=== PATIENT | male | born 1940 | race Caucasian/White ===

== ENCOUNTER 2019-10-14 15:35 | Outpatient (CLI) | payer MEDICARE, OTHER, SELFPAY ==
--- NOTE | 2019-10-14 15:52 | USCV_ITS ---
Madi Gonzalez Age: 79 Gender: M : 1940 Exam Date: 10/14/2019 15:46 Ordering Phys: Roopa Hu DO Technologist: Yan Rivera [place] [facility] [place] BILAT SWELLING HISTORY: Lower extremity swelling. PROCEDURES: The venous duplex Doppler examination of both lower extremities was performed in the standard fashion. The following venous structures were evaluated: common femoral vein, profunda vein, proximal portion of the greater saphenous vein, superficial femoral vein, and the popliteal vein. In addition, the posterior tibial and peroneal trunk were evaluated. Bilaterally, the common femoral, superficial femoral, profunda femoral, popliteal, posterior tibial, greater saphenous veins, and the peroneal trunk were identified and interrogated in the standard fashion. These veins were found to be easily compressible with spontaneous blood flow. No evidence of insufficiency or thrombus noted. FINDINGS: Normal 2-D Doppler and augmentation and compressibility throughout the lower extremity venous structures. Additional imaging through the proximal calf veins also reveals no thrombus. Limited evaluation of the greater saphenous vein is patent with no thrombus.. CONCLUSIONS No evidence of right lower extremity DVT. No evidence of left lower extremity DVT. Jun Londono MD (Electronically Signed) Final Date: 14 October 2019 17:08 S
== END 2019-10-14 15:36 | disposition home or self-care (01) ==
LOC: RAD 15:44
PROVIDERS: Visit Provider Family Medicine
DX: M79.604 Pain in right leg (principal); M79.89 Other specified soft tissue disorders; M79.605 Pain in left leg
CPT/HCPCS: 93970

== ENCOUNTER 2020-07-30 13:09 | Day surgery (SDC) | payer MEDICARE, OTHER, SELFPAY ==
[2020-07-30] VITALS (8 sets, daily range): BP systolic 90–125; BP diastolic 47–73; PULSE 68–87; RESP 15–23; TEMP 36.2–36.9; O2SAT 95–100; BMI 18.5
--- NOTE | 2020-07-30 13:11 | ECG_ITS ---
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 Measurements Intervals [place] Rate: 80 P: 93 DE: 214 QRS: 78 QRSD: 97 T: 67 QT: 361 QTc: 417 Interpretive Statements SINUS RHYTHM WITH FIRST DEGREE AV BLOCK MODERATE ST DEPRESSION [0.05+ mV ST DEPRESSION] No previous ECG available for comparison Electronically Signed On 07-30-2020 16:45:58 CDT by Mic Mcclure M.D. [id number]
--- NOTE | 2020-07-30 13:19 | ED_ITS ---
HPI - General Adult General: Chief complaint: Epistaxis Stated complaint: NOSEBLEED Time Seen by Provider: 07/30/20 13:11 History of Present Illness: HPI narrative: This patient is a 79-year-old male who presents with the emergency department with severe Apetex is from transfer from [facility]. Patient apparently had a ENT surgery of the sinus cavity Dr. Darcy RICHARDS. His ENT doctor is out of town. Patient had significant nosebleed and unable to stop the Rhino Rocket Afrin nasal spray or TXA. Patient does take Eliquis daily. Patient bleeding was pretty significantly for the past couple hours. Discussed at length with Dr. Dawson he is on his way to see the patient. ENT cart at the bedside. Type and screen ordered. Continue to monitor and to ENT arrives. Associated symptoms: Deny chest pain, dyspnea, headache(s), nausea, rash, palpitations or vomiting Review of Systems General: Reports: 10 or more systems reviewed and unremarkable except in HPI and below Const: Denies: fever(s), chills, body aches or fatigue Eyes: Denies: change in vision or blurry vision ENMT: Reports: epistaxis; Denies: throat pain, hoarseness or mouth pain Card: Denies: chest pain, palpitations, irregular heart rhythm, edema, swelling of feet/ankles or lightheadedness Resp: Denies: dyspnea, productive cough, non-productive cough, wheezing or pain on inspiration GI: Denies: abdominal pain, nausea or vomiting : Denies: flank pain, dysuria, urinary frequency, urinary urgency or urinary hesitancy Musc: Denies: neck pain, back pain, extremity pain, extremity swelling, joint pain, joint swelling, joint redness, joint warmth or limited range of motion Skin/Breast: Denies: rash, pruritus, erythema or skin tenderness Neuro: Denies: headache(s), numbness in extremities or weakness in extremities Psych: Denies: anxiety or depression Physical Exam Const: COMMON NORMALS: no acute distress, average body habitus, patient oriented x3, no limitations, healthy appearing, alert and well nourished HENMT: COMMON NORMALS: normocephalic, atraumatic, hearing grossly normal bilaterally, external ears normal, EAC's normal, TM's normal bilaterally, moist oral mucous membranes, oropharynx normal, dentition normal and gingiva normal HEAD & SCALP: normocephalic and atraumatic NOSE: Epistaxis present (Severe episode nosebleed. Nasal clamps in place. ) bilaterally and Other nasal findings present (Patient appears to be bleeding posteriorly.) EXTERNAL EAR: Yes external ears normal EXTERNAL AUDITORY CANAL: EAC's normal TYMPANIC MEMBRANE: TM's normal bilaterally Neck/C-Spine: COMMON NORMALS: full ROM, no lymphadenopathy, supple, no meningeal signs, no JVD, Thyroid normal and No carotid bruits THYROID: Thyroid normal Chest: COMMONS NORMALS: normal inspection of the chest, normal palpation of entire chest wall, normal inspection of the breasts and normal palpation of the breasts Breast/axilla inspection: Yes normal inspection of the breasts BREAST/AXILLA PALPATION: Yes normal palpation of the breasts Resp: COMMON NORMALS: normal respiratory effort, No retractions, No use of accessory muscles, clear to auscultation bilaterally and percussion normal AUSCULTATION: clear to auscultation bilaterally PERCUSSION: percussion normal Cardio: COMMON NORMALS: no JVD, regular rate, regular rhythm, S1 normal heart sound present, S2 normal heart sound present, No gallops present (Cardio), No clicks present (Cardio), No murmurs present (Cardio), No rub (Cardio) and Peripheral pulses 2+ throughout RATE: regular rate RHYTHM: regular rhythm HEART SOUNDS: S1 normal heart sound present and S2 normal heart sound present PERIPHERAL PULSES: Peripheral pulses 2+ throughout GI: COMMON NORMALS: Normal to inspection, nondistended, normoactive bowel sounds present, Soft to palpation, non-tender, No hepatosplenomegaly present, no masses and no bruits PALPATION: Yes Soft to palpation and Yes No hepatosplenomegaly present : COMMON NORMALS: Yes no CVA tenderness BLADDER/KIDNEY EXAM: Yes no CVA tenderness Back/Pelvis: COMMON NORMALS: no CVA tenderness, thoracic and lumbar spine normal to inspection, no thoracic nor lumbar tenderness, thoraco-lumbar ROM normal and straight leg raise negative bilaterally Extremity: COMMON NORMALS: normal to inspection, full ROM, capillary refill normal, no joint enlargement, no clubbing, cyanosis or edema, no calf tenderness and no pedal edema Neuro: COMMON NORMALS: patient oriented x3 SENSORIUM/ORIENTATION: Yes alert MENINGEAL SIGNS: Yes no meningeal signs Course Consultations: Consultation #1: Dr. Dawson ENT is now at the bedside and assumes care. ENT cart at the bedside for Dr. Dawson. Time: 13:20 Consultation #2: Dr. Dawson request the patient be given Ancef. States he will admit to the OR to do procedure. For posterior nosebleed. Kcentra has been ordered to reverse Eliquis. Vital Signs: Vital signs: Vital Signs Temperature 98.4 F 07/30/20 13:11 Pulse Rate 87 07/30/20 13:11 Respiratory Rate 20 H 07/30/20 13:11 Blood Pressure 104/60 07/30/20 13:11 Pulse Oximetry 96 07/30/20 13:11 MDM - General Adult MDM Narrative: Medical decision making narrative: This patient is a 79-year-old male who presents with the emergency department with severe Apetex is from transfer from [facility]. Patient apparently had a ENT surgery of the sinus cavity Dr. Darcy RICHARDS. His ENT doctor is out of town. Patient had significant nosebleed and unable to stop the Rhino Rocket Afrin nasal spray or TXA. Patient does take Eliquis daily. Patient bleeding was pretty significantly for the past couple hours. Discussed at length with Dr. Dawson he is on his way to see the patient. ENT cart at the bedside. Type and screen ordered. Dr. Dawson request the patient be given Ancef. States he will admit to the OR to do procedure. For posterior nosebleed. Kcentra has been ordered to reverse Eliquis. Lab Data: Labs: Lab Results 07/30/20 Range/Units 13:29 WBC 6.9 (4.0-10.0) 10^3/ uL RBC 3.21 L (4.1-5.3) 10^6/u L Hgb 10.1 L (11.7-16.6) g/dL Hct 30.9 L (42.0-52.0) % MCV 96.3 H (80-94) fL MCH 31.5 (28.0-34.0) pg MCHC 32.7 (30.0-36.0) g/dL RDW 13.6 (12.1-15.1) % Plt Count 223 (130-400) 10^3/c mm MPV 9.2 (7.4-10.4) fL Neut % (Auto) 66.9 % Lymph % (Auto) 20.4 % [place] % (Auto) 9.3 % Eos % (Auto) 1.9 % Baso % (Auto) 0.6 % Neut # (Auto) 4.60 (1.8-7.7) 10^3/u L Lymph # (Auto) 1.4 (0.8-4.8) 10^3/u L [place] # (Auto) 0.6 (0.2-0.9) 10^3/u L Eos # (Auto) 0.1 (0.0-0.8) 10^3/u L Baso # (Auto) 0.0 (0.0-0.1) 10^3/u L Nucleated RBC % (a uto) 0 % Nucleated RBCs # 0.0 /100WBC EKG Data^: EKG 1: Attestation: I personally reviewed and interpreted this EKG as follows: EKG interpretation date: 07/30/20 EKG interpretation time: 13:40 Prior EKG tracings: not available for review Interpretation: Sinus rhythm with an AV block heart rate 80. Discharge Plan Discharge Patient Disposition: Placed in Observation Clinical Impression: Epistaxis Coding Level of Care Code ED [facility] Justice for [place] Fwd Exam Comprehensive
[2020-07-30 13:39] LABS: Basophils % 0.6 %; Eosinophils # 0.1 10^3/uL (0.0-0.8); Eosinophils % 1.9 %; Hematocrit 30.9 % (42.0-52.0); Hemoglobin 10.1 g/dL (11.7-16.6); Lymphocytes # 1.4 10^3/uL (0.8-4.8); Lymphocytes % 20.4 %; Mean Corpuscular HGB Conc 32.7 g/dL (30.0-36.0); Mean Corpuscular Hemoglobin 31.5 pg (28.0-34.0); Mean Corpuscular Volume 96.3 fL (80-94); Mean Platelet Volume 9.2 fL (7.4-10.4); Monocytes # 0.6 10^3/uL (0.2-0.9); Monocytes % 9.3 %; Neutrophils % 66.9 %; Nucleated Red Blood Cells % 0 %; Platelet Count 223 10^3/cmm (130-400); Red Blood Count 3.21 10^6/uL (4.1-5.3); Red Cell Distribution Width 13.6 % (12.1-15.1); White Blood Count 6.9 10^3/uL (4.0-10.0)
[2020-07-30 13:58] LABS: Partial Thromboplastin Time 39.6 SECONDS (23.9-36.7)
[2020-07-30 14:01] LABS: Alanine Aminotransferase 9 U/L (0-41); Albumin Level 3.7 g/dL (3.5-5.2); Alkaline Phosphatase 71 IU/L (40-130); Anion Gap 14.6 (5-19); Aspartate Amino Transferase 17 U/L (0-40); Blood Urea Nitrogen 32 mg/dL (8-23); Carbon Dioxide 23 mmol/L (22-29); Chloride 106 mmol/L (98-107); Globulin 1.6 g/dL (1.3-4.6); Glucose 146 mg/dL (65-115); Osmolality Calculated 298 mOsm/kg (285-295); Potassium 4.6 mmol/L (3.5-5.1); Sodium 139 mmol/L (136-145); Total Bilirubin 0.3 mg/dL (0.15-1.2); Total Protein 5.3 g/dL (6.6-8.7)
[2020-07-30] MEDS: oxymetazoline 0.05% Nasal Spray 15 mL 2 SPRAY NOSTRIL-B (14:03)
[2020-07-30] MEDS: neomycin-poly-bacitracin oint 0.9 gm Pkt 1 APPLIC TOPICAL (15:00)
[2020-07-30] MEDS: oxymetazoline 0.05% Nasal Spray 15 mL 3 SPRAY NOSTRIL-B (15:00)
--- NOTE | 2020-07-30 15:17 | PM.CONSULT ---
Providers/Reason For Consult Consulting Physician/Specialty*: Efrain Dawson MD Reason for Consult*: Persistent posterior epistaxis. Attending Physician: Efrain Dawson MD History of Present Illness History of Present Illness Madi Gonzalez is a [address] Samir Dawson who did to the emergency room referred by a physician in [place] after he failed to be able to control epistaxis which began about 930 this morning. 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 Watts. The patient could not get the bleeding to stop at home and went to the physician's office. There they were not able to control the bleeding with several types of packing and medications that were applied. Therefore the patient had a clip applied to the nose and since Dr. Watts is out of town I excepted the patient and advised him to come to the emergency room where I would take over and do what is necessary to control his bleeding. Review of Systems General: Reports: ROS unobtainable due to medical condition Meds/Allergies Home Medications and Allergies Home Medications Medication Instructions Recorded Confirmed Last Taken Type acyclovir 800 mg PO DAILY 07/30/20 07/30/20 Unknown History albuterol sulfate 2.5 mg INHALATION Q4H PRN 07/30/20 07/30/20 Unknown History alfuzosin 10 mg PO DAILY 07/30/20 07/30/20 Unknown History apixaban [Eliquis] 5 mg PO BID 07/30/20 07/30/20 Unknown History azelastine 137 mcg INTRANASAL BID 07/30/20 07/30/20 Unknown History ezetimibe 10 mg PO DAILY 07/30/20 07/30/20 Unknown History furosemide 20 mg PO DAILY 07/30/20 07/30/20 Unknown History gemfibrozil 600 mg PO BID 07/30/20 07/30/20 Unknown History levothyroxine 75 mcg PO DAILY 07/30/20 07/30/20 Unknown History pramipexole 1 mg PO DAILY 07/30/20 07/30/20 Unknown History trazodone 100 mg PO BEDTIME 07/30/20 07/30/20 Unknown History Vitals/I&O/Wt Last Vital Signs Temp 98.4 F 07/30/20 13:11 Pulse 80 07/30/20 13:50 Resp 18 07/30/20 13:50 BP 90/51 07/30/20 13:50 Pulse Ox 95 07/30/20 13:50 07/30/20 07/30/20 07/30/20 06:59 14:59 22:59 Intake Total 50 / 50 Balance 50 / 50 Weight last 48 hrs Weight 148 lb Physical Exam Narrative: EXAM NARRATIVE: 79-year-old male patient in distress but alert cooperative and oriented x3. He is bleeding from the posterior nose and oropharynx. He is sitting with his head elevated on a gurney in the emergency room. He is suctioning blood from his mouth constantly. There is a visible bucket of blood that he is spit up in addition to that which contains about 150 mL. The clip is in place on his nose. It is evident that equipment necessary to do a reasonable attempt at controlling the bleeding in the emergency room was not at hand. Therefore the patient is going to go to the operating room to have this procedure accomplished. Defer to the emergency room note for remainder of physical examination. A&P Assessment and plan (1) Posterior epistaxis: Assessment: Posterior epistaxis from both sides of the nose draining posteriorly as the anterior nose is clamped. No packing is in place. Since it is uncontrolled in spite of multiple attempts in [place] I feel its best to proceed to the operating room. This patient did have a septoplasty and turbinate reduction done about [address] Bills. Plan: The patient will be taken emergently to the operating room to undergo exploration and endoscopic control of persistent epistaxis. The procedure was explained to the patient's and to the patient himself. They understand that risk will be very similar to what they were when he had his nasal surgery done about a month ago. He will likely have his nose packed afterwards. Status: Acute Coding Level of Care Code New Pt Acute Technical Services Specialist for Chg Fwd Patient Type New History Expanded Problem Focused Exam Expanded Problem Focused Medical Decision Making High Complexity Diagnoses Posterior epistaxis R04.0
--- NOTE | 2020-07-30 15:18 | SUR.PHASEI ---
1511 PATIENT TO PACU FROM OR. NASAL PACKING IN DOUGLAS NARES. PATIENT RR EVEN AND UNLABORED.
--- NOTE | 2020-07-30 15:19 | P.PCN_ITS ---
PACU note PACU note: VSS, Good respiratory effort, report to DENTURE WAXER Post-Anesthesia Exam: awake
--- NOTE | 2020-07-30 15:19 | PM.PACU ---
PACU note PACU note: VSS, Good respiratory effort, report to VP TRAINING Post-Anesthesia Exam: awake
--- NOTE | 2020-07-30 15:20 | ANE.PACU2 ---
Inpatient post-anesthesia follow up: Airway intact: Yes Vital signs: Temperature 98.4 F Pulse Rate [Monito r] 87 Pulse Rate 80 Respiratory Rate 18 Blood Pressure [Ri ght Arm] 104/60 Blood Pressure 90/51 Pulse Oximetry 95 Oxygen Delivery Me thod Room Air Oxygen Flow Rate Fraction of Inspir ed Oxygen Hydration adequate: Yes Nausea and vomiting: No Pain level: 2 Mental status: Baseline
--- NOTE | 2020-07-30 15:27 | PM.OP ---
Operative Report Date of procedure: July 30, 2020 Pre-op Diagnosis: Persistent bilateral posterior epistaxis Post-op diagnosis: same Post-op Findings: The patient was noted to have multiple areas of bleeding after application of Afrin and injection in the left side with 3 mL of 2% Xylocaine with 1-100,000 epinephrine. This was also injected into the greater palate teen canal. After removal of all clots sites were noted bleeding in the middle meatus and in the region of the sphenopalatine artery. On the right side he was bleeding from posteriorly in the nasopharynx and on the inferior turbinate. Procedure Done: Endoscopic control of bilateral posterior epistaxis. Pathology: none sent Surgeon: Efrain Dawson Anesthesia: General and Local Estimated blood loss (mL): 25 Estimated blood loss: A large clot was removed at the beginning of the procedure that would measure approximately 200 mL of clotted blood which probably has been present in that location since this morning. That would not be included in the operative total. Complications: No complications were encountered. Findings: Findings were large clots in the posterior nasal area choana nasopharynx hanging down below the palate into the mouth. This was removed and measured approximately 200 mL of blood loss which would have occurred during the initial bleed and stayed present throughout. With this removed ball valving of this clot would end. The bleeding sites were noted bilaterally with the largest one on the sphenopalatine artery region on the left side. The procedure risks and complications were explained to the patient and his . Informed consent was granted by the as the patient was in acute distress. Condition: stable Disposition: PACU Brief History: 79-year-old male patient with persistent posterior epistaxis from both sides unable to stop with multiple conservative attempts in the emergency room at [place]. Patient therefore sent for urgent care at [facility]. Patient did have a septoplasty and turbinate reduction performed about [address] Bills's office. Dr. Watts was out of town and not able to attend this patient. Procedure: Description of procedure. The patient was placed on the operating table in supine position. Adequate general endotracheal tube anesthesia was obtained. The patient received Ancef 2 g IV for prophylaxis. Timeout was accomplished identifying the patient date of allergies and medications given. All were in agreement and the procedure continued. The patient's clip nasal clip was removed. The mouth was suctioned and the large clot was removed that was hanging down to the posterior oropharynx and encompassed the entire nasopharynx and extended into the posterior aspect of the nose. This was ball valving and therefore not giving a chance for any packing or medication to get to the bleeding sites. This was removed and measured approximately 200 mL of volume. At this point the patient's nose was packed with 6 cottonoids soaked in 12-hour Afrin nasal decongestant. Nasal hairs were trimmed with scissors. The packs removed from the left side and the superior aspect of the lateral nose in the region of the middle turbinate attachment as well as the middle meatus inferior turbinate and the sphenopalatine region. The sphenopalatine artery was also affected by the sphenopalatine canal infiltration. A total of 3 mL of 2% Xylocaine with 1-100,000 epinephrine was utilized. The Afrin packs were reapplied and the patient was prepped and draped in usual fashion. The cottonoids removed from both sides of the nose at this point. Infracturing of the middle turbinate was accomplished. This gave better access to the areas. The patient had a raw area that was bleeding in the middle meatus that probably occurred from the attempted packing in the previous ER. This was cauterized with suction Bovie under endoscopic visualization with the 0 degree and 30 degree endoscopes. The visualization was then extended more posteriorly where there was bleeding from the sphenopalatine region and this was cauterized as well. This seemed to take care of any bleeding from the left side. There was no bleeding evident from the ethmoid region. The right side was inspected and there was bleeding from inferior turbinate in the midportion which was cauterized. Further back there was a posterior raw bleeding area on the nasopharyngeal posterior wall. This was controlled with cauterization with suction cautery. There was also bleeding at the posterior aspect of the inferior turbinate and this was cauterized as well. With this accomplished the nose was irrigated with water and then with no sign of bleeding hydrogen peroxide was irrigated to remove all dried blood and cleaned the nose completely. All that was suctioned clean. An NG tube was placed through the mouth to the stomach where a minimal amount of blood was evident and suctioned. The patient then had his nose reinspected and no bleeding was evident. There was no sign of bleeding posteriorly. The patient's nose was packed with 2 long nasal tampons made a Merocel sponge that was freeze-dried. These were inserted after coating with Neosporin ointment on the leading edge to be inserted first. The entire sponge was placed until it touched the posterior nasopharyngeal wall. This was then supersaturated with 12-hour Afrin. At this point again no sign of posterior bleeding was evident. The throat was suctioned. The face was cleansed. No drip pad was applied as I did not want the Afrin to absorb into the drip pad. The drapes were removed face was cleansed and the patient was returned to the anesthesiologist for wake-up and extubation. It is noted that there was enough concern in the emergency room that after talking with Dr. Esteban he asked whether consideration for Andexxa would be appropriate to control the bleeding. This to reverse the effects of the Eliquis that he is taking. At that point it was uncertain just how bad this bleeding was going to be seeing as he had dropped his hematocrit to 30 at that point and was continuing to bleed. Not knowing exactly what type of prior nose surgery was done and with the concern about his persistent bleeding the medication was ordered thinking that it would be necessary to stop the bleeding. By the time the medication was available and mixed from pharmacy the bleeding was under enough control that the side effects and the risks were felt to outweigh the benefit to the patient at this point. Therefore it was elected by anesthesia and myself not to give this medication to the patient. The patient tolerated the procedure well and was taken to recovery in stable condition. Had no bleeding evident with talking and swallowing taking ice chips and sitting forward on the gurney.
--- NOTE | 2020-07-30 15:42 | SUR.PHASEI ---
1539 PATIENT TO OPS. NO DISTRESS. BLEEDING TO NOSE CONTROLLED WITH PACKING IN PLACE.
[2020-07-30] MEDS: TRAMadol 50 mg Tablet PO (16:28)
--- NOTE | 2020-07-30 16:33 | SUR.PHASEII ---
1620 PRESCRIPTION FOR KEFLEX CALLED TO [facility] IN [place] AND LEFT ON MACHINE DUE TO ELECTRONIC TRANSMISSION ERROR
--- NOTE | 2020-07-30 17:09 | SUR.PHASEII ---
IV TO RIGHT AND LEFT F/A D/RAMANDEEP AT 1650 AND IV SODIUM CHLORIDE 500CC INFUSED
--- NOTE | 2020-07-30 17:25 | SUR.PHASEII ---
1720 PRESCRIPTION FOR KEFLEX 750MG CHANGED DUE TO PHARMACY DOESN'T HAVE THIS RX [address] TREVINO AND CHANGED TO KEFLEX 500MG PO TID FOR 10 DAYS
== END 2020-07-30 17:00 | disposition home or self-care (01) ==
LOC: ER 13:32 → OR 13:34
PROVIDERS: Emergency Provider Emergency Medicine; Visit Provider Otolaryngology
PROC: 095K8ZZ Destruction of Nasal Mucosa and Soft Tissue, Via Natural or Artificial Opening Endoscopic (ICD-10-PCS; CPT 31238; principal; 2020-07-30 14:00)
DX: R04.0 Epistaxis (principal)
CPT/HCPCS: 31238; 80053; 85025; 85610; 85730; 86850; 86900; 93005; J0330; J0690; J2370; J2704; J3010; J3490; P9041

== ENCOUNTER → 2023-12-27 13:30 | Outpatient (BNVA) | payer MEDICARE, OTHER, SELFPAY | PROVIDERS: Visit Provider Podiatrist Foot & Ankle Surgery | DX: M79.671 Pain in right foot; M79.672 Pain in left foot; G62.9 Polyneuropathy, unspecified | CPT/HCPCS: 99203 ==

== ENCOUNTER 2024-02-16 15:14 | Inpatient (IN) | payer MEDICARE, OTHER, SELFPAY ==
[2024-02-16] VITALS (14 sets, daily range): BP systolic 104–146; BP diastolic 55–99; PULSE 60–80; RESP 14–23; TEMP 36.4–38.5; O2SAT 90–97; BMI 18.1
--- NOTE | 2024-02-16 15:18 | XRR_ITS ---
PROCEDURE INFORMATION: Exam: XR Right Hip Exam date and time: 02/16/2024 3:26 PM Age: 83 years old Clinical indication: Injury or trauma; Blunt trauma (contusions or hematomas); Hip; Injury details: PT reports fall d/t missing a step. Denies hitting head. Per EMS PT has obvious deformity in the right femur area. TECHNIQUE: Imaging protocol: Radiologic exam of the right hip. Views: 1 view hip with pelvis when performed. COMPARISON: No relevant prior studies available. FINDINGS: Bones/joints: There are degenerative changes involving the lower lumbar spine. Bones are diffusely demineralized. The pelvic ring appears to be intact. No definite fractures are noted. The femoral heads are normally located. There is joint space narrowing with osteophyte formation involving both hips greater on the right than on the left. There is cortical irregularity with subtle lucency involving the greater trochanter on the right. Findings could represent a fracture, overlying soft tissue shadows or a combination of both. Soft tissues: No acute soft tissue abnormalities are noted. XR/XR hip RT 2-3V wo/w pel* [id number] IMPRESSION: 1. Bony demineralization. 2. Findings suspicious for a fracture involving the greater trochanter on the right. Recommend further evaluation with CT. If MRI is readily available, MRI may be of benefit as if there is a greater trochanter fracture, MRI may be necessary to evaluate for intertrochanteric extent.
--- NOTE | 2024-02-16 15:18 | XRR_ITS ---
PROCEDURE INFORMATION: Exam: XR Chest Exam date and time: 02/16/2024 3:25 PM Age: 83 years old Clinical indication: Injury or trauma; Bleeding/hemorrhage; Injury details: PT reports fall d/t missing a step. Denies hitting head. Per EMS PT has obvious deformity in the right femur area. TECHNIQUE: Imaging protocol: Radiologic exam of the chest. Views: 1 view. COMPARISON: No relevant prior studies available. 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 Lungs: The lungs are hyperinflated. Pleural spaces: Unremarkable. No pleural effusion. No pneumothorax. Heart/Mediastinum: The heart is enlarged. There is calcified plaque involving the aorta. Bones/joints: Unremarkable. XR/XR chest 1V portable [id number] IMPRESSION: 1. Lung hyperinflation. 2. Cardiomegaly.
--- NOTE | 2024-02-16 15:25 | ED_ITS ---
HPI - General Adult 2 General: Chief complaint: Extremity Injury, Lower Stated complaint: right leg pain, post fall Time Seen by Provider: 02/16/24 15:15 Source: patient and EMS Mode of arrival: EMS Limitations: no limitations History of Present Illness: 83-year-old male is here after a fall he had a ground-level fall at home he had landed on his right side he does have right hip pain denies any other injuries denies hitting his head rates his pain a 2 out of 10 currently received fentanyl and route. Associated symptoms: Deny chest pain, dyspnea, headache(s), nausea, rash or vomiting Related Data Home Medications Medication Instructions Recorded Confirmed apixaban 5 mg tablet (Eliquis) 5 mg PO BID 07/30/20 02/16/24 azelastine 137 mcg (0.1 %) nasal 137 mcg intranasal BID 07/30/20 02/16/24 spray levothyroxine 75 mcg tablet 75 mcg PO DAILY 07/30/20 02/16/24 elderberry fruit 350 mg capsule 350 mg PO DAILY 02/16/24 02/16/24 furosemide 40 mg tablet 40 mg PO DAILY 02/16/24 02/16/24 hydrocodone 5 mg-acetaminophen 325 1 - 2 tab PO TID PRN Pain 02/16/24 02/16/24 mg tablet metoprolol tartrate 50 mg tablet 50 mg PO BID 02/16/24 02/16/24 omeprazole 20 mg capsule,delayed 20 mg PO QAM 02/16/24 02/16/24 release potassium chloride 20 mEq 20 meq PO DAILY 02/16/24 02/16/24 tablet,extended release(part/cryst) ropinirole 4 mg tablet 4 mg PO TID 02/16/24 02/16/24 tramadol 50 mg tablet 100 mg PO Q6H PRN Pain 02/16/24 02/16/24 Previous Rx's Medication Instructions Recorded carbamazepine 200 mg 200 mg PO BID 1 month #60 tabs 01/25/24 tablet,extended release,12 hr (Tegretol XR) Allergies Allergy/AdvReac Type Severity Reaction Status Date / Time Penicillins Allergy ALGY-Rash Verified 12/27/23 13:41 Toafoug-SPT-BhJ Reductase Allergy ADR-Muscle Verified 12/27/23 13:41 Inhibitor Pain [Apsphis-Fpm-Sbt Reductase Inhibitor] Sulfa (Sulfonamide Allergy Unknown Verified 12/27/23 13:41 Antibiotics) Review of Systems 2 Const: Denies: fever(s), chills, body aches or change in appetite ENMT: Denies: throat pain or dental pain Card: Denies: chest pain Resp: Denies: dyspnea GI: Denies: abdominal pain, nausea, vomiting or diarrhea Musc: Reports: extremity pain; Denies: neck pain or back pain Skin/Breast: Denies: rash Neuro: Denies: headache(s) All/Imm: Denies: urticaria PFSH ED 2 PFSH: Social History Smoking and tobacco/nicotine status: never used tobacco/nicotine Quit status (tobacco/nicotine): has quit using Year quit tobacco: 1999 Former quit date comment: 1 PPD X 40 YEARS Physical Exam 2 Const: COMMON NORMALS: no acute distress, patient oriented x3 and healthy appearing HENMT: COMMON NORMALS: normocephalic and atraumatic HEAD & SCALP: n ormocephalic and atraumatic Eye: COMMON NORMALS: conjunctivae normal CONJUNCTIVA: Yes conjunctivae normal Neck/C-Spine: COMMON NORMALS: full ROM and supple Chest: COMMONS NORMALS: normal inspection of the chest Resp: COMMON NORMALS: normal respiratory effort, No retractions, No use of accessory muscles and clear to auscultation bilaterally AUSCULTATION: clear to auscultation bilaterally Cardio: COMMON NORMALS: regular rate, regular rhythm and No murmurs present (Cardio) RATE: regular rate RHYTHM: regular rhythm GI: COMMON NORMALS: Normal to inspection, nondistended, normoactive bowel sounds present, Soft to palpation, non-tender and no masses PALPATION: Yes Soft to palpation Extremity: NARRATIVE EXTREMITY EXAM: Tenderness noted to right hip distal pulses intact Neuro: COMMON NORMALS: patient oriented x3, moves all extremities and no focal motor deficits Psych: COMMON NORMALS: mental status grossly normal, Normal thought process present and cooperative THOUGHT PROCESS: Normal thought process present Skin: COMMON NORMALS: no rashes or lesions noted and no wounds GENERAL SKIN EXAM: no rashes or lesions noted Course 2 Vital Signs: Vital signs: Vital Signs Temperature 97.6 F 02/16/24 15:23 Pulse Rate 65 02/16/24 17:00 Respiratory Rate 18 02/16/24 17:00 Blood Pressure 105/66 02/16/24 17:00 Pulse Oximetry 97 02/16/24 17:00 Oxygen Delivery Me thod Room Air 02/16/24 17:00 MDM - General Adult Medical Decision Making Patient presents here with a right hip fracture no other injuries noted on the fall I spoke to hospitalist along with orthopedics and will admit. Medical Records I reviewed the patient's medical records. Lab Data I reviewed the patient's lab results. 02/16/24 16:13 02/16/24 16:[address] 02/16/24 15:39 IMPRESSION: 1. Acute comminuted displaced greater trochanteric fracture on the right. 2. Nondisplaced intertrochanteric insufficiency fracture. Laboratory Results WBC 6.86 10^3/uL (3.29-11.43) 02/16/24 16:13 RBC 3.62 10^6/uL (3.85-5.65) L 02/16/24 16:13 Hgb 11.30 g/dL (11.27-16.99) 02/16/24 16:13 Hct 34.2 % (37-53) L 02/16/24 16:13 MCV 94.5 fl (82-101) 02/16/24 16:13 MCH 31.2 pg (27-33) 02/16/24 16:13 MCHC 33.0 g/dL (30-55) 02/16/24 16:13 RDW 13.7 % (12.1-15.1) 02/16/24 16:13 Plt Count 169 10^3/cmm (157-399) 02/16/24 16:13 MPV 9.2 fL (7.4-10.4) 02/16/24 16:13 Neut % (Auto) 55.2 % 02/16/24 16:13 Lymph % (Auto) 16.0 % 02/16/24 16:13 Lea % (Auto) 22.4 % 02/16/24 16:13 Eos % (Auto) 4.1 % 02/16/24 16:13 Baso % (Auto) 0.3 % 02/16/24 16:13 Neut # (Auto) 3.78 10^3/uL (1.8-7.7) 02/16/24 16:13 Lymph # (Auto) 1.1 10^3/uL (0.8-4.8) 02/16/24 16:13 Lea # (Auto) 1.5 10^3/uL (0.2-0.9) H 02/16/24 16:13 Eos # (Auto) 0.3 10^3/uL (0.0-0.8) 02/16/24 16:13 Baso # (Auto) 0.0 10^3/uL (0.0-0.1) 02/16/24 16:13 Nucleated RBC % (auto) 0 % 02/16/24 16:13 Nucleated RBCs # 0.0 /100WBC 02/16/24 16:13 PT 14.20 SECONDS (12.1-14.9) 02/16/24 16:13 INR 1.07 (0.8-1.2) 02/16/24 16:13 Sodium 135 mmol/L (136-145) L 02/16/24 16:13 Potassium 4.5 mmol/L (3.5-5.1) 02/16/24 16:13 Chloride 99 mmol/L (98-107) 02/16/24 16:13 Carbon Dioxide 28 mmol/L (22-29) 02/16/24 16:13 Anion Gap 12.5 (5-19) 02/16/24 16:13 BUN 18 mg/dL (8-23) 02/16/24 16:13 Creatinine 0.9 mg/dL (0.7-1.2) 02/16/24 16:13 GFR Calculation Not Reportable 02/16/24 16:13 Glucose 106 mg/dL (65-115) 02/16/24 16:13 Calculated Osmolality 282 mOsm/kg (285-295) L 02/16/24 16:13 Calcium 9.1 mg/dL (8.5-10.5) 02/16/24 16:13 Total Bilirubin 0.4 mg/dL (0.15-1.2) 02/16/24 16:13 AST 18 U/L (0-40) 02/16/24 16:13 ALT 11 U/L (0-41) 02/16/24 16:13 Alkaline Phosphatase 120 U/L (40-130) 02/16/24 16:13 Total Protein 6.4 g/dL (6.6-8.7) L 02/16/24 16:13 Albumin 4.0 g/dL (3.5-5.2) 02/16/24 16:13 Globulin 2.4 g/dL (1.3-4.6) 02/16/24 16:13 All radiology interpretation(s) finalized by discharge Discharge Plan Discharge Patient Disposition: Admitted As Inpatient Clinical Impression: Closed fracture of right hip Condition: Stable Prescriptions: No Action carbamazepine [Tegretol XR] 200 mg tablet extended release 12 hr 200 mg PO BID 30 Days Qty: 60 0RF levothyroxine 75 mcg tablet 75 mcg PO DAILY azelastine 137 mcg (0.1 %) aerosol,spray 137 mcg INTRANASAL BID Eliquis 5 mg tablet 5 mg PO BID Hold Instructions: Resume on 08/05/20. Eliquis will be on hold until after nasal packing is removed in the office on 08-04-20 furosemide 40 mg tablet 40 mg PO DAILY hydrocodone-acetaminophen 5-325 mg tablet 1 - 2 tab PO TID PRN (Reason: Pain) tramadol 50 mg tablet 100 mg PO Q6H PRN (Reason: Pain) potassium chloride 20 mEq tablet,ER particles/crystals 20 meq PO DAILY metoprolol tartrate 50 mg tablet 50 mg PO BID omeprazole 20 mg capsule,delayed release(DR/EC) 20 mg PO QAM ropinirole 4 mg tablet 4 mg PO TID elderberry fruit 350 mg Capsule 350 mg PO DAILY Coding Level of Care Code ED Land Management Supervisor for Luz Elena Hernandez
--- NOTE | 2024-02-16 15:39 | CTR_ITS ---
PROCEDURE INFORMATION: Exam: CT Right Lower Extremity, Hip Exam date and time: 02/16/2024 4:57 PM Age: 83 years old Clinical indication: Injury or trauma; Fall; Blunt trauma; Hip; Right TECHNIQUE: Imaging protocol: CT of the right lower extremity without contrast was performed. Exam focused on the hip. Radiation optimization: All CT scans at this facility use at least one of these dose optimization techniques: automated exposure control; mA and/or kV adjustment per patient size (includes targeted exams where dose is matched to clinical indication); or iterative reconstruction. COMPARISON: CR XR hip RT 2-3V wo/w pel* [id number] 02/16/2024 3:26 PM RADIATION DOSE METRICS: Total DLP (mGy-cm): 309.9 FINDINGS: Bones/joints: Acute comminuted mildly displaced fracture of the greater trochanter. Subtle sclerosis through the intertrochanteric region suspicious for a nondisplaced insufficiency fracture, likely better appreciable by MRI. Chronic superior and inferior pubic ramus fractures on the right. 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 Additional partially visualized chronic superior and inferior pubic ramus fractures on the left. Soft tissues: Soft tissue edema without evidence of fluid collection or hematoma. CT/CT hip RT wo con* [id number] IMPRESSION: 1. Acute comminuted displaced greater trochanteric fracture on the right. 2. Nondisplaced intertrochanteric insufficiency fracture.
--- NOTE | 2024-02-16 15:53 | CTR_ITS ---
PROCEDURE INFORMATION: Exam: CT Head Without Contrast Exam date and time: 02/16/2024 4:54 PM Age: 83 years old Clinical indication: Injury or trauma; Fall; Blunt trauma (contusions or hematomas); Without loss of consciousness TECHNIQUE: Imaging protocol: Computed tomography of the head without contrast. Radiation optimization: All CT scans at this facility use at least one of these dose optimization techniques: automated exposure control; mA and/or kV adjustment per patient size (includes targeted exams where dose is matched to clinical indication); or iterative reconstruction. COMPARISON: No relevant prior studies available. RADIATION DOSE METRICS: Total DLP (mGy-cm): 1133.18 FINDINGS: Brain: Age-related brain parenchymal atrophy. Areas of hypoattenuation in the periventricular and subcortical deep white matter likely on the basis of chronic microvascular ischemic changes. No acute intra cranial hemorrhage. No mass effect or midline shift. No definitive CT evidence of acute territorial infarction. Cerebral ventricles: No ventriculomegaly. Paranasal sinuses: Visualized sinuses are unremarkable. No fluid levels. Mastoid air cells: Visualized mastoid air cells are well aerated. Bones: Limited evaluation of the osseous structures of the maxillofacial bones including the orbital bones due to motion artifact. Limited evaluation of the soft tissues of the intraorbital contents also due to motion artifact. Otherwise no displaced calvarial fracture. Soft tissues: Unremarkable. CT/CT head wo con* [id number] IMPRESSION: No definite acute intracranial abnormality. Senescent changes. Limited evaluation of the maxillofacial osseous structures including the intraorbital contents due to motion artifact.
[2024-02-16] MEDS: morphine 4 mg/mL SDV 1 mL IVP (16:26)
[2024-02-16 16:28] LABS: Basophils % 0.3 %; Eosinophils # 0.3 10^3/uL (0.0-0.8); Eosinophils % 4.1 %; Hematocrit 34.2 % (37-53); Lymphocytes # 1.1 10^3/uL (0.8-4.8); Mean Corpuscular Hemoglobin 31.2 pg (27-33); Mean Corpuscular Volume 94.5 fl (82-101); Mean Platelet Volume 9.2 fL (7.4-10.4); Monocytes # 1.5 10^3/uL (0.2-0.9); Monocytes % 22.4 %; Neutrophils # 3.78 10^3/uL (1.8-7.7); Neutrophils % 55.2 %; Nucleated Red Blood Cells % 0 %; Platelet Count 169 10^3/cmm (157-399); Red Blood Count 3.62 10^6/uL (3.85-5.65); Red Cell Distribution Width 13.7 % (12.1-15.1); White Blood Count 6.86 10^3/uL (3.29-11.43)
[2024-02-16] MEDS: LORazepam 2 mg/mL INJ 1 mL 0.5 MG IVP (16:38)
[2024-02-16 16:45] LABS: INR 1.07 (0.8-1.2)
[2024-02-16 16:55] LABS: Alanine Aminotransferase 11 U/L (0-41); Alkaline Phosphatase 120 U/L (40-130); Anion Gap 12.5 (5-19); Aspartate Amino Transferase 18 U/L (0-40); Blood Urea Nitrogen 18 mg/dL (8-23); Calcium 9.1 mg/dL (8.5-10.5); Carbon Dioxide 28 mmol/L (22-29); Chloride 99 mmol/L (98-107); Creatinine Clr Calc Pharmacy 60.0873; Globulin 2.4 g/dL (1.3-4.6); Glucose 106 mg/dL (65-115); Osmolality Calculated 282 mOsm/kg (285-295); Potassium 4.5 mmol/L (3.5-5.1); Sodium 135 mmol/L (136-145); Total Bilirubin 0.4 mg/dL (0.15-1.2); Total Protein 6.4 g/dL (6.6-8.7)
--- NOTE | 2024-02-16 17:30 | XRR_ITS ---
PROCEDURE INFORMATION: Exam: XR Pelvis Exam date and time: 02/16/2024 6:13 PM Age: 83 years old Clinical indication: Hip pain and pelvic pain; Right hip; Patient HX: RT lower ext pain post fall TECHNIQUE: Imaging protocol: Radiologic exam of the pelvis. Views: 1 or 2 view. COMPARISON: CR XR hip RT 2-3V wo/w pel* [id number] 02/16/2024 3:26 PM FINDINGS: Bones/joints: Oeohu-rjdagvh-umzb-left osteoarthritis of the hip joints. No pubic symphyseal or sacroiliac joint widening. Degenerative changes of the lower lumbar spine. Soft tissues: Unremarkable. XR/XR pelvis 1-2V* [id number] IMPRESSION: As above.
--- NOTE | 2024-02-16 17:30 | XRR_ITS ---
PROCEDURE INFORMATION: Exam: XR Right Femur Exam date and time: 02/16/2024 6:13 PM Age: 83 years old Clinical indication: Injury or trauma; Other: Fall, RT lower ext pain; Patient HX: RT lower ext pain post fall TECHNIQUE: Imaging protocol: Radiologic exam of the right femur. Views: 2 views. COMPARISON: CT hip RT wo con* [id number] 02/16/2024 4:57 PM FINDINGS: Bones/joints: Acute comminuted mildly displaced greater trochanteric fracture of the right, better appreciable by CT. 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 Chronic pelvic fractures, also better appreciable by CT. Mid-distal femur is intact. No significant knee joint effusion. Soft tissues: Mild soft tissue edema of the right hip. XR/XR femur RT min 2V* [id number] IMPRESSION: 1. Acute comminuted mildly displaced greater trochanteric fracture of the right, better appreciable by CT.
[2024-02-16] MEDS: morphine 4 mg/mL SDV 1 mL 2 MG IVP ×2 (17:49→20:41)
--- NOTE | 2024-02-16 17:54 | P.HP_ITS ---
Providers/Chief Complaint 2 Chief Complaint: right leg pain, post fall History of Present Illness Madi Gonzalez is a 83 year old male with past medical history of A-fib on Eliquis with last dose on 02/15 morning, hypothyroidism, restless leg syndrome, peripheral neuropathy presents to the ER today after experiencing a mechanical fall while he was working at his home after which he started having pain in his right hip. In the ER he was found to have a right intertrochanteric fracture hence hospitalist service was requested. Review of Systems 2 General: Reports: 10 or more systems reviewed and unremarkable except in HPI and below Const: Denies: fever(s), chills, body aches, change in appetite, change in weight, malaise, night sweats, diaphoresis, change in sleep pattern, daytime sleepiness or snoring Eyes: Denies: change in vision, blurry vision, photophobia, eye discomfort or eye discharge ENMT: Denies: throat pain, enlarged tonsils, hoarseness, mouth pain, oral sores, dry mouth, tinnitus, nasal congestion or post nasal drip Card: Denies: chest pain, palpitations, irregular heart rhythm, edema, swelling of feet/ankles, lightheadedness, syncope, pre-syncope, dyspnea on exertion, orthopnea, leg pain with exertion or acrocyanosis Resp: Denies: dyspnea, productive cough, non-productive cough, wheezing, stridor, pain on inspiration, change in phlegm color, hemoptysis or chest congestion GI: Denies: abdominal pain, nausea, vomiting, hematemesis, coffee ground emesis, dysphagia, heartburn, diarrhea, constipation, bloating, GI cramping, change in bowel habits, pain on defecation, hematochezia or melena : Denies: flank pain, difficulty urinating, dysuria, urinary frequency, urinary urgency, urinary hesitancy, urinary dribbling, difficulty starting urination, change in urine stream, nocturia or hematuria Musc: Denies: neck pain, back pain, extremity pain, joint pain, joint swelling, joint redness, joint stiffness or limited range of motion Neuro: Denies: headache(s), numbness in extremities, weakness in extremities, sensory changes, lack of coordination, difficulty walking, frequent falls, dizziness, vertigo, confusion, Slurred speech present, difficulty communicating thoughts or seizure-like activity Psych: Denies: anxiety, depression, mood swings, panic attacks, hopelessness or irritability Endo: Denies: polyuria, polydipsia, tired all the time, cold intolerance, excessive sweating, flushing or heat intolerance Alejandro/Lymph: Denies: easy bruising or easy bleeding All/Imm: Denies: tongue swelling, facial swelling or acute wheezing Medications/Allergies Home Medications Medication Instructions Recorded Confirmed Last Taken Type apixaban 5 mg tablet (Eliquis) 5 mg PO BID 07/30/20 02/16/24 Unknown History azelastine 137 mcg (0.1 %) nasal 137 mcg intranasal BID 07/30/20 02/16/24 Unknown History spray levothyroxine 75 mcg tablet 75 mcg PO DAILY 07/30/20 02/16/24 Unknown History carbamazepine 200 mg 200 mg PO BID 1 month #60 tabs 01/25/24 02/16/24 Unknown Rx tablet,extended release,12 hr (Tegretol XR) elderberry fruit 350 mg capsule 350 mg PO DAILY 02/16/24 02/16/24 Unknown History furosemide 40 mg tablet 40 mg PO DAILY 02/16/24 02/16/24 Unknown History hydrocodone 5 mg-acetaminophen 325 1 - 2 tab PO TID PRN Pain 02/16/24 02/16/24 Unknown History mg tablet metoprolol tartrate 50 mg tablet 50 mg PO BID 02/16/24 02/16/24 Unknown History omeprazole 20 mg capsule,delayed 20 mg PO QAM 02/16/24 02/16/24 Unknown History release potassium chloride 20 mEq 20 meq PO DAILY 02/16/24 02/16/24 Unknown History tablet,extended release(part/cryst) ropinirole 4 mg tablet 4 mg PO TID 02/16/24 02/16/24 Unknown History tramadol 50 mg tablet 100 mg PO Q6H PRN Pain 02/16/24 02/16/24 Unknown History Allergies Allergy/AdvReac Type Severity Reaction Status Date / Time Penicillins Allergy ALGY-Rash Verified 12/27/23 13:41 Quyzvtp-HKT-IfQ Reductase Allergy ADR-Muscle Verified 12/27/23 13:41 Inhibitor Pain [Ftlpbzx-Ahx-Vkv Reductase Inhibitor] Sulfa (Sulfonamide Allergy Unknown Verified 12/27/23 13:41 Antibiotics) PFSH Acute 2 PFSH: Medical History (Updated 02/16/24 @ 17:59 by Wellington Martínez MD) Pituitary adenoma Peripheral neuropathy Restless leg syndrome Hypothyroidism Atrial fibrillation Surgical History (Updated 02/16/24 @ 17:59 by Wellington Martínez MD) S/P transsphenoidal hypophysectomy History of nasal surgery Social History Smoking and tobacco/nicotine status: never used tobacco/nicotine Quit status (tobacco/nicotine): has quit using Year quit tobacco: 1999 Former quit date comment: 1 PPD X 40 YEARS Vitals/I&O/Wt Last Vital Signs Temp 97.6 F 02/16/24 15:23 Pulse 64 02/16/24 17:32 Resp 18 02/16/24 17:49 BP 125/69 02/16/24 17:32 Pulse Ox 96 02/16/24 17:49 O2 Del Method Room Air 02/16/24 17:32 Weight last 48 hrs Weight 67.132 kg Physical Exam 2 Narrative: General: In distress because of hip pain, cachectic with bitemporal wasting, AO x3 HEENT: PERRLA, pupils bilaterally equal and reactive Chest: Normal vesicular breath sounds, no added sounds, equal good air entry bilaterally CVS: S1-S2 regular, no murmurs, no tachycardia, no gallops, no rubs Abdomen: Soft, nontender, no organomegaly, bowel sounds present Neuro: No focal deficits, no facial deformity, AO x3, power 5/5 in all limbs Data 02/16/24 16:13 02/16/24 16:13 A&P Assessment and plan (1) Closed trochanteric fracture of hip: Seen on CT hip. Comminuted displaced. Orthopedic consulted from the ER. Last Eliquis on 02/15 in morning. Anticoagulation, physical therapy postoperatively as per orthopedic team. For now start on heparin 5000 every 12 hourly for DVT prophylaxis [place] 5 mg 1 tablet every 6 hours as needed for pain, morphine 2 mg every 4 hours IV for pain as needed, cyclobenzaprine 5 mg 3 times daily as needed. (2) Atrial fibrillation: Telemetry. Continue metoprolol tart 50 mg twice daily. Hold off on Eliquis. Check echocardiogram. (3) Hypothyroidism: Check TSH. Continue with home dose of levothyroxine. (4) Restless leg syndrome: Continue with home dose of Requip. (5) Peripheral neuropathy: Continue with home dose of carbamazepine. Was on high doses of gabapentin which was recently discontinued. Plan CODE STATUS: Discussed today with the patient. Full code. Daughter will be the DPOA. Cardiac diet, n.p.o. after midnight Heparin 5000 every 12 for DVT prophylaxis Protonix OPD prophylaxis. Attestations 2 Medical Necessity Statement*: Admission for more than 2 midnights for management of right greater trochanteric hip fracture Diagnoses Closed trochanteric fracture of hip S72.109A Atrial fibrillation I48.91 Hypothyroidism E03.9 Restless leg syndrome G25.81 Peripheral neuropathy G62.9
[2024-02-16] MEDS: cyclobenzaprine 10 mg Tablet 5 MG PO (18:57)
[2024-02-16 20:35] LABS: Iron 61 ug/dL (59-158); Percent Saturation 21.7 % (20-50); Thyroid Stimulating Hormone 4.41 uIU/mL (0.27-4.20); Total Iron Binding Capacity 281 mcg/dl; Unsaturated Iron Binding 220 ug/dL (112-347); Vitamin B12 385 pg/mL (232-1245)
--- NOTE | 2024-02-16 20:36 | ECG_ITS ---
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 Measurements Intervals [place] Rate: 76 P: 66 IN: 262 QRS: 77 QRSD: 106 T: -77 QT: 364 QTc: 410 Interpretive Statements SUPRAVENTRICULAR RHYTHM WITH BASELINE ARTIFACT ST DEVIATION AND MODERATE T-WAVE ABNORMALITY, CONSIDER INFERIOR ISCHEMIA [-0.1+ mV T-WAVE IN II/aVF] Compared to ECG 07/30/2020 13:40:12 T-wave abnormality now present Possible ischemia now present ST (T wave) deviation no longer present Electronically Signed On 02-18-2024 20:18:37 SILK SCREEN FRAME ASSEMBLER by Mic Mcclure M.D. [email or web address]
[2024-02-16] MEDS: heparin 5,000 unit/mL INJ 1 mL 5000 UNIT SUBCUT (20:41)
[2024-02-16] MEDS: pantoprazole 40 mg SDV IVP (20:41)
[2024-02-16] MEDS: ropinirole 2 mg Tablet 4 MG PO (20:41)
[2024-02-16] MEDS: metoprolol tartrate 50 mg Tablet PO (20:41)
[2024-02-16] MEDS: carBAMazepine XR (12 HR) 200 mg Tablet PO (20:41)
[2024-02-16] MEDS: sodium chloride 0.9% 1,000 ML 50 ML IV (20:42)
[2024-02-16 21:50] LABS: Bilirubin Urine Negative (Negative); Blood Urine Negative (Negative); Glucose Urine UA Negative (Normal); Ketones Urine Negative (Negative); Leukocyte Esterase Urine Negative (Negative); Nitrate Urine Negative (Negative); Protein Urine Negative (Negative); Urine Appearance Clear (CLEAR); Urine Color Yellow (Yellow)
[2024-02-16 21:55] LABS: Add Urine Microscopic? YES; Bacteria Urine None Seen /hpf; Hyaline Casts Urine 1.65 /lpf; Squamous Epithelial Cell Urine 0-5 /hpf (0-5); WBC Urine 0-5 /hpf (0-5)
[2024-02-17] VITALS (31 sets, daily range): BP systolic 83–124; BP diastolic 46–69; PULSE 59–88; RESP 12–26; TEMP 36.4–37.8; O2SAT 94–100
[2024-02-17] MEDS: morphine 4 mg/mL SDV 1 mL 2 MG IVP (02:02)
[2024-02-17] MEDS: HYDROcodone-acetaminophen 5-325 mg Tablet 1 TAB PO (03:38)
[2024-02-17 05:08] LABS: Basophils % 0.2 %; Eosinophils # 0.2 10^3/uL (0.0-0.8); Eosinophils % 2.1 %; Hematocrit 33.6 % (37-53); Lymphocytes # 1.2 10^3/uL (0.8-4.8); Lymphocytes % 13.4 %; Mean Corpuscular Hemoglobin 31.4 pg (27-33); Mean Corpuscular Volume 94.9 fl (82-101); Mean Platelet Volume 9.7 fL (7.4-10.4); Monocytes % 23.1 %; Neutrophils # 5.17 10^3/uL (1.8-7.7); Neutrophils % 60.2 %; Nucleated Red Blood Cells % 0 %; Platelet Count 164 10^3/cmm (157-399); Red Blood Count 3.54 10^6/uL (3.85-5.65); Red Cell Distribution Width 13.8 % (12.1-15.1); White Blood Count 8.59 10^3/uL (3.29-11.43)
[2024-02-17 05:17] LABS: Estmated Average Glucose 114; Hemoglobin A1C 5.6 % (4.0-6.0)
[2024-02-17 05:19] LABS: Chol HDL Ratio 5.09 mg/dL (1.0-5.00); Cholesterol 173 mg/dL (0-200); HDL Cholesterol 34 mg/dL (60-100); LDL Cholesterol Calculated 118 mg/dL (50-129); LDL HDL Ratio 3.47 RATIO (0.00-3.22); Triglycerides 103 mg/dL (0-150)
[2024-02-17 05:20] LABS: Alanine Aminotransferase 10 U/L (0-41); Albumin Level 3.6 g/dL (3.5-5.2); Alkaline Phosphatase 111 U/L (40-130); Anion Gap 17.2 (5-19); Aspartate Amino Transferase 16 U/L (0-40); Blood Urea Nitrogen 17 mg/dL (8-23); Calcium 8.6 mg/dL (8.5-10.5); Carbon Dioxide 24 mmol/L (22-29); Chloride 98 mmol/L (98-107); Creatinine Clr Calc Pharmacy 52.7083; Globulin 2.1 g/dL (1.3-4.6); Glucose 112 mg/dL (65-115); Magnesium 1.8 mg/dL (1.7-2.3); Osmolality Calculated 282 mOsm/kg (285-295); Phosphorus 3.3 mg/dL (2.5-4.5); Potassium 4.2 mmol/L (3.5-5.1); Sodium 135 mmol/L (136-145); Total Bilirubin 0.5 mg/dL (0.15-1.2); Total Protein 5.7 g/dL (6.6-8.7)
[2024-02-17 05:25] LABS: Procalcitonin 0.16 ng/mL (0-0.5)
[2024-02-17 05:34] LABS: Folate Level 8.1 ng/mL (4.5-32.2)
--- NOTE | 2024-02-17 08:03 | PC.NURSE ---
Surgery: Surgery team took pt to OR
--- NOTE | 2024-02-17 08:26 | P.CONIM_ITS ---
Providers/Reason For Consult 2 Attending Physician: Wellington Martínez MD History of Present Illness History of Present Illness Madi Gonzalez is a 83 year old male Medications/Allergies Home Medications Medication Instructions Recorded Confirmed Last Taken Type apixaban 5 mg tablet (Eliquis) 5 mg PO BID 07/30/20 02/16/24 Unknown History azelastine 137 mcg (0.1 %) nasal 137 mcg intranasal BID 07/30/20 02/16/24 Unknown History spray levothyroxine 75 mcg tablet 75 mcg PO DAILY 07/30/20 02/16/24 Unknown History carbamazepine 200 mg 200 mg PO BID 1 month #60 tabs 01/25/24 02/16/24 Unknown Rx tablet,extended release,12 hr (Tegretol XR) elderberry fruit 350 mg capsule 350 mg PO DAILY 02/16/24 02/16/24 Unknown History furosemide 40 mg tablet 40 mg PO DAILY 02/16/24 02/16/24 Unknown History hydrocodone 5 mg-acetaminophen 325 1 - 2 tab PO TID PRN Pain 02/16/24 02/16/24 Unknown History mg tablet metoprolol tartrate 50 mg tablet 50 mg PO BID 02/16/24 02/16/24 Unknown History omeprazole 20 mg capsule,delayed 20 mg PO QAM 02/16/24 02/16/24 Unknown History release potassium chloride 20 mEq 20 meq PO DAILY 02/16/24 02/16/24 Unknown History tablet,extended release(part/cryst) ropinirole 4 mg tablet 4 mg PO TID 02/16/24 02/16/24 Unknown History tramadol 50 mg tablet 100 mg PO Q6H PRN Pain 02/16/24 02/16/24 Unknown History Allergies Allergy/AdvReac Type Severity Reaction Status Date / Time Penicillins Allergy ALGY-Rash Verified 12/27/23 13:41 Ikgmnlj-QAW-OlE Reductase Allergy ADR-Muscle Verified 12/27/23 13:41 Inhibitor Pain [Iwnvluo-Mjz-Erh Reductase Inhibitor] Sulfa (Sulfonamide Allergy Unknown Verified 12/27/23 13:41 Antibiotics) Current Medications Generic Name Dose Route Start Last Admin Trade Name Freq PRN Reason Stop Dose Admin Hydrocodone Bitart/Acetaminophen 1 tab 02/16/24 19:59 02/17/24 03:38 Hydrocodone-Acetaminophen 5-325 Mg Tablet PO 1 tab Q6H PRN Administration Pain Carbamazepine 200 mg 02/16/24 19:59 02/16/24 20:41 Carbamazepine Xr (12 Hr) 200 Mg Tablet PO 200 mg BID JOAO Administration Heparin Sodium (Porcine) 5,000 unit 02/16/24 20:30 02/16/24 20:41 Heparin 5,000 Unit/Ml Inj 1 Ml SUBCUT 5,000 unit Q12H JOAO Administration Sodium Chloride 1,000 mls @ 50 mls/hr 02/16/24 18:00 02/16/24 20:42 Sodium Chloride 0.9% IV 50 mls/hr .Q20H JOAO Administration Metoprolol Tartrate 50 mg 02/16/24 19:59 02/16/24 20:41 Metoprolol Tartrate 50 Mg Tablet PO 50 mg BID JOAO Administration Morphine Sulfate 2 mg 02/16/24 19:59 02/17/24 02:02 Morphine 4 Mg/Ml Sdv 1 Ml IVP 2 mg Q4H PRN Administration SEVERE PAIN Pantoprazole Sodium 40 mg 02/16/24 20:30 02/16/24 20:41 Pantoprazole 40 Mg Sdv IVP 40 mg Q24H JOAO Administration Ropinirole HCl 4 mg 02/16/24 21:00 02/16/24 20:41 Ropinirole 2 Mg Tablet PO 4 mg TID JOAO Administration PFSH Acute 2 PFSH: Medical History (Updated 02/16/24 @ 17:59 by Wellington Martínez MD) Pituitary adenoma Peripheral neuropathy Restless leg syndrome Hypothyroidism Atrial fibrillation Surgical History (Updated 02/16/24 @ 17:59 by Wellington Martínez MD) S/P transsphenoidal hypophysectomy History of nasal surgery Social History Smoking and tobacco/nicotine status: never used tobacco/nicotine Quit status (tobacco/nicotine): has quit using Year quit tobacco: 1999 Former quit date comment: 1 PPD X 40 YEARS Vitals/I&O/Wt Last Vital Signs Temp 100.0 F H 02/17/24 08:14 Pulse 66 02/17/24 08:14 Resp 18 02/17/24 08:14 BP 115/61 02/17/24 08:14 Pulse Ox 99 02/17/24 08:14 O2 Del Method Nasal Cannula 02/17/24 08:14 O2 Flow Rate 3 02/17/24 08:14 02/16/24 02/17/24 02/17/24 22:59 06:59 14:59 Output Total 1400 / 1400 450 / 1850 Balance -1400 / -1400 -450 / -1850 Weight last 48 hrs Weight 144 lb 4 oz Weight 144 lb 9.6 oz Weight 148 lb Physical Exam 2 Urinary Catheter Management: Hernandez: Cath Placed During This Visit: yes Reason for Continuing Indwelling Catheter: Acute Urinary Retention or Obstruction Urinary Catheter Date of Insertion: 02/16/24 Urinary Catheter Time of Insertion: 21:46 Data 02/17/24 04:16 02/17/24 04:16 Coding Level of Care Code Acute Code for Chg Fwd
--- NOTE | 2024-02-17 08:35 | PM.CONSULT ---
Documented by User: LANG Jose 02/17/24 09:58 Providers/Reason For Consult Consulting Physician/Specialty*: Dr. Rohith DO/orthopedic surgeon Reason for Consult*: Right hip fracture Requesting Physician: Dr. Dumont/Emergency Dept. Attending Physician: Wellington Martínez MD History of Present Illness History of Present Illness Madi Gonzalez is a 83 year old male that has right hip pain after a ground-level mechanical fall. Denied any head injury or loss of consciousness. He was seen in the ER and x-rays performed showing he had Right intertrochanteric hip fracture, and Orthopedics was consulted. Patient lives at home with his and says he ambulates on occasion with a cane but most of the time he ambulates with no assistive device. Patient does take Eliquis daily. Review of Systems Const: Denies: fever(s) Card: Denies: chest pain or palpitations Resp: Denies: dyspnea GI: Denies: abdominal pain, nausea or vomiting : Denies: dysuria Musc: Reports: extremity pain (Right hip) and limited range of motion (Right hip) Medications/Allergies Home Medications Medication Instructions Recorded Confirmed Last Taken Type apixaban 5 mg tablet (Eliquis) 5 mg PO BID 07/30/20 02/16/24 Unknown History azelastine 137 mcg (0.1 %) nasal 137 mcg intranasal BID 07/30/20 02/16/24 Unknown History spray levothyroxine 75 mcg tablet 75 mcg PO DAILY 07/30/20 02/16/24 Unknown History carbamazepine 200 mg 200 mg PO BID 1 month #60 tabs 01/25/24 02/16/24 Unknown Rx tablet,extended release,12 hr (Tegretol XR) elderberry fruit 350 mg capsule 350 mg PO DAILY 02/16/24 02/16/24 Unknown History furosemide 40 mg tablet 40 mg PO DAILY 02/16/24 02/16/24 Unknown History hydrocodone 5 mg-acetaminophen 325 1 - 2 tab PO TID PRN Pain 02/16/24 02/16/24 Unknown History mg tablet metoprolol tartrate 50 mg tablet 50 mg PO BID 02/16/24 02/16/24 Unknown History omeprazole 20 mg capsule,delayed 20 mg PO QAM 02/16/24 02/16/24 Unknown History release potassium chloride 20 mEq 20 meq PO DAILY 02/16/24 02/16/24 Unknown History tablet,extended release(part/cryst) ropinirole 4 mg tablet 4 mg PO TID 02/16/24 02/16/24 Unknown History tramadol 50 mg tablet 100 mg PO Q6H PRN Pain 02/16/24 02/16/24 Unknown History Allergies Allergy/AdvReac Type Severity Reaction Status Date / Time Penicillins Allergy ALGY-Rash Verified 12/27/23 13:41 Mvzpgqz-AAM-WxC Reductase Allergy ADR-Muscle Verified 12/27/23 13:41 Inhibitor Pain [Tyezoog-Omi-Fmi Reductase Inhibitor] Sulfa (Sulfonamide Allergy Unknown Verified 12/27/23 13:41 Antibiotics) Current Medications Generic Name Dose Route Start Last Admin Trade Name Freq PRN Reason Stop Dose Admin Hydrocodone Bitart/Acetaminophen 1 tab 02/16/24 19:59 02/17/24 03:38 Hydrocodone-Acetaminophen 5-325 Mg Tablet PO 1 tab Q6H PRN Administration Pain Carbamazepine 200 mg 02/16/24 19:59 02/16/24 20:41 Carbamazepine Xr (12 Hr) 200 Mg Tablet PO 200 mg BID JOAO Administration Heparin Sodium (Porcine) 5,000 unit 02/16/24 20:30 02/16/24 20:41 Heparin 5,000 Unit/Ml Inj 1 Ml SUBCUT 5,000 unit Q12H JOAO Administration Sodium Chloride 1,000 mls @ 50 mls/hr 02/16/24 18:00 02/16/24 20:42 Sodium Chloride 0.9% IV 50 mls/hr .Q20H JOAO Administration Metoprolol Tartrate 50 mg 02/16/24 19:59 02/16/24 20:41 Metoprolol Tartrate 50 Mg Tablet PO 50 mg BID JOAO Administration Morphine Sulfate 2 mg 02/16/24 19:59 02/17/24 02:02 Morphine 4 Mg/Ml Sdv 1 Ml IVP 2 mg Q4H PRN Administration SEVERE PAIN Pantoprazole Sodium 40 mg 02/16/24 20:30 02/16/24 20:41 Pantoprazole 40 Mg Sdv IVP 40 mg Q24H JOAO Administration Ropinirole HCl 4 mg 02/16/24 21:00 02/16/24 20:41 Ropinirole 2 Mg Tablet PO 4 mg TID JOAO Administration PFSH Acute PFSH: Medical History (Updated 02/16/24 @ 17:59 by Wellington Martínez MD) Pituitary adenoma Peripheral neuropathy Restless leg syndrome Hypothyroidism Atrial fibrillation Surgical History (Updated 02/16/24 @ 17:59 by Wellington Martínez MD) S/P transsphenoidal hypophysectomy History of nasal surgery Social History Smoking and tobacco/nicotine status: never used tobacco/nicotine Quit status (tobacco/nicotine): has quit using Year quit tobacco: 1999 Former quit date comment: 1 PPD X 40 YEARS Vitals/I&O/Wt Last Vital Signs Temp 100.0 F H 02/17/24 08:14 Pulse 66 02/17/24 08:14 Resp 18 02/17/24 08:14 BP 115/61 02/17/24 08:14 Pulse Ox 99 02/17/24 08:14 O2 Del Method Nasal Cannula 02/17/24 08:14 O2 Flow Rate 3 02/17/24 08:14 02/16/24 02/17/24 02/17/24 22:59 06:59 14:59 Output Total 1400 / 1400 450 / 1850 Balance -1400 / -1400 -450 / -1850 Weight last 48 hrs Weight 144 lb 4 oz Weight 144 lb 9.6 oz Weight 148 lb Physical Exam Const: COMMON NORMALS: no acute distress and alert Resp: COMMON NORMALS: normal respiratory effort and No retractions Cardio: COMMON NORMALS: Peripheral pulses 2+ throughout PERIPHERAL PULSES: Peripheral pulses 2+ throughout Extremity: NARRATIVE EXTREMITY EXAM: (Right) lower extremity-leg is shortened and slightly internally rotated. Positive logroll test. Tenderness to palpation right hip. compartments are soft and compressible. Patient can Wiggle toes. Toes are warm and well-perfused. Pedal pulse 2+. Secondary assessment of other extremities. Upper extremities-no visible injuries, abrasions. Full range of motion in shoulders, elbows and wrist. no tenderness to palpation of shoulders or wrist. (Left) lower extremity-no visible injury or trauma seen. Full range of motion in hip. Negative logroll test. Patient able to perform straight leg raise and can dorsiflex plantarflex foot. Pedal pulse 2+ and patient can wiggle toes. Neuro: SENSORIUM/ORIENTATION: Yes alert Skin: GENERAL SKIN EXAM: dry skin Urinary Catheter Management: Hernandez: Cath Placed During This Visit: yes Reason for Continuing Indwelling Catheter: Acute Urinary Retention or Obstruction Urinary Catheter Date of Insertion: 02/16/24 Urinary Catheter Time of Insertion: 21:46 Data 02/17/24 04:16 02/17/24 04:16 Xray Ortho: Radiologist's impression: XR/XR femur RT min 2V* [id number] IMPRESSION: 1. Acute comminuted mildly displaced greater trochanteric fracture of the right, better appreciable by CT. Dictated By: Terrell Irizarry MD A&P Assessment and plan (1) Closed fracture of right hip: Plan -Imaging and Labs reviewed -Hospitalist on board for medical management. -VTE prophylaxis -Nonweightbearing on right leg -Pain control -Hold daily eliquis -N.p.o. after midnight -Surgery this morning for Right hip Trochanteric femur nail Coding Level of Care Code Acute Code for Chg Fwd Diagnoses Closed fracture of right hip S72.001A Time Spent (min) 45 Documented by User: Tay Newberry DO 02/17/24 09:40 Medications/Allergies Home Medications Medication Instructions Recorded Confirmed Last Taken Type apixaban 5 mg tablet (Eliquis) 5 mg PO BID 07/30/20 02/16/24 Unknown History azelastine 137 mcg (0.1 %) nasal 137 mcg intranasal BID 07/30/20 02/16/24 Unknown History spray levothyroxine 75 mcg tablet 75 mcg PO DAILY 07/30/20 02/16/24 Unknown History carbamazepine 200 mg 200 mg PO BID 1 month #60 tabs 01/25/24 02/16/24 Unknown Rx tablet,extended release,12 hr (Tegretol XR) elderberry fruit 350 mg capsule 350 mg PO DAILY 02/16/24 02/16/24 Unknown History furosemide 40 mg tablet 40 mg PO DAILY 02/16/24 02/16/24 Unknown History hydrocodone 5 mg-acetaminophen 325 1 - 2 tab PO TID PRN Pain 02/16/24 02/16/24 Unknown History mg tablet metoprolol tartrate 50 mg tablet 50 mg PO BID 02/16/24 02/16/24 Unknown History omeprazole 20 mg capsule,delayed 20 mg PO QAM 02/16/24 02/16/24 Unknown History release potassium chloride 20 mEq 20 meq PO DAILY 02/16/24 02/16/24 Unknown History tablet,extended release(part/cryst) ropinirole 4 mg tablet 4 mg PO TID 02/16/24 02/16/24 Unknown History tramadol 50 mg tablet 100 mg PO Q6H PRN Pain 02/16/24 02/16/24 Unknown History Allergies Allergy/AdvReac Type Severity Reaction Status Date / Time Penicillins Allergy ALGY-Rash Verified 12/27/23 13:41 Lcsurrx-PQW-DmG Reductase Allergy ADR-Muscle Verified 12/27/23 13:41 Inhibitor Pain [Zesbgpa-Tin-Nsh Reductase Inhibitor] Sulfa (Sulfonamide Allergy Unknown Verified 12/27/23 13:41 Antibiotics) PFSH Acute PFSH: Medical History (Updated 02/16/24 @ 17:59 by Wellington Martínez MD) Pituitary adenoma Peripheral neuropathy Restless leg syndrome Hypothyroidism Atrial fibrillation Surgical History (Updated 02/16/24 @ 17:59 by Wellington Martínez MD) S/P transsphenoidal hypophysectomy History of nasal surgery Social History Smoking and tobacco/nicotine status: never used tobacco/nicotine Quit status (tobacco/nicotine): has quit using Year quit tobacco: 1999 Former quit date comment: 1 PPD X 40 YEARS Physical Exam Extremity: NARRATIVE EXTREMITY EXAM: (Right) lower extremity-leg is shortened and slightly internally rotated. Positive logroll test. Unable to perform Stinchfield secondary to pain and discomfort, tenderness to palpation right hip. compartments are soft and compressible. Patient can Wiggle toes. Toes are warm and well-perfused. Pedal pulse 2+. Secondary assessment of other extremities. Upper extremities-no visible injuries, abrasions. Full range of motion in shoulders, elbows and wrist. no tenderness to palpation of shoulders or wrist. (Left) lower extremity-no visible injury or trauma seen. Full range of motion in hip. Negative logroll test. Patient able to perform straight leg raise and can dorsiflex plantarflex foot. Pedal pulse 2+ and patient can wiggle toes. Urinary Catheter Management: Hernandez: Cath Placed During This Visit: yes Data 02/17/24 04:16 02/17/24 04:16 Xray Ortho: Radiologist's impression: XR/XR femur RT min 2V* [id number] IMPRESSION: 1. Acute comminuted mildly displaced greater trochanteric fracture of the right, better appreciable by CT. Dictated By: Terrell Irizarry MD Ordering Provider/Ordering MD: Miroslava Dumont MD Date of Service: 02/16/24 Procedure(s): XR pelvis 1-2V* [id number] Accession Number(s): [id number] Report Number: [id number] PROCEDURE INFORMATION: Exam: XR Pelvis Exam date and time: 02/16/2024 6:13 PM Age: 83 years old Clinical indication: Hip pain and pelvic pain; Right hip; Patient HX: RT lower ext pain post fall TECHNIQUE: Imaging protocol: Radiologic exam of the pelvis. Views: 1 or 2 view. COMPARISON: CR XR hip RT 2-3V wo/w pel* [id number] 02/16/2024 3:26 PM FINDINGS: Bones/joints: Pkawb-ebtnohd-toyq-left osteoarthritis of the hip joints. No pubic symphyseal or sacroiliac joint widening. Degenerative changes of the lower lumbar spine. Soft tissues: Unremarkable. XR/XR pelvis 1-2V* [id number] IMPRESSION: As above. Other CT: Radiologist's impression: Ordering Provider/Ordering MD: Miroslava Dumont MD Date of Service: 02/16/24 Procedure(s): CT hip RT wo con* [id number] Accession Number(s): [id number] Report Number: [id number] PROCEDURE INFORMATION: Exam: CT Right Lower Extremity, Hip Exam date and time: 02/16/2024 4:57 PM Age: 83 years old Clinical indication: Injury or trauma; Fall; Blunt trauma; Hip; Right TECHNIQUE: Imaging protocol: CT of the right lower extremity without contrast was performed. Exam focused on the hip. Radiation optimization: All CT scans at this facility use at least one of these dose optimization techniques: automated exposure control; mA and/or kV adjustment per patient size (includes targeted exams where dose is matched to clinical indication); or iterative reconstruction. COMPARISON: CR XR hip RT 2-3V wo/w pel* [id number] 02/16/2024 3:26 PM RADIATION DOSE METRICS: Total DLP (mGy-cm): 309.9 FINDINGS: Bones/joints: Acute comminuted mildly displaced fracture of the greater trochanter. Subtle sclerosis through the intertrochanteric region suspicious for a nondisplaced insufficiency fracture, likely better appreciable by MRI. Chronic superior and inferior pubic ramus fractures on the right. 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 Additional partially visualized chronic superior and inferior pubic ramus fractures on the left. Soft tissues: Soft tissue edema without evidence of fluid collection or hematoma. CT/CT hip RT wo con* [id number] IMPRESSION: 1. Acute comminuted displaced greater trochanteric fracture on the right. 2. Nondisplaced intertrochanteric insufficiency fracture. A&P Assessment and plan (1) Closed fracture of right hip: Plan -Imaging and Labs reviewed -Hospitalist on board for medical management. -VTE prophylaxis will resume postoperatively on postop day 1 -Nonweightbearing on right leg -Pain control -Hold daily eliquis?was last taken yesterday morning over 24 hours since last dosing, spoke with family and okay to proceed as well as patient -N.p.o. after midnight -Surgery this morning for Right hip Trochanteric femur nail Orthopedic attending addendum: MDM: Patient is a pleasant 83-year-old male who lives at home with his as well as daughter is engaged in her care. Patient unfortunately sustained a ground-level fall landing on his right hip. He tried to get up but had severe pain and inability to continue to weight-bear. At this point in time brought to emergency department was found to have a right hip fracture CT scan and x-rays reviewed and demonstrate a greater trochanteric femur fracture with an intertrochanteric fracture. He has positive logroll on examination and unable to perform a Stinchfield secondary to pain and discomfort. We talked in detail about his treatment options as far as nonoperative and operative intervention talked with patient as well as family at bedside. We talked about the risk benefits benefits and complications alternatives to surgical treatment option. Risk of surgery include not limited to make a better make it worse injury to nerves vessels or tendons hardware failure, further surgery, infection, acute blood loss anemia complications anesthesia. Understanding these risks with surgery in order for pain control as well as early mobilization patient family elected proceed with surgical intervention for right hip trochanteric femur nail. All questions have been answered at this time we will proceed with surgery today. Coding Level of Care Code Acute Code for [facility] Fwd Diagnoses Closed fracture of right hip S72.001A Time Spent (min) 45
[2024-02-17] MEDS: ketorolac 30 mg/mL INJ IVP (08:41)
[2024-02-17] MEDS: acetaminophen 1,000 MG/100 ML PIGGYBACK 400 MG IV (08:45)
--- NOTE | 2024-02-17 09:17 | P.ANESASSM_ITS ---
Pre-Anesthetic Assessment Height/Weight: Height 1.91 m Weight 65.431 kg Temp Pulse Resp BP Pulse Ox O2 Del Method O2 Flow Rate 100.0 F H 66 18 115/61 99 Nasal Cannula 3 02/17/24 08:14 02/17/24 08:14 02/17/24 08:14 02/17/24 08:14 02/17/24 08:14 02/17/24 08:14 02/17/24 08:14 Preop Diagnosis: Right intertrochanteric femur fracture Operation Date: 02/17/24 09:30 Proposed Procedures p Trochanteric Femoral Nail(Right) - Tay Newberry, Familial anesthetic complications: NOne Was Beta Maile taken within 24 hours: N/A Was Clonidine taken within 24 hours: N/A Last intake: Intake Last Liquid Date 02/16/24 Last Liquid Time 20:00 Last Solid Date 02/16/24 Last Solid Time 08:00 Social No alcohol and No tobacco Airway Mallampati: Class I Dentition: full and other (none) CV/HEM Atrial Fibrillation Metabolic Thyroid Disease Neuropsych RLS Anesthetic Plan ASA status: 3 Anesthesia: General Risk of > 500 ml blood loss (7ml/kg in children): No Medications/Allergies Home Medications Medication Instructions Recorded Confirmed Last Taken Type apixaban 5 mg tablet (Eliquis) 5 mg PO BID 07/30/20 02/16/24 Unknown History azelastine 137 mcg (0.1 %) nasal 137 mcg intranasal BID 07/30/20 02/16/24 Unknown History spray levothyroxine 75 mcg tablet 75 mcg PO DAILY 07/30/20 02/16/24 Unknown History carbamazepine 200 mg 200 mg PO BID 1 month #60 tabs 01/25/24 02/16/24 Unknown Rx tablet,extended release,12 hr (Tegretol XR) elderberry fruit 350 mg capsule 350 mg PO DAILY 02/16/24 02/16/24 Unknown History furosemide 40 mg tablet 40 mg PO DAILY 02/16/24 02/16/24 Unknown History hydrocodone 5 mg-acetaminophen 325 1 - 2 tab PO TID PRN Pain 02/16/24 02/16/24 Unknown History mg tablet metoprolol tartrate 50 mg tablet 50 mg PO BID 02/16/24 02/16/24 Unknown History omeprazole 20 mg capsule,delayed 20 mg PO QAM 02/16/24 02/16/24 Unknown History release potassium chloride 20 mEq 20 meq PO DAILY 02/16/24 02/16/24 Unknown History tablet,extended release(part/cryst) ropinirole 4 mg tablet 4 mg PO TID 02/16/24 02/16/24 Unknown History tramadol 50 mg tablet 100 mg PO Q6H PRN Pain 02/16/24 02/16/24 Unknown History Allergies Allergy/AdvReac Type Severity Reaction Status Date / Time Penicillins Allergy ALGY-Rash Verified 12/27/23 13:41 Cbqwith-OOL-ZlL Reductase Allergy ADR-Muscle Verified 12/27/23 13:41 Inhibitor Pain [Xjgrkzn-Snq-Cxn Reductase Inhibitor] Sulfa (Sulfonamide Allergy Unknown Verified 12/27/23 13:41 Antibiotics) Current Medications Generic Name Dose Route Start Last Admin Trade Name Freq PRN Reason Stop Dose Admin Hydrocodone Bitart/Acetaminophen 1 tab 02/16/24 19:59 02/17/24 03:38 Hydrocodone-Acetaminophen 5-325 Mg Tablet PO 1 tab Q6H PRN Administration Pain Carbamazepine 200 mg 02/16/24 19:59 02/16/24 20:41 Carbamazepine Xr (12 Hr) 200 Mg Tablet PO 200 mg BID JOAO Administration Heparin Sodium (Porcine) 5,000 unit 02/16/24 20:30 02/16/24 20:41 Heparin 5,000 Unit/Ml Inj 1 Ml SUBCUT 5,000 unit Q12H JOAO Administration Sodium Chloride 1,000 mls @ 50 mls/hr 02/16/24 18:00 02/16/24 20:42 Sodium Chloride 0.9% IV 50 mls/hr .Q20H JOAO Administration Metoprolol Tartrate 50 mg 02/16/24 19:59 02/16/24 20:41 Metoprolol Tartrate 50 Mg Tablet PO 50 mg BID JOAO Administration Morphine Sulfate 2 mg 02/16/24 19:59 02/17/24 02:02 Morphine 4 Mg/Ml Sdv 1 Ml IVP 2 mg Q4H PRN Administration SEVERE PAIN Pantoprazole Sodium 40 mg 02/16/24 20:30 02/16/24 20:41 Pantoprazole 40 Mg Sdv IVP 40 mg Q24H JOAO Administration Ropinirole HCl 4 mg 02/16/24 21:00 02/16/24 20:41 Ropinirole 2 Mg Tablet PO 4 mg TID JOAO Administration PFSH Anesthesia Medical History (Updated 02/16/24 @ 17:59 by Wellington Martínez MD) Pituitary adenoma Peripheral neuropathy Restless leg syndrome Hypothyroidism Atrial fibrillation Surgical History (Updated 02/16/24 @ 17:59 by Wellington Martínez MD) S/P transsphenoidal hypophysectomy History of nasal surgery Social History Smoking and tobacco/nicotine status: never used tobacco/nicotine Quit status (tobacco/nicotine): has quit using Year quit tobacco: 1999 Former quit date comment: 1 PPD X 40 YEARS Data Anesthesia 02/17/24 04:16 02/17/24 04:16 Short CBC 02/16/24 02/17/24 Range/Units 16:13 04:16 WBC 6.86 8.59 (3.29-11.43) 10^3/uL Hgb 11.30 11.10 L (11.27-16.99) g/dL Hct 34.2 L 33.6 L (37-53) % MCV 94.5 94.9 (82-101) fl Plt Count 169 164 (157-399) 10^3/cmm Neut % (Auto) 55.2 60.2 % Neut # (Auto) 3.78 5.17 (1.8-7.7) 10^3/uL BMP 02/16/24 02/17/24 16:13 04:16 Sodium 135 L 135 L Potassium 4.5 4.2 Chloride 99 98 Carbon Dioxide 28 24 BUN 18 17 Creatinine 0.9 1.0 Glucose 106 112 Calcium 9.1 8.6 Liver Function 02/16/24 02/17/24 Range/Units 16:13 04:16 Total Bilirubin 0.4 0.5 (0.15-1.2) mg/dL AST 18 16 (0-40) U/L ALT 11 10 (0-41) U/L Alkaline Phosphatase 120 111 (40-130) U/L Albumin 4.0 3.6 (3.5-5.2) g/dL Urine 02/16/24 Range/Units 21:45 Urine Color Yellow (Yellow) Urine Appearance Clear (CLEAR) Urine pH 7.0 (5-7) Ur Specific Moore 1.010 (1.005-1.030) Urine Protein Negative (Negative) Urine Glucose (UA) Negative (Normal) Urine Ketones Negative (Negative) Urine Nitrate Negative (Negative) Urine Bilirubin Negative (Negative) Ur Leukocyte Esterase Negative (Negative) Urine RBC 3-5 (0-2) /hpf Urine WBC 0-5 (0-5) /hpf Coags 02/16/24 16:13 PT 14.20 INR 1.07 Cardiac Studies: 2 No Data to Display
--- NOTE | 2024-02-17 09:25 | W.PM.OPSUD ---
Surgery/Procedure H&P Update DATE OF PROCEDURE: February 17, 2024 DATE H&P PERFORMED: 02/17/24 H&P UPDATE INFORMATION: I have reviewed H&P completed within last 30 days, I have examined patient prior to procedure and No changes to prior documentation PREOP DIAGNOSIS: Right intertrochanteric femur fracture PRIMARY INDICATION FOR PROCEDURE: Right hip greater trochanteric femur fracture with intertrochanteric extension, inability to weight-bear PLANNED PROCEDURE: Operation Date: 02/17/24 09:30 Proposed Procedures p Trochanteric Femoral Nail(Right) - Tay Newberry DO
--- NOTE | 2024-02-17 09:30 | XR_ITS ---
WS: [id number] C-ARM RADIOGRAPHS RIGHT HIP; 6 IMAGES HISTORY: RT TFN; OR PICS COMPARISON: None available. Intraoperative imaging during RIGHT hip ORIF. Short intramedullary willie and gamma nail have been place d and appropriate positions on this series. XR/XR hip RT 2-3V wo/w pel* [id number] IMPRESSION: Intraoperative imaging during ORIF RIGHT hip.
[2024-02-17] MEDS: fentaNYL 50 mcg/mL INJ 2mL IVP ×2 (09:35→11:42)
[2024-02-17] MEDS: clindamycin 600 MG/50 ML PREMIX 100 MG IV (09:47)
[2024-02-17] MEDS: tranexamic acid 1,000 MG/100 ML PREMIX 600 MG IV ×2 (09:47→19:31)
--- NOTE | 2024-02-17 10:58 | W.PM.BPON ---
Date of Procedure: 02/17/2024 Surgeon: Tay Newberry DO Loader Helper Sorting Yard(s): Juan José Newberry PA-C Procedure(s) performed: Right hip trochanteric femur nail Findings of the procedure(s): Patient found to have right hip intertrochanteric femur fracture underwent procedure as planned without issues or complications Estimated blood loss: 75 mL Specimen(s) removed: None Post-operative diagnosis: Right hip greater trochanteric femur fracture with intertrochanteric extension
--- NOTE | 2024-02-17 10:58 | PM.OP ---
Operative Report Date of procedure: February 17, 2024 Surgeon: Tay Newberry DO Ceramic Coater Machine: Juan José Newberry PA-C: PA was necessary for assistance in this case with leg positioning, reduction, and as well as assistance in implantation wound closure and dressing application. Procedure: Preoperative diagnosis: Right hip greater trochanteric femur fracture with intertrochanteric extension Post-op diagnosis: Same Procedure done: Right intertrochanteric femur fracture ORIF with cephalomedullary nail Implants: Ashleigh gamma nail?short?11 mm x 180 mm x 125 degree Lag screw 10.5 mm x 115?mm Distal locking screw 5 mm x 42.5 mm Surgeon: Tay Newberry DO Estimated blood loss: 75 mL IV fluids: See anesthesia record Urine output: See anesthesia record Complications: See operative report Findings: See operative report narrative Condition: stable Disposition: Floor Brief History: Patient sustained a fall and was found to have a right greater trochanteric femur fracture with intertrochanteric hip fx.?Pt has?been unable to bear weight, right hip/lower extremity?shortened and rotated.? At this point time Pt?was admitted by the hospitalist team and orthopedics was consulted.? Refer to consult note for detailed HPI.? We talked about treatment options as far as nonoperative and operative intervention. Recommend Right hip?trochanteric femur nail.? At this point time patient would like to pursue surgical intervention for benefits of pain control and earlier mobilization.?? Patient understands the ins and outs of procedure, the risk benefits complication alternatives of surgical nonsurgical treatment options.? Understanding risk of surgery pt as well as family?agrees to proceed with surgical intervention all questions answered.? Consent obtained. Procedure: Patient seen evaluated in the preoperative holding area.? Consent was obtained.? Correct extremity was then marked.? Once cleared by anesthesia and the hospitalist team patient was taken back to the operative suite.? Patient underwent anesthesia per the anesthesia department.? Once appropriately anesthetized patient was placed on a fracture [place] table.? Patient was appropriately secured to the bed.? All bony prominences were well-padded.? At this point time patient received appropriate preoperative antibiotics.? Final timeout was performed.? Prior to beginning surgery a standard closed reduction maneuver was placed on the [place] table and large C-arm was brought in.? After performing a closed reduction maneuver there was able to achieve satisfactory reduction of right greater trochanteric femur fracture with intertrochanteric femur fracture extension.? Fracture site did not extend into the subtrochanteric region as result plan was for a?short?nail.?? This point time the right lower extremity was then prepped and draped in standard orthopedic fashion. A standard longitudinal incision was made just proximal to the greater?trochanter roughly 4 cm in length sharp scalpel vision was made through skin and subcutaneous tissue.? I then utilized a blunt Anthony to split? fascia and mobilized directly down to the greater?trochanter.? I then inserted my starting guidewire which was placed appropriate starting position the tip of the greater?trochanter.? This was advanced in AP and lateral films to be in center center position and advanced to the level lesser?trochanter.? This was confirmed to be in center center position on AP and lateral imaging.? Once this was done I then introduced my opening reamer which was then subsequently guide pin removed.? I selected a 11 mm x 180 mm x 125 degree. At this point time the nail was then loaded onto the [employer] gamma?trochanteric nail guide.? This was placed within the canal and confirmed with XR and the setscrew was then gently placed not locked.? The nail was then impacted to appropriate depth .? At this point time I then inserted my lag screw guide and subsequently made a small incision through skin and subcutaneous tissue splitting the IT band longitudinally and the guide was placed directly onto bone.? Next I then subsequently placed the guidewire in center center position in the head with an appropriate tip to apex distance this was confirmed with multiple orthogonal images.? Once I was satisfied with my planned lag screw placement I then measured which was?115?mm.? I then set my cannulated drill and subsequently reamed this into the head at appropriate depth.? I then had my rep open the 10.5 mm x 115 mm lag screw which was then opened on the back table and subsequently screwed into place over my cannulated drill guide.? This was placed with excellent tip to apex distance.? Next I then utilized the compressing device and subsequently compressed my fracture after I let off traction.? This had excellent fracture compression and opposition and closing down to my fracture line.? Next I then locked the nail by locking my setscrew.? This point time the guidewire as well as the sleeve was then removed.? Next I plan for statically locking the nail distally.? This triple sleeve was then placed a small stab incision was made blunt dissection directly down to bone and the guide sleeve was placed and locked directly onto the bone.? I then inserted the drill bit and subsequently drilled bicortically measured appropriate length screw and then placed a 42.5?mm distal interlocking screw and had excellent fixation was appropriate length.? This point time is completed my construct I remove the outer jig and took final images of AP and lateral of the right intertrochanteric femur fracture which showed stable reduction and stable fixation.? Incision was then thoroughly irrigated.? Hemostasis was maintained with electrocautery.? I then once again thoroughly irrigated the incisions and then subsequently closed in layered fashion of 0 Vicryl 2-0 Vicryl and khai.? Silverlon dressings applied.? Patient was then awakened from anesthesia transported onto the hospital bed and taken to PACU in stable condition.? Patient tolerated procedure without complications. Disposition: Patient taken to PACU in stable condition.? Postoperatively,? Patient to receive appropriate discharge instructions as well as pain medication DVT prophylaxis postoperatively.? Patient?will be allowed weightbearing as tolerated right lower extremity.? Will receive appropriate postoperative antibiotics, PT/OT.? Patient to follow-up in the orthopedic office in 2 weeks.? Patients family understands and agrees with current plan.? All questions answered.
--- NOTE | 2024-02-17 11:11 | XRR_ITS ---
PROCEDURE INFORMATION: Exam: XR Right Hip Exam date and time: 02/17/2024 11:41 AM Age: 83 years old Clinical indication: Screening exam; Prior surgery; Surgery date: Post-operative (0-2 days); Surgery type: RT tfn; Additional info: Post op right tfn. TECHNIQUE: Imaging protocol: Radiologic exam of the right hip. Views: 1 view hip with pelvis when performed. COMPARISON: CR (PELVIS, ) 02/16/2024 6:13 PM FINDINGS: Bones/joints: There are moderate to severe osteoarthritic changes of the right hip. Status post ORIF of the right hip. There are moderate osteoarthritic changes of the left hip. There are old, healed bilateral pubic rami fractures. Soft tissues: Routine postsurgical changes noted in the soft tissues surrounding the right hip. Vasculature: Calcified atherosclerotic plaques projecting over the iliofemoral arteries bilaterally. XR/XR hip RT 2-3V wo/w pel* [id number] IMPRESSION: 1. Good alignment of the right hip status post ORIF. There are routine postoperative changes in the soft tissues. 2. Chronic osteoarthritic changes of both hips.
--- NOTE | 2024-02-17 11:13 | PM.PACU ---
PACU note Narrative: Patient is an 83-year-old male that just underwent a right hip ORIF. Pt transferred to PACU in stable condition. Dressing is dry. pt is awake and alert. Distal pulses are palpable toes are warm and well-perfused. Cap refill is normal and under 2 seconds. Pain is controlled. Unable to perform any further assessment on motor or sensory function on the right lower extremity due to residual anesthetic. Exam: somnolent, arousable Disposition: back to floor
--- NOTE | 2024-02-17 12:06 | PC.NURSE ---
Dr Castillo at side - aware of blood pressure - pt is able to currently follow commands
--- NOTE | 2024-02-17 12:15 | ANE.PACU2 ---
Inpatient post-anesthesia follow up: Airway intact: Yes Vital signs: Temperature 97.7 F Pulse Rate 62 Respiratory Rate 17 Blood Pressure 99/60 Pulse Oximetry 100 Oxygen Delivery Me thod Nasal Cannula Oxygen Flow Rate 4 Fraction of Inspir ed Oxygen Hydration adequate: Yes Nausea and vomiting: No Pain level: 1 Mental status: Baseline
[2024-02-17] MEDS: ketorolac 30 mg/mL INJ 15 MG IVP ×2 (13:12→19:30)
[2024-02-17] MEDS: sodium chloride 0.9% 1,000 ML 50 ML IV (13:13)
--- NOTE | 2024-02-17 13:36 | PC.OT ---
Attempted to see patient for OT evaluation; however, patient was sleeping, and nursing requested we wait.
[2024-02-17] MEDS: ropinirole 2 mg Tablet 4 MG PO ×2 (14:31→19:30)
[2024-02-17] MEDS: carBAMazepine XR (12 HR) 200 mg Tablet PO (14:31)
--- NOTE | 2024-02-17 14:41 | PM.PN ---
Subjective Subjective: Overnight had Tmax of 101.3 Fahrenheit. Underwent ORIF today. Currently on 2 L saturating more than 94% postoperatively. Otherwise has remained hemodynamically stable afebrile. Tolerated procedure well. Vitals/I&O/Wt Last Vital Signs Temp 97.5 F L 02/17/24 13:25 Pulse 60 02/17/24 13:34 Resp 16 02/17/24 13:34 BP 105/57 02/17/24 13:25 Pulse Ox 94 02/17/24 13:34 O2 Del Method Nasal Cannula 02/17/24 13:34 O2 Flow Rate 2 02/17/24 13:34 02/16/24 02/17/24 02/17/24 22:59 06:59 14:59 Intake Total 1125.833 / 1125.833 Output Total 1400 / 1400 450 / 1850 275 / 275 Balance -1400 / -1400 -450 / -1850 850.833 / 850.833 Weight last 48 hrs Weight 65.431 kg Weight 65.589 kg Weight 67.132 kg Physical Exam Narrative: General: In distress because of hip pain, cachectic with bitemporal wasting, AO x3 HEENT: PERRLA, pupils bilaterally equal and reactive Chest: Normal vesicular breath sounds, no added sounds, equal good air entry bilaterally CVS: S1-S2 regular, no murmurs, no tachycardia, no gallops, no rubs Abdomen: Soft, nontender, no organomegaly, bowel sounds present Neuro: No focal deficits, no facial deformity, AO x3, power 5/5 in all limbs Urinary Catheter Management: Hernandez: Cath Placed During This Visit: yes Reason for Continuing Indwelling Catheter: Acute Urinary Retention or Obstruction Urinary Catheter Date of Insertion: 02/16/24 Urinary Catheter Time of Insertion: 21:46 Data 02/17/24 04:16 02/17/24 04:16 A&P Assessment and plan (1) Closed trochanteric fracture of hip: Underwent ORIF today. Postop day 0. Hold off on Eliquis for now. As per surgical team can start Eliquis on 02/17. Monitor hemoglobin. Physical therapy as per orthopedic team. [place] 5 mg 1 tablet every 6 hours as needed for pain, morphine 2 mg every 4 hours IV for pain as needed, cyclobenzaprine 5 mg 3 times daily as needed. (2) Atrial fibrillation: Telemetry. Continue metoprolol tart 50 mg twice daily. Hold off on Eliquis. Follow-up echocardiogram results. (3) Hypothyroidism: TSH mildly elevated. Check free T3 and free T4. Continue with home dose of levothyroxine. (4) Restless leg syndrome: Continue with home dose of Requip. (5) Peripheral neuropathy: Continue with home dose of carbamazepine. Was on high doses of gabapentin which was recently discontinued. Plan Fever: Up to up to 101.3 fever overnight. 100 Fahrenheit today morning. No leukocytosis. UA negative for signs of infection. Chest x-ray preoperatively negative for pneumonia. Repeat chest x-ray stat. Check blood cultures. Check MRSA swab, respiratory viral panel. Empirically start on IV ceftriaxone for now. CODE STATUS: Discussed today with the patient. Full code. Daughter will be the DPOA. Cardiac diet, n.p.o. after midnight Heparin 5000 every 12 for DVT prophylaxis Protonix for PUD prophylaxis. Attestations Medical Necessity Statement*: Requires further hospitalization for management of postoperative care, post trochanteric fracture of right hip, febrile episode while safe discharge planning is sought Diagnoses Closed trochanteric fracture of hip S72.109A Atrial fibrillation I48.91 Hypothyroidism E03.9 Restless leg syndrome G25.81 Peripheral neuropathy G62.9
[2024-02-17] MEDS: cefTRIAXone 1,000 mg SDV 1000 MG IVP (17:58)
[2024-02-17] MEDS: mupirocin oint 22 gm 1 APPLIC NASAL (17:58)
[2024-02-17] MEDS: calcium carb-vit d 600mg/400unit 1 Tablet 1 EACH PO (17:59)
[2024-02-17] MEDS: docusate sodium 100 mg Capsule PO (17:59)
[2024-02-17] MEDS: chlorhexidine gluconate 0.12% Btl 473 mL 30 ML MUCOUS MEM ×2 (17:59→19:32)
[2024-02-17] MEDS: iron polysaccharide complex 150 mg Capsule PO (17:59)
[2024-02-17] MEDS: clindamycin 900 MG/50 ML PREMIX 100 MG IV (18:01)
[2024-02-17] MEDS: cyclobenzaprine 10 mg Tablet 5 MG PO (18:11)
[2024-02-17] MEDS: pantoprazole 40 mg SDV IVP (19:31)
[2024-02-17] MEDS: heparin 5,000 unit/mL INJ 1 mL 5000 UNIT SUBCUT (19:31)
[2024-02-17 19:55] LABS: Covid PCR NEGATIVE (Negative); Influenza A NEGATIVE (Negative); Influenza B NEGATIVE (Negative); Respiratory Syncytial Virus Ce NEGATIVE (Negative)
--- NOTE | 2024-02-17 19:59 | USCV_ITS ---
Madi Gonzalez Age: 83 Gender: M : 1940 Exam Date: 02/17/2024 13:56 Ordering Phys: Wellington Martínez MD Technologist: Shamir Workman Exam Location: [facility] [place] Indication: AFIB BP: 103 / 46 HR: 61 Rhythm: Sinus Technical Quality: Adequate MEASUREMENTS (Male / Female) Normal Values 2D ECHO LVOT Diameter 2.0 cm LV Ejection Fraction MOD 4C 78.2 % LV Ejection Fraction MOD 2C 59.5 % LV Ejection Fraction 2C AL 61.2 % LA Diameter 3.2 cm RA Systolic Volume 4C AL 66.7 ml RA Systolic Volume 4C MOD 68.9 ml LA Sys Volume AL 51.4 cm cubed LA Sys Volume Index AL 27.9 cm cubed/m squared Aorta at Sinotubular Diameter 2.7 cm IVC Diameter 1.4 cm M-MODE LA Ao Ratio MM 1.5 AV Cusp Separation MM 1.0 cm DOPPLER AV Peak Velocity 258.0 cm/s LVOT Peak Velocity 104.0 cm/s AV Area Cont Eq vti 0.9 cm squared AV Area Cont Eq pk 1.3 cm squared MV Peak Velocity 63.0 cm/s MV Area PHT 3.1 cm squared Mitral E to A Ratio 0.7 TR Peak Velocity 329.0 cm/s TR Peak Gradient 43.3 mmHg TR Mean Velocity 219.0 cm/s TR Mean Gradient 24.3 mmHg TR Velocity Time Integral 94.6 cm PV Peak Velocity 88.0 cm/s RV Ejection Time 0.3 s FINDINGS Left Ventricle Left ventricle is normal in size. LV systolic function is normal with EF of 55-60%. No regional wall motion abnormalities. Grade 1 diastolic dysfunction. Right Ventricle Normal in size and function Right Atrium Dilated Left Atrium Normal in size Mitral Valve Structurally normal mitral valve. Mild mitral regurgitation. Aortic Valve Aortic valve is thickened and calcified. Moderate to severe aortic stenosis with aortic valve area of 0.9cm2 and mean gradient across aortic valve of 24 mmHg Tricuspid Valve Insufficient TR jet to calculate RVSP Pulmonic Valve Not well visualized Pericardium Normal Aorta Normal in size IVC Appears to be normal CONCLUSIONS Technically limited quality echocardiogram because of poor ultrasonic windows LV systolic function is normal with EF of 55-60% Grade 1 diastolic dysfunction Mild mitral regurgitation. Right atrial dilation Moderate to severe aortic stenosis No comparison studies are available. Mic Mcclure MD (Electronically Signed) Final Date: 17 February 2024 18:40 S
[2024-02-17 20:29] LABS: MRSA PCR OZH (swab) NOT DETECTED (Negative)
[2024-02-17] MEDS: TRAMadol 50 mg Tablet 100 MG PO (21:29)
[2024-02-18] VITALS (8 sets, daily range): BP systolic 99–123; BP diastolic 49–66; PULSE 64–97; RESP 14–20; TEMP 36.6–37; O2SAT 93–99
[2024-02-18] MEDS: morphine 4 mg/mL SDV 1 mL 2 MG IVP (00:25)
[2024-02-18] MEDS: clindamycin 900 MG/50 ML PREMIX 100 MG IV ×2 (02:07→10:57)
[2024-02-18] MEDS: carBAMazepine XR (12 HR) 200 mg Tablet PO ×3 (02:07→17:28)
[2024-02-18] MEDS: HYDROcodone-acetaminophen 5-325 mg Tablet 1 TAB PO ×4 (02:10→21:20)
[2024-02-18 05:23] LABS: Basophils % 0.1 %; Eosinophils # 0.2 10^3/uL (0.0-0.8); Eosinophils % 2.8 %; Hematocrit 30.1 % (37-53); Lymphocytes # 1.1 10^3/uL (0.8-4.8); Lymphocytes % 13.5 %; Mean Corpuscular HGB Conc 32.6 g/dL (30-55); Mean Corpuscular Hemoglobin 31.5 pg (27-33); Mean Corpuscular Volume 96.8 fl (82-101); Mean Platelet Volume 9.3 fL (7.4-10.4); Monocytes # 1.3 10^3/uL (0.2-0.9); Monocytes % 16.9 %; Neutrophils # 5.22 10^3/uL (1.8-7.7); Neutrophils % 65.6 %; Nucleated Red Blood Cells % 0 %; Platelet Count 144 10^3/cmm (157-399); Red Blood Count 3.11 10^6/uL (3.85-5.65); Red Cell Distribution Width 13.9 % (12.1-15.1); White Blood Count 7.95 10^3/uL (3.29-11.43)
[2024-02-18] MEDS: ketorolac 30 mg/mL INJ 15 MG IVP ×2 (05:41→14:40)
[2024-02-18 05:59] LABS: Alanine Aminotransferase 10 U/L (0-41); Albumin Level 3.2 g/dL (3.5-5.2); Alkaline Phosphatase 99 U/L (40-130); Anion Gap 16.2 (5-19); Aspartate Amino Transferase 17 U/L (0-40); Blood Urea Nitrogen 19 mg/dL (8-23); Calcium 8.3 mg/dL (8.5-10.5); Carbon Dioxide 22 mmol/L (22-29); Chloride 101 mmol/L (98-107); Creatinine Clr Calc Pharmacy 71.3633; Glucose 89 mg/dL (65-115); Osmolality Calculated 282 mOsm/kg (285-295); Potassium 4.2 mmol/L (3.5-5.1); Sodium 135 mmol/L (136-145); Total Bilirubin 0.5 mg/dL (0.15-1.2); Total Protein 5.2 g/dL (6.6-8.7)
[2024-02-18] MEDS: iron polysaccharide complex 150 mg Capsule PO ×2 (09:13→17:28)
[2024-02-18] MEDS: calcium carb-vit d 600mg/400unit 1 Tablet 1 EACH PO ×2 (09:13→17:28)
[2024-02-18] MEDS: heparin 5,000 unit/mL INJ 1 mL 5000 UNIT SUBCUT ×2 (09:13→20:12)
[2024-02-18] MEDS: ropinirole 2 mg Tablet 4 MG PO ×3 (09:13→20:12)
[2024-02-18] MEDS: docusate sodium 100 mg Capsule PO ×2 (09:13→17:28)
[2024-02-18] MEDS: cyclobenzaprine 10 mg Tablet 5 MG PO ×2 (09:13→14:14)
[2024-02-18] MEDS: multivitamin therapeutic Tablet 1 TAB PO (09:13)
[2024-02-18] MEDS: levothyroxine 75 mcg Tablet PO (09:14)
[2024-02-18] MEDS: mupirocin oint 22 gm 1 APPLIC NASAL (09:14)
[2024-02-18] MEDS: chlorhexidine gluconate 0.12% Btl 473 mL 30 ML MUCOUS MEM ×4 (09:14→20:12)
--- NOTE | 2024-02-18 09:54 | P.PN_ITS ---
Subjective 2 Subjective: Patient seen and examined postoperative day 1 right hip trochanteric femur nail. Pain control medications Vitals/I&O/Wt Last Vital Signs Temp 98.1 F 02/18/24 07:28 Pulse 97 02/18/24 07:28 Resp 18 02/18/24 07:28 BP 123/58 02/18/24 07:28 Pulse Ox 97 02/18/24 07:28 O2 Del Method Nasal Cannula 02/18/24 07:28 O2 Flow Rate 2 02/17/24 13:34 02/17/24 02/18/24 02/18/24 22:59 06:59 14:59 Intake Total 890 / 2015.833 50 / 2065.833 480 / 480 Output Total 700 / 975 375 / 1350 Balance 190 / 1040.833 -325 / 715.833 480 / 480 Weight last 48 hrs Weight 160 lb Weight 144 lb 4 oz Weight 144 lb 9.6 oz Weight 148 lb Physical Exam 2 Narrative: Examination right lower extremity dressings on in place clean dry and intact normal postoperative swelling about the right thigh with ecchymosis. Compartments are soft compressible. Patient is able to wiggle toes plantarflex and dorsiflex ankle sensations intact light touch distally. Distal pulses are palpable. Urinary Catheter Management: Hernandez: Cath Placed During This Visit: yes Reason for Continuing Indwelling Catheter: Acute Urinary Retention or Obstruction Urinary Catheter Date of Insertion: 02/16/24 Urinary Catheter Time of Insertion: 21:46 Data 02/18/24 05:01 02/18/24 05:01 Micro: Microbiology 02/17/24 16:26 Blood Culture - Preliminary Blood SPECIMEN COLLECTED 02/17/24 16:23 Blood Culture - Preliminary Blood SPECIMEN COLLECTED Xray Ortho: Radiologist's impression: Ordering Provider/Ordering MD: Tay Newberry Date of Service: 02/17/24 Procedure(s): XR hip RT 2-3V wo/w pel* [id number] Accession Number(s): [id number] Report Number: [id number] PROCEDURE INFORMATION: Exam: XR Right Hip Exam date and time: 02/17/2024 11:41 AM Age: 83 years old Clinical indication: Screening exam; Prior surgery; Surgery date: Post-operative (0-2 days); Surgery type: RT tfn; Additional info: Post op right tfn. TECHNIQUE: Imaging protocol: Radiologic exam of the right hip. Views: 1 view hip with pelvis when performed. COMPARISON: CR (PELVIS, ) 02/16/2024 6:13 PM FINDINGS: Bones/joints: There are moderate to severe osteoarthritic changes of the right hip. Status post ORIF of the right hip. There are moderate osteoarthritic changes of the left hip. There are old, healed bilateral pubic rami fractures. Soft tissues: Routine postsurgical changes noted in the soft tissues surrounding the right hip. Vasculature: Calcified atherosclerotic plaques projecting over the iliofemoral arteries bilaterally. XR/XR hip RT 2-3V wo/w pel* [id number] IMPRESSION: 1. Good alignment of the right hip status post ORIF. There are routine postoperative changes in the soft tissues. 2. Chronic osteoarthritic changes of both hips. A&P Assessment and plan (1) Closed trochanteric fracture of hip: Plan Weight-bear as tolerated right lower extremity Dressing changes needed Resume diet Complete postoperative antibiotics Pain control DVT prophylaxis-pain resume home Eliquis when deemed necessary by internal medicine okay to resume postop day 1 from orthopedic standpoint Postoperative x-rays reviewed?stable ORIF right hip PT/OT Case management for discharge planning Internal medicine on board as primary Orthopedics will continue to follow Attestations 2 Medical Necessity Statement*: Ongoing care status post right hip trochanteric femur nail Coding Level of Care Code Acute Code for Chg Fwd Diagnoses Closed trochanteric fracture of hip S72.109A
[2024-02-18] MEDS: sodium chloride 0.9% 1,000 ML 50 ML IV (10:57)
[2024-02-18] MEDS: TRAMadol 50 mg Tablet 100 MG PO (12:48)
--- NOTE | 2024-02-18 14:45 | P.PN_ITS ---
Subjective 2 Subjective: No acute events overnight. Patient has remained hemodynamically stable and afebrile. States pain is better but still having a lot of pain specially at night. States he usually deals with restless leg syndrome for many years. Seen with family at bedside. Vitals/I&O/Wt Last Vital Signs Temp 97.8 F 02/18/24 12:27 Pulse 80 02/18/24 12:27 Resp 18 02/18/24 12:27 BP 104/63 02/18/24 12:27 Pulse Ox 96 02/18/24 12:27 O2 Del Method Nasal Cannula 02/18/24 12:27 O2 Flow Rate 2 02/18/24 08:00 02/17/24 02/18/24 02/18/24 22:59 06:59 14:59 Intake Total 890 / 2015.833 50 / 2065.833 2009 Output Total 700 / 975 375 / 1350 Balance 190 / 1040.833 -325 / 676.476 0575 / 2010 Weight last 48 hrs Weight 73.028 kg Weight 72.575 kg Weight 65.431 kg Weight 65.589 kg Weight 67.132 kg Physical Exam 2 Narrative: General: In distress because of hip pain, cachectic with bitemporal wasting, AO x3 HEENT: PERRLA, pupils bilaterally equal and reactive Chest: Normal vesicular breath sounds, no added sounds, equal good air entry bilaterally CVS: S1-S2 regular, no murmurs, no tachycardia, no gallops, no rubs Abdomen: Soft, nontender, no organomegaly, bowel sounds present Neuro: No focal deficits, no facial deformity, AO x3, power 5/5 in all limbs Urinary Catheter Management: Hernandez: Cath Placed During This Visit: yes Reason for Continuing Indwelling Catheter: Acute Urinary Retention or Obstruction Urinary Catheter Date of Insertion: 02/16/24 Urinary Catheter Time of Insertion: 21:46 Data 02/18/24 05:01 02/18/24 05:01 Micro: Microbiology 02/17/24 16:26 Blood Culture - Preliminary Blood SPECIMEN COLLECTED 02/17/24 16:23 Blood Culture - Preliminary Blood SPECIMEN COLLECTED A&P Assessment and plan (1) Closed trochanteric fracture of hip: Underwent ORIF today. Postop day 0. Hold off on Eliquis for now. As per surgical team can start Eliquis on 02/17. Monitor hemoglobin. Physical therapy as per orthopedic team. [place] 5 mg 1 tablet every 6 hours as needed for pain, morphine 2 mg every 4 hours IV for pain as needed, cyclobenzaprine 5 mg 3 times daily as needed. (2) Atrial fibrillation: Telemetry. Continue metoprolol tart 50 mg twice daily. Hold off on Eliquis. Follow-up echocardiogram results. (3) Hypothyroidism: TSH mildly elevated. Check free T3 and free T4. Continue with home dose of levothyroxine. (4) Restless leg syndrome: Continue with home dose of Requip. (5) Peripheral neuropathy: Continue with home dose of carbamazepine. Was on high doses of gabapentin which was recently discontinued. Plan Fever: Up to up to 101.3 fever overnight. 100 Fahrenheit today morning. No leukocytosis. UA negative for signs of infection. Chest x-ray preoperatively negative for pneumonia. Repeat chest x-ray stat. Check blood cultures. Check MRSA swab, respiratory viral panel. Empirically start on IV ceftriaxone for now. CODE STATUS: Discussed today with the patient. Full code. Daughter will be the DPOA. Cardiac diet, n.p.o. after midnight Heparin 5000 every 12 for DVT prophylaxis Protonix for PUD prophylaxis. Plan for the day: Hemoglobin slightly low today. Around 9.6. Continue with heparin 5000 every 12 hourly for DVT prophylaxis. Hold off on Eliquis for now. If hemoglobin stay stable tomorrow can restart. Hold off on IV fluids. Patient eating well. Start on oral iron supplementation Continue with current pain management. Has remained afebrile postoperatively. No leukocytosis. Respiratory viral panel negative. Appreciate UA for no concerns for UTI. For now we will continue with IV ceftriaxone 1 g daily. Follow-up blood cultures. If blood cultures remain negative can discontinue IV antibiotics. MRSA swab negative. Physical therapy. Check free T3, free T4. Attestations 2 Medical Necessity Statement*: Requires further hospitalization for management of postoperative care, post-ORIF while safe discharge planning is sought, febrile episode Diagnoses Closed trochanteric fracture of hip S72.109A Atrial fibrillation I48.91 Hypothyroidism E03.9 Restless leg syndrome G25.81 Peripheral neuropathy G62.9
[2024-02-18 15:56] LABS: Free T4 Free Thyroxine 1.11 ng/dL (0.82-1.77); T3 Free 1.8 PG/ML (2.0-4.4)
[2024-02-18] MEDS: metoprolol tartrate 50 mg Tablet PO (17:28)
[2024-02-18] MEDS: cefTRIAXone 1,000 mg SDV 1000 MG IVP (17:28)
[2024-02-18] MEDS: pantoprazole 40 mg SDV IVP (20:12)
[2024-02-19] VITALS (7 sets, daily range): BP systolic 93–121; BP diastolic 53–69; PULSE 68–81; RESP 16–20; TEMP 36.4–36.9; O2SAT 94–98
[2024-02-19] MEDS: ketorolac 30 mg/mL INJ 15 MG IVP ×2 (01:48→21:59)
[2024-02-19] MEDS: cyclobenzaprine 10 mg Tablet 5 MG PO ×3 (01:48→21:40)
[2024-02-19] MEDS: HYDROcodone-acetaminophen 5-325 mg Tablet 1 TAB PO ×4 (05:26→21:37)
[2024-02-19 05:53] LABS: Basophils % 0.3 %; Eosinophils # 0.3 10^3/uL (0.0-0.8); Eosinophils % 3.8 %; Hematocrit 27.4 % (37-53); Lymphocytes # 0.7 10^3/uL (0.8-4.8); Mean Corpuscular HGB Conc 33.2 g/dL (30-55); Mean Corpuscular Hemoglobin 31.5 pg (27-33); Mean Corpuscular Volume 94.8 fl (82-101); Mean Platelet Volume 9.6 fL (7.4-10.4); Monocytes # 1.5 10^3/uL (0.2-0.9); Monocytes % 20.1 %; Neutrophils # 4.96 10^3/uL (1.8-7.7); Neutrophils % 65.7 %; Nucleated Red Blood Cells % 0 %; Platelet Count 173 10^3/cmm (157-399); Red Blood Count 2.89 10^6/uL (3.85-5.65); Red Cell Distribution Width 13.8 % (12.1-15.1); White Blood Count 7.55 10^3/uL (3.29-11.43)
[2024-02-19 06:13] LABS: Alanine Aminotransferase 9 U/L (0-41); Albumin Level 3.2 g/dL (3.5-5.2); Alkaline Phosphatase 96 U/L (40-130); Aspartate Amino Transferase 17 U/L (0-40); Blood Urea Nitrogen 15 mg/dL (8-23); Calcium 8.8 mg/dL (8.5-10.5); Carbon Dioxide 24 mmol/L (22-29); Chloride 99 mmol/L (98-107); Creatinine Clr Calc Pharmacy 80.1375; Globulin 2.3 g/dL (1.3-4.6); Glucose 107 mg/dL (65-115); Osmolality Calculated 279 mOsm/kg (285-295); Sodium 134 mmol/L (136-145); Total Bilirubin 0.5 mg/dL (0.15-1.2); Total Protein 5.5 g/dL (6.6-8.7)
[2024-02-19] MEDS: calcium carb-vit d 600mg/400unit 1 Tablet 1 EACH PO ×2 (09:52→18:09)
[2024-02-19] MEDS: iron polysaccharide complex 150 mg Capsule PO ×2 (09:52→18:09)
[2024-02-19] MEDS: metoprolol tartrate 50 mg Tablet PO (09:53)
[2024-02-19] MEDS: docusate sodium 100 mg Capsule PO ×2 (09:53→18:08)
[2024-02-19] MEDS: carBAMazepine XR (12 HR) 200 mg Tablet PO ×2 (09:53→18:13)
[2024-02-19] MEDS: levothyroxine 75 mcg Tablet PO (09:53)
[2024-02-19] MEDS: multivitamin therapeutic Tablet 1 TAB PO (09:53)
[2024-02-19] MEDS: ropinirole 2 mg Tablet 4 MG PO (09:54)
[2024-02-19] MEDS: heparin 5,000 unit/mL INJ 1 mL 5000 UNIT SUBCUT ×2 (09:54→21:35)
[2024-02-19] MEDS: TRAMadol 50 mg Tablet 100 MG PO (09:55)
[2024-02-19] MEDS: ropinirole 2 mg Tablet 8 MG PO ×2 (16:25→21:36)
--- NOTE | 2024-02-19 17:08 | P.PN_ITS ---
Subjective 2 Subjective: Patient seen and examined postoperative day 2 right hip trochanteric femur nail. Pain controlled. No acute events overnight. Pt has gotten up with Physical Therapy twice today and did well. Vitals/I&O/Wt Last Vital Signs Temp 97.6 F 02/19/24 15:41 Pulse 68 02/19/24 15:41 Resp 16 02/19/24 15:41 BP 93/53 02/19/24 15:41 Pulse Ox 94 02/19/24 15:41 O2 Del Method Nasal Cannula 02/19/24 15:41 O2 Flow Rate 2 02/19/24 04:00 02/19/24 02/19/24 02/19/24 06:59 14:59 22:59 Intake Total 240 / 2586.667 1160 / 1160 Output Total 350 / 1050 Balance -110 / 1640.048 3045 / 1160 Weight last 48 hrs Weight 160 lb Weight 159 lb 3.2 oz Weight 161 lb Weight 160 lb Physical Exam 2 Narrative: Examination right lower extremity dressings on in place clean dry and intact normal postoperative swelling about the right thigh with ecchymosis. Compartments are soft compressible. Patient is able to wiggle toes plantarflex and dorsiflex ankle sensations intact light touch distally. Distal pulses are palpable. Const: COMMON NORMALS: no acute distress and alert Resp: COMMON NORMALS: normal respiratory effort and No retractions Cardio: COMMON NORMALS: Peripheral pulses 2+ throughout PERIPHERAL PULSES: Peripheral pulses 2+ throughout Neuro: SENSORIUM/ORIENTATION: Yes alert Skin: GENERAL SKIN EXAM: dry skin Urinary Catheter Management: Hernandez: Cath Placed During This Visit: yes Reason for Continuing Indwelling Catheter: Acute Urinary Retention or Obstruction Urinary Catheter Date of Insertion: 02/16/24 Urinary Catheter Time of Insertion: 21:46 Data 02/19/24 05:15 02/19/24 05:15 Micro: Microbiology 02/17/24 16:26 Blood Culture - Preliminary Blood NEGATIVE TO DATE 02/17/24 16:23 Blood Culture - Preliminary Blood NEGATIVE TO DATE A&P Assessment and plan (1) Closed trochanteric fracture of hip: Plan Plan: Weight-bear as tolerated right lower extremity Dressing changes as needed Resume diet Complete postoperative antibiotics Pain control DVT prophylaxis-resume home Eliquis when deemed necessary by internal medicine okay to resume postop day 2 from orthopedic standpoint PT/OT Case management for discharge planning Internal medicine on board as primary Patient stable from an orthopedic standpoint. No further orthopedic surgical intervention required at this time, so orthopedic surgery team will sign off patient and follow peripherally. If there is any questions pertaining to patient's care will prefer to contact orthopedics. We appreciate allowed us to partake in the care of this patient. Patient will follow-up with us in the office in 2 weeks. All questions answered. Attestations 2 Medical Necessity Statement*: Ongoing care for Right hip fracture Coding Level of Care Code Acute Code for Chg Fwd Diagnoses Closed trochanteric fracture of hip S72.109A
[2024-02-19] MEDS: mupirocin oint 22 gm 1 APPLIC NASAL (18:09)
[2024-02-19] MEDS: cefTRIAXone 1,000 mg SDV 1000 MG IVP (18:09)
[2024-02-19] MEDS: chlorhexidine gluconate 0.12% Btl 473 mL 30 ML MUCOUS MEM (18:09)
--- NOTE | 2024-02-19 21:05 | P.PN_ITS ---
Subjective 2 Subjective: He has been having significant pain in his right hip triggered by his restless leg spasms. Vitals/I&O/Wt Last Vital Signs Temp 98.0 F 02/19/24 19:36 Pulse 73 02/19/24 19:36 Resp 17 02/19/24 19:36 BP 113/66 02/19/24 19:36 Pulse Ox 97 02/19/24 19:36 O2 Del Method Nasal Cannula 02/19/24 19:36 O2 Flow Rate 2 02/19/24 19:36 02/19/24 02/19/24 02/19/24 06:59 14:59 22:59 Intake Total 240 / 2586.667 1160 / 1160 680 / 1840 Output Total 350 / 1050 500 / 500 Balance -110 / 0800.776 5915 / 1160 180 / 1340 Weight last 48 hrs Weight 72.575 kg Weight 72.212 kg Weight 73.028 kg Weight 72.575 kg Physical Exam 2 Narrative: Accompanied by his daughter. Const: COMMON NORMALS: patient oriented x3 GENERAL APPEARANCE: cooperative ORIENTATION/CONSCIOUSNESS: Yes awake OTHER: Intermittently writhing and screaming out in pain. HENMT: COMMON NORMALS: oropharynx normal Neck/C-Spine: COMMON NORMALS: no JVD Resp: COMMON NORMALS: normal respiratory effort and clear to auscultation bilaterally AUSCULTATION: clear to auscultation bilaterally Cardio: COMMON NORMALS: no JVD, regular rhythm, S1 normal heart sound present, S2 normal heart sound present and No murmurs present (Cardio) RHYTHM: regular rhythm HEART SOUNDS: S1 normal heart sound present and S2 normal heart sound present GI: COMMON NORMALS: Normal to inspection, nondistended, normoactive bowel sounds present, Soft to palpation and non-tender PALPATION: Yes Soft to palpation Extremity: COMMON NORMALS: no joint enlargement and no pedal edema OTHER: Right hip wound, bloody strikethrough. Neuro: COMMON NORMALS: patient oriented x3 and moves all extremities Skin: COMMON NORMALS: no rashes or lesions noted GENERAL SKIN EXAM: no rashes or lesions noted Urinary Catheter Management: Hernandez: Cath Placed During This Visit: yes Reason for Continuing Indwelling Catheter: Acute Urinary Retention or Obstruction Urinary Catheter Date of Insertion: 02/16/24 Urinary Catheter Time of Insertion: 21:46 Data 02/19/24 05:15 12/30/24 05:15 Micro: Microbiology 02/17/24 16:26 Blood Culture - Preliminary Blood NEGATIVE TO DATE 02/17/24 16:23 Blood Culture - Preliminary Blood NEGATIVE TO DATE A&P Assessment and plan (1) Closed trochanteric fracture of hip: Intermittent severe pain episodes in the right hip triggered by his restless leg spasms. At home he takes ropinirole 8 mg 3 times daily per history provided by his daughter. As well as had success with additional Flexeril as needed. Discussed risk of increasing the dose, including risk of encephalopathy would like to increase the dose to his Particularly with polypharmacy. Patient and family understand. Home dose given severity of his symptoms. Addition would like to continue with Flexeril as needed. Hydrocodone as needed. Agrees to discontinuation of tramadol to decrease risk of confusion with multiple oral medications, risk of encephalopathy with tramadol and additionally risk of bleeding. Increase frequency of hydrocodone to every 4 hours. Discussed risks including but not limited to encephalopathy, constipation, tolerance. Discussed with nursing, case checker. Reviewed orthopedic note. Underwent ORIF. Hold off on Eliquis for now. As per surgical team can start Eliquis on 02/17. So far with bloody strikethrough at the wound, some worsening anemia hemoglobin down to 9.1. SCDs. Anticoagulation has been on hold for now. Discontinue tramadol. Reassess any additional bleeding. Reassess blood counts. (2) Atrial fibrillation: Telemetry. Continue metoprolol tart 50 mg twice daily. Hold off on Eliquis. Reviewed echocardiogram results. (3) Hypothyroidism: TSH mildly elevated. On review free T41.11, free T3 mildly low 1.8. Continue levothyroxine. Follow-up with PCP for reassessment. Continue with home dose of levothyroxine. (4) Restless leg syndrome: Increase dose of Requip as above. (5) Peripheral neuropathy: Continue with home dose of carbamazepine. Was on high doses of gabapentin which was recently discontinued. Plan Fever: So far resolved without recurrence. Up to up to 101.3 fever overnight. 100 Fahrenheit today morning. No leukocytosis. UA negative for signs of infection. Chest x-ray preoperatively negative for pneumonia. Repeat chest x-ray stat. Reviewed blood cultures. Reviewed MRSA swab, respiratory viral panel. Empirically on IV ceftriaxone for now. Check procalcitonin. CODE STATUS:Full code. Daughter will be the DPOA. Heparin 5000 every 12 for DVT prophylaxis Attestations 2 Medical Necessity Statement*: Continue admission for optimization of pain control and treatment with episodic severe uncontrolled pain with spasms secondary to restless leg syndrome, reassessment of acute anemia. and High MDM includes amount and/or complexity of data reviewed/ordered [ previous or external records, resulted lab(s)/test(s), ordered lab(s)/test(s), independent historian and other healthcare professional discussion] and described risk of complication, morbidity or mortality of management as documented Diagnoses Closed trochanteric fracture of hip S72.109A Atrial fibrillation I48.91 Hypothyroidism E03.9 Restless leg syndrome G25.81 Peripheral neuropathy G62.9
[2024-02-19] MEDS: pantoprazole 40 mg SDV IVP (21:35)
[2024-02-20] VITALS (9 sets, daily range): BP systolic 91–121; BP diastolic 49–63; PULSE 66–95; RESP 15–22; TEMP 36.5–36.9; O2SAT 92–97
[2024-02-20] MEDS: HYDROcodone-acetaminophen 5-325 mg Tablet 1 TAB PO ×5 (01:52→21:57)
[2024-02-20] MEDS: chlorhexidine gluconate 0.12% Btl 473 mL 30 ML MUCOUS MEM ×5 (01:53→20:37)
[2024-02-20] MEDS: ketorolac 30 mg/mL INJ 15 MG IVP ×2 (04:04→20:27)
[2024-02-20 04:56] LABS: Basophils % 0.3 %; Eosinophils # 0.4 10^3/uL (0.0-0.8); Eosinophils % 5.5 %; Hematocrit 24.8 % (37-53); Lymphocytes # 0.6 10^3/uL (0.8-4.8); Lymphocytes % 9.5 %; Mean Corpuscular HGB Conc 33.5 g/dL (30-55); Mean Corpuscular Hemoglobin 31.7 pg (27-33); Mean Corpuscular Volume 94.7 fl (82-101); Mean Platelet Volume 9.2 fL (7.4-10.4); Monocytes # 1.4 10^3/uL (0.2-0.9); Monocytes % 22.5 %; Neutrophils # 3.87 10^3/uL (1.8-7.7); Neutrophils % 60.3 %; Nucleated Red Blood Cells % 0 %; Platelet Count 184 10^3/cmm (157-399); Red Blood Count 2.62 10^6/uL (3.85-5.65); Red Cell Distribution Width 13.8 % (12.1-15.1); White Blood Count 6.41 10^3/uL (3.29-11.43)
[2024-02-20 05:27] LABS: Blood Urea Nitrogen 14 mg/dL (8-23); Calcium 8.6 mg/dL (8.5-10.5); Carbon Dioxide 25 mmol/L (22-29); Chloride 100 mmol/L (98-107); Creatinine Clr Calc Pharmacy 69.8819; Glucose 104 mg/dL (65-115); Osmolality Calculated 281 mOsm/kg (285-295); Sodium 135 mmol/L (136-145)
[2024-02-20 05:28] LABS: Procalcitonin 0.19 ng/mL (0-0.5)
[2024-02-20] MEDS: docusate sodium 100 mg Capsule PO ×2 (08:09→16:51)
[2024-02-20] MEDS: levothyroxine 75 mcg Tablet PO (08:09)
[2024-02-20] MEDS: calcium carb-vit d 600mg/400unit 1 Tablet 1 EACH PO ×2 (08:09→16:50)
[2024-02-20] MEDS: iron polysaccharide complex 150 mg Capsule PO ×2 (08:09→16:51)
[2024-02-20] MEDS: multivitamin therapeutic Tablet 1 TAB PO (08:09)
[2024-02-20] MEDS: ropinirole 2 mg Tablet 8 MG PO ×3 (08:09→20:35)
[2024-02-20] MEDS: carBAMazepine XR (12 HR) 200 mg Tablet PO ×2 (08:10→16:51)
[2024-02-20] MEDS: cyclobenzaprine 10 mg Tablet 5 MG PO ×3 (08:10→20:35)
[2024-02-20] MEDS: heparin 5,000 unit/mL INJ 1 mL 5000 UNIT SUBCUT ×2 (08:10→20:37)
[2024-02-20] MEDS: mupirocin oint 22 gm 1 APPLIC NASAL ×2 (08:11→16:50)
--- NOTE | 2024-02-20 10:44 | PC.NURSE ---
This nurse provided an update to daughter, Ritu, via phone at 10:42am.
--- NOTE | 2024-02-20 14:19 | PC.NURSE ---
Pt has a red rash present on abdomen and back. Dr. Lagos notified of possible allergic reaction to rocephin. Rocephin discontinued.
--- NOTE | 2024-02-20 14:51 | PM.PN ---
Subjective Subjective: Still having pain but cramping is improved from yesterday. Having a rash on his back and abdomen today. Vitals/I&O/Wt Last Vital Signs Temp 98.5 F 02/20/24 12:00 Pulse 71 02/20/24 12:00 Resp 15 02/20/24 12:00 BP 91/60 02/20/24 12:00 Pulse Ox 95 02/20/24 12:00 O2 Del Method Nasal Cannula 02/20/24 12:00 O2 Flow Rate 2 02/20/24 08:00 02/19/24 02/20/24 02/20/24 22:59 06:59 14:59 Intake Total 800 / 1960 480 / 2440 250 / 250 Output Total 500 / 500 300 / 800 Balance 300 / 1460 180 / 1640 250 / 250 Weight last 48 hrs Weight 69.4 kg Weight 72.575 kg Weight 72.212 kg Physical Exam Const: COMMON NORMALS: patient oriented x3 GENERAL APPEARANCE: cooperative ORIENTATION/CONSCIOUSNESS: Yes awake OTHER: Sitting up in the chair HENMT: COMMON NORMALS: oropharynx normal Neck/C-Spine: COMMON NORMALS: no JVD Resp: COMMON NORMALS: normal respiratory effort and clear to auscultation bilaterally AUSCULTATION: clear to auscultation bilaterally Cardio: COMMON NORMALS: no JVD, regular rhythm, S1 normal heart sound present, S2 normal heart sound present and No murmurs present (Cardio) RHYTHM: regular rhythm HEART SOUNDS: S1 normal heart sound present and S2 normal heart sound present GI: COMMON NORMALS: Normal to inspection, nondistended, normoactive bowel sounds present, Soft to palpation and non-tender PALPATION: Yes Soft to palpation Extremity: COMMON NORMALS: no joint enlargement and no pedal edema OTHER: Right hip wound, no bloody strikethrough. Neuro: COMMON NORMALS: patient oriented x3 and moves all extremities Skin: COMMON NORMALS: no rashes or lesions noted GENERAL SKIN EXAM: no rashes or lesions noted Urinary Catheter Management: Hernandez: Cath Placed During This Visit: yes Reason for Continuing Indwelling Catheter: Acute Urinary Retention or Obstruction Urinary Catheter Date of Insertion: 02/16/24 Urinary Catheter Time of Insertion: 21:46 Data 02/20/24 04:35 02/20/24 04:35 A&P Assessment and plan (1) Closed trochanteric fracture of hip: Pain control is improving with improved restless leg syndrome control with increase in dose of ropinirole. He is still having pain. Continue hydrocodone. Further decrease in hemoglobin today. Tramadol has been discontinued. Discussed with orthopedic surgery. Discussed with bilingual case manager. As per discussion with him we will reassess blood counts again in the morning. Reviewed vitals, CBC, BMP. Reviewed orthopedic note Continue treatment of restless leg syndrome, optimization of pain control, monitor for risk of adverse medication reaction with polypharmacy with need for hydrocodone, Flexeril, increased dose ropinirole, Toradol and on chronic carbamazepine, for control of restless leg syndrome and pain in an elderly gentleman with soft blood pressure. Monitor for risk of further decrease in blood pressure, kidney injury. Underwent ORIF. Hold off on Eliquis for now. As per surgical team can start Eliquis on 02/17. So far with bloody strikethrough at the wound, some worsening anemia hemoglobin down to 9.1. SCDs. Anticoagulation has been on hold for now. Discontinue tramadol. Reassess any additional bleeding. Reassess blood counts. (2) Macular rash: Morbilliform rash with small macules on the back and abdomen. Question of possibly due to ceftriaxone. Does have listed penicillin allergy. Will stop ceftriaxone. So far remains afebrile. Reassess. (3) Atrial fibrillation: Telemetry. Continue metoprolol tart 50 mg twice daily. Hold off on Eliquis. Reviewed echocardiogram results. (4) Hypothyroidism: TSH mildly elevated. On review free T41.11, free T3 mildly low 1.8. Continue levothyroxine. Follow-up with PCP for reassessment. Continue with home dose of levothyroxine. (5) Restless leg syndrome: Increase dose of Requip as above. (6) Peripheral neuropathy: Continue with home dose of carbamazepine. Was on high doses of gabapentin which was recently discontinued. Plan Decreased blood pressure: Blood pressure down to 91/60. Decrease metoprolol dose to 25 mg. Repeat CBC, chemistry. Fever: So far resolved without recurrence. Stop ceftriaxone. Up to up to 101.3 fever initially. No leukocytosis. UA negative for signs of infection. Chest x-ray preoperatively negative for pneumonia. Repeat chest x-ray stat. Reviewed blood cultures. Reviewed MRSA swab, respiratory viral panel. Empirically on IV ceftriaxone for now. Reviewed procalcitonin. CODE STATUS:Full code. Daughter will be the DPOA. Heparin 5000 every 12 for DVT prophylaxis Attestations Medical Necessity Statement*: Continue admission for reassessment of acute anemia. New morbilliform rash, suspected medical allergy. and High MDM includes amount and/or complexity of data reviewed/ordered [ previous or external records, resulted lab(s)/test(s), ordered lab(s)/test(s) and other healthcare professional discussion] and described risk of complication, morbidity or mortality of management as documented Diagnoses Closed trochanteric fracture of hip S72.109A Macular rash R21 Atrial fibrillation I48.91 Hypothyroidism E03.9 Restless leg syndrome G25.81 Peripheral neuropathy G62.9
--- NOTE | 2024-02-20 15:34 | PC.OT ---
Patient refused for OT visit today, complained of being tired and fatigued from sitting up in the chair and Physical Therapy treatment session.
[2024-02-20] MEDS: pantoprazole 40 mg SDV IVP (20:36)
[2024-02-20] MEDS: diphenhydrAMINE 25 mg Capsule PO (21:57)
[2024-02-21] VITALS (9 sets, daily range): BP systolic 100–126; BP diastolic 55–67; PULSE 77–97; RESP 16–22; TEMP 36.2–36.9; O2SAT 92–97
[2024-02-21] MEDS: cyclobenzaprine 10 mg Tablet 5 MG PO ×3 (04:13→18:22)
[2024-02-21] MEDS: HYDROcodone-acetaminophen 5-325 mg Tablet PO ×5 (04:13→21:27)
[2024-02-21 04:46] LABS: Basophils % 0.2 %; Eosinophils # 0.4 10^3/uL (0.0-0.8); Eosinophils % 7.8 %; Hematocrit 24.8 % (37-53); Lymphocytes # 0.5 10^3/uL (0.8-4.8); Lymphocytes % 8.5 %; Mean Corpuscular HGB Conc 32.7 g/dL (30-55); Mean Corpuscular Hemoglobin 31.5 pg (27-33); Mean Corpuscular Volume 96.5 fl (82-101); Mean Platelet Volume 9.3 fL (7.4-10.4); Monocytes # 1.2 10^3/uL (0.2-0.9); Monocytes % 21.7 %; Neutrophils % 59.8 %; Nucleated Red Blood Cells % 0 %; Platelet Count 216 10^3/cmm (157-399); Red Blood Count 2.57 10^6/uL (3.85-5.65); Red Cell Distribution Width 13.6 % (12.1-15.1); White Blood Count 5.52 10^3/uL (3.29-11.43)
[2024-02-21 05:07] LABS: Blood Urea Nitrogen 15 mg/dL (8-23); Calcium 8.4 mg/dL (8.5-10.5); Carbon Dioxide 25 mmol/L (22-29); Chloride 96 mmol/L (98-107); Creatinine Clr Calc Pharmacy 79.7536; Glucose 106 mg/dL (65-115); Osmolality Calculated 275 mOsm/kg (285-295); Sodium 132 mmol/L (136-145)
[2024-02-21] MEDS: iron polysaccharide complex 150 mg Capsule PO ×2 (08:07→17:26)
[2024-02-21] MEDS: heparin 5,000 unit/mL INJ 1 mL 5000 UNIT SUBCUT ×2 (08:08→21:28)
[2024-02-21] MEDS: levothyroxine 75 mcg Tablet PO (08:08)
[2024-02-21] MEDS: carBAMazepine XR (12 HR) 200 mg Tablet PO ×2 (08:08→17:26)
[2024-02-21] MEDS: calcium carb-vit d 600mg/400unit 1 Tablet 1 EACH PO ×2 (08:08→17:26)
[2024-02-21] MEDS: multivitamin therapeutic Tablet 1 TAB PO (08:08)
[2024-02-21] MEDS: ropinirole 2 mg Tablet 8 MG PO ×3 (08:09→21:28)
[2024-02-21] MEDS: chlorhexidine gluconate 0.12% Btl 473 mL 30 ML MUCOUS MEM ×3 (08:10→22:08)
[2024-02-21] MEDS: mupirocin oint 22 gm 1 APPLIC NASAL ×2 (08:10→17:29)
--- NOTE | 2024-02-21 10:33 | PC.SOCIAL ---
IMM Update Pg. 2 of IMM updated. Initialed, dated, and timed, copy placed in chart. Copy provided at bedside.
[2024-02-21] MEDS: acetaminophen 325 mg Tablet 650 MG PO (11:04)
--- NOTE | 2024-02-21 17:19 | PC.NURSE ---
Increased swelling to the right hip observed. Not a drastic change, but noticeable compared to this morning. Nurse alerted Dr mishra. Received order to check HGB
[2024-02-21] MEDS: docusate sodium 100 mg Capsule PO (17:26)
--- NOTE | 2024-02-21 18:32 | CTR_ITS ---
PROCEDURE INFORMATION: Exam: CT Right Lower Extremity, Hip Exam date and time: 02/21/2024 7:10 PM Age: 83 years old Clinical indication: Other: Enlarged L thigh; Prior surgery; Surgery date: 3-7 days post-operative; Surgery type: RT hip surgery x 4 days ago. Hematoma around surgical site. ; Additional info: Enlarged L thigh, pain, assess for blood collection or other acute abnormality TECHNIQUE: Imaging protocol: CT of the right lower extremity with intravenous contrast was performed. Exam focused on the hip. Radiation optimization: All CT scans at this facility use at least one of these dose optimization techniques: automated exposure control; mA and/or kV adjustment per patient size (includes targeted exams where dose is matched to clinical indication); or iterative reconstruction. Contrast material: OMNI 350; Contrast volume: 100 ml; Contrast route: INTRAVENOUS (IV); COMPARISON: CT hip RT wo con* [id number] 02/16/2024 4:57 PM RADIATION DOSE METRICS: Total DLP (mGy-cm): 457.16 FINDINGS: Bones/joints: Interval ORIF of the proximal right femur with intramedullary willie in place. 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 Chronic pelvic fractures again noted. Soft tissues: Postsurgical changes of the right hip/hemipelvis with soft tissue air, edema and intramuscular hemorrhage within the gluteus minimus/medius. There may be a small 2 cm hematoma in the region of the gluteus medius muscle (image 56 of series 4). No discrete large hematoma. 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 Focal soft tissue thickening and calcifications of the inferior right gluteal cleft. CT/CT hip RT w con [id number] IMPRESSION: 1. Postsurgical changes status post ORIF of the proximal right femur with soft tissue edema, intramuscular hemorrhage and small 2 cm hematoma. No discrete large hematoma.
--- NOTE | 2024-02-21 18:34 | PC.NURSE ---
Patient is reporting severe pain to the right leg. Hydrocodone nurse gave was ineffective at relieving pain. Patient describes pain as having a restless/tingling quality to it. Dr mishra allowed early administration of flexeril.
--- NOTE | 2024-02-21 18:36 | PC.NURSE ---
NUrse reassessed right leg. upper thigh is more swollen than before (see previous notes). Increased swelling combined with increaed pain prompted nurse to again contact Dr mishra. Flexeril was just given minutes ago. Dr mishra advised continue to monitor. Reassess in 20 minutes, if no pain relief from flexeril or if swelling increases, obtain CT.
[2024-02-21] MEDS: iohexol 350 mg/mL 500 mL Btl (per mL) IV (19:21)
--- NOTE | 2024-02-21 21:12 | P.PN_ITS ---
Subjective 2 Subjective: Today he is feeling slightly better, although in the afternoon still having an episode of severe pain. Additionally has had difficulty urinating after removing Hernandez catheter, has not urinated since the morning. Bladder scan has been repeated several x 200-300 cc, although he has not felt like urinating so far. Later in the evening reported worsened swelling of the right hip by his nurse. Vitals/I&O/Wt Last Vital Signs Temp 98.4 F 02/21/24 20:00 Pulse 87 02/21/24 20:00 Resp 22 H 02/21/24 20:00 BP 126/65 02/21/24 20:00 Pulse Ox 96 02/21/24 20:00 O2 Del Method Room Air 02/21/24 20:00 O2 Flow Rate 2 02/20/24 20:00 02/21/24 02/21/24 02/21/24 06:59 14:59 22:59 Intake Total 440 / 440 400 / 840 Output Total 550 / 550 Balance -550 / 60 440 / 440 400 / 840 Weight last 48 hrs Weight 71.94 kg Weight 71.259 kg Weight 69.853 kg Weight 69.4 kg Physical Exam 2 Narrative: Accompanied by his son. Const: COMMON NORMALS: patient oriented x3 GENERAL APPEARANCE: cooperative ORIENTATION/CONSCIOUSNESS: Yes awake OTHER: Sitting up in the chair HENMT: COMMON NORMALS: oropharynx normal Neck/C-Spine: COMMON NORMALS: no JVD Resp: COMMON NORMALS: normal respiratory effort and clear to auscultation bilaterally AUSCULTATION: clear to auscultation bilaterally Cardio: COMMON NORMALS: no JVD, regular rhythm, S1 normal heart sound present, S2 normal heart sound present and No murmurs present (Cardio) RHYTHM: regular rhythm HEART SOUNDS: S1 normal heart sound present and S2 normal heart sound present GI: COMMON NORMALS: Normal to inspection, nondistended, normoactive bowel sounds present, Soft to palpation and non-tender PALPATION: Yes Soft to palpation Extremity: COMMON NORMALS: no joint enlargement and no pedal edema OTHER: Right hip wound, no bloody strikethrough. Neuro: COMMON NORMALS: patient oriented x3 and moves all extremities Skin: COMMON NORMALS: no rashes or lesions noted GENERAL SKIN EXAM: no rashes or lesions noted Urinary Catheter Management: Hernandez: Cath Placed During This Visit: yes, but has since been removed by the nurse Reason for Continuing Indwelling Catheter: Decision to DC Catheter Urinary Catheter Date of Insertion: 02/16/24 Urinary Catheter Time of Insertion: 21:46 Date Urinary Catheter Removed: 02/21/24 Time Urinary Catheter Discontinued: 04:25 Data 02/21/24 16:49 02/21/24 03:57 A&P Assessment and plan (1) Closed trochanteric fracture of hip: Reviewed hemoglobin this morning, down slightly to 8.1. In evening some report of worsening swelling of the right hip, hemoglobin repeated, 8.5, with further worsening swelling reported, obtain CT right hip/thigh, reviewed, noted postsurgical changes, proximal right femur with soft tissue edema, intramuscular hemorrhage with small 2 cm hematoma. No discrete large hematoma. Reassess blood counts. Additionally with urine retention, has not voided so far after removal of Hernandez around lunchtime. So far bladder scan 200-300 cc on repeat, however, has not felt the urge to void so far. Will reassess again, if does not void Hernandez catheter to be replaced. Follow-up with urology for reattempted voiding trial, hopefully she would do better with decreasing requirement for pain control, muscle relaxers. Reviewed vitals, CBC, BMP. Continue treatment of restless leg syndrome, optimization of pain control, monitor for risk of adverse medication reaction with polypharmacy with need for hydrocodone, Flexeril, increased dose ropinirole, Toradol and on chronic carbamazepine, for control of restless leg syndrome and pain in an elderly gentleman with soft blood pressure. Monitor for risk of further decrease in blood pressure, kidney injury. Underwent ORIF. Hold off on Eliquis for now. As per surgical team can start Eliquis on 02/17. So far with bloody strikethrough at the wound, some worsening anemia hemoglobin down to 9.1. SCDs. Anticoagulation has been on hold for now. Discontinue tramadol. Reassess any additional bleeding. Reassess blood counts. (2) Macular rash: Improving. Reassess. Morbilliform rash with small macules on the back and abdomen. Question of possibly due to ceftriaxone. Does have listed penicillin allergy. off ceftriaxone. So far remains afebrile. Reassess. (3) Atrial fibrillation: Telemetry. Continue metoprolol tart 50 mg twice daily. Hold off on Eliquis. Reviewed echocardiogram results. (4) Hypothyroidism: TSH mildly elevated. On review free T41.11, free T3 mildly low 1.8. Continue levothyroxine. Follow-up with PCP for reassessment. Continue with home dose of levothyroxine. (5) Restless leg syndrome: Increased dose of Requip as above. (6) Peripheral neuropathy: Continue with home dose of carbamazepine. Was on high doses of gabapentin which was recently discontinued. Plan Decreased blood pressure: Blood pressure down to 91/60. Decrease metoprolol dose to 25 mg. Repeat CBC, chemistry. Fever: So far resolved without recurrence. Stop ceftriaxone. Up to up to 101.3 fever initially. No leukocytosis. UA negative for signs of infection. Chest x-ray preoperatively negative for pneumonia. Repeat chest x-ray stat. Reviewed blood cultures. Reviewed MRSA swab, respiratory viral panel. Empirically on IV ceftriaxone for now. Reviewed procalcitonin. CODE STATUS:Full code. Daughter will be the DPOA. Heparin 5000 every 12 for DVT prophylaxis Attestations 2 Medical Necessity Statement*: Continue admission for reassessment of acute anemia. Worsened hip swelling. Morbilliform rash, suspected medical allergy. Coding Level of Care Code Acute Code for Chg Fwd Diagnoses Closed trochanteric fracture of hip S72.109A Macular rash R21 Atrial fibrillation I48.91 Hypothyroidism E03.9 Restless leg syndrome G25.81 Peripheral neuropathy G62.9
[2024-02-21] MEDS: pantoprazole 40 mg SDV IVP (21:28)
[2024-02-21] MEDS: BuSPIRONE 10 mg Tablet 5 MG PO (22:08)
[2024-02-21] MEDS: diphenhydrAMINE 50 mg/mL SDV 1mL 25 MG IVP (22:09)
[2024-02-22] VITALS (9 sets, daily range): BP systolic 97–124; BP diastolic 44–65; PULSE 67–90; RESP 14–22; TEMP 36.4–37.3; O2SAT 91–95
[2024-02-22] MEDS: HYDROcodone-acetaminophen 5-325 mg Tablet PO ×4 (01:27→17:10)
[2024-02-22 04:45] LABS: Basophils % 0.5 %; Eosinophils # 0.4 10^3/uL (0.0-0.8); Eosinophils % 6.8 %; Hematocrit 24.5 % (37-53); Lymphocytes # 0.7 10^3/uL (0.8-4.8); Lymphocytes % 10.2 %; Mean Corpuscular HGB Conc 32.7 g/dL (30-55); Mean Corpuscular Hemoglobin 30.9 pg (27-33); Mean Corpuscular Volume 94.6 fl (82-101); Mean Platelet Volume 9.2 fL (7.4-10.4); Monocytes # 1.4 10^3/uL (0.2-0.9); Monocytes % 21.9 %; Neutrophils # 3.66 10^3/uL (1.8-7.7); Neutrophils % 57.6 %; Nucleated Red Blood Cells % 0 %; Platelet Count 240 10^3/cmm (157-399); Red Blood Count 2.59 10^6/uL (3.85-5.65); Red Cell Distribution Width 13.8 % (12.1-15.1); White Blood Count 6.35 10^3/uL (3.29-11.43)
[2024-02-22 05:11] LABS: Anion Gap 11.2 (5-19); Blood Urea Nitrogen 13 mg/dL (8-23); Calcium 9.2 mg/dL (8.5-10.5); Carbon Dioxide 26 mmol/L (22-29); Chloride 99 mmol/L (98-107); Creatinine Clr Calc Pharmacy 80.0279; Glucose 98 mg/dL (65-115); Osmolality Calculated 274 mOsm/kg (285-295); Potassium 4.2 mmol/L (3.5-5.1); Sodium 132 mmol/L (136-145)
--- NOTE | 2024-02-22 06:23 | PC.NURSE ---
RETENTION patient had nichols removed at 0425 yesterday. patient did not feel the urge to void but was scanned periodically. last scan on day shift was 251mL at 1600. patient asked to attempt to void before bed with no success. patient was assisted to the bathroom at 2330, measurement of void was not obtained as patient voided in the toilet. patient was scanned at 2340 with post void residual showing 548mL in bladder. secure message sent to the doctor regarding this information, with no reply initially. during the interim the patient voided 150ml into a urinal and had a post void residual of 638ml at 0030. doctor was called directly and order received for scan and straight cath with monitoring. this writer editor performed straight cath with return of 625ml. patient did not void for the remainder of the night. patient was scanned this morning at 0545 with 465ml being seen in bladder, patient attempted to void with only 50ml out. doctor called and telephone order received for placement of nichols catheter given at 0615
[2024-02-22] MEDS: cyclobenzaprine 10 mg Tablet 5 MG PO (07:18)
[2024-02-22] MEDS: calcium carb-vit d 600mg/400unit 1 Tablet 1 EACH PO ×2 (08:19→17:11)
[2024-02-22] MEDS: iron polysaccharide complex 150 mg Capsule PO (08:19)
[2024-02-22] MEDS: metoprolol tartrate 50 mg Tablet 25 MG PO ×2 (08:19→17:10)
[2024-02-22] MEDS: levothyroxine 75 mcg Tablet PO (08:19)
[2024-02-22] MEDS: ropinirole 2 mg Tablet 8 MG PO ×3 (08:19→21:24)
[2024-02-22] MEDS: BuSPIRONE 10 mg Tablet 5 MG PO ×2 (08:19→17:11)
[2024-02-22] MEDS: docusate sodium 100 mg Capsule PO ×2 (08:20→17:10)
[2024-02-22] MEDS: multivitamin therapeutic Tablet 1 TAB PO (08:20)
[2024-02-22] MEDS: heparin 5,000 unit/mL INJ 1 mL 5000 UNIT SUBCUT (08:20)
[2024-02-22] MEDS: carBAMazepine XR (12 HR) 200 mg Tablet PO ×2 (08:20→17:10)
[2024-02-22] MEDS: mupirocin oint 22 gm 1 APPLIC NASAL (08:24)
[2024-02-22] MEDS: chlorhexidine gluconate 0.12% Btl 473 mL 30 ML MUCOUS MEM ×3 (08:24→21:24)
[2024-02-22] MEDS: pantoprazole 40 mg SDV IVP (09:15)
--- NOTE | 2024-02-22 13:09 | P.PN_ITS ---
Subjective 2 Subjective: Bothered by pruritic morbilliform rash on his back, lower abdomen. Vitals/I&O/Wt Last Vital Signs Temp 97.7 F 02/22/24 12:00 Pulse 78 02/22/24 12:00 Resp 14 02/22/24 12:00 BP 97/56 02/22/24 12:00 Pulse Ox 95 02/22/24 12:00 O2 Del Method Room Air 02/22/24 12:00 O2 Flow Rate 2 02/20/24 20:00 02/21/24 02/22/24 02/22/24 22:59 06:59 14:59 Intake Total 400 / 840 360 / 360 Output Total 825 / 825 Balance 400 / 840 -825 / 15 360 / 360 Weight last 48 hrs Weight 72.178 kg Weight 71.94 kg Weight 71.259 kg Physical Exam 2 Narrative: Accompanied by his daughter on second visit. Const: COMMON NORMALS: patient oriented x3 GENERAL APPEARANCE: cooperative ORIENTATION/CONSCIOUSNESS: Yes awake OTHER: Sitting up in the chair HENMT: COMMON NORMALS: oropharynx normal Neck/C-Spine: COMMON NORMALS: no JVD Resp: COMMON NORMALS: normal respiratory effort and clear to auscultation bilaterally AUSCULTATION: clear to auscultation bilaterally Cardio: COMMON NORMALS: no JVD, regular rhythm, S1 normal heart sound present, S2 normal heart sound present and No murmurs present (Cardio) RHYTHM: regular rhythm HEART SOUNDS: S1 normal heart sound present and S2 normal heart sound present GI: COMMON NORMALS: Normal to inspection, nondistended, normoactive bowel sounds present, Soft to palpation and non-tender PALPATION: Yes Soft to palpation Extremity: COMMON NORMALS: no joint enlargement and no pedal edema OTHER: Right hip wound, no bloody strikethrough. Neuro: COMMON NORMALS: patient oriented x3 and moves all extremities Skin: COMMON NORMALS: no rashes or lesions noted GENERAL SKIN EXAM: no rashes or lesions noted Urinary Catheter Management: Hernandez: Cath Placed During This Visit: yes, but has since been removed by the nurse Reason for Continuing Indwelling Catheter: Decision to DC Catheter Urinary Catheter Date of Insertion: 02/22/24 Urinary Catheter Time of Insertion: 07:50 Date Urinary Catheter Removed: 02/21/24 Time Urinary Catheter Discontinued: 04:25 Data 02/22/24 04:11 02/22/24 04:11 A&P Assessment and plan (1) Closed trochanteric fracture of hip: Reviewed vitals, CBC. Hemoglobin was further decreased down to 8. Reviewed CT scan results with him and his daughter. Homely small hematoma noted, some soft tissue edema is noted. Requested Hemoccult, discussed with nursing staff. Last night Hernandez catheter also had to be replaced. Will need to follow-up for voiding trial once he is coming down on the needed pain medication and muscle relaxers. Discussed with nursing, casework specialist. Reviewed vitals, CBC, BMP. Continue treatment of restless leg syndrome, optimization of pain control, monitor for risk of adverse medication reaction with polypharmacy with need for hydrocodone, Flexeril, increased dose ropinirole, Toradol and on chronic carbamazepine, for control of restless leg syndrome and pain in an elderly gentleman with soft blood pressure. Monitor for risk of further decrease in blood pressure, kidney injury. Underwent ORIF. Hold off on Eliquis for now. As per surgical team can start Eliquis on 02/17. So far with bloody strikethrough at the wound, some worsening anemia hemoglobin down to 9.1. SCDs. Anticoagulation has been on hold for now. Discontinue tramadol. Reassess any additional bleeding. Reassess blood counts. (2) Macular rash: Again worsened macular rash which is pruritic, bothersome to him. As per discussion with him and his daughter additionally stop Protonix, we will switch him from heparin to low-dose Lovenox. As per discussion we will also stop hydrocodone switch to oral Dilaudid for pain control. Discussed risk of rash with carbamazepine, although given his difficulties with pain control, and him having had it for the last 2 weeks they for now would like to continue, but with low threshold for discontinuation in case of not improving or worsening rash. Discussed risk of Eng-Salvatore syndrome. He does not appear to have any oral lesions at this time. (3) Atrial fibrillation: Reviewed vitals. Reviewed chemistry. Telemetry. Continue metoprolol tart 50 mg twice daily. Hold off on Eliquis. Reviewed echocardiogram results. (4) Hypothyroidism: TSH mildly elevated. On review free T41.11, free T3 mildly low 1.8. Continue levothyroxine. Follow-up with PCP for reassessment. Continue with home dose of levothyroxine. (5) Restless leg syndrome: Increased dose of Requip as above. (6) Peripheral neuropathy: Continue with home dose of carbamazepine. Was on high doses of gabapentin which was recently discontinued. Plan Decreased blood pressure: Soft blood pressure. Decrease metoprolol dose to 25 mg. Repeat CBC, chemistry. Fever: So far resolved without recurrence. Stop ceftriaxone. Up to up to 101.3 fever initially. No leukocytosis. UA negative for signs of infection. Chest x-ray preoperatively negative for pneumonia. Repeat chest x-ray stat. Reviewed blood cultures. Reviewed MRSA swab, respiratory viral panel. Empirically on IV ceftriaxone for now. Unremarkable procalcitonin. CODE STATUS:Full code. Daughter will be the DPOA. Heparin 5000 every 12 for DVT prophylaxis Attestations 2 Medical Necessity Statement*: Continue admission for assessment of management of acute on chronic anemia, morbilliform rash. and High MDM includes amount and/or complexity of data reviewed/ordered [ resulted lab(s)/test(s), ordered lab(s)/test(s), independent historian and other healthcare professional discussion] and described risk of complication, morbidity or mortality of management as documented Diagnoses Closed trochanteric fracture of hip S72.109A Macular rash R21 Atrial fibrillation I48.91 Hypothyroidism E03.9 Restless leg syndrome G25.81 Peripheral neuropathy G62.9
[2024-02-22] MEDS: lactulose oral liq 20 gm/30 mL UDC 10 GM PO (17:11)
--- NOTE | 2024-02-22 18:19 | PC.NURSE ---
SHIFT SUMMARY Patient has done well today with ambulating. He has been up to the chair multiple times. Good PO intake. Good output. Patient has had some confusion this afternoon. Dr. Lagos notified. Encouraging nursing to administer 1 hydro at a time instead of 2. Patient still has a rash on anterior and posterior trunk. Currently up to the chair, daughter at bedside.
[2024-02-22] MEDS: enoxaparin 30 mg/0.3 mL Syringe SUBCUT (21:23)
[2024-02-23] VITALS (8 sets, daily range): BP systolic 107–118; BP diastolic 60–76; PULSE 66–80; RESP 14–20; TEMP 36.5–36.8; O2SAT 93–99
[2024-02-23] MEDS: cyclobenzaprine 10 mg Tablet 5 MG PO (04:25)
[2024-02-23 06:13] LABS: Basophils % 0.4 %; Eosinophils # 0.7 10^3/uL (0.0-0.8); Eosinophils % 8.2 %; Hematocrit 25.5 % (37-53); Lymphocytes # 0.9 10^3/uL (0.8-4.8); Lymphocytes % 10.9 %; Mean Corpuscular HGB Conc 32.5 g/dL (30-55); Mean Corpuscular Hemoglobin 30.6 pg (27-33); Mean Corpuscular Volume 94.1 fl (82-101); Mean Platelet Volume 9.1 fL (7.4-10.4); Monocytes # 1.7 10^3/uL (0.2-0.9); Monocytes % 20.1 %; Neutrophils # 4.76 10^3/uL (1.8-7.7); Neutrophils % 57.8 %; Nucleated Red Blood Cells % 0 %; Platelet Count 268 10^3/cmm (157-399); Red Blood Count 2.71 10^6/uL (3.85-5.65); Red Cell Distribution Width 13.8 % (12.1-15.1); White Blood Count 8.22 10^3/uL (3.29-11.43)
[2024-02-23 06:34] LABS: Anion Gap 17.4 (5-19); Blood Urea Nitrogen 13 mg/dL (8-23); Calcium 8.8 mg/dL (8.5-10.5); Carbon Dioxide 23 mmol/L (22-29); Chloride 97 mmol/L (98-107); Creatinine Clr Calc Pharmacy 68.6938; Glucose 106 mg/dL (65-115); Osmolality Calculated 277 mOsm/kg (285-295); Potassium 4.4 mmol/L (3.5-5.1); Sodium 133 mmol/L (136-145)
[2024-02-23] MEDS: ropinirole 2 mg Tablet 8 MG PO (09:20)
[2024-02-23] MEDS: multivitamin therapeutic Tablet 1 TAB PO (09:20)
[2024-02-23] MEDS: levothyroxine 75 mcg Tablet PO (09:21)
[2024-02-23] MEDS: carBAMazepine XR (12 HR) 200 mg Tablet PO ×2 (09:21→17:58)
[2024-02-23] MEDS: metoprolol tartrate 50 mg Tablet 25 MG PO ×2 (09:21→17:58)
[2024-02-23] MEDS: docusate sodium 100 mg Capsule PO ×2 (09:21→17:58)
[2024-02-23] MEDS: BuSPIRONE 10 mg Tablet 5 MG PO ×2 (09:21→17:59)
[2024-02-23] MEDS: calcium carb-vit d 600mg/400unit 1 Tablet 1 EACH PO ×2 (09:21→17:58)
[2024-02-23] MEDS: chlorhexidine gluconate 0.12% Btl 473 mL 30 ML MUCOUS MEM ×3 (09:25→20:53)
--- NOTE | 2024-02-23 12:35 | PC.SOCIAL ---
IMM Update Pg. 2 of IMM updated and reviewed. Copy provided at bedside.
[2024-02-23] MEDS: acetaminophen 325 mg Tablet 650 MG PO (13:44)
[2024-02-23] MEDS: ropinirole 2 mg Tablet 4 MG PO ×2 (14:35→20:43)
[2024-02-23 16:01] LABS: SARS Covid-2 Antigen negative (Negative)
[2024-02-23] MEDS: enoxaparin 30 mg/0.3 mL Syringe SUBCUT (20:44)
[2024-02-23] MEDS: lactulose oral liq 20 gm/30 mL UDC 10 GM PO (20:44)
--- NOTE | 2024-02-23 21:32 | P.PN_ITS ---
Subjective 2 Subjective: Confused this morning with hallucination, asking for help for man trapped in an elevator while pointing at building cabinets in his room. Rash with some improvement today. Not as bothersome to him. Vitals/I&O/Wt Last Vital Signs Temp 97.7 F 02/23/24 20:00 Pulse 71 02/23/24 20:00 Resp 16 02/23/24 20:00 BP 107/60 02/23/24 20:00 Pulse Ox 98 02/23/24 20:00 O2 Del Method Nasal Cannula 02/23/24 20:00 O2 Flow Rate 2 02/23/24 04:00 02/23/24 02/23/24 02/23/24 06:59 14:59 22:59 Intake Total 360 / 960 720 / 720 440 / 1160 Output Total 600 / 1350 Balance -240 / -390 720 / 720 440 / 1160 Weight last 48 hrs Weight 68.22 kg Weight 72.178 kg Physical Exam 2 Const: COMMON NORMALS: patient oriented x3 GENERAL APPEARANCE: cooperative ORIENTATION/CONSCIOUSNESS: Yes awake HENMT: COMMON NORMALS: oropharynx normal Neck/C-Spine: COMMON NORMALS: no JVD Resp: COMMON NORMALS: normal respiratory effort and clear to auscultation bilaterally AUSCULTATION: clear to auscultation bilaterally Cardio: COMMON NORMALS: no JVD, regular rhythm, S1 normal heart sound present, S2 normal heart sound present and No murmurs present (Cardio) RHYTHM: regular rhythm HEART SOUNDS: S1 normal heart sound present and S2 normal heart sound present GI: COMMON NORMALS: Normal to inspection, nondistended, normoactive bowel sounds present, Soft to palpation and non-tender PALPATION: Yes Soft to palpation Extremity: COMMON NORMALS: no joint enlargement and no pedal edema OTHER: Right hip wound, no bloody strikethrough. Neuro: COMMON NORMALS: patient oriented x3 and moves all extremities Skin: COMMON NORMALS: no rashes or lesions noted GENERAL SKIN EXAM: no rashes or lesions noted Urinary Catheter Management: Hernandez: Cath Placed During This Visit: yes, but has since been removed by the nurse Reason for Continuing Indwelling Catheter: Not indwelling catheter Urinary Catheter Date of Insertion: 02/22/24 Urinary Catheter Time of Insertion: 07:50 Date Urinary Catheter Removed: 02/21/24 Time Urinary Catheter Discontinued: 04:25 Data 02/23/24 05:36 02/23/24 05:36 Micro: Microbiology 02/17/24 16:26 Blood Culture - Final Blood NO GROWTH AFTER 5 DAYS 02/17/24 16:23 Blood Culture - Final Blood NO GROWTH AFTER 5 DAYS A&P Assessment and plan (1) Acute encephalopathy: Acute encephalopathy with delirium and hallucinations, likely toxic with suspected toxic effect of medication. Reviewed vitals, CBC, BMP, COVID rapid antigen. Blood culture. Discussed with his daughter. Per history obtained from his daughter he had a very difficult night. He is having hallucinations, which can be caused by ropinirole which she has been receiving at increased dose of 8 mg 3 times daily. Discussed scaling back now that his pain is becoming better controlled. Daughter is agreeable to decrease dose down to two 4 mg 3 times daily. Could not decrease Flexeril dose, held for now. Discussed with nurse case management. Discharge deferred for now. (2) Closed trochanteric fracture of hip: Reviewed CBC, hemoglobin so far stable is, today 8.3. Continues Lovenox for prophylaxis. Recheck blood counts. Additionally with acute encephalopathy with delirium and hallucinations as above. Fall precautions, his son is staying with him today, his daughter will be staying with him over the weekend. With urine retention Hernandez catheter also had to be replaced. Will need to follow-up for voiding trial once he is coming down on the needed pain medication and muscle relaxers. Reviewed vitals, CBC, BMP. Continue treatment of restless leg syndrome, optimization of pain control, monitor for risk of adverse medication reaction with polypharmacy with need for hydrocodone, Flexeril, increased dose ropinirole, Toradol and on chronic carbamazepine, for control of restless leg syndrome and pain in an elderly gentleman with soft blood pressure. Monitor for risk of further decrease in blood pressure, kidney injury. Underwent ORIF. Hold off on Eliquis for now. As per surgical team can start Eliquis on 02/17. So far with bloody strikethrough at the wound, some worsening anemia hemoglobin down to 9.1. SCDs. Anticoagulation has been on hold for now. Discontinue tramadol. Reassess any additional bleeding. Reassess blood counts. (3) Macular rash: Today with improving rash appears fainter and is not pruritic to him today, less bothersome overall. Continue with medication changes with discontinued PPI, with Lovenox instead of heparin, Dilaudid instead of hydrocodone. Patient and family would like to continue carbamazepine for now. As per discussion in case of any further worsening of the rash we will need to discontinue carbamazepine. (4) Atrial fibrillation: Reviewed vitals. Reviewed chemistry. Telemetry. Continue metoprolol tart 50 mg twice daily. Hold off on Eliquis. Reviewed echocardiogram results. (5) Hypothyroidism: TSH mildly elevated. On review free T41.11, free T3 mildly low 1.8. Continue levothyroxine. Follow-up with PCP for reassessment. Continue with home dose of levothyroxine. (6) Restless leg syndrome: Increased dose of Requip as above. (7) Peripheral neuropathy: Continue with home dose of carbamazepine. Was on high doses of gabapentin which was recently discontinued. Plan Decreased blood pressure: Soft blood pressure. Decrease metoprolol dose to 25 mg. Repeat CBC, chemistry. Fever: So far resolved without recurrence. Stop ceftriaxone. Up to up to 101.3 fever initially. No leukocytosis. UA negative for signs of infection. Chest x-ray preoperatively negative for pneumonia. Repeat chest x-ray stat. Reviewed blood cultures. Reviewed MRSA swab, respiratory viral panel. Empirically on IV ceftriaxone for now. Unremarkable procalcitonin. CODE STATUS:Full code. Daughter will be the DPOA. Attestations 2 Medical Necessity Statement*: Continue admission for assessment of management of acute encephalopathy in general with polypharmacy with restless leg syndrome, difficult to control pain, additional comorbidities as above. Diagnoses Acute encephalopathy G93.40 Closed trochanteric fracture of hip S72.109A Macular rash R21 Atrial fibrillation I48.91 Hypothyroidism E03.9 Restless leg syndrome G25.81 Peripheral neuropathy G62.9
[2024-02-24] VITALS (7 sets, daily range): BP systolic 105–123; BP diastolic 64–66; PULSE 58–100; RESP 16–19; TEMP 36.6–36.7; O2SAT 94–96
[2024-02-24] MEDS: acetaminophen 325 mg Tablet 650 MG PO ×2 (03:00→09:46)
[2024-02-24 03:57] LABS: Basophils % 0.4 %; Eosinophils # 0.9 10^3/uL (0.0-0.8); Eosinophils % 10.1 %; Hematocrit 26.4 % (37-53); Lymphocytes % 11.9 %; Mean Corpuscular HGB Conc 33.3 g/dL (30-55); Mean Corpuscular Hemoglobin 31.5 pg (27-33); Mean Corpuscular Volume 94.6 fl (82-101); Mean Platelet Volume 9.6 fL (7.4-10.4); Monocytes # 1.7 10^3/uL (0.2-0.9); Monocytes % 19.3 %; Neutrophils # 4.65 10^3/uL (1.8-7.7); Neutrophils % 54.3 %; Nucleated Red Blood Cells % 0 %; Platelet Count 294 10^3/cmm (157-399); Red Blood Count 2.79 10^6/uL (3.85-5.65); Red Cell Distribution Width 13.9 % (12.1-15.1); White Blood Count 8.55 10^3/uL (3.29-11.43)
[2024-02-24 04:06] LABS: Anion Gap 16.3 (5-19); Blood Urea Nitrogen 14 mg/dL (8-23); Carbon Dioxide 24 mmol/L (22-29); Chloride 95 mmol/L (98-107); Creatinine Clr Calc Pharmacy 68.6938; Glucose 104 mg/dL (65-115); Osmolality Calculated 273 mOsm/kg (285-295); Potassium 4.3 mmol/L (3.5-5.1); Sodium 131 mmol/L (136-145)
[2024-02-24] MEDS: carBAMazepine XR (12 HR) 200 mg Tablet PO (09:46)
[2024-02-24] MEDS: BuSPIRONE 10 mg Tablet 5 MG PO (09:46)
[2024-02-24] MEDS: calcium carb-vit d 600mg/400unit 1 Tablet 1 EACH PO (09:46)
[2024-02-24] MEDS: docusate sodium 100 mg Capsule PO (09:46)
[2024-02-24] MEDS: levothyroxine 75 mcg Tablet PO (09:46)
[2024-02-24] MEDS: ropinirole 2 mg Tablet 4 MG PO (09:47)
[2024-02-24] MEDS: metoprolol tartrate 50 mg Tablet 25 MG PO (09:48)
[2024-02-24] MEDS: multivitamin therapeutic Tablet 1 TAB PO (09:48)
[2024-02-24] MEDS: chlorhexidine gluconate 0.12% Btl 473 mL 30 ML MUCOUS MEM (09:49)
--- NOTE | 2024-02-24 10:53 | P.DS_ITS ---
Discharge Providers Date of Admission: 02/16/24 18:06 Date of Discharge: February 24, 2024 Attending Provider at Admission: Wellington Martínez MD Attending Provider at Discharge: Edward Lagos Diagnoses at Discharge Discharge Diagnosis (1) Acute encephalopathy: Status: Acute (2) Closed trochanteric fracture of hip: Status: Acute (3) Macular rash: Status: Acute (4) Atrial fibrillation: Status: Acute (5) Hypothyroidism: Status: Acute (6) Restless leg syndrome: Status: Acute (7) Peripheral neuropathy: Status: Acute Reason for Visit Reason for Visit: right leg pain, post fall Hospital Course Hospital Course 83-year-old gentleman with history of restless leg syndrome, chronic peripheral neuropathic pain, hypothyroidism, atrial fibrillation previously on anticoagulation with Eliquis, was treated in the hospital after mechanical fall with right hip fracture, underwent ORIF on 02/16. On presentation also with fever up to one 1.3 Fahrenheit without obvious source, without pneumonia on chest x-ray, with unremarkable COVID, influenza, RSV PCR, with UA not suggestive of UTI, without integumentary, GI or other complaints. Was initially started on Rocephin empirically. Blood cultures were collected and have remained negative. Postoperatively with severe pain, difficult to manage, worsened significantly by his restless leg syndrome. Pain medications had to be escalated with hydrocodone, initially tramadol, IV morphine. Ropinirole was increased to 8 mg 3 times daily. He also received Flexeril as needed. Pain gradually coming under control. However, with gradually worsening anemia. Small amount of bleeding at the wound, with concern for possible slow GI blood loss continued on PPI. Eliquis was held while in hospital, he was trialed on subcutaneous heparin VTE prophylaxis. Subsequently also developed pruritic morbilliform rash of his back and lower abdomen, quite bothersome to him. No blisters. No open sores or mucosal lesions. A number of medications were adjusted with suspicion of allergic reaction. Ceftriaxone was discontinued as he remained afebrile, without leukocytosis with negative cultures. Febrile illness possibly transient viral illness with one of the nontested viruses. Protonix were held, hydrocodone discontinued, heparin switched to Lovenox. Iron infusions discontinued. Still without improvement in rash. He has been recently started on carbamazepine about 2 weeks ago and recently the dose was increased from 100 mg to 200 mg. Discussed tapering off and discontinue carbamazepine with concern for persistent rash, possibly caused by carbamazepine and with risk of Eng-Salvatore syndrome, toxic epidermal necrolysis and other complications. Due to this this medication will be tapered off and he is asked to discontinue. Please consider other alternatives for his chronic neuropathic pain. In the last couple days additionally developed altered mental status with hallucinations. As his pain has been coming under better control ropinirole was de-escalated due to adverse effect of hallucinations, Flexeril was discontinued. He has continued with oral Dilaudid for pain with good response. Tramadol has not been continued or resumed due to anemia and risk of bleeding raised by this medication. With de-escalation of ropinirole and discontinuation of Flexeril his hallucinations resolved. Mental status is doing much better. Please reassess for continued resolution. With polypharmacy, exercise caution with any escalation of additional medications due to risk of delirium. His hospital stay was additionally complicated by urine retention, after Hernandez removal 2 days ago was unable to void, and Hernandez had to be replaced. He is discharged with temporary urinary catheter. Now that he is de-escalating on pain regimen, pain has been under better control, please repeat voiding trial in 4-5 days. For VTE prophylaxis was on Lovenox while in the hospital, his hemoglobin is stabilized around 8.5. At discharge can switch to Eliquis 2.5 mg twice daily for DVT prophylaxis after orthopedic procedure. Or could continue with Lovenox 40 mg to complete additional 28 days. As per discussion with him and family due to anemia for now is not resumed on Eliquis 5 mg twice daily as he was for stroke risk prevention for atrial fibrillation. Consider resuming at this dosing when safe. Continue weightbearing as tolerated, physical therapy, crutches, walker, as tolerated, encourage knee range of motion, follow-up with orthopedics. Physical Exam Const: COMMON NORMALS: patient oriented x3 GENERAL APPEARANCE: cooperative ORIENTATION/CONSCIOUSNESS: Yes awake OTHER: Sitting up in the chair HENMT: COMMON NORMALS: oropharynx normal Neck/C-Spine: COMMON NORMALS: no JVD Resp: COMMON NORMALS: normal respiratory effort and clear to auscultation bilaterally AUSCULTATION: clear to auscultation bilaterally Cardio: COMMON NORMALS: no JVD, regular rhythm, S1 normal heart sound present, S2 normal heart sound present and No murmurs present (Cardio) RHYTHM: regular rhythm HEART SOUNDS: S1 normal heart sound present and S2 normal heart sound present GI: COMMON NORMALS: Normal to inspection, nondistended, normoactive bowel sounds present, Soft to palpation and non-tender PALPATION: Yes Soft to palpation Extremity: COMMON NORMALS: no joint enlargement and no pedal edema OTHER: Right hip wound, no bloody strikethrough. Neuro: COMMON NORMALS: patient oriented x3 and moves all extremities Skin: COMMON NORMALS: no rashes or lesions noted GENERAL SKIN EXAM: no rashes or lesions noted Urinary Catheter Management: Hernandez: Cath Placed During This Visit: yes, but has since been removed by the nurse Reason for Continuing Indwelling Catheter: Acute Urinary Retention or Obstruction Urinary Catheter Date of Insertion: 02/22/24 Urinary Catheter Time of Insertion: 07:50 Date Urinary Catheter Removed: 02/21/24 Time Urinary Catheter Discontinued: 04:25 Discharge Data Studies Completed and Pending Completed Studies During Hospitalization Category Date Time Status CT head wo con* [id number] Stat Cat Scan 02/16/24 15:[address] hip RT w con [id number] Routine Cat Scan 02/21/24 18:[address] hip RT wo con* [id number] Stat Cat Scan 02/16/24 15:39 Completed CXRP [XR chest 1V portable [id number]] Stat Exams 02/16/24 15:18 Completed XR femur RT min 2V* [id number] Stat Exams 02/16/24 17:30 Completed XR hip RT 2-3V wo/w pel* [id number] Routine Exams 02/17/24 09:30 Completed XR hip RT 2-3V wo/w pel* [id number] Routine Exams 02/17/24 11:11 Completed XR hip RT 2-3V wo/w pel* [id number] Stat Exams 02/16/24 15:18 Completed XR pelvis 1-2V* [id number] Stat Exams 02/16/24 17:30 Completed CV. echo complete* [id number] Routine Ultrasound 02/17/24 19:59 Completed Pending at discharge Category Date Time Status Basic Metabolic Panel AM LABS Lab 02/25/24 04:00 Ordered Basic Metabolic Panel AM LABS Lab 02/26/24 04:00 Ordered Complete Blood Count w/Auto AM LABS Lab 02/25/24 04:00 Ordered Complete Blood Count w/Auto AM LABS Lab 02/26/24 04:00 Ordered Occult Blood Stool [Immunochemical Fecal OCB] Routine Lab 02/22/24 09:05 Uncollected Radiology Impressions Chest X-Ray 02/16/24 15:18 IMPRESSION: 1. Lung hyperinflation. 2. Cardiomegaly. Head CT 02/16/24 15:53 IMPRESSION: No definite acute intracranial abnormality. Senescent changes. Limited evaluation of the maxillofacial osseous structures including the intraorbital contents due to motion artifact. Femur X-Ray 02/16/24 17:30 IMPRESSION: 1. Acute comminuted mildly displaced greater trochanteric fracture of the right, better appreciable by CT. Pelvis X-Ray 02/16/24 17:30 IMPRESSION: As above. Hip/Pelvis X-Ray 02/17/24 11:11 IMPRESSION: 1. Good alignment of the right hip status post ORIF. There are routine postoperative changes in the soft tissues. 2. Chronic osteoarthritic changes of both hips. Hip CT 02/21/24 18:32 IMPRESSION: 1. Postsurgical changes status post ORIF of the proximal right femur with soft tissue edema, intramuscular hemorrhage and small 2 cm hematoma. No discrete large hematoma. Laboratory Results WBC 8.55 10^3/uL (3.29-11.43) 02/24/24 03:12 RBC 2.79 10^6/uL (3.85-5.65) L 02/24/24 03:12 Hgb 8.80 g/dL (11.27-16.99) L 02/24/24 03:12 Hct 26.4 % (37-53) L 02/24/24 03:12 MCV 94.6 fl (82-101) 02/24/24 03:12 MCH 31.5 pg (27-33) 02/24/24 03:12 MCHC 33.3 g/dL (30-55) 02/24/24 03:12 RDW 13.9 % (12.1-15.1) 02/24/24 03:12 Plt Count 294 10^3/cmm (157-399) 02/24/24 03:12 MPV 9.6 fL (7.4-10.4) 02/24/24 03:12 Neut % (Auto) 54.3 % 02/24/24 03:12 Lymph % (Auto) 11.9 % 02/24/24 03:12 [place] % (Auto) 19.3 % 02/24/24 03:12 Eos % (Auto) 10.1 % 02/24/24 03:12 Baso % (Auto) 0.4 % 02/24/24 03:12 Neut # (Auto) 4.65 10^3/uL (1.8-7.7) 02/24/24 03:12 Lymph # (Auto) 1.0 10^3/uL (0.8-4.8) 02/24/24 03:12 Archer # (Auto) 1.7 10^3/uL (0.2-0.9) H 02/24/24 03:12 Eos # (Auto) 0.9 10^3/uL (0.0-0.8) H 02/24/24 03:12 Baso # (Auto) 0.0 10^3/uL (0.0-0.1) 02/24/24 03:12 Nucleated RBC % (auto) 0 % 02/24/24 03:12 Nucleated RBCs # 0.0 /100WBC 02/24/24 03:12 PT 14.20 SECONDS (12.1-14.9) 02/16/24 16:13 INR 1.07 (0.8-1.2) 02/16/24 16:13 Sodium 131 mmol/L (136-145) L 02/24/24 03:12 Potassium 4.3 mmol/L (3.5-5.1) 02/24/24 03:12 Chloride 95 mmol/L (98-107) L 02/24/24 03:12 Carbon Dioxide 24 mmol/L (22-29) 02/24/24 03:12 Anion Gap 16.3 (5-19) 02/24/24 03:12 BUN 14 mg/dL (8-23) 02/24/24 03:12 Creatinine 0.7 mg/dL (0.7-1.2) 02/24/24 03:12 GFR Calculation Not Reportable 02/24/24 03:12 Glucose 104 mg/dL (65-115) 02/24/24 03:12 Estimat Average Glucose 114 02/17/24 04:16 Hemoglobin A1c 5.6 % (4.0-6.0) 02/17/24 04:16 Calculated Osmolality 273 mOsm/kg (285-295) L 02/24/24 03:12 Calcium 9.0 mg/dL (8.5-10.5) 02/24/24 03:12 Phosphorus 3.3 mg/dL (2.5-4.5) 02/17/24 04:16 Magnesium 1.8 mg/dL (1.7-2.3) 02/17/24 04:16 Iron 61 ug/dL (59-158) 02/16/24 16:13 TIBC 281 mcg/dl 02/16/24 16:13 % Saturation 21.7 % (20-50) 02/16/24 16:13 Unsat Iron Binding 220 ug/dL (112-347) 02/16/24 16:13 Total Bilirubin 0.5 mg/dL (0.15-1.2) 02/19/24 05:15 AST 17 U/L (0-40) 02/19/24 05:15 ALT 9 U/L (0-41) 02/19/24 05:15 Alkaline Phosphatase 96 U/L (40-130) 02/19/24 05:15 Total Protein 5.5 g/dL (6.6-8.7) L 02/19/24 05:15 Albumin 3.2 g/dL (3.5-5.2) L 02/19/24 05:15 Globulin 2.3 g/dL (1.3-4.6) 02/19/24 05:15 Triglycerides 103 mg/dL (0-150) 02/17/24 04:16 Cholesterol 173 mg/dL (0-200) 02/17/24 04:16 LDL Cholesterol, Calc 118 mg/dL (50-129) 02/17/24 04:16 HDL Cholesterol 34 mg/dL (60-100) L 02/17/24 04:16 LDL/HDL Ratio 3.47 RATIO (0.00-3.22) H 02/17/24 04:16 Cholesterol/HDL Ratio 5.09 mg/dL (1.0-5.00) H 02/17/24 04:16 Vitamin B12 385 pg/mL (232-1245) 02/16/24 16:13 Folate 8.1 ng/mL (4.5-32.2) 02/17/24 04:16 Procalcitonin 0.19 ng/mL (0-0.5) 02/20/24 04:35 TSH 4.41 uIU/mL (0.27-4.20) H 02/16/24 16:13 Free T4 1.11 ng/dL (0.82-1.77) 02/18/24 05:01 Free T3 1.8 PG/ML (2.0-4.4) L 02/18/24 05:01 Urine Color Yellow (Yellow) 02/16/24 21:45 Urine Appearance Clear (CLEAR) 02/16/24 21:45 Urine pH 7.0 (5-7) 02/16/24 21:45 Ur Specific [place] 1.010 (1.005-1.030) 02/16/24 21:45 Urine Protein Negative (Negative) 02/16/24 21:45 Urine Glucose (UA) Negative (Normal) 02/16/24 21:45 Urine Ketones Negative (Negative) 02/16/24 21:45 Urine Blood Negative (Negative) 02/16/24 21:45 Urine Nitrate Negative (Negative) 02/16/24 21:45 Urine Bilirubin Negative (Negative) 02/16/24 21:45 Urine Urobilinogen 1.0 mg/dL (Negative) 02/16/24 21:45 Ur Leukocyte Esterase Negative (Negative) 02/16/24 21:45 Urine RBC 3-5 /hpf (0-2) 02/16/24 21:45 Urine WBC 0-5 /hpf (0-5) 02/16/24 21:45 Ur Squamous Epith Cells 0-5 /hpf (0-5) 02/16/24 21:45 Amorphous Sediment Not Reportable 02/16/24 21:45 Urine Bacteria None seen /hpf (NONE) 02/16/24 21:45 Hyaline Casts 1.65 /lpf 02/16/24 21:45 Nasal MRSA (PCR) Not detected (Negative) 02/17/24 19:10 Coronavirus (PCR) Negative (Negative) 02/17/24 19:10 Influenza A (PCR) Negative (Negative) 02/17/24 19:10 Influenza Type B (PCR) Negative (Negative) 02/17/24 19:10 RSV (PCR) Negative (Negative) 02/17/24 19:10 SARS-CoV-2 Ag (Rapid) negative (Negative) 02/23/24 14:33 Blood Type O Positive 02/17/24 08:46 Rho(D) Type Rh positive 02/17/24 08:46 Antibody Screen Negative 02/17/24 08:46 Vitals Last Vital Signs Temp 98.0 F 02/24/24 07:37 Pulse 75 02/24/24 07:37 Resp 16 02/24/24 07:37 BP 105/64 02/24/24 07:37 Pulse Ox 96 02/24/24 07:37 O2 Del Method Room Air 02/24/24 07:37 O2 Flow Rate 2 02/23/24 04:00 Discharge Plan Discharge Patient Disposition: Xfer [facility] Condition: Stable Prescriptions: New ondansetron 4 mg tablet,disintegrating 4 mg PO Q8H PRN (Reason: nausea and vomiting) 3 Days Qty: 9 0RF hydromorphone 4 mg Tablet 2 mg PO Q6H PRN (Reason: Moderate To Severe Pain) Qty: 10 0RF ferrous sulfate 325 mg (65 mg iron) tablet 325 mg PO EVERY OTHER DAY Qty: 90 0RF Eliquis 2.5 mg tablet 2.5 mg PO BID Qty: 30 0RF Continued levothyroxine 75 mcg tablet 75 mcg PO DAILY azelastine 137 mcg (0.1 %) aerosol,spray 137 mcg INTRANASAL BID omeprazole 20 mg capsule,delayed release(DR/EC) 20 mg PO QAM ropinirole 4 mg tablet 4 mg PO TID elderberry fruit 350 mg Capsule 350 mg PO DAILY buspirone 5 mg Tablet 5 mg PO BID Changed furosemide 40 mg tablet 40 mg PO DAILY PRN (Reason: Edema) Qty: 1 0RF potassium chloride 20 mEq tablet,ER particles/crystals 20 meq PO DAILY PRN (Reason: Edema) Qty: 1 0RF Rx Instructions: With lasix metoprolol tartrate 50 mg tablet 25 mg PO BID Qty: 1 0RF carbamazepine [Tegretol XR] 200 mg tablet extended release 12 hr 100 mg PO BID 30 Days Qty: 1 0RF Rx Instructions: Taper off Discontinued Eliquis 5 mg tablet 5 mg PO BID Hold Instructions: Resume on 08/05/20. Eliquis will be on hold until after nasal packing is removed in the office on 08-04-20 hydrocodone-acetaminophen 5-325 mg tablet 1 - 2 tab PO TID PRN (Reason: Pain) tramadol 100 mg Tablet 100 mg PO Q6H PRN (Reason: Pain) Discharge Orders: Discharge Order (Routine); Ordered 02/24/24 Ordered By: Edward Lagos Referrals: [facility] [Outside] Juan José Newberry PA [Physician Inbound Call Center Representative] - (We have notified your physician's clinic of the need for a follow-up appointment to be scheduled. If you have not heard from them within the next 2 business days, please call them directly. ) Roopa Hu DO [Referring] - 02/27/24 10:00 am (seeing May) Discharge Diet: Regular Discharge Activity: Limit activity as instructed Patient Instructions: Iron Supplements (By mouth), Hydromorphone (By mouth), Ondansetron (By mouth), Apixaban (By mouth) (Eliquis), Acute Wound Care (DC), Total Hip Replacement (DC), Opioid Safety, Post Anesthesia Care Activity Restrictions/Additional Instructions: Orthopedic discharge instructions: Keep dressing clean dry and intact weightbearing as tolerated to operative extremity Utilize crutches/walker/as tolerated to continue with ambulation while maintaining restrictions Encourage knee range of motion as tolerated Ice and elevate as needed for pain and swelling Pain control continue taking previously prescribed eliquis. Supplement with Citracal/vitamin D for bone health and healing Follow-up with Dr. Newberry in the office in 2 weeks Contact the office for any questions or concerns(i.e. fevers, increased drainage or redness around the incision site etc.) Please follow-up with your primary doctor for reassessment. Please have your primary provider draw blood counts to reassess anemia. Continue iron supplementation. Please both correct your primary provider for further assessment of iron deficiency anemia including consideration of endoscopic evaluation. Additionally please taper off carbamazepine due to concern of it causing your rash. Come down to 100 mg for the next 3 days and then discontinue the medication. Speak with your primary provider with regards to the next alternative option for neuropathic pain. Continue Hernandez catheter for now. Perform voiding trial in 4-5 days. Due to anemia for now continue Eliquis 2.5 mg twice daily for DVT prophylaxis. Discussed with her primary provider when it may be safe to resume 5 mg twice daily for stroke prophylaxis from atrial fibrillation. Please have your primary doctor follow-up your thyroid function after noted mildly low free T3. Discharge Attestations Time Spent in Discharge Care*: greater than 30 min Quality Metrics Clinical Quality Measures [ No reported AMI, CVA or VTE this stay] Coding Level of Care Code 44304 Total time (in minutes) for Discharge: 50 Diagnoses Acute encephalopathy G93.40 Closed trochanteric fracture of hip S72.109A Macular rash R21 Atrial fibrillation I48.91 Hypothyroidism E03.9 Restless leg syndrome G25.81 Peripheral neuropathy G62.9
--- NOTE | 2024-02-24 17:00 | PC.NURSE ---
called report to Doreen Galvan RN at [facility].
== END 2024-02-24 16:00 | disposition skilled nursing facility (03) | DRG 481 ==
LOC: ER 17:41 → MEDSURG 18:07
PROVIDERS: Student in an Organized Health Care Education/Training Program; Admitting Provider Student in an Organized Health Care Education/Training Program; Emergency Provider Emergency Medicine; Visit Provider Internal Medicine
PROC: 0QS606Z Reposition Right Upper Femur with Intramedullary Internal Fixation Device, Open Approach (ICD-10-PCS; CPT 27245; principal; 2024-02-17 09:00)
DX: S72.141A Displaced intertrochanteric fracture of right femur, initial encounter for closed fracture (principal); G93.40 Encephalopathy, unspecified; L27.1 Localized skin eruption due to drugs and medicaments taken internally; I48.91 Unspecified atrial fibrillation; E03.9 Hypothyroidism, unspecified; G25.81 Restless legs syndrome; G62.9 Polyneuropathy, unspecified; G89.18 Other acute postprocedural pain; D64.9 Anemia, unspecified; R33.9 Retention of urine, unspecified; W18.30XA Fall on same level, unspecified, initial encounter; Y92.009 Unspecified place in unspecified non-institutional (private) residence as the place of occurrence of the external cause; Z79.01 Long term (current) use of anticoagulants; Z87.891 Personal history of nicotine dependence
CPT/HCPCS: 36415; 51702; 51798; 70450; 71045; 72170; 73502; 73552; 73700; 73701; 76000; 80048; 80053; 80061; 81001; 82607; 82746; 83036; 83540; 83550; 83735; 84100; 84145; 84439; 84443; 84481; 85018; 85025; 85610; 86850; 86900; 87040; 87426; 87637; 93005; 93306; 94664; 96372; 96374; 96375; 96376; 97110; 97116; 97161; 97166; 97530; 97535; 99233; 99285; C1713; J0131; J0696; J1200; J1644; J1650; J1885; J2060; J2270; J2470; J2704; J3010; J3490; J7030

== ENCOUNTER 2024-02-26 16:06 | Emergency (ER) | payer MEDICARE, OTHER, SELFPAY ==
--- NOTE | 2024-02-26 16:10 | ECG_ITS ---
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 Measurements Intervals [place] Rate: 76 P: 79 NM: 270 QRS: 65 QRSD: 108 T: 73 QT: 402 QTc: 452 Interpretive Statements SINUS RHYTHM WITH FIRST DEGREE AV BLOCK POSSIBLE INFERIOR MYOCARDIAL INFARCTION , PROBABLY OLD [30 ms Q WAVE IN II/aVF] Compared to ECG 02/16/2024 20:36:19 First degree AV block now present Myocardial infarct finding now present Supraventricular rhythm no longer present T-wave abnormality no longer present Possible ischemia no longer present Electronically Signed On 02-26-2024 17:21:53 MAIL PROCESSOR by Shamir Collins M.D. [email or web address]
[2024-02-26 16:14] VITALS: BP 107/59; PULSE 76; RESP 18; TEMP 36.7; O2SAT 97
--- NOTE | 2024-02-26 16:24 | PC.PHAR ---
patient was just seen 2 days ago, med list accurate at this time. including newest dose changes
--- NOTE | 2024-02-26 16:27 | W.ED.SOB ---
Documented by User: Louie Mendoza DO 02/28/24 09:21 HPI - SOB/Dyspnea General: Chief Complaint: Shortness of Breath/Dyspnea Stated Complaint: ams Time Seen by Provider: 02/26/24 16:09 History of Present Illness: HPI Narrative: 83-year-old male from presents from the assisted with complaint of shortness of breath. EMS was told the patient was unresponsive and family was 86% on room air at the assisted. When they arrived he was placed on 2 L the diabetes here is awake and alert and his oxygen saturation 96 to 97% on room air. He states he feels fine he has not been sick he denies any abdominal or chest pain denies any cough. He did recently have a right hip arthroplasty after a traumatic hip fracture. 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 Associated symptoms: Deny abdominal pain, chest pain or fever(s) Related Data Home Medications Medication Instructions Recorded Confirmed azelastine 137 mcg (0.1 %) nasal 137 mcg intranasal BID 07/30/20 02/26/24 spray levothyroxine 75 mcg tablet 75 mcg PO DAILY 07/30/20 02/26/24 elderberry fruit 350 mg capsule 350 mg PO DAILY 02/16/24 02/26/24 omeprazole 20 mg capsule,delayed 20 mg PO QAM 02/16/24 02/26/24 release ropinirole 4 mg tablet 4 mg PO TID 02/16/24 02/26/24 buspirone 5 mg tablet 5 mg PO BID 02/21/24 02/26/24 metoprolol tartrate 25 mg tablet 25 mg PO BID 02/26/24 02/26/24 ondansetron 4 mg disintegrating 4 mg PO Q8H PRN Nausea And Vomiting 02/26/24 02/26/24 tablet Previous Rx's Medication Instructions Recorded furosemide 40 mg tablet 40 mg PO DAILY PRN Edema #1 tab 02/23/24 hydromorphone 4 mg tablet 2 mg (1/2 x 4 mg) PO Q6H PRN 02/23/24 Moderate To Severe Pain #10 tabs potassium chloride 20 mEq 20 meq PO DAILY PRN Edema #1 tab 02/23/24 tablet,extended release(part/cryst) apixaban 2.5 mg tablet (Eliquis) 2.5 mg PO BID #30 tabs 02/24/24 carbamazepine 200 mg 100 mg (1/2 x 200 mg) PO BID 1 02/24/24 tablet,extended release,12 hr month #1 tab (Tegretol XR) ferrous sulfate 325 mg (65 mg 325 mg PO EVERY OTHER DAY #90 tabs 02/24/24 iron) tablet Allergies Allergy/AdvReac Type Severity Reaction Status Date / Time Penicillins Allergy ALGY-Rash Verified 12/27/23 13:41 Srauoqj-GHN-AyZ Reductase Allergy ADR-Muscle Verified 12/27/23 13:41 Inhibitor Pain [Guwnfir-Ytc-Uin Reductase Inhibitor] Sulfa (Sulfonamide Allergy Unknown Verified 12/27/23 13:41 Antibiotics) Review of Systems Const: Denies: fever(s) or chills Card: Denies: chest pain Resp: Denies: dyspnea GI: Denies: abdominal pain : Denies: dysuria, urinary frequency or urinary urgency Musc: Denies: neck pain or back pain Skin/Breast: Denies: rash PFSH ED PFSH: Medical History (Updated 02/26/24 @ 19:22 by Mitra Chakraborty MD) Pituitary adenoma Peripheral neuropathy Restless leg syndrome Hypothyroidism Atrial fibrillation Surgical History (Updated 02/16/24 @ 17:59 by Wellington Martínez MD) S/P transsphenoidal hypophysectomy History of nasal surgery Social History Smoking and tobacco/nicotine status: never used tobacco/nicotine Quit status (tobacco/nicotine): has quit using Year quit tobacco: 1999 Former quit date comment: 1 PPD X 40 YEARS Physical Exam Const: COMMON NORMALS: no acute distress GENERAL APPEARANCE: cooperative and comfortable ORIENTATION/CONSCIOUSNESS: Yes awake HENMT: COMMON NORMALS: normocephalic, atraumatic and hearing grossly normal bilaterally HEAD & SCALP: normocephalic and atraumatic Resp: COMMON NORMALS: normal respiratory effort, No retractions, No use of accessory muscles and clear to auscultation bilaterally AUSCULTATION: clear to auscultation bilaterally Cardio: COMMON NORMALS: regular rate, regular rhythm and No murmurs present (Cardio) RATE: regular rate RHYTHM: regular rhythm GI: COMMON NORMALS: Soft to palpation and No hepatosplenomegaly present AUSCULTATION: Yes normoactive bowel sounds PALPATION: Yes Soft to palpation, No Tenderness to palpation present (GI), No Guarding due to palpation present (GI) and Yes No hepatosplenomegaly present Extremity: COMMON NORMALS: normal to inspection, capillary refill normal, no clubbing, cyanosis or edema, no calf tenderness and no pedal edema Skin: COMMON NORMALS: no rashes or lesions noted GENERAL SKIN EXAM: no rashes or lesions noted Course Vital Signs: Vital signs: Vital Signs Temperature 98.1 F 02/26/24 16:14 Pulse Rate 82 02/26/24 20:30 Respiratory Rate 22 H 02/26/24 20:30 Blood Pressure 129/70 02/26/24 20:30 Pulse Oximetry 96 02/26/24 20:30 Oxygen Delivery Me thod Room Air 02/26/24 17:29 MDM - SOB/Dyspnea Medical Decision Making Signout Gratis Chest x-ray: No acute process. No infiltrate. No pneumothorax. This was reviewed and interpreted by myself the emergency room physician. I also reviewed the radiology report. Lab review: Mild leukocytosis. No anemia. No renal failure. Troponin is 55 and unchanged on second troponin. This is his baseline. Respiratory panel is negative Assessment and plan: Dyspnea - Discharged home - Discussed plan with patient. Answered any questions. - Evaluation and treatment of this problem were appropriate in the emergency setting. Lab Data 02/26/24 17:17 02/26/24 17:17 Labs/Radiology: Radiology Impressions Chest X-Ray 02/26/24 17:54 IMPRESSION: No acute cardiopulmonary abnormality. Head CT 02/26/24 19:43 IMPRESSION: No acute intracranial abnormality. Laboratory Results WBC 11.64 10^3/uL (3.29-11.43) H 02/26/24 17:17 RBC 3.19 10^6/uL (3.85-5.65) L 02/26/24 17:17 Hgb 10.00 g/dL (11.27-16.99) L 02/26/24 17:17 Hct 30.3 % (37-53) L 02/26/24 17:17 MCV 95.0 fl (82-101) 02/26/24 17:17 MCH 31.3 pg (27-33) 02/26/24 17:17 MCHC 33.0 g/dL (30-55) 02/26/24 17:17 RDW 14.8 % (12.1-15.1) 02/26/24 17:17 Plt Count 333 10^3/cmm (157-399) 02/26/24 17:17 MPV 8.7 fL (7.4-10.4) 02/26/24 17:17 Neut % (Auto) 55.4 % 02/26/24 17:17 Lymph % (Auto) 8.7 % 02/26/24 17:17 [place] % (Auto) 16.9 % 02/26/24 17:17 Eos % (Auto) 14.6 % 02/26/24 17:17 Baso % (Auto) 0.4 % 02/26/24 17:17 Neut # (Auto) 6.44 10^3/uL (1.8-7.7) 02/26/24 17:17 Lymph # (Auto) 1.0 10^3/uL (0.8-4.8) 02/26/24 17:17 [place] # (Auto) 2.0 10^3/uL (0.2-0.9) H 02/26/24 17:17 Eos # (Auto) 1.7 10^3/uL (0.0-0.8) H 02/26/24 17:17 Baso # (Auto) 0.1 10^3/uL (0.0-0.1) 02/26/24 17:17 Nucleated RBC % (auto) 0 % 02/26/24 17:17 Nucleated RBCs # 0.0 /100WBC 02/26/24 17:17 Sodium 134 mmol/L (136-145) L 02/26/24 17:17 Potassium 4.5 mmol/L (3.5-5.1) 02/26/24 17:17 Chloride 98 mmol/L (98-107) 02/26/24 17:17 Carbon Dioxide 25 mmol/L (22-29) 02/26/24 17:17 Anion Gap 15.5 (5-19) 02/26/24 17:17 BUN 22 mg/dL (8-23) 02/26/24 17:17 Creatinine 1.0 mg/dL (0.7-1.2) 02/26/24 17:17 GFR Calculation Not Reportable 02/26/24 17:17 Glucose 107 mg/dL (65-115) 02/26/24 17:17 Calculated Osmolality 282 mOsm/kg (285-295) L 02/26/24 17:17 Lactic Acid 1.4 mmol/L (0.5-2.2) 02/26/24 17:17 Calcium 9.3 mg/dL (8.5-10.5) 02/26/24 17:17 Magnesium 2.3 mg/dL (1.7-2.3) 02/26/24 17:17 Total Bilirubin 0.6 mg/dL (0.15-1.2) 02/26/24 17:17 AST 25 U/L (0-40) 02/26/24 17:17 ALT 17 U/L (0-41) 02/26/24 17:17 Alkaline Phosphatase 125 U/L (40-130) 02/26/24 17:17 Troponin T Baseline 53 ng/L (0-15) H 02/26/24 16:35 Troponin T 120 Minute 55.54 ng/L (0-15) H 02/26/24 18:29 Delta Troponin T 2.54 ABS# (0-10) 02/26/24 18:29 Total Protein 6.4 g/dL (6.6-8.7) L 02/26/24 17:17 Albumin 3.9 g/dL (3.5-5.2) 02/26/24 17:17 Globulin 2.5 g/dL (1.3-4.6) 02/26/24 17:17 Lipase 44 U/L (13-60) 02/26/24 17:17 Urine Color Yellow (Yellow) 02/26/24 17:36 Urine Appearance Clear (CLEAR) 02/26/24 17:36 Urine pH 7.5 (5-7) 02/26/24 17:36 Ur Specific [place] 1.013 (1.005-1.030) 02/26/24 17:36 Urine Protein Negative (Negative) 02/26/24 17:36 Urine Glucose (UA) Negative (Normal) 02/26/24 17:36 Urine Ketones Negative (Negative) 02/26/24 17:36 Urine Blood Negative (Negative) 02/26/24 17:36 Urine Nitrate Negative (Negative) 02/26/24 17:36 Urine Bilirubin Negative (Negative) 02/26/24 17:36 Urine Urobilinogen 1.0 mg/dL (Negative) 02/26/24 17:36 Ur Leukocyte Esterase Negative (Negative) 02/26/24 17:36 Urine RBC 3-5 /hpf (0-2) 02/26/24 17:36 Urine WBC 0-5 /hpf (0-5) 02/26/24 17:36 Ur Squamous Epith Cells 0-5 /hpf (0-5) 02/26/24 17:36 Amorphous Sediment Not Reportable 02/26/24 17:36 Urine Bacteria None seen /hpf (NONE) 02/26/24 17:36 Hyaline Casts 3.30 /lpf 02/26/24 17:36 Adenovirus (PCR) Not detected (NOT DETECT) 02/26/24 16:48 C. pneumoniae DNA (PCR) Not detected (NOT DETECT) 02/26/24 16:48 Coronavirus 229E (PCR) Not detected (NOT DETECT) 02/26/24 16:48 Human Metapneumovir PCR Not detected (NOT DETECT) 02/26/24 16:48 Influenza A (H1) PCR Not detected (NOT DETECT) 02/26/24 16:48 Influ A (H1/09) PCR Not detected (NOT DETECT) 02/26/24 16:48 Influenza A (H3) PCR Not detected (NOT DETECT) 02/26/24 16:48 Influenza Type A (PCR) Not detected (NOT DETECT) 02/26/24 16:48 Influenza Type B (PCR) Not detected (NOT DETECT) 02/26/24 16:48 M. pneumoniae (PCR) Not detected (NOT DETECT) 02/26/24 16:48 Parainfluenza 1 (PCR) Not detected (NOT DETECT) 02/26/24 16:48 Parainfluenza 2 (PCR) Not detected (NOT DETECT) 02/26/24 16:48 Parainfluenza 3 (PCR) Not detected (NOT DETECT) 02/26/24 16:48 Parainfluenza 4 (PCR) Not detected (NOT DETECT) 02/26/24 16:48 RSV Type A (PCR) Not detected (NOT DETECT) 02/26/24 16:48 RSV Type B (PCR) Not detected (NOT DETECT) 02/26/24 16:48 Entero/Rhino (PCR) Not detected (NOT DETECT) 02/26/24 16:48 SARS-CoV-2 (PCR) Not detected (NOT DETECT) 02/26/24 16:48 Discharge Plan Discharge Patient Disposition: Home Clinical Impression: Shortness of breath Condition: Stable Prescriptions: No Action levothyroxine 75 mcg tablet 75 mcg PO DAILY azelastine 137 mcg (0.1 %) aerosol,spray 137 mcg INTRANASAL BID omeprazole 20 mg capsule,delayed release(DR/EC) 20 mg PO QAM ropinirole 4 mg tablet 4 mg PO TID elderberry fruit 350 mg Capsule 350 mg PO DAILY buspirone 5 mg Tablet 5 mg PO BID hydromorphone 4 mg Tablet 2 mg PO Q6H PRN (Reason: Moderate To Severe Pain) Qty: 10 0RF furosemide 40 mg tablet 40 mg PO DAILY PRN (Reason: Edema) Qty: 1 0RF potassium chloride 20 mEq tablet,ER particles/crystals 20 meq PO DAILY PRN (Reason: Edema) Qty: 1 0RF Rx Instructions: With lasix ferrous sulfate 325 mg (65 mg iron) tablet 325 mg PO EVERY OTHER DAY Qty: 90 0RF carbamazepine [Tegretol XR] 200 mg tablet extended release 12 hr 100 mg PO BID 30 Days Qty: 1 0RF Rx Instructions: Taper off Eliquis 2.5 mg tablet 2.5 mg PO BID Qty: 30 0RF ondansetron 4 mg Tablet,Disintegrating 4 mg PO Q8H PRN (Reason: Nausea And Vomiting) metoprolol tartrate 25 mg tablet 25 mg PO BID Discharge Orders: Discharge ED (Routine); Ordered 02/26/24 Ordered By: Mitra Chakraborty Patient Instructions: Opioid Safety, Pain Management Activity Restrictions/Additional Instructions: Thank you for choosing [facility] for your healthcare needs today. Please realize this is an emergency room and that we are providing you with a medical screening exam and this may not be complete and all inclusive of all the testing and or work up that you may need to determine your ailment or severity of your illness. You have been screened and evaluated and felt safe for discharge. Health conditions do change or evolve sometimes and as such it is important that you follow up with your Primary Doctor to be re checked, 3-5 days is a general good time frame for follow up. You are always welcome to return to the ED for re assessment if your symptoms are worsening or you have new concerns Coding Level of Care Code ED Water Commissioner for Chg Fwd Documented by User: Mitra Chakraborty MD 02/26/24 19:23 HPI - SOB/Dyspnea General: Chief Complaint: Shortness of Breath/Dyspnea Stated Complaint: ams Time Seen by Provider: 02/26/24 16:09 Related Data Home Medications Medication Instructions Recorded Confirmed azelastine 137 mcg (0.1 %) nasal 137 mcg intranasal BID 07/30/20 02/26/24 spray levothyroxine 75 mcg tablet 75 mcg PO DAILY 07/30/20 02/26/24 elderberry fruit 350 mg capsule 350 mg PO DAILY 02/16/24 02/26/24 omeprazole 20 mg capsule,delayed 20 mg PO QAM 02/16/24 02/26/24 release ropinirole 4 mg tablet 4 mg PO TID 02/16/24 02/26/24 buspirone 5 mg tablet 5 mg PO BID 02/21/24 02/26/24 metoprolol tartrate 25 mg tablet 25 mg PO BID 02/26/24 02/26/24 ondansetron 4 mg disintegrating 4 mg PO Q8H PRN Nausea And Vomiting 02/26/24 02/26/24 tablet Previous Rx's Medication Instructions Recorded furosemide 40 mg tablet 40 mg PO DAILY PRN Edema #1 tab 02/23/24 hydromorphone 4 mg tablet 2 mg (1/2 x 4 mg) PO Q6H PRN 02/23/24 Moderate To Severe Pain #10 tabs potassium chloride 20 mEq 20 meq PO DAILY PRN Edema #1 tab 02/23/24 tablet,extended release(part/cryst) apixaban 2.5 mg tablet (Eliquis) 2.5 mg PO BID #30 tabs 02/24/24 carbamazepine 200 mg 100 mg (1/2 x 200 mg) PO BID 1 02/24/24 tablet,extended release,12 hr month #1 tab (Tegretol XR) ferrous sulfate 325 mg (65 mg 325 mg PO EVERY OTHER DAY #90 tabs 02/24/24 iron) tablet Allergies Allergy/AdvReac Type Severity Reaction Status Date / Time Penicillins Allergy ALGY-Rash Verified 12/27/23 13:41 Entrymq-NIU-JuM Reductase Allergy ADR-Muscle Verified 12/27/23 13:41 Inhibitor Pain [Tnknihq-Ril-Aim Reductase Inhibitor] Sulfa (Sulfonamide Allergy Unknown Verified 12/27/23 13:41 Antibiotics) [facility] ED PFSH: Medical History (Updated 02/26/24 @ 19:22 by Mitra Chakraborty MD) Pituitary adenoma Peripheral neuropathy Restless leg syndrome Hypothyroidism Atrial fibrillation Surgical History (Updated 02/16/24 @ 17:59 by Wellington Martínez MD) S/P transsphenoidal hypophysectomy History of nasal surgery Social History Smoking and tobacco/nicotine status: never used tobacco/nicotine Quit status (tobacco/nicotine): has quit using Year quit tobacco: 1999 Former quit date comment: 1 PPD X 40 YEARS Course Vital Signs: Vital signs: Vital Signs Temperature 98.1 F 02/26/24 16:14 Pulse Rate 82 02/26/24 20:30 Respiratory Rate 22 H 02/26/24 20:30 Blood Pressure 129/70 02/26/24 20:30 Pulse Oximetry 96 02/26/24 20:30 Oxygen Delivery Me thod Room Air 02/26/24 17:29 MDM - SOB/Dyspnea Medical Decision Making Chest x-ray: No acute process. No infiltrate. No pneumothorax. This was reviewed and interpreted by myself the emergency room physician. I also reviewed the radiology report. Lab review: Mild leukocytosis. No anemia. No renal failure. Troponin is 55 and unchanged on second troponin. This is his baseline. Respiratory panel is negative Assessment and plan: Dyspnea - Discharged home - Discussed plan with patient. Answered any questions. - Evaluation and treatment of this problem were appropriate in the emergency setting. Lab Data 02/26/24 17:17 02/26/24 17:17 Labs/Radiology: Radiology Impressions Chest X-Ray 02/26/24 17:54 IMPRESSION: No acute cardiopulmonary abnormality. Head CT 02/26/24 19:43 IMPRESSION: No acute intracranial abnormality. Laboratory Results WBC 11.64 10^3/uL (3.29-11.43) H 02/26/24 17:17 RBC 3.19 10^6/uL (3.85-5.65) L 02/26/24 17:17 Hgb 10.00 g/dL (11.27-16.99) L 02/26/24 17:17 Hct 30.3 % (37-53) L 02/26/24 17:17 MCV 95.0 fl (82-101) 02/26/24 17:17 MCH 31.3 pg (27-33) 02/26/24 17:17 MCHC 33.0 g/dL (30-55) 02/26/24 17:17 RDW 14.8 % (12.1-15.1) 02/26/24 17:17 Plt Count 333 10^3/cmm (157-399) 02/26/24 17:17 MPV 8.7 fL (7.4-10.4) 02/26/24 17:17 Neut % (Auto) 55.4 % 02/26/24 17:17 Lymph % (Auto) 8.7 % 02/26/24 17:17 [place] % (Auto) 16.9 % 02/26/24 17:17 Eos % (Auto) 14.6 % 02/26/24 17:17 Baso % (Auto) 0.4 % 02/26/24 17:17 Neut # (Auto) 6.44 10^3/uL (1.8-7.7) 02/26/24 17:17 Lymph # (Auto) 1.0 10^3/uL (0.8-4.8) 02/26/24 17:17 [place] # (Auto) 2.0 10^3/uL (0.2-0.9) H 02/26/24 17:17 Eos # (Auto) 1.7 10^3/uL (0.0-0.8) H 02/26/24 17:17 Baso # (Auto) 0.1 10^3/uL (0.0-0.1) 02/26/24 17:17 Nucleated RBC % (auto) 0 % 02/26/24 17:17 Nucleated RBCs # 0.0 /100WBC 02/26/24 17:17 Sodium 134 mmol/L (136-145) L 02/26/24 17:17 Potassium 4.5 mmol/L (3.5-5.1) 02/26/24 17:17 Chloride 98 mmol/L (98-107) 02/26/24 17:17 Carbon Dioxide 25 mmol/L (22-29) 02/26/24 17:17 Anion Gap 15.5 (5-19) 02/26/24 17:17 BUN 22 mg/dL (8-23) 02/26/24 17:17 Creatinine 1.0 mg/dL (0.7-1.2) 02/26/24 17:17 GFR Calculation Not Reportable 02/26/24 17:17 Glucose 107 mg/dL (65-115) 02/26/24 17:17 Calculated Osmolality 282 mOsm/kg (285-295) L 02/26/24 17:17 Lactic Acid 1.4 mmol/L (0.5-2.2) 02/26/24 17:17 Calcium 9.3 mg/dL (8.5-10.5) 02/26/24 17:17 Magnesium 2.3 mg/dL (1.7-2.3) 02/26/24 17:17 Total Bilirubin 0.6 mg/dL (0.15-1.2) 02/26/24 17:17 AST 25 U/L (0-40) 02/26/24 17:17 ALT 17 U/L (0-41) 02/26/24 17:17 Alkaline Phosphatase 125 U/L (40-130) 02/26/24 17:17 Troponin T Baseline 53 ng/L (0-15) H 02/26/24 16:35 Troponin T 120 Minute 55.54 ng/L (0-15) H 02/26/24 18:29 Delta Troponin T 2.54 ABS# (0-10) 02/26/24 18:29 Total Protein 6.4 g/dL (6.6-8.7) L 02/26/24 17:17 Albumin 3.9 g/dL (3.5-5.2) 02/26/24 17:17 Globulin 2.5 g/dL (1.3-4.6) 02/26/24 17:17 Lipase 44 U/L (13-60) 02/26/24 17:17 Urine Color Yellow (Yellow) 02/26/24 17:36 Urine Appearance Clear (CLEAR) 02/26/24 17:36 Urine pH 7.5 (5-7) 02/26/24 17:36 Ur Specific [place] 1.013 (1.005-1.030) 02/26/24 17:36 Urine Protein Negative (Negative) 02/26/24 17:36 Urine Glucose (UA) Negative (Normal) 02/26/24 17:36 Urine Ketones Negative (Negative) 02/26/24 17:36 Urine Blood Negative (Negative) 02/26/24 17:36 Urine Nitrate Negative (Negative) 02/26/24 17:36 Urine Bilirubin Negative (Negative) 02/26/24 17:36 Urine Urobilinogen 1.0 mg/dL (Negative) 02/26/24 17:36 Ur Leukocyte Esterase Negative (Negative) 02/26/24 17:36 Urine RBC 3-5 /hpf (0-2) 02/26/24 17:36 Urine WBC 0-5 /hpf (0-5) 02/26/24 17:36 Ur Squamous Epith Cells 0-5 /hpf (0-5) 02/26/24 17:36 Amorphous Sediment Not Reportable 02/26/24 17:36 Urine Bacteria None seen /hpf (NONE) 02/26/24 17:36 Hyaline Casts 3.30 /lpf 02/26/24 17:36 Adenovirus (PCR) Not detected (NOT DETECT) 02/26/24 16:48 C. pneumoniae DNA (PCR) Not detected (NOT DETECT) 02/26/24 16:48 Coronavirus 229E (PCR) Not detected (NOT DETECT) 02/26/24 16:48 Human Metapneumovir PCR Not detected (NOT DETECT) 02/26/24 16:48 Influenza A (H1) PCR Not detected (NOT DETECT) 02/26/24 16:48 Influ A (H1/09) PCR Not detected (NOT DETECT) 02/26/24 16:48 Influenza A (H3) PCR Not detected (NOT DETECT) 02/26/24 16:48 Influenza Type A (PCR) Not detected (NOT DETECT) 02/26/24 16:48 Influenza Type B (PCR) Not detected (NOT DETECT) 02/26/24 16:48 M. pneumoniae (PCR) Not detected (NOT DETECT) 02/26/24 16:48 Parainfluenza 1 (PCR) Not detected (NOT DETECT) 02/26/24 16:48 Parainfluenza 2 (PCR) Not detected (NOT DETECT) 02/26/24 16:48 Parainfluenza 3 (PCR) Not detected (NOT DETECT) 02/26/24 16:48 Parainfluenza 4 (PCR) Not detected (NOT DETECT) 02/26/24 16:48 RSV Type A (PCR) Not detected (NOT DETECT) 02/26/24 16:48 RSV Type B (PCR) Not detected (NOT DETECT) 02/26/24 16:48 Entero/Rhino (PCR) Not detected (NOT DETECT) 02/26/24 16:48 SARS-CoV-2 (PCR) Not detected (NOT DETECT) 02/26/24 16:48 All radiology interpretation(s) finalized by discharge Discharge Plan Discharge Patient Disposition: Home Clinical Impression: Shortness of breath Condition: Stable Prescriptions: No Action levothyroxine 75 mcg tablet 75 mcg PO DAILY azelastine 137 mcg (0.1 %) aerosol,spray 137 mcg INTRANASAL BID omeprazole 20 mg capsule,delayed release(DR/EC) 20 mg PO QAM ropinirole 4 mg tablet 4 mg PO TID elderberry fruit 350 mg Capsule 350 mg PO DAILY buspirone 5 mg Tablet 5 mg PO BID hydromorphone 4 mg Tablet 2 mg PO Q6H PRN (Reason: Moderate To Severe Pain) Qty: 10 0RF furosemide 40 mg tablet 40 mg PO DAILY PRN (Reason: Edema) Qty: 1 0RF potassium chloride 20 mEq tablet,ER particles/crystals 20 meq PO DAILY PRN (Reason: Edema) Qty: 1 0RF Rx Instructions: With lasix ferrous sulfate 325 mg (65 mg iron) tablet 325 mg PO EVERY OTHER DAY Qty: 90 0RF carbamazepine [Tegretol XR] 200 mg tablet extended release 12 hr 100 mg PO BID 30 Days Qty: 1 0RF Rx Instructions: Taper off Eliquis 2.5 mg tablet 2.5 mg PO BID Qty: 30 0RF ondansetron 4 mg Tablet,Disintegrating 4 mg PO Q8H PRN (Reason: Nausea And Vomiting) metoprolol tartrate 25 mg tablet 25 mg PO BID Discharge Orders: Discharge ED (Routine); Ordered 02/26/24 Ordered By: Mitra Chakraborty Patient Instructions: Opioid Safety, Pain Management Activity Restrictions/Additional Instructions: Thank you for choosing [facility] for your healthcare needs today. Please realize this is an emergency room and that we are providing you with a medical screening exam and this may not be complete and all inclusive of all the testing and or work up that you may need to determine your ailment or severity of your illness. You have been screened and evaluated and felt safe for discharge. Health conditions do change or evolve sometimes and as such it is important that you follow up with your Primary Doctor to be re checked, 3-5 days is a general good time frame for follow up. You are always welcome to return to the ED for re assessment if your symptoms are worsening or you have new concerns Coding Level of Care Code ED Water Commissioner for Luz Elena Hernandez
[2024-02-26 17:29] VITALS: BP 120/67; PULSE 78; RESP 15; O2SAT 94
[2024-02-26 17:31] LABS: Basophils # 0.1 10^3/uL (0.0-0.1); Basophils % 0.4 %; Eosinophils # 1.7 10^3/uL (0.0-0.8); Eosinophils % 14.6 %; Hematocrit 30.3 % (37-53); Lymphocytes % 8.7 %; Mean Corpuscular Hemoglobin 31.3 pg (27-33); Mean Platelet Volume 8.7 fL (7.4-10.4); Monocytes % 16.9 %; Neutrophils # 6.44 10^3/uL (1.8-7.7); Neutrophils % 55.4 %; Nucleated Red Blood Cells % 0 %; Platelet Count 333 10^3/cmm (157-399); Red Blood Count 3.19 10^6/uL (3.85-5.65); Red Cell Distribution Width 14.8 % (12.1-15.1); White Blood Count 11.64 10^3/uL (3.29-11.43)
[2024-02-26 17:46] LABS: Bilirubin Urine Negative (Negative); Blood Urine Negative (Negative); Glucose Urine UA Negative (Normal); Ketones Urine Negative (Negative); Leukocyte Esterase Urine Negative (Negative); Nitrate Urine Negative (Negative); Protein Urine Negative (Negative); Specific Gravity, Urine 1.013 (1.005-1.030); Urine Appearance Clear (CLEAR); Urine Color Yellow (Yellow); pH Urine 7.5 (5-7)
[2024-02-26 17:49] LABS: Add Urine Microscopic? YES; Bacteria Urine None Seen /hpf; Squamous Epithelial Cell Urine 0-5 /hpf (0-5); WBC Urine 0-5 /hpf (0-5)
[2024-02-26 17:50] LABS: Alanine Aminotransferase 17 U/L (0-41); Albumin Level 3.9 g/dL (3.5-5.2); Alkaline Phosphatase 125 U/L (40-130); Anion Gap 15.5 (5-19); Aspartate Amino Transferase 25 U/L (0-40); Blood Urea Nitrogen 22 mg/dL (8-23); Calcium 9.3 mg/dL (8.5-10.5); Carbon Dioxide 25 mmol/L (22-29); Chloride 98 mmol/L (98-107); Globulin 2.5 g/dL (1.3-4.6); Glucose 107 mg/dL (65-115); Lipase 44 U/L (13-60); Magnesium 2.3 mg/dL (1.7-2.3); Osmolality Calculated 282 mOsm/kg (285-295); Potassium 4.5 mmol/L (3.5-5.1); Sodium 134 mmol/L (136-145); Total Bilirubin 0.6 mg/dL (0.15-1.2); Total Protein 6.4 g/dL (6.6-8.7)
[2024-02-26 17:52] LABS: Lactic Sepsis W/Reflex 1.4 mmol/L (0.5-2.2)
--- NOTE | 2024-02-26 17:54 | XRR_ITS ---
PROCEDURE INFORMATION: Exam: XR Chest Exam date and time: 02/26/2024 6:00 PM Age: 83 years old Clinical indication: Dyspnea; Prior surgery; Surgery date: 6+ months; Surgery type: Pacer; Additional info: Dyspnea/cough TECHNIQUE: Imaging protocol: Radiologic exam of the chest. Views: 1 view. COMPARISON: CR XR chest 1V portable [id number] 02/16/2024 3:25 PM FINDINGS: Tubes, catheters and devices: Left chest wall pacing device with intact leads. Lungs: Hyperinflation with hyperlucency. No focal consolidation Pleural spaces: Unremarkable. No pleural effusion. No pneumothorax. Heart/Mediastinum: Unremarkable. No cardiomegaly. Vasculature: Tortuous calcified aorta. Bones/joints: Degenerative change of the spine. XR/XR chest 1V portable [id number] IMPRESSION: No acute cardiopulmonary abnormality.
[2024-02-26 18:00] LABS: Troponin(5th) Baseline 53 ng/L (0-15)
--- NOTE | 2024-02-26 18:08 | ECG_ITS ---
[employer] 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 Measurements Intervals [place] Rate: 85 P: 8 DC: 218 QRS: 66 QRSD: 105 T: 68 QT: 371 QTc: 443 Interpretive Statements SINUS RHYTHM WITH FIRST DEGREE AV BLOCK NONSPECIFIC ST & T-WAVE ABNORMALITY Compared to ECG 02/26/2024 16:11:04 T-wave abnormality now present Myocardial infarct finding no longer present Electronically Signed On 02-26-2024 19:26:23 BOOKING MANAGER by Shamir Collins M.D. [id number]
[2024-02-26 18:54] LABS: Troponin 5 2HR 55.54 ng/L (0-15); Troponin 5 2HR Delta 2.54 ABS# (0-10)
[2024-02-26 19:16] LABS: Adenovirus Not Detected (NOT DETECT); Chlamydia Pneumoniae Not Detected (NOT DETECT); Coronavirus 229E,HKU1,NL63,OC4 Not Detected (NOT DETECT); Human Metapneumovirus Not Detected (NOT DETECT); Human Rhinovirus/Enterovirus Not Detected (NOT DETECT); Influenza A Not Detected (NOT DETECT); Influenza A H1 Not Detected (NOT DETECT); Influenza A H1-2009 Not Detected (NOT DETECT); Influenza A H3 Not Detected (NOT DETECT); Influenza B Not Detected (NOT DETECT); Mycoplasma Pneumoniae Not Detected (NOT DETECT); Parainfluenza Virus Type 1 Not Detected (NOT DETECT); Parainfluenza Virus Type 2 Not Detected (NOT DETECT); Parainfluenza Virus Type 3 Not Detected (NOT DETECT); Parainfluenza Virus Type 4 Not Detected (NOT DETECT); Respiratory Syncytial Virus A Not Detected (NOT DETECT); Respiratory Syncytial Virus B Not Detected (NOT DETECT); SARS-COV-2 Not Detected (NOT DETECT)
--- NOTE | 2024-02-26 19:43 | CTR_ITS ---
PROCEDURE INFORMATION: Exam: CT Head Without Contrast Exam date and time: 02/26/2024 7:53 PM Age: 83 years old Clinical indication: Altered mental status/memory loss; Additional info: Unusual happiness TECHNIQUE: Imaging protocol: Computed tomography of the head without contrast. Radiation optimization: All CT scans at this facility use at least one of these dose optimization techniques: automated exposure control; mA and/or kV adjustment per patient size (includes targeted exams where dose is matched to clinical indication); or iterative reconstruction. COMPARISON: CT head wo con* [id number] 02/16/2024 4:54 PM RADIATION DOSE METRICS: Total DLP (mGy-cm): 1323.05 FINDINGS: Brain: Diffuse atherosclerotic calcification of the intracranial arteries most significant at the basilar artery. Moderate parenchymal volume loss. Periventricular and subcortical hypodensity, nonspecific, but likely to be chronic small vessel ischemic change in a patient of this age group. Cerebral ventricles: No ventriculomegaly. Paranasal sinuses: Visualized sinuses are unremarkable. No fluid levels. Mastoid air cells: Visualized mastoid air cells are well aerated. Orbital cavities: Bilateral lens replacement. Bones: Unremarkable. No acute fracture. Soft tissues: Unremarkable. CT/CT head wo con* [id number] IMPRESSION: No acute intracranial abnormality.
--- NOTE | 2024-02-26 19:45 | PC.NURSE ---
Per family's request pt is to be CT due to increased confusion and happiness. Pt was due to be discharged prior to pt family's request.
[2024-02-26 20:30] VITALS: BP 129/70; PULSE 82; RESP 22; O2SAT 96
== END 2024-02-26 20:30 | disposition home or self-care (01) ==
PROVIDERS: Family Medicine; Emergency Provider Emergency Medicine
DX: R06.02 Shortness of breath (principal); Z11.52 Encounter for screening for COVID-19; Z79.01 Long term (current) use of anticoagulants; Z87.891 Personal history of nicotine dependence
CPT/HCPCS: 36415; 70450; 71045; 80053; 81001; 83605; 83690; 83735; 84484; 85025; 87486; 87581; 87633; 93005; 99285

== ENCOUNTER → 2024-03-07 10:06 | Outpatient (BNVA) | payer MEDICARE, OTHER, SELFPAY | PROVIDERS: Visit Provider Physician Assistant | DX: Z98.890 Other specified postprocedural states; S72.001D Fracture of unspecified part of neck of right femur, subsequent encounter for closed fracture with routine healing; X58.XXXD Exposure to other specified factors, subsequent encounter | CPT/HCPCS: 73502; 99024 ==

== ENCOUNTER 2024-03-11 23:37 | Inpatient (IN) | payer MEDICARE, OTHER, SELFPAY ==
[2024-03-11 23:37] VITALS: BP 111/54; PULSE 72; RESP 20; TEMP 37.1; O2SAT 100
[2024-03-11 23:43] VITALS: O2SAT 100
[2024-03-11 23:45] VITALS: BP 111/54; PULSE 72; RESP 24; O2SAT 100
[2024-03-11 23:54] VITALS: BMI 17.7
[2024-03-12] VITALS (50 sets, daily range): BP systolic 82–139; BP diastolic 44–74; PULSE 66–103; RESP 15–27; TEMP 36.7–36.9; O2SAT 96–100
[2024-03-12] MEDS: sodium chloride 0.9% 500 ML 999 ML IV (00:41)
--- NOTE | 2024-03-12 01:12 | PM.HP ---
Providers/Chief Complaint Admitting Physician: Camila Almanzar MD Chief Complaint: Septic Shock History of Present Illness Patient is a poor historian Madi Gonzalez is a 83 year old male w/ Paroxymsal Afib, Moderate to severe Aortic stenosis w/ low normal EF, Permanent Pacemaker, COPD?, nocturnal hypoxemia on 3L NC, FARHAT on intolerant to CPAP, Seizure d/o, Anxiety, RLS, & Neuropathy, who was transferred from [facility] to [facility] on 03/12/2024 for cellulitis of the b/l UE and concern for hypotension as low as SBP of 75mmHg. The patient was admitted to the ICU given concern for hypotension possibly requiring vasopressors. The patient complains of b/l swelling, feet swelling, diffuse pruritus all over his chest, back and legs. He states that he has had intermittent swelling of his legs for the last 4 years. He states that he has been on Gabapentin for years for his seizure d/o and after his pituitary tumor surgery. He states that he was switched to Carbamazepine, but it was not working as well, so he was to be switched back to Gabapentin, but he declined getting back on Gabapentin. When he was taken off the Gabapentin, he had episodes of profuse n/v. His PCP thought that he reacted to the Carbamazepine, so he was placed on Keflex, which he took, but he states that it did not help. He endorses f/c for the last 2 weeks. He endorses dizziness w/ sitting up and standing, dyspnea with exertion, dry cough and dysuria. He endorses seeing things that are not there moving. He denies wheezing, CP, palpitations, melena, hematochezia. Per chart review, he was just d/c'ed on 02/24/2024 from [facility] for a R. hip fracture s/p ORIF due to a mechanical all. During the hospitalization, he was noted to develop a morbiliform rash during the hospitalization. Tapering of his Carbamazepine that was increased was recommended due to concern that it was causing the rash. Also his Ropinirole was tapered and his Flexeril was discontinued w/ resolution of his dyspnea. Please Dr. Bull's discharge summary on 02/24/2024 At the OSH, per chart review, the patient was seen 3 weeks earlier in at the outside hospital's ED, for fever, rigors, weakness, w/ dyspnea on exertion. He was started on Keflex for > 7 days, which he took, but continued to have increasing pain, erythema or redness His labs were significinat for a wbc of 28.5 w/ eosinophilia, BUN/Cr of 49/2.35, lacitic acid of 4.1, His CXR was negative for consolidation, pleural effusions, PTX, but it showed eventration of the L. hemidiaphragm. His CT head was negative for any acute intracranial processes. He was given 1.25g of Vanc, 2g of Ceftriaxone x 1, Zofran, 50mcg of fentanyl, 1L LR, and started on an NS infusion. Review of Systems Const: Reports: fever(s) and chills Eyes: Reports: other (visual hallucinations) ENMT: Reports: nasal discharge (chronic - due to broken nose) and nasal congestion (chronic - due to broken nose); Denies: odynophagia or ear or mastoid pain Card: Denies: chest pain or palpitations Resp: Reports: dyspnea and non-productive cough; Denies: wheezing GI: Reports: nausea, vomiting, dysphagia (sometimes solids) and constipation; Denies: hematochezia : Reports: dysuria; Denies: urinary frequency, urinary urgency or hematuria Musc: Reports: joint pain (b/l knees and R. hip) Skin/Breast: Reports: rash Neuro: Reports: headache(s), dizziness and other (no syncope) Psych: Reports: anxiety; Denies: suicidal ideation or homicidal ideation Endo: Reports: cold intolerance; Denies: heat intolerance Alejandro/Lymph: Reports: easy bruising and easy bleeding All/Imm: Denies: food intolerance Medications/Allergies Home Medications Medication Instructions Recorded Confirmed Last Taken Type azelastine 137 mcg (0.1 %) nasal 137 mcg intranasal BID 07/30/20 03/07/24 Unknown History spray levothyroxine 75 mcg tablet 75 mcg PO DAILY 07/30/20 03/07/24 Unknown History elderberry fruit 350 mg capsule 350 mg PO DAILY 02/16/24 03/07/24 Unknown History omeprazole 20 mg capsule,delayed 20 mg PO QAM 02/16/24 03/07/24 Unknown History release ropinirole 4 mg tablet 4 mg PO TID 02/16/24 03/07/24 Unknown History buspirone 5 mg tablet 5 mg PO BID 02/21/24 03/07/24 Unknown History furosemide 40 mg tablet 40 mg PO DAILY PRN Edema #1 tab 02/23/24 03/07/24 Unknown Rx hydromorphone 4 mg tablet 2 mg (1/2 x 4 mg) PO Q6H PRN 02/23/24 03/07/24 Unknown Rx Moderate To Severe Pain #10 tabs potassium chloride 20 mEq 20 meq PO DAILY PRN Edema #1 tab 02/23/24 03/07/24 Unknown Rx tablet,extended release(part/cryst) apixaban 2.5 mg tablet (Eliquis) 2.5 mg PO BID #30 tabs 02/24/24 03/07/24 Unknown Rx ferrous sulfate 325 mg (65 mg 325 mg PO EVERY OTHER DAY #90 tabs 02/24/24 03/07/24 Unknown Rx iron) tablet metoprolol tartrate 25 mg tablet 25 mg PO BID 02/26/24 03/07/24 Unknown History ondansetron 4 mg disintegrating 4 mg PO Q8H PRN Nausea And Vomiting 02/26/24 03/07/24 Unknown History tablet carbamazepine 200 mg See Rx Instructions .Route 02/29/24 03/07/24 Unknown Rx tablet,extended release,12 hr .COMPLEX #60 tabs hydrocodone 5 mg-acetaminophen 325 2 tab PO Q6H PRN pain 5 days #40 03/07/24 03/07/24 Unknown Rx mg tablet tabs Allergies Allergy/AdvReac Type Severity Reaction Status Date / Time morphine Allergy ALGY-Rash Verified 03/12/24 00:55 Penicillins Allergy ALGY-Rash Verified 03/07/24 10:30 Yupkxrp-MMS-EdU Reductase Allergy ADR-Muscle Verified 03/07/24 10:30 Inhibitor Pain [Hrsxyup-Iot-Mzc Reductase Inhibitor] Sulfa (Sulfonamide Allergy Unknown Verified 03/07/24 10:30 Antibiotics) PFSH Acute PFSH: Medical History Pituitary adenoma Peripheral neuropathy Restless leg syndrome Hypothyroidism Atrial fibrillation Surgical History S/P transsphenoidal hypophysectomy History of nasal surgery Social History Smoking and tobacco/nicotine status: never used tobacco/nicotine Quit status (tobacco/nicotine): has quit using Year quit tobacco: 1999 Former quit date comment: 1 PPD X 40 YEARS Vitals/I&O/Wt Last Vital Signs Temp 98.7 F 03/11/24 23:37 Pulse 66 03/12/24 00:15 Resp 22 H 03/12/24 00:15 BP 100/64 03/12/24 00:15 Pulse Ox 97 03/12/24 00:15 O2 Del Method Room Air 03/11/24 23:54 Weight last 48 hrs Weight 64.5 kg Physical Exam Const: GENERAL APPEARANCE: cooperative, anxious and ill appearing; not comfortable NUTRITIONAL APPEARANCE: underweight ORIENTATION/CONSCIOUSNESS: Yes awake, Yes oriented to person, Yes oriented to place and Yes oriented to time HENMT: HEAD & SCALP: normocephalic and atraumatic NOSE: Normal external nose present EXTERNAL EAR: Yes external ears normal MOUTH: Normal oral and palatal mucosa present THROAT: posterior oropharynx normal Eye: OTHER: PERRL, EOMI, pale conjunctiva bilaterally Neck/C-Spine: GENERAL: Yes normal visual inspection and Yes trachea midline THYROID: Thyroid normal CAROTIDS: No bruit CERVICAL SPINE: Yes cervical ROM normal Lymph: LYMPHATIC: no lymphadenopathy noted Resp: OTHER: diminished breath sounds throughout all lung richards bilaterally w/ occasional expiratory wheeze. Cardio: OTHER: Difficult to appreciate heart sounds, but RRR noted on the cardiac monitors. R>L carotid bruits appreciated. 2+ radial & DP pulses appreciated GI: OTHER: BS+, NT, ND, no guarding, no rebound tenderness, no hepatosplenomegaly. Extremity: NARRATIVE EXTREMITY EXAM: LUE swelling and erythema. Neuro: CRANIAL NERVES: Yes CN normal except as noted SPEECH: speech normal SENSORY EXAM: No sensory level loss detected MOTOR EXAM: 5/5 motor strength present throughout and Normal motor muscle tone present throughout Psych: APPEARANCE: Yes grossly normal ATTITUDE: Yes agitated ACTIVITY/MOTOR BEHAVIOR: Yes appropriate eye contact SPEECH: Yes incoherent and Yes rapid MOOD & AFFECT: Yes anxious THOUGHT PROCESS: Tangential thought process present THOUGHT CONTENT: Yes Normal thought content present ATTENTION/CONCENTRATION: Yes attention grossly intact Skin: NARRATIVE SKIN EXAM: confluent rash on the back and chest; morbiliform rash on the b/l knees, L > R upper extremity swelling and erythema Data 03/12/24 01:59 03/12/24 01:59 A&P Assessment and plan (1) Eosinophilia: (2) DRESS syndrome: (3) Hypotension: (4) LASHAWN (acute kidney injury): Plan Madi Gonzalez is a 83 year old male w/ Paroxymsal Afib, Moderate to severe Aortic stenosis w/ low normal EF, Permanent Pacemaker, GERD, COPD, nocturnal hypoxemia on 3L NC, FARHAT on intolerant to CPAP, BPH, Seizure d/o, chronic pain, Anxiety, RLS, & Neuropathy, who was transferred from [facility] for b/l swelling, feet swelling, diffuse pruritus all over his chest, back and legs. #Eosinophilia: - Unclear cause. Likely DRESS, due to a drug reaction, but will r/o other etiologies including infection, lymphoma, collagen vascular disease. F/u RPR, histoplasma, fungal cx, BCx, ANCA studies, HIV, UA/UCx, Ova &Parasite, peripheral smear, CT chest/abd/pelvis w/o contrast. - F/u outside hospital (OSH) BCx - Continued Vanc. Started Meropenem. #likely Moderate DRESS: - Ordered Solumedrol 80mg IVP, Loratadine daily. He will also need a topical corticosteroid. #Hypotension: SBP of 80s on admission. Responded to initial 500cc bolus with a total of 1L given. Continue to monitor BP. #LASHAWN: Likely pre-renal. Hernandez catheter placed. F/u CT CAP. s/p 1L given over 2 hrs. Will start slow IVF at 65cc/hr and monitor vol status given hx of mod to severe . - Strict Is & Os. #LUE swelling: Ordered LUE venous duplex US. #Moderate to severe malnutrition: Consulted [employer] to assist in determination of degree of malnutrition and make recs for supplements. #COPD w/ possible mild exacerbation: duonebs, Solumedrol, PPI, abx. #nocturnal hypoxemia on 3L NC #FARHAT in tolerant to CPAP #Paroxysmal Afib #Permanent PPM - Telemonitoring. Hold Metoprolol tartrate & Apixaban. Full dose lovenox. #Moderate to severe Aortic stenosis w/ low normal EF: - Outpatient evaluation. Monitor IVF administration judiciously. #Possible carotid bruit: carotid us ordered #GERD: PPI ordered #Seizure d/o: He says it is not a seizure, but his symptoms behave like seizures? #Neuropathy - Not on any medications at this time. #Hypothyroidism: Resume Levothyroxine. TSH & Free T4 checked in his 02/16/2024 to 02/24/2024 hospitalization #Anxiety d/o: Buspirone 5mg BID. Consider increase to 10mg BID or starting Escitalopram #BPH: Hernandez in place #RLS: R/o JOE. #Chronic pain: Pain meds ordered. DVT ppx: full dose lovenox GI ppx: PPI Code Status. I did not discuss this with the patient. Attestations Medical Necessity Statement*: Patient needs to be hospitalized for >2 midnights for EOsinophilia likely causing Moderate DRESS, LASHAWN etc. He is at high risk of decompensation given his hx of moderate to severe aortic stenosis w/ a low normal EF. Time Spent in Patient Care: >75mins was spent on extensive chart review including of outside hospital documents, patient interview/exam, lab/image orders, plan formulation and coordination of care. Other Coding Information No focused coding review requested Diagnoses Eosinophilia D72.10 DRESS syndrome D72.12; T50.905A Hypotension I95.9 LASHAWN (acute kidney injury) N17.9
[2024-03-12] MEDS: MEROPENEM 2,000 MG in sodium chloride 0.9% (plus) 50 ML 100 MG IV ×2 (01:16→08:31)
[2024-03-12 02:04] LABS: Glucose Point of Care 353 mg/dL (70-110)
--- NOTE | 2024-03-12 02:08 | ECG_ITS ---
[facility] Test Date: 2024-03-12 Pat Name: Madi Gonzalez Department: Room: 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 Measurements Intervals [place] Rate: 78 P: 89 WA: 274 QRS: 86 QRSD: 99 T: 42 QT: 394 QTc: 449 Interpretive Statements SINUS RHYTHM WITH FIRST DEGREE AV BLOCK NONSPECIFIC ST & T-WAVE ABNORMALITY Compared to ECG 02/26/2024 18:08:12 No significant changes Electronically Signed On 03-16-2024 23:19:58 [employer] PLANNING MANAGER by Mic Mcclure M.D. [id number]
[2024-03-12 02:09] LABS: Bilirubin Urine Negative (Negative); Blood Urine 2+ (Negative); Glucose Urine UA Negative (Normal); Ketones Urine Negative (Negative); Leukocyte Esterase Urine Negative (Negative); Nitrate Urine Negative (Negative); Protein Urine Negative (Negative); Specific Gravity, Urine 1.018 (1.005-1.030); Urine Appearance Cloudy (CLEAR); Urine Color Yellow (Yellow); Urobilinogen Urine 0.2 mg/dL (Negative)
[2024-03-12 02:14] LABS: Add Urine Microscopic? YES; Bacteria Urine None Seen /hpf; Hyaline Casts Urine 13.63 /lpf; RBC Urine 51-100 /hpf (0-2); Squamous Epithelial Cell Urine 0-5 /hpf (0-5); WBC Urine 0-5 /hpf (0-5)
[2024-03-12] MEDS: sodium chloride 0.9% 500 ML IV (02:24)
--- NOTE | 2024-03-12 02:26 | CTR_ITS ---
PROCEDURE INFORMATION: Exam: CT Chest Without Contrast; Diagnostic Exam date and time: 03/12/2024 3:01 AM Age: 83 years old Clinical indication: Pain; Other: Lymphoma; Chest pressure; Additional info: Eosinophilia, evaluate for lymphoma TECHNIQUE: Imaging protocol: Diagnostic computed tomography of the chest without contrast. Radiation optimization: All CT scans at this facility use at least one of these dose optimization techniques: automated exposure control; mA and/or kV adjustment per patient size (includes targeted exams where dose is matched to clinical indication); or iterative reconstruction. COMPARISON: CR (CHEST, ) 02/26/2024 6:00 PM RADIATION DOSE METRICS: Total DLP (mGy-cm): 01 FINDINGS: Lungs: Advanced centrilobular emphysema Pleural spaces: Unremarkable. No pneumothorax. No pleural effusion. Heart: Unremarkable. No cardiomegaly. No pericardial effusion. Lymph nodes: Unremarkable. No enlarged lymph nodes. Vasculature: Unremarkable. No aortic aneurysm. Bones/joints: Unremarkable. No acute fracture. Soft tissues: Unremarkable. PROCEDURE INFORMATION: Exam: CT Abdomen And Pelvis Without Contrast Exam date and time: 03/12/2024 3:01 AM Age: 83 years old Clinical indication: Pain; Other: Lymphoma; Chest pressure; Additional info: Eosinophilia, evaluate for lymphoma TECHNIQUE: Imaging protocol: Computed tomography of the abdomen and pelvis without contrast. Radiation optimization: All CT scans at this facility use at least one of these dose optimization techniques: automated exposure control; mA and/or kV adjustment per patient size (includes targeted exams where dose is matched to clinical indication); or iterative reconstruction. COMPARISON: CR XR hip RT 2-3V wo/w pel* [id number] 03/07/2024 10:07 AM RADIATION DOSE METRICS: Total DLP (mGy-cm): 862.3 FINDINGS: Liver: Normal. No mass. Gallbladder and biliary ducts: Normal. No calcified stones. No ductal dilation. Pancreas: Normal. No ductal dilation. Spleen: Normal. No splenomegaly. Adrenal glands: Normal. No mass. Kidneys and ureters: 6 mm left caliceal stone. No ureteral or bladder stone. No hydronephrosis. Stomach and bowel: Unremarkable. No obstruction. No mucosal thickening. Appendix: No evidence of appendicitis. Intraperitoneal space: Unremarkable. No free air. No significant fluid collection. Vasculature: 3.6 cm infrarenal abdominal aortic aneurysm. Diffuse atherosclerosis. Hernandez catheter. Lymph nodes: Unremarkable. No enlarged lymph nodes. Urinary bladder: Unremarkable as visualized. Reproductive: Unremarkable as visualized. Bones/joints: Scoliosis and degenerative change lumbar spine. Degenerative change hips. No acute fracture. Soft tissues: Umbilical hernia containing fat. CT/[place] [id number] IMPRESSION: Emphysema. No adenopathy seen. IMPRESSION: Chronic findings as described. No definite adenopathy appreciated.
[2024-03-12 02:38] LABS: Basophils # 0.1 10^3/uL (0.0-0.1); Basophils % 0.3 %; Eosinophils # 10.9 10^3/uL (0.0-0.8); Eosinophils % 45.6 %; Hematocrit 31.9 % (37-53); Lymphocytes # 2.5 10^3/uL (0.8-4.8); Lymphocytes % 10.3 %; Mean Corpuscular HGB Conc 31.7 g/dL (30-55); Mean Corpuscular Hemoglobin 32.1 pg (27-33); Mean Corpuscular Volume 101.3 fl (82-101); Mean Platelet Volume 9.2 fL (7.4-10.4); Monocytes # 2.8 10^3/uL (0.2-0.9); Monocytes % 11.8 %; Neutrophils # 7.52 10^3/uL (1.8-7.7); Neutrophils % 31.3 %; Nucleated Red Blood Cells % 0 %; Platelet Count 236 10^3/cmm (157-399); Red Blood Count 3.15 10^6/uL (3.85-5.65); Red Cell Distribution Width 16.7 % (12.1-15.1); White Blood Count 23.99 10^3/uL (3.29-11.43)
[2024-03-12 02:47] LABS: Add Urine Culture? Yes; UA Slide Review UA Slide Review Perf
[2024-03-12 02:51] LABS: INR 1.28 (0.8-1.2)
[2024-03-12 02:52] LABS: Partial Thromboplastin Time 38.7 SECONDS (23.9-36.7)
[2024-03-12 02:53] LABS: LAB Peripheral Smear Sent for Review
[2024-03-12 02:54] LABS: Alanine Aminotransferase 12 U/L (0-41); Albumin Level 3.4 g/dL (3.5-5.2); Alkaline Phosphatase 124 U/L (40-130); Anion Gap 21.8 (5-19); Aspartate Amino Transferase 21 U/L (0-40); Blood Urea Nitrogen 47 mg/dL (8-23); Calcium 8.7 mg/dL (8.5-10.5); Carbon Dioxide 17 mmol/L (22-29); Chloride 110 mmol/L (98-107); Creatinine Clr Calc Pharmacy 24.7421; Globulin 1.6 g/dL (1.3-4.6); Glucose 93 mg/dL (65-115); Magnesium 2.4 mg/dL (1.7-2.3); Osmolality Calculated 310 mOsm/kg (285-295); Phosphorus 4.8 mg/dL (2.5-4.5); Potassium 4.8 mmol/L (3.5-5.1); Sodium 144 mmol/L (136-145); Total Bilirubin 0.3 mg/dL (0.15-1.2)
[2024-03-12 02:56] LABS: Lactate (Lactic Acid level) 1.8 mmol/L (0.5-2.2)
--- NOTE | 2024-03-12 03:16 | USCV_ITS ---
Carlos Madi Age: 83 Gender: M : 1940 Exam Date: 03/12/2024 03:28 Ordering Phys: Camila Almanzar MD Technologist: HILARIA Exam Location: [facility] [place] Indication: LEFT upper extremity 3+ pitting edema with erythema s/p LEFT hip surgery February 09, 2024. Has cellulitis on antibiotics. HISTORY: LEFT upper extremity 3+ pitting edema with erythema s/p LEFT hip surgery February 09, 2024. Has cellulitis on antibiotics. PROCEDURES: Venous duplex imaging was performed in only the left upper extremity. The following venous structures were evaluated: internal jugular vein, subclavian vein, axillary vein, and brachial veins. In addition, the basilic vein, cephalic vein, radial vein, and ulnar vein. FINDINGS: The veins of the left upper extremity are readily compressible with normal venous flow dynamics including spontaneous flow, respiratory phasic variation and augmentation. CONCLUSIONS No left upper extremity DVT. Dr. Francy Villatoro DO (Electronically Signed) Final Date: 12 March 2024 09:58 S
[2024-03-12] MEDS: methylPREDNISolone sod succ 125 mg/2 mL INJ 80 MG IVP (03:45)
[2024-03-12] MEDS: loratadine 10 mg Tablet PO ×2 (03:45→08:31)
[2024-03-12] MEDS: HYDROcodone-acetaminophen 5-325 mg Tablet 1 TAB PO ×2 (03:49→08:31)
--- NOTE | 2024-03-12 04:10 | FL_ITS ---
WS: [id number] MODIFIED BARIUM SWALLOW TECHNIQUE: Modified barium swallow with speech therapy using multiple consistencies. FLUOROSCOPY TIME: 3min [id number] CLINICAL INFORMATION: Oropharyngeal dysphagia COMPARISON: None. FINDINGS: Early spillage. Pooling in the vallecula with residue. Deep penetration with thin liquids a nd nectar consistency. No hakan aspiration. Briefly delayed transit of the barium tablet in the distal esophagus which cleared with additional li quids. Moderate esophageal dysmotility with incomplete emptying and reflux partially visualized. FL/FL barium swallow modifd [id number] IMPRESSION: Deep penetration with thin liquids and nectar consistency. No hakan aspiration . See speech therapy consultation for recommendations
[2024-03-12 04:13] LABS: Glucose Point of Care 83 mg/dL (70-110)
--- NOTE | 2024-03-12 04:24 | USCV_ITS ---
Madi Gonzalez Age: 83 Gender: M : 1940 Exam Date: 03/12/2024 04:35 Ordering Phys: Camila Almanzar MD Technologist: HILARIA Exam Location: [facility] [place] Indication: bruit. Patient is poor historian, confused in ICU- 3. Risk Factors: bruit. Patient is poor historian, confused in ICU-3. Previous Vascular Surgery: unknown Right Brachial BP: 103 / 62 Left Brachial BP: / Right Left Velocity (cm/s) Spectral Plaque Velocity (cm/s) Spectral Plaque Syst/Diast Broadening Syst/Diast Broadening 169.70/21.60 Mod None Prox CCA 141.40/ 28.10 Min None 134.50/19.30 Mod Homo Mid CCA 130.50/ 25.90 Min None 99.50/ 12.80 Min Homo Distal CCA 108.40/ 23.70 Mod Homo 125.80/24.90 Mod Claudio Prox ICA 103.80/ 19.30 Mod Claudio 119.50/24.90 Min Homo Mid ICA 84.30 / 14.90 Min Homo 84.40/ 17.00 Min Homo Distal ICA 144.30/ 27.80 Min Homo 244.40 Mod Claudio ECA 183.90 Min Claudio 1.30 ICA/CCA 1.30 Antegrade Vertebral Antegrade 84.70/ 21.70 cm/s 55.30/ 19.20 cm/s Tri Subclavian Tri 53.20 82.20 FINDINGS Comparison: none available. Moderate calcified plaque at the bifurcations. Mild elevation of velocities in the proximal ICA's. Antegrade vertebral arteries. CONCLUSIONS Bilateral ICA stenosis less than 50%. Atherosclerotic plaque in the bifurcations. Dr. Francy Villatoro DO (Electronically Signed) Final Date: 12 March 2024 12:25 S
[2024-03-12] MEDS: polyethylene glycol 3350 Pkt 17 gm PO (04:57)
[2024-03-12] MEDS: sennosides 8.6 mg Tablet 17.2 MG PO (04:57)
[2024-03-12] MEDS: sodium chloride 0.9% 1,000 ML 65 ML IV (04:59)
[2024-03-12] MEDS: pantoprazole 40 mg SDV IVP (06:35)
[2024-03-12] MEDS: enoxaparin 100 mg/mL Syringe 60 MG SUBCUT (08:32)
[2024-03-12 08:57] LABS: Glucose Point of Care 119 mg/dL (70-110)
[2024-03-12] MEDS: insulin glargine 100 units/1 mL 10 UNIT SUBCUT (09:36)
--- NOTE | 2024-03-12 12:14 | PC.OT ---
Attempted to see patient for an OT eval. Nursing requests therapist check back later as patient is tired.
[2024-03-12 12:31] LABS: Glucose Point of Care 193 mg/dL (70-110)
[2024-03-12] MEDS: insulin lispro 100 unit/1 mL SUBCUT ×2 (12:44→18:14)
--- NOTE | 2024-03-12 14:14 | PHA.VACGOAL ---
Vancomycin Goal - Therapy Day of therpy:: Day []of [] . Actual body weight (kg): 142 lb 3.17 oz - Data Labs: WBC 23.99 10^3/uL (3.29-11.43) H 03/12/24 01:59 RBC 3.15 10^6/uL (3.85-5.65) L 03/12/24 01:59 Hgb 10.10 g/dL (11.27-16.99) L 03/12/24 01:59 Hct 31.9 % (37-53) L 03/12/24 01:59 MCV 101.3 fl (82-101) H 03/12/24 01:59 MCH 32.1 pg (27-33) 03/12/24 01:59 MCHC 31.7 g/dL (30-55) 03/12/24 01:59 RDW 16.7 % (12.1-15.1) H 03/12/24 01:59 Sodium 144 mmol/L (136-145) 03/12/24 01:59 Potassium 4.8 mmol/L (3.5-5.1) 03/12/24 01:59 Chloride 110 mmol/L (98-107) H 03/12/24 01:59 Carbon Dioxide 17 mmol/L (22-29) L 03/12/24 01:59 Anion Gap 21.8 (5-19) H 03/12/24 01:59 BUN 47 mg/dL (8-23) H 03/12/24 01:59 Creatinine 2.1 mg/dL (0.7-1.2) H 03/12/24 01:59 GFR Calculation Not Reportable 03/12/24 01:59 Treatment plan:: new consult Regimen:: 1000 MG Q24H PER TELEPHARMACY
--- NOTE | 2024-03-12 15:17 | P.PN_ITS ---
Subjective 2 Subjective: Overnight labs and H&P reviewed. Patient denies any current chest pain. He is most bothered by pruritus over his rash. He is afebrile. Medications: Reviewed: Yes Vitals/I&O/Wt Last Vital Signs Temp 98.2 F 03/12/24 08:00 Pulse 82 03/12/24 13:00 Resp 18 03/12/24 09:57 BP 117/63 03/12/24 13:00 Pulse Ox 99 03/12/24 13:00 O2 Del Method Room Air 03/12/24 09:57 03/12/24 03/12/24 03/12/24 06:59 14:59 22:59 Intake Total 1250 / 1250 650 / 650 Output Total 100 / 100 Balance 1150 / 1150 650 / 650 Weight last 48 hrs Weight 64.5 kg Weight 64.5 kg Physical Exam 2 Narrative: General: No acute distress, AO x3 HEENT: PERRLA, pupils bilaterally equal and reactive, pallors not present Chest: Normal vesicular breath sounds, no added sounds, equal good air entry bilaterally CVS: S1-S2 regular, no murmurs, no tachycardia, no gallops, no rubs Abdomen: Soft, nontender, no organomegaly, bowel sounds present Neuro: No focal deficits, no facial deformity, AO x3, power 5/5 in all limbs Extremities: Diffuse rash -please see scanned pictures. Urinary Catheter Management: Latex Free: Cath Placed During This Visit: yes Reason for Continuing Indwelling Catheter: Accurate Measurement of Urinary Output in Critically Ill Patients Urinary Catheter Date of Insertion: 03/12/24 Urinary Catheter Time of Insertion: 01:30 Data 03/12/24 01:59 03/12/24 01:59 Micro: Microbiology 03/12/24 02:20 Blood Culture - Preliminary Blood SPECIMEN COLLECTED 03/12/24 01:59 Blood Culture - Preliminary Blood SPECIMEN COLLECTED A&P Assessment and plan (1) Eosinophilia: (2) DRESS syndrome: (3) Hypotension: (4) LASHAWN (acute kidney injury): Plan Madi Gonzalez is a 83 year old male w/ Paroxymsal Afib, Moderate to severe Aortic stenosis w/ low normal EF, Permanent Pacemaker, GERD, COPD, nocturnal hypoxemia on 3L NC, FARHAT on intolerant to CPAP, BPH, Seizure d/o, chronic pain, Anxiety, RLS, & Neuropathy, who was transferred from [facility] access [facility] for b/l swelling, feet swelling, diffuse pruritus all over his chest, back and legs. #Eosinophilia: - Unclear cause. Likely DRESS, due to a drug reaction, but will r/o other etiologies including infection, lymphoma, collagen vascular disease. F/u RPR, histoplasma, fungal cx, BCx, ANCA studies, HIV, UA/UCx, Ova &Parasite, peripheral smear, CT chest/abd/pelvis w/o contrast. - F/u outside hospital ([facility]) BCx - Continued Vanc. Started Meropenem. #likely Moderate DRESS: - Ordered Solumedrol 80mg IVP, Loratadine daily. He will also need a topical corticosteroid. #Hypotension: SBP of 80s on admission. Responded to initial 500cc bolus with a total of 1L given. Continue to monitor BP. #LASHAWN: Likely pre-renal. Hernandez catheter placed. F/u CT CAP. s/p 1L given over 2 hrs. Will start slow IVF at 65cc/hr and monitor vol status given hx of mod to severe . - Strict Is & Os. #LUE swelling: Ordered LUE venous duplex US. #Moderate to severe malnutrition: Consulted Therapeutic Assistant to assist in determination of degree of malnutrition and make recs for supplements. #COPD w/ possible mild exacerbation: duonebs, Solumedrol, PPI, abx. #nocturnal hypoxemia on 3L NC #FARHAT in tolerant to CPAP #Paroxysmal Afib #Permanent PPM - Telemonitoring. Hold Metoprolol tartrate & Apixaban. Full dose lovenox. #Moderate to severe Aortic stenosis w/ low normal EF: - Outpatient evaluation. Monitor IVF administration judiciously. #Possible carotid bruit: carotid us ordered #GERD: PPI ordered #Seizure d/o: He says it is not a seizure, but his symptoms behave like seizures? #Neuropathy - Not on any medications at this time. #Hypothyroidism: Resume Levothyroxine. TSH & Free T4 checked in his 02/16/2024 to 02/24/2024 hospitalization #Anxiety d/o: Buspirone 5mg BID. Consider increase to 10mg BID or starting Escitalopram #BPH: Hernandez in place #RLS: R/o JOE. #Chronic pain: Pain meds ordered. DVT ppx: full dose lovenox GI ppx: PPI Code Status. I did not discuss this with the patient. March 12, 2024 83-year-old male with history of esophageal stricture needing multiple dilatations in the past, history of GI bleed related to ulceration, history of peripheral neuropathy for which patient was changed from gabapentin to carbamazepine on January 25, 2024, history of diastolic CHF, history of CAD, pacemaker in place. Patient was recently admitted here with hip fracture at which time he was noted to have a diffuse morbilliform rash. At that time it was thought to be related to ceftriaxone. Carbamazepine was another possibility, dose was reduced to 100 mg p.o. twice daily and [facility]. However patient did not stay there very long as he was not satisfied with the level of care. It appears he may have checked out AMA from the facility and returned home approximately 1 week ago. He is unsure if he was getting carbamazepine while at the SNF. He feels pretty certain that he has not taken the medication since returning home however his daughter has a list of his current medications which is not available to us at this present time. Approximately 1 week ago patient developed swelling over his left elbow with redness which was diagnosed as cellulitis and patient was given a prescription for cephalexin. Swelling and rash continued to progress. There was apparently some desquamation also noted at that time however today he does not have any ulcerative lesions. Rather he has generalized dry skin and dry scaly scabs affecting bilateral upper extremities. There continues to be a maculopapular rash affecting bilateral upper extremities, upper chest wall, entire back, around the ankles and around the right knee. Patient has severe osteoarthritis, he is tender to palpation around the left elbow. I can feel bony crackles upon examination today. Patient states he had sustained a fall at the SNF however he does not think he hit his left arm. Patient is currently transferred to us from [facility] after being brought there yesterday with altered mental status. At the time of my assessment patient is awake alert oriented x 4 and able to relay events from recent hospital admission here and also relays his past history of GI bleed and esophageal dilatation. He has a history of recurrent pneumonias, presumably aspiration pneumonias in the past for which she is required antibiotics from time to time, however does not know if he has done well with amoxicillin or other beta-lactam's in the past. His chart does note a history to penicillins however patient is unsure about the nature of reaction. At [place], he was found to have an elevated lactate of 4.1, elevated white blood cell count which was also redemonstrated upon checking here. WBC count is elevated, eosinophil fraction at 10.9. Patient also has new LASHAWN, previously having a normal creatinine at the time of discharge. He had elevated troponins at the outside hospital, baseline troponin of out of 100, trending down to 84. Compared to 1 month ago his LE troponins were in the 50s range. He does not have any active chest pain. His EKG is showing mild ST depression from overnight EKG in lead II, however does not appear to be a new change. recent echo 02/16 EF of 55-60% Grade 1 diastolic dysfunction Moderate to severe aortic stenosis. CT of his chest abdomen and pelvis performed last night without any obvious source of infection. There is no evidence of a pneumonia. She was advanced emphysematous changes. No abdominal source of infection identified. Blood cultures taken, currently pending. Site of recent right hip surgery appears to be healing well. Urine analysis showing hematuria with RBCs 51-100. Negative nitrite. Negative leukocyte esterase. No significant WBCs. Unlikely UTI. Left arm with swelling around the joint, suspect related to degenerative arthritis, however given elevated white blood cell count will obtain CT imaging to assess for any underlying joint infection. Would have preferred to perform an MRI, however patient has a pacemaker and we do not have pacemaker compatible MRI facilities at our hospital. Unable to use CT with IV contrast given that patient has an LASHAWN. The patient's white blood cell count is elevated, though no obvious source of infection is readily apparent. He is fairly dehydrated. He has dry mucous membranes, dry skin. His BNP was elevated at 2500, however clinically patient is hypoeuvolemic. His lactate has normalized at 1.8. Will continue IV fluids normal saline at 100 cc an hour Suspect patient has dress syndrome related to recent carbamazepine use. Alternately he has been on multiple antibiotics recently and beta-lactam use may be associated with the same. He has additionally received vancomycin in the last 6 to 12 weeks which could all be culprits for dress syndrome. He was started on methylprednisolone 80 mg IV every 24 hours which we will continue Continue IV Protonix alongside as he has a history of GI bleeding. Ordered for skin biopsy, likely to be performed tomorrow. Monitor CBC and other parameters. Discontinue all antibiotics right now including meropenem and vancomycin as no clinically apparent infection and closely monitor. Check GASTON panel, negative HIV screen. pending RPR, histo and coccidiodiodes. Attestations 2 Medical Necessity Statement*: continued admission as detailed above Coding Level of Care Code Acute Code for Chg Fwd Diagnoses Eosinophilia D72.10 DRESS syndrome D72.12; T50.905A Hypotension I95.9 LASHAWN (acute kidney injury) N17.9
[2024-03-12] MEDS: sodium chloride 0.9% 1,000 ML 100 ML IV ×2 (16:58→22:14)
[2024-03-12] MEDS: metoprolol tartrate 25 mg Tablet PO (18:14)
[2024-03-12 18:15] LABS: Glucose Point of Care 156 mg/dL (70-110)
--- NOTE | 2024-03-12 20:05 | PC.NURSE ---
Addendum entered by Doreen Shannon RN 03/12/24 20:07: Patient report done at 1710 transported at 1745 Original Note: Report given to Satish, patient transported to room 257 via bed- unable to complete ct of left arm at this time as ct busy with ER patients. Satish aware patient needs ct done.
[2024-03-12 20:30] LABS: Glucose Point of Care 140 mg/dL (70-110)
[2024-03-12] MEDS: ALPRAZolam 0.5 mg Tablet 0.25 MG PO (20:55)
[2024-03-12] MEDS: ropinirole 1 mg Tablet 4 MG PO (20:55)
[2024-03-13] VITALS (13 sets, daily range): BP systolic 101–127; BP diastolic 49–70; PULSE 70–88; RESP 15–22; TEMP 36.4–36.7; O2SAT 94–100
[2024-03-13] MEDS: HYDROcodone-acetaminophen 5-325 mg Tablet 1 TAB PO ×2 (02:01→08:27)
[2024-03-13 06:02] LABS: Glucose Point of Care 88 mg/dL (70-110)
[2024-03-13] MEDS: pantoprazole 40 mg SDV IVP (06:12)
[2024-03-13] MEDS: ALPRAZolam 0.5 mg Tablet 0.25 MG PO ×2 (08:26→21:40)
[2024-03-13] MEDS: sennosides 8.6 mg Tablet 17.2 MG PO (08:26)
[2024-03-13] MEDS: methylPREDNISolone sod succ 125 mg/2 mL INJ 80 MG IVP (08:26)
[2024-03-13] MEDS: polyethylene glycol 3350 Pkt 17 gm PO (08:26)
[2024-03-13] MEDS: levothyroxine 75 mcg Tablet PO (08:26)
[2024-03-13] MEDS: enoxaparin 100 mg/mL Syringe 60 MG SUBCUT (08:27)
[2024-03-13] MEDS: metoprolol tartrate 25 mg Tablet PO ×2 (08:27→17:09)
[2024-03-13] MEDS: loratadine 10 mg Tablet PO (08:27)
[2024-03-13 08:32] LABS: Basophils # 0.1 10^3/uL (0.0-0.1); Basophils % 0.3 %; Eosinophils # 4.3 10^3/uL (0.0-0.8); Hematocrit 31.8 % (37-53); Lymphocytes # 3.1 10^3/uL (0.8-4.8); Lymphocytes % 16.4 %; Mean Corpuscular HGB Conc 31.1 g/dL (30-55); Mean Platelet Volume 10.3 fL (7.4-10.4); Monocytes % 16.1 %; Neutrophils # 8.19 10^3/uL (1.8-7.7); Neutrophils % 43.2 %; Nucleated Red Blood Cells % 0.1 %; Platelet Count 223 10^3/cmm (157-399); Red Cell Distribution Width 17.2 % (12.1-15.1); White Blood Count 18.94 10^3/uL (3.29-11.43)
[2024-03-13 08:33] LABS: Troponin T (5th) Once 71 ng/L (0-15)
[2024-03-13 08:36] LABS: Alanine Aminotransferase 16 U/L (0-41); Albumin Level 3.6 g/dL (3.5-5.2); Alkaline Phosphatase 120 U/L (40-130); Anion Gap 16.9 (5-19); Aspartate Amino Transferase 33 U/L (0-40); Blood Urea Nitrogen 42 mg/dL (8-23); Calcium 9.1 mg/dL (8.5-10.5); Carbon Dioxide 18 mmol/L (22-29); Chloride 112 mmol/L (98-107); Creatinine Clr Calc Pharmacy 37.1919; Globulin 1.7 g/dL (1.3-4.6); Glucose 156 mg/dL (65-115); Magnesium 2.2 mg/dL (1.7-2.3); Osmolality Calculated 308 mOsm/kg (285-295); Potassium 4.9 mmol/L (3.5-5.1); Sodium 142 mmol/L (136-145); Total Bilirubin 0.3 mg/dL (0.15-1.2); Total Protein 5.3 g/dL (6.6-8.7)
[2024-03-13] MEDS: insulin glargine 100 units/1 mL 10 UNIT SUBCUT (08:46)
[2024-03-13 08:47] LABS: NT Pro B Type Natriuretic Pept 3252 pg/mL (0-450)
[2024-03-13 09:28] LABS: Slide Review Slide Review Perform
[2024-03-13 09:29] LABS: Eosinophils % 22.6 %
[2024-03-13 11:05] LABS: Glucose Point of Care 111 mg/dL (70-110)
--- NOTE | 2024-03-13 12:59 | PC.SOCIAL ---
IMM Updated Updated pt on IMM. No questions voiced. Provided pt a copy. Initialed, dated, & timed a copy & placed in chart.
--- NOTE | 2024-03-13 13:53 | P.CONIM_ITS ---
Providers/Reason For Consult 2 Consulting Physician/Specialty*: Hospitalist Reason for Consult*: Left elbow fracture Attending Physician: Violette Lo MD History of Present Illness History of Present Illness Madi Gonzalez is a 83 year old male with history of a fall 2 weeks ago possibly had erythema over [address] scan noted today that he had a capitellum and a radial head fracture. He is nondisplaced. Review of Systems 2 Const: Reports: fever(s) and chills Eyes: Reports: other (visual hallucinations) ENMT: Reports: nasal discharge (chronic - due to broken nose) and nasal congestion (chronic - due to broken nose); Denies: odynophagia or ear or mastoid pain Card: Denies: chest pain or palpitations Resp: Reports: dyspnea and non-productive cough; Denies: wheezing GI: Reports: nausea, vomiting, dysphagia (sometimes solids) and constipation; Denies: hematochezia : Reports: dysuria; Denies: urinary frequency, urinary urgency or hematuria Musc: Reports: joint pain (b/l knees and R. hip) Skin/Breast: Reports: rash Neuro: Reports: headache(s), dizziness and other (no syncope) Psych: Reports: anxiety; Denies: suicidal ideation or homicidal ideation Endo: Reports: cold intolerance; Denies: heat intolerance Alejandro/Lymph: Reports: easy bruising and easy bleeding All/Imm: Denies: food intolerance Medications/Allergies Home Medications Medication Instructions Recorded Confirmed Last Taken Type levothyroxine 75 mcg tablet 75 mcg PO DAILY 07/30/20 03/12/24 Unknown History elderberry fruit 350 mg capsule 350 mg PO DAILY 02/16/24 03/12/24 Unknown History omeprazole 20 mg capsule,delayed 20 mg PO QAM 02/16/24 03/12/24 Unknown History release furosemide 40 mg tablet 40 mg PO DAILY PRN Edema #1 tab 02/23/24 03/12/24 Unknown Rx hydromorphone 4 mg tablet 2 mg (1/2 x 4 mg) PO Q6H PRN 02/23/24 03/12/24 Unknown Rx Moderate To Severe Pain #10 tabs potassium chloride 20 mEq 20 meq PO DAILY PRN Edema #1 tab 02/23/24 03/12/24 Unknown Rx tablet,extended release(part/cryst) apixaban 2.5 mg tablet (Eliquis) 2.5 mg PO BID #30 tabs 02/24/24 03/12/24 Unknown Rx ferrous sulfate 325 mg (65 mg 325 mg PO EVERY OTHER DAY #90 tabs 02/24/24 03/12/24 Unknown Rx iron) tablet metoprolol tartrate 25 mg tablet 25 mg PO BID 02/26/24 03/12/24 Unknown History ondansetron 4 mg disintegrating 4 mg PO Q8H PRN Nausea And Vomiting 02/26/24 03/12/24 Unknown History tablet acyclovir 800 mg tablet 800 mg PO DAILY 03/12/24 03/12/24 Unknown History alprazolam 0.25 mg tablet 0.25 mg PO BID PRN Anxiety 03/12/24 03/12/24 Unknown History carbamazepine 200 mg 100 mg PO BID 03/12/24 03/12/24 Unknown History tablet,extended release,12 hr cephalexin 500 mg capsule 500 mg PO BID 03/12/24 03/12/24 Unknown History lactulose 10 gram/15 mL oral 30 ml PO DAILY 03/12/24 03/12/24 Unknown History solution (Constulose) ropinirole 2 mg tablet 4 mg PO BEDTIME 03/12/24 03/12/24 Unknown History Allergies Allergy/AdvReac Type Severity Reaction Status Date / Time carbamazepine [From Tegretol] Allergy ALGY-Rash Verified 03/12/24 19:16 morphine Allergy ALGY-Rash Verified 03/12/24 00:55 Penicillins Allergy ALGY-Rash Verified 03/07/24 10:30 [id number] Reductase Allergy ADR-Muscle Verified 03/07/24 10:30 Inhibitor Pain [Ahizofk-Lsz-Ofr Reductase Inhibitor] Sulfa (Sulfonamide Allergy Unknown Verified 03/07/24 10:30 Antibiotics) Current Medications Generic Name Dose Route Start Last Admin Trade Name Freq PRN Reason Stop Dose Admin Hydrocodone Bitart/Acetaminophen 1 tab 03/12/24 01:05 03/13/24 08:27 Hydrocodone-Acetaminophen 5-325 Mg Tablet PO 1 tab Q4H PRN Administration MODERATE PAIN Alprazolam 0.25 mg 03/12/24 15:17 03/13/24 08:26 Alprazolam 0.5 Mg Tablet PO 0.25 mg BID PRN Administration Anxiety Calamine 1 applic 03/12/24 16:00 03/13/24 03:07 Calamine Lotion 177 Ml Btl TOPICAL 1 applic Q12H JOAO Administration Enoxaparin Sodium 60 mg 03/12/24 09:00 03/13/24 08:27 Enoxaparin 100 Mg/Ml Syringe 1 mg/kg (60 mg) 60 mg SUBCUT Administration Q24H [facility] Sodium Chloride 1,000 mls @ 100 mls/hr 03/12/24 15:15 03/13/24 08:19 Sodium Chloride 0.9% IV Infused .Q10H JOAO Infusion Insulin Glargine 10 unit 03/12/24 09:00 03/13/24 08:46 Insulin Glargine 100 Units/1 Ml SUBCUT 10 unit DAILY JOAO Administration Insulin Human Lispro 0 unit 03/12/24 08:00 03/13/24 11:10 Insulin Lispro 100 Unit/1 Ml SUBCUT Not Given TIDWM [facility] Protocol Insulin Human Lispro 0 unit 03/12/24 21:00 03/12/24 20:51 Insulin Lispro 100 Unit/1 Ml SUBCUT Not Given BEDTIME [facility] Protocol Levothyroxine Sodium 75 mcg 03/13/24 09:00 03/13/24 08:26 Levothyroxine 75 Mcg Tablet PO 75 mcg DAILY JOAO Administration Loratadine 10 mg 03/12/24 02:55 03/13/24 08:27 Loratadine 10 Mg Tablet PO 10 mg DAILY JOAO Administration Methylprednisolone Sodium Succinate 80 mg 03/12/24 02:55 03/13/24 08:26 Methylprednisolone Sod Succ 125 Mg/2 Ml Inj IVP 80 mg DAILY JOAO Administration Metoprolol Tartrate 25 mg 03/12/24 18:00 03/13/24 08:27 Metoprolol Tartrate 25 Mg Tablet PO 25 mg BID JOAO Administration Pantoprazole Sodium 40 mg 03/12/24 02:26 03/13/24 06:12 Pantoprazole 40 Mg Sdv IVP 40 mg ACBREAKFAST JOAO Administration Polyethylene Glycol 17 gm 03/12/24 03:40 03/13/24 08:26 Polyethylene Glycol 3350 Pkt 17 Gm PO 17 gm DAILY JOAO Administration Ropinirole HCl 4 mg 03/12/24 21:00 03/12/24 20:55 Ropinirole 1 Mg Tablet PO 4 mg BEDTIME JOAO Administration Senna 17.2 mg 03/12/24 03:45 03/13/24 08:26 Sennosides 8.6 Mg Tablet PO 17.2 mg DAILY JOAO Administration PFSH Acute 2 PFSH: Medical History Pituitary adenoma Peripheral neuropathy Restless leg syndrome Hypothyroidism Atrial fibrillation Surgical History S/P transsphenoidal hypophysectomy History of nasal surgery Social History Smoking and tobacco/nicotine status: never used tobacco/nicotine Quit status (tobacco/nicotine): has quit using Year quit tobacco: 1999 Former quit date comment: 1 PPD X 40 YEARS Vitals/I&O/Wt Last Vital Signs Temp 97.5 F L 03/13/24 12:00 Pulse 70 03/13/24 12:00 Resp 20 H 03/13/24 12:00 BP 113/67 03/13/24 12:00 Pulse Ox 96 03/13/24 12:00 O2 Del Method Room Air 03/13/24 12:00 O2 Flow Rate 3 03/13/24 08:00 03/12/24 03/13/24 03/13/24 22:59 06:59 14:59 Intake Total 1886.667 / 2536.667 240 / 2776.667 1480 / 1480 Output Total 1000 / 1000 600 / 1600 900 / 900 Balance 886.667 / 1536.667 -360 / 1176.667 580 / 580 Weight last 48 hrs Weight 142 lb 8 oz Weight 142 lb 3.17 oz Weight 142 lb 3.17 oz Physical Exam 2 Narrative: Alert and oriented x 3 Head is normocephalic atraumatic Respirations are intact No evidence of any rashes or infection 5/5 strength in bilateral upper and lowe r extremities Sensation intact in all extremities Deep tendon reflexes 2 out of 4 bilateral upper and lower extremities Patient has some sort of a rash over his arms. Patient is complaining more of pain in his mid humerus at this point we will just get him a sling for comfort. Urinary Catheter Management: Latex Free: Cath Placed During This Visit: yes Reason for Continuing Indwelling Catheter: Other Urinary Catheter Date of Insertion: 03/12/24 Urinary Catheter Time of Insertion: 01:30 Data 03/13/24 07:53 03/13/24 07:53 Micro: Microbiology 03/12/24 01:30 Urine Culture - Preliminary Urine,Clean Catch 03/12/24 02:20 Blood Culture - Preliminary Blood NEGATIVE TO DATE 03/12/24 01:59 Blood Culture - Preliminary Blood NEGATIVE TO DATE A&P Assessment and plan (1) Elbow fracture, left: Patient has nondisplaced capitellum and radial head fracture. Recommend sling for comfort follow-up in clinic in 2 weeks. Qualifiers: Encounter type: initial encounter Fracture type: closed Qualified Code(s): S42.402A - Unspecified fracture of lower end of left humerus, initial encounter for closed fracture Coding Level of Care Code Acute Code for Chg Fwd Diagnoses Closed fracture of left elbow, initial encounter S42.402A Encounter type: initial encounter Fracture type: closed
--- NOTE | 2024-03-13 14:38 | PM.PN ---
Subjective Subjective: CR improving today at 1.4, unable to assess rash well as he has calamine lotion applied all over, dry flaky skin. Overnight his fluids were stopped as he developed expiratory wheezing. 02 sat dropping in the 80s with exertion leukocytosis trending down at 18,000 today. Patient remains afebrile. CT of his elbow has revealed radial fracture. Medications: Reviewed: Yes Vitals/I&O/Wt Last Vital Signs Temp 97.5 F L 03/13/24 12:00 Pulse 70 03/13/24 12:00 Resp 20 H 03/13/24 12:00 BP 113/67 03/13/24 12:00 Pulse Ox 96 03/13/24 12:00 O2 Del Method Room Air 03/13/24 12:00 O2 Flow Rate 3 03/13/24 08:00 03/12/24 03/13/24 03/13/24 22:59 06:59 14:59 Intake Total 1886.667 / 2536.667 240 / 2776.667 1480 / 1480 Output Total 1000 / 1000 600 / 1600 900 / 900 Balance 886.667 / 1536.667 -360 / 1176.667 580 / 580 Weight last 48 hrs Weight 64.637 kg Weight 64.5 kg Weight 64.5 kg Physical Exam Narrative: General: No acute distress, AO x3 HEENT: PERRLA, pupils bilaterally equal and reactive, pallors not present Chest: Normal vesicular breath sounds, no added sounds, equal good air entry bilaterally CVS: S1-S2 regular, no murmurs, no tachycardia, no gallops, no rubs Abdomen: Soft, nontender, no organomegaly, bowel sounds present Neuro: No focal deficits, no facial deformity, AO x3, power 5/5 in all limbs Extremities: Diffuse rash as noted on previous encounter. Aortic stenosis call the fluid resected is obtained with the patient elevated blood Urinary Catheter Management: Latex Free: Cath Placed During This Visit: yes Reason for Continuing Indwelling Catheter: Other Urinary Catheter Date of Insertion: 03/12/24 Urinary Catheter Time of Insertion: 01:30 Data 03/13/24 07:53 03/13/24 07:53 Micro: Microbiology 03/12/24 01:30 Urine Culture - Preliminary Urine,Clean Catch 03/12/24 02:20 Blood Culture - Preliminary Blood NEGATIVE TO DATE 03/12/24 01:59 Blood Culture - Preliminary Blood NEGATIVE TO DATE A&P Assessment and plan (1) Eosinophilia: (2) DRESS syndrome: (3) Hypotension: (4) LASHAWN (acute kidney injury): (5) Atrial fibrillation: (6) Elbow fracture, left: Qualifiers: Encounter type: initial encounter Fracture type: closed Qualified Code(s): S42.402A - Unspecified fracture of lower end of left humerus, initial encounter for closed fracture (7) Restless leg syndrome: (8) COPD exacerbation: (9) Elevated troponin: Plan Madi Gonzalez is a 83 year old male w/ Paroxymsal Afib, Moderate to severe Aortic stenosis w/ low normal EF, Permanent Pacemaker, GERD, COPD, nocturnal hypoxemia on 3L NC, FARHAT on intolerant to CPAP, BPH, Seizure d/o, chronic pain, Anxiety, RLS, & Neuropathy, who was transferred from [facility] for b/l swelling, feet swelling, diffuse pruritus all over his chest, back and legs. #Eosinophilia: - Unclear cause. Likely DRESS, due to a drug reaction, but will r/o other etiologies including infection, lymphoma, collagen vascular disease. F/u RPR, histoplasma, fungal cx, BCx, ANCA studies, HIV, UA/UCx, Ova &Parasite, peripheral smear, CT chest/abd/pelvis w/o contrast. - F/u outside hospital (OSH) BCx - Continued Vanc. Started Meropenem. #likely Moderate DRESS: - Ordered Solumedrol 80mg IVP, Loratadine daily. He will also need a topical corticosteroid. #Hypotension: SBP of 80s on admission. Responded to initial 500cc bolus with a total of 1L given. Continue to monitor BP. #LASHAWN: Likely pre-renal. Hernandez catheter placed. F/u CT CAP. s/p 1L given over 2 hrs. Will start slow IVF at 65cc/hr and monitor vol status given hx of mod to severe . - Strict Is & Os. #LUE swelling: Ordered LUE venous duplex US. #Moderate to severe malnutrition: Consulted Aviation Safety Equipment Technician to assist in determination of degree of malnutrition and make recs for supplements. #COPD w/ possible mild exacerbation: duonebs, Solumedrol, PPI, abx. #nocturnal hypoxemia on 3L NC #FARHAT in tolerant to CPAP #Paroxysmal Afib #Permanent PPM - Telemonitoring. Hold Metoprolol tartrate & Apixaban. Full dose lovenox. #Moderate to severe Aortic stenosis w/ low normal EF: - Outpatient evaluation. Monitor IVF administration judiciously. #Possible carotid bruit: carotid us ordered #GERD: PPI ordered #Seizure d/o: He says it is not a seizure, but his symptoms behave like seizures? #Neuropathy - Not on any medications at this time. #Hypothyroidism: Resume Levothyroxine. TSH & Free T4 checked in his 02/16/2024 to 02/24/2024 hospitalization #Anxiety d/o: Buspirone 5mg BID. Consider increase to 10mg BID or starting Escitalopram #BPH: Hernandez in place #RLS: R/o JOE. #Chronic pain: Pain meds ordered. DVT ppx: full dose lovenox GI ppx: PPI Code Status. I did not discuss this with the patient. March 12, 2024 83-year-old male with history of esophageal stricture needing multiple dilatations in the past, history of GI bleed related to ulceration, history of peripheral neuropathy for which patient was changed from gabapentin to carbamazepine on January 25, 2024, history of diastolic CHF, history of CAD, pacemaker in place. Patient was recently admitted here with hip fracture at which time he was noted to have a diffuse morbilliform rash. At that time it was thought to be related to ceftriaxone. Carbamazepine was another possibility, dose was reduced to 100 mg p.o. twice daily and patient was discharged to residential facility. However patient did not stay there very long as he was not satisfied with the level of care. It appears he may have checked out AMA from the facility and returned home approximately 1 week ago. He is unsure if he was getting carbamazepine while at the SNF. He feels pretty certain that he has not taken the medication since returning home however his daughter has a list of his current medications which is not available to us at this present time. Approximately 1 week ago patient developed swelling over his left elbow with redness which was diagnosed as cellulitis and patient was given a prescription for cephalexin. Swelling and rash continued to progress. There was apparently some desquamation also noted at that time however today he does not have any ulcerative lesions. Rather he has generalized dry skin and dry scaly scabs affecting bilateral upper extremities. There continues to be a maculopapular rash affecting bilateral upper extremities, upper chest wall, entire back, around the ankles and around the right knee. Patient has severe osteoarthritis, he is tender to palpation around the left elbow. I can feel bony crackles upon examination today. Patient states he had sustained a fall at the SNF however he does not think he hit his left arm. Patient is currently transferred to us from [facility] after being brought there yesterday with altered mental status. At the time of my assessment patient is awake alert oriented x 4 and able to relay events from recent hospital admission here and also relays his past history of GI bleed and esophageal dilatation. He has a history of recurrent pneumonias, presumably aspiration pneumonias in the past for which she is required antibiotics from time to time, however does not know if he has done well with amoxicillin or other beta-lactam's in the past. His chart does note a history to penicillins however patient is unsure about the nature of reaction. At [place], he was found to have an elevated lactate of 4.1, elevated white blood cell count which was also redemonstrated upon checking here. WBC count is elevated, eosinophil fraction at 10.9. Patient also has new LASHAWN, previously having a normal creatinine at the time of discharge. He had elevated troponins at the outside hospital, baseline troponin of out of 100, trending down to 84. Compared to 1 month ago his LE troponins were in the 50s range. He does not have any active chest pain. His EKG is showing mild ST depression from overnight EKG in lead II, however does not appear to be a new change. recent echo 02/16 EF of 55-60% Grade 1 diastolic dysfunction Moderate to severe aortic stenosis. CT of his chest abdomen and pelvis performed last night without any obvious source of infection. There is no evidence of a pneumonia. She was advanced emphysematous changes. No abdominal source of infection identified. Blood cultures taken, currently pending. Site of recent right hip surgery appears to be healing well. Urine analysis showing hematuria with RBCs 51-100. Negative nitrite. Negative leukocyte esterase. No significant WBCs. Unlikely UTI. Left arm with swelling around the joint, suspect related to degenerative arthritis, however given elevated white blood cell count will obtain CT imaging to assess for any underlying joint infection. Would have preferred to perform an MRI, however patient has a pacemaker and we do not have pacemaker compatible MRI facilities at our hospital. Unable to use CT with IV contrast given that patient has an LASHAWN. The patient's white blood cell count is elevated, though no obvious source of infection is readily apparent. He is fairly dehydrated. He has dry mucous membranes, dry skin. His BNP was elevated at 2500, however clinically patient is hypoeuvolemic. His lactate has normalized at 1.8. Will continue IV fluids normal saline at 100 cc an hour Suspect patient has dress syndrome related to recent carbamazepine use. Alternately he has been on multiple antibiotics recently and beta-lactam use may be associated with the same. He has additionally received vancomycin in the last 6 to 12 weeks which could all be culprits for dress syndrome. He was started on methylprednisolone 80 mg IV every 24 hours which we will continue Continue IV Protonix alongside as he has a history of GI bleeding. Ordered for skin biopsy, likely to be performed tomorrow. Monitor CBC and other parameters. Discontinue all antibiotics right now including meropenem and vancomycin as no clinically apparent infection and closely monitor. Check GASTON panel, negative HIV screen. pending RPR, histo and coccidiodiodes serologies. March 13, 2024 This morning patient was noted to have expiratory wheezing. On exam today he has right-sided expiratory wheezing more prominent compared to the left side. CT notes history of severe emphysema. Daughter reports that patient has previously been on Advair, however has been unable to afford medication recently. Start scheduled nebulization with DuoNeb and budesonide, increase steroids to methylprednisolone 40 mg IV every 8 hours. Will add a dose of steroids will continue to be a treatment dose for dress syndrome and also provide treatment for COPD exacerbation. Leukocytosis is trending down to 18,000 today. Patient remains afebrile. He is hemodynamically stable. No obvious source of infection currently evident. Continue to monitor off of antibiotics. Low threshold to initiate antibiotics if develops a fever or has any clinical deterioration. Creatinine improved to 1.4 today. Continue IV fluids reduce rate to 60 cc an hour. Clinically patient does not appear to be hypervolemic. He continues to have dry parched skin and mucous membranes. There is no edema. Cautious IV hydration as patient has a history of aortic stenosis. Additionally patient was noted to have aspiration on his modified barium swallow. For now a dysphagia 4 diet is recommended. He reports history of multiple esophageal dilatations in the past and wonders if he may be able to have this procedure. I have discussed with him extensively that we would first wait for him to recover from his acute illness and once clinically better can decide with regards to esophageal dilatation. Calamine lotion appears to be making patient's skin more dry and scaly. Instead we will add a thick emollient such as Eucerin to be applied all over the body after bath with baby soap. Will add topical steroid if continues to have significant itching. Hemoglobin at 9.9 , chronic anemia at this point. Check fecal occult blood, iron B12 folate levels. CT of the left arm was completed yesterday which shows acute fractures of the capitellum and anterior radial head which explains the swelling around his left elbow. Overlying skin changes are those related to dress syndrome. He does not have any current signs to suggest a septic joint or cellulitis. Orthopedic service consulted. Recommended to place arm in a sling. No surgical intervention for now. Currently on ropinirole 4mg po daily Intermittent hallucinations during the day. Patient's daughter reports that patient has had intermittent episodes of confusions and hallucinations since undergoing surgery last month. He does not have a formal diagnosis of dementia previously. Check carbamazepine levels. 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 Trop downtrending this morning, no active chest pain. Likely elevated trop related to dehydration, demand ischemia, , unlikely ACS Attestations Medical Necessity Statement*: continued iv fluids, iv steroids for management of DRESS syndrome, COPD exacerbation. Coding Level of Care Code Acute Code for Chg Fwd High MDM includes number and complexity of problems actively addressed during encounter, amount and/or complexity of data reviewed/ordered and described risk of complication, morbidity or mortality of management as documented Diagnoses Eosinophilia D72.10 DRESS syndrome D72.12; T50.905A Hypotension I95.9 LASHAWN (acute kidney injury) N17.9 Atrial fibrillation I48.91 Closed fracture of left elbow, initial encounter S42.402A Encounter type: initial encounter Fracture type: closed Restless leg syndrome G25.81 COPD exacerbation J44.1 Elevated troponin R79.89
[2024-03-13] MEDS: artificial tears Op Soln 15 mL Btl 1 DROP EYE-BOTH ×2 (15:14→17:10)
[2024-03-13] MEDS: methylPREDNISolone sod succ 40 mg/mL INJ IVP ×2 (15:15→22:53)
[2024-03-13] MEDS: sodium chloride 0.9% 1,000 ML 75 ML IV (15:15)
[2024-03-13 16:02] LABS: Glucose Point of Care 130 mg/dL (70-110)
[2024-03-13] MEDS: ipratropium-albuterol 3 mL Neb INHALATION (16:18)
[2024-03-13 16:29] LABS: Adenovirus Not Detected (NOT DETECT); Chlamydia Pneumoniae Not Detected (NOT DETECT); Coronavirus 229E,HKU1,NL63,OC4 Not Detected (NOT DETECT); Human Metapneumovirus Not Detected (NOT DETECT); Human Rhinovirus/Enterovirus Not Detected (NOT DETECT); Influenza A Not Detected (NOT DETECT); Influenza A H1 Not Detected (NOT DETECT); Influenza A H1-2009 Not Detected (NOT DETECT); Influenza A H3 Not Detected (NOT DETECT); Influenza B Not Detected (NOT DETECT); Mycoplasma Pneumoniae Not Detected (NOT DETECT); Parainfluenza Virus Type 1 Not Detected (NOT DETECT); Parainfluenza Virus Type 2 Not Detected (NOT DETECT); Parainfluenza Virus Type 3 Not Detected (NOT DETECT); Parainfluenza Virus Type 4 Not Detected (NOT DETECT); Respiratory Syncytial Virus A Not Detected (NOT DETECT); Respiratory Syncytial Virus B Not Detected (NOT DETECT); SARS-COV-2 Not Detected (NOT DETECT)
[2024-03-13] MEDS: lanolin oint 7 gm 1 APPLIC TOPICAL (17:09)
[2024-03-13] MEDS: saliva stimulant spray 30 mL Btl 1 SPRAY MUCOUS MEM ×2 (17:10→21:41)
--- NOTE | 2024-03-13 17:49 | PM.ACPR ---
Procedure/Consent Consent: Additional Consent Information: Written consent obtained. The risks and benefits of a skin punch biopsy, including but not limited to, bleed, infection, scar, numbness, pain, need for further procedures, were explained to the patient. He was understanding of the risks and wished to proceed Procedure Narrative: 4 mm skin punch biopsy left leg Minimal blood loss His left anterior leg was inspected and prepped with chlorhexidine. Timeout performed while nurse in the room. 2% lidocaine with epinephrine. A 4 mm punch biopsy was taken of this area and put in formalin to be sent to pathology. Sterile bandage was applied. Patient tolerated procedure well.
--- NOTE | 2024-03-13 19:08 | CTR_ITS ---
PROCEDURE INFORMATION: Exam: CT Left Upper Extremity Without Contrast, Elbow Exam date and time: 03/13/2024 3:28 AM Age: 83 years old Clinical indication: Pain; Elbow; Left; Additional info: Left elbow swelling, left elbow swelling, assess for underlying fracture, TECHNIQUE: Imaging protocol: Computed tomography of the left upper extremity without contrast. Exam focused on the elbow. Radiation optimization: All CT scans at this facility use at least one of these dose optimization techniques: automated exposure control; mA and/or kV adjustment per patient size (includes targeted exams where dose is matched to clinical indication); or iterative reconstruction. COMPARISON: No relevant prior studies available. RADIATION DOSE METRICS: Total DLP (mGy-cm): 561.84 FINDINGS: Bones/joints: There is minimal cortical irregularity along the anterior aspect of the radial head and lateral aspect of the capitellum (series 21 images 41-43; series 20 images 19-24) with tiny intra-articular osseous fragments likely representing a transient posterior dislocation. Soft tissues: Diffuse edema throughout the left upper extremity. CT/CT elbow LT wo con* [id number] IMPRESSION: Acute fractures of the capitellum and anterior radial head which may be secondary to a transient posterior dislocation.
[2024-03-13 20:48] LABS: Glucose Point of Care 215 mg/dL (70-110)
--- NOTE | 2024-03-13 21:08 | P.CONIM_ITS ---
Providers/Reason For Consult 2 Consulting Physician/Specialty*: Dr. Ramon Marc, DO/ General Surgery Reason for Consult*: diffuse skin rash Attending Physician: Violette Lo MD History of Present Illness History of Present Illness Madi Gonzalez is a 83 year old male w/ Paroxymsal Afib, Moderate to severe Aortic stenosis w/ low normal EF, Permanent Pacemaker, COPD?, nocturnal hypoxemia on 3L NC, FARHAT on intolerant to CPAP, Seizure d/o, Anxiety, RLS, & Neuropathy, who was transferred from [facility] to [facility] on 03/12/2024 for cellulitis of the b/l UE and concern for hypotension as low as SBP of 75mmHg. He has a diffuse pruritic macular rash across to his chest and all 4 extremities. This rash has been present for about 4 years. It itches but does not cause him any pain. He denies any bleeding. General surgery was consulted for skin biopsy Review of Systems 2 General: Reports: 10 or more systems reviewed and unremarkable except in HPI and below Medications/Allergies Home Medications Medication Instructions Recorded Confirmed Last Taken Type levothyroxine 75 mcg tablet 75 mcg PO DAILY 07/30/20 03/12/24 Unknown History elderberry fruit 350 mg capsule 350 mg PO DAILY 02/16/24 03/12/24 Unknown History omeprazole 20 mg capsule,delayed 20 mg PO QAM 02/16/24 03/12/24 Unknown History release furosemide 40 mg tablet 40 mg PO DAILY PRN Edema #1 tab 02/23/24 03/12/24 Unknown Rx hydromorphone 4 mg tablet 2 mg (1/2 x 4 mg) PO Q6H PRN 02/23/24 03/12/24 Unknown Rx Moderate To Severe Pain #10 tabs potassium chloride 20 mEq 20 meq PO DAILY PRN Edema #1 tab 02/23/24 03/12/24 Unknown Rx tablet,extended release(part/cryst) apixaban 2.5 mg tablet (Eliquis) 2.5 mg PO BID #30 tabs 02/24/24 03/12/24 Unknown Rx ferrous sulfate 325 mg (65 mg 325 mg PO EVERY OTHER DAY #90 tabs 02/24/24 03/12/24 Unknown Rx iron) tablet metoprolol tartrate 25 mg tablet 25 mg PO BID 02/26/24 03/12/24 Unknown History ondansetron 4 mg disintegrating 4 mg PO Q8H PRN Nausea And Vomiting 02/26/24 03/12/24 Unknown History tablet acyclovir 800 mg tablet 800 mg PO DAILY 03/12/24 03/12/24 Unknown History alprazolam 0.25 mg tablet 0.25 mg PO BID PRN Anxiety 03/12/24 03/12/24 Unknown History carbamazepine 200 mg 100 mg PO BID 03/12/24 03/12/24 Unknown History tablet,extended release,12 hr cephalexin 500 mg capsule 500 mg PO BID 03/12/24 03/12/24 Unknown History lactulose 10 gram/15 mL oral 30 ml PO DAILY 03/12/24 03/12/24 Unknown History solution (Constulose) ropinirole 2 mg tablet 4 mg PO BEDTIME 03/12/24 03/12/24 Unknown History Allergies Allergy/AdvReac Type Severity Reaction Status Date / Time carbamazepine [From Tegretol] Allergy Severe DRESS Verified 03/14/24 12:01 syndrome morphine Allergy ALGY-Rash Verified 03/12/24 00:55 Penicillins Allergy ALGY-Rash Unverified 03/14/24 12:02 Rqqanyz-SDQ-EoI Reductase Allergy ADR-Muscle Verified 03/07/24 10:30 Inhibitor Pain [Xdzhjul-Tou-Soy Reductase Inhibitor] Sulfa (Sulfonamide Allergy Unknown Verified 03/07/24 10:30 Antibiotics) Current Medications Generic Name Dose Route Start Last Admin Trade Name Freq PRN Reason Stop Dose Admin Hydrocodone Bitart/Acetaminophen 1 tab 03/12/24 01:05 03/13/24 08:27 Hydrocodone-Acetaminophen 5-325 Mg Tablet PO 1 tab Q4H PRN Administration MODERATE PAIN Albuterol/Ipratropium 3 ml 03/13/24 14:02 03/13/24 20:19 Ipratropium-Albuterol 3 Ml Neb INHALATION Not Given Q6H JOAO Alprazolam 0.25 mg 03/12/24 15:17 03/13/24 08:26 Alprazolam 0.5 Mg Tablet PO 0.25 mg BID PRN Administration Anxiety Artificial Tears 1 drop 03/13/24 14:45 03/13/24 17:10 Artificial Tears Op Soln 15 Ml Btl EYE-BOTH 1 drop BID JOAO Administration Budesonide 0.5 mg 03/13/24 20:00 03/13/24 20:19 Budesonide 0.5 Mg/2 Ml Neb INHALATION Not Given BID.RESPIRATORY JOAO Sodium Chloride 1,000 mls @ 60 mls/hr 03/12/24 15:15 03/13/24 16:21 Sodium Chloride 0.9% IV 60 mls/hr .[id number] JOAO Infusion Insulin Human Lispro 0 unit 03/12/24 08:00 03/13/24 16:08 Insulin Lispro 100 Unit/1 Ml SUBCUT Not Given TIDWM [facility] Protocol Lanolin 1 applic 03/13/24 18:00 03/13/24 17:09 Lanolin Oint 7 Gm TOPICAL 1 applic BID JOAO Administration Levothyroxine Sodium 75 mcg 03/13/24 09:00 03/13/24 08:26 Levothyroxine 75 Mcg Tablet PO 75 mcg DAILY JOAO Administration Methylprednisolone Sodium Succinate 40 mg 03/13/24 15:00 03/13/24 15:15 Methylprednisolone Sod Succ 40 Mg/Ml Inj IVP 40 mg Q8H JOAO Administration Metoprolol Tartrate 25 mg 03/12/24 18:00 03/13/24 17:09 Metoprolol Tartrate 25 Mg Tablet PO 25 mg BID JOAO Administration Polyethylene Glycol 17 gm 03/12/24 03:40 03/13/24 08:26 Polyethylene Glycol 3350 Pkt 17 Gm PO 17 gm DAILY JOAO Administration Ropinirole HCl 4 mg 03/12/24 21:00 03/12/24 20:55 Ropinirole 1 Mg Tablet PO 4 mg BEDTIME JOAO Administration Saliva Substitute 1 spray 03/13/24 17:00 03/13/24 17:10 Saliva Stimulant Vail 30 Ml Btl MUCOUS MEM 1 spray QID JOAO Administration Senna 17.2 mg 03/12/24 03:45 03/13/24 08:26 Sennosides 8.6 Mg Tablet PO 17.2 mg DAILY JOAO Administration PFSH Acute 2 PFSH: Medical History Pituitary adenoma Peripheral neuropathy Restless leg syndrome Hypothyroidism Atrial fibrillation Surgical History S/P transsphenoidal hypophysectomy History of nasal surgery Social History Smoking and tobacco/nicotine status: never used tobacco/nicotine Quit status (tobacco/nicotine): has quit using Year quit tobacco: 1999 Former quit date comment: 1 PPD X 40 YEARS Vitals/I&O/Wt Last Vital Signs Temp 97.9 F 03/13/24 19:54 Pulse 71 03/13/24 19:54 Resp 18 03/13/24 19:54 BP 101/50 03/13/24 19:54 Pulse Ox 98 03/13/24 19:54 O2 Del Method Room Air 03/13/24 19:54 O2 Flow Rate 3 03/13/24 08:00 03/13/24 03/13/24 03/13/24 06:59 14:59 22:59 Intake Total 240 / 2776.667 1480 / 1480 322.5 / 1802.5 Output Total 600 / 1600 900 / 900 600 / 1500 Balance -360 / 1176.667 580 / 580 -277.5 / 302.5 Weight last 48 hrs Weight 142 lb 8 oz Weight 142 lb 3.17 oz Weight 142 lb 3.17 oz Physical Exam 2 Narrative: General : Patient is well developed , no acute distress, oriented x3 Head : Normal cephalic, a-traumatic. Ears : Pinnae and external canal are normal. Hearing is normal. Eyes : PERRLA, Sclera and injection are normal. No conjunctival discharge. Nose : Mucous membranes are without erythema. Throat : buccal mucosa is normal, gums are without significant recession or hypertrophy. Lungs : Equal chest rise bilaterally, no use of accessory muscles, trachea is midline. Cor : Rate and rhythm are normal. Abdomen : Soft, ND, NT, no g/r/m Extremities : No edema, no cyanosis or clubbing, dorsalis pedis pulses are present bilaterally, non-tender to palpation of calves. There is a macular rash on both of his legs and a thick scaly rash on his arms and chest Back : non-tender to palpation, no CVA tenderness. Neuro : CN II - XII intact, Upper and lower extremities have equal and full strength Urinary Catheter Management: Latex Free: Cath Placed During This Visit: yes Reason for Continuing Indwelling Catheter: Other Urinary Catheter Date of Insertion: 03/12/24 Urinary Catheter Time of Insertion: 01:30 Data 03/15/24 02:53 03/15/24 02:53 Micro: Microbiology 03/12/24 01:30 Urine Culture - Preliminary Urine,Clean Catch 03/12/24 02:20 Blood Culture - Preliminary Blood NEGATIVE TO DATE 03/12/24 01:59 Blood Culture - Preliminary Blood NEGATIVE TO DATE A&P Assessment and plan (1) Macular rash: Plan Skin punch biopsy performed on the presence of his nurse Jamar Specimen sent to pathology Await pathology results Keep covered with a fresh daily bandage for 2 days Medical management per hospitalist Coding Level of Care Code 40158 Diagnoses Macular rash R21
[2024-03-13] MEDS: ropinirole 1 mg Tablet 4 MG PO (21:40)
[2024-03-13] MEDS: apixaban 5 mg Tablet 2.5 MG PO (21:40)
[2024-03-14] VITALS (10 sets, daily range): BP systolic 91–118; BP diastolic 49–69; PULSE 71–90; RESP 17–21; TEMP 36.4–36.7; O2SAT 95–99
[2024-03-14] MEDS: HYDROcodone-acetaminophen 5-325 mg Tablet 1 TAB PO ×2 (02:05→05:52)
[2024-03-14] MEDS: diphenhydrAMINE 50 mg Capsule PO (03:15)
[2024-03-14 05:41] LABS: Basophils % 0.1 %; Eosinophils % 0.4 %; Hematocrit 28.9 % (37-53); Lymphocytes # 1.9 10^3/uL (0.8-4.8); Lymphocytes % 24.1 %; Mean Corpuscular HGB Conc 30.8 g/dL (30-55); Mean Corpuscular Hemoglobin 31.9 pg (27-33); Mean Corpuscular Volume 103.6 fl (82-101); Mean Platelet Volume 9.3 fL (7.4-10.4); Monocytes # 1.1 10^3/uL (0.2-0.9); Monocytes % 14.1 %; Neutrophils # 4.65 10^3/uL (1.8-7.7); Neutrophils % 59.1 %; Nucleated Red Blood Cells % 0 %; Platelet Count 206 10^3/cmm (157-399); Red Blood Count 2.79 10^6/uL (3.85-5.65); Red Cell Distribution Width 17.4 % (12.1-15.1); White Blood Count 7.87 10^3/uL (3.29-11.43)
[2024-03-14] MEDS: ALPRAZolam 0.5 mg Tablet 0.25 MG PO (05:52)
[2024-03-14 06:06] LABS: Glucose Point of Care 127 mg/dL (70-110)
[2024-03-14 06:13] LABS: Alanine Aminotransferase 18 U/L (0-41); Albumin Level 3.6 g/dL (3.5-5.2); Alkaline Phosphatase 108 U/L (40-130); Anion Gap 15.6 (5-19); Aspartate Amino Transferase 38 U/L (0-40); Blood Urea Nitrogen 40 mg/dL (8-23); Calcium 9.2 mg/dL (8.5-10.5); Carbon Dioxide 19 mmol/L (22-29); Chloride 116 mmol/L (98-107); Creatinine Clr Calc Pharmacy 52.2145; Ferritin 294 ng/mL (30-400); Globulin 1.9 g/dL (1.3-4.6); Glucose 126 mg/dL (65-115); Iron 55 ug/dL (59-158); Magnesium 2.3 mg/dL (1.7-2.3); Osmolality Calculated 313 mOsm/kg (285-295); Potassium 4.6 mmol/L (3.5-5.1); Sodium 146 mmol/L (136-145); Total Bilirubin 0.4 mg/dL (0.15-1.2); Total Protein 5.5 g/dL (6.6-8.7)
[2024-03-14 06:27] LABS: Vitamin B12 574 pg/mL (232-1245)
[2024-03-14] MEDS: sodium chloride 0.9% 1,000 ML 60 ML IV (06:27)
[2024-03-14] MEDS: methylPREDNISolone sod succ 40 mg/mL INJ IVP ×2 (06:27→12:38)
[2024-03-14 06:28] LABS: Folate Level 10.5 ng/mL (4.5-32.2)
--- NOTE | 2024-03-14 06:39 | PC.NURSE ---
pt had been confused all shift, becomes angry easily, hallucination present, climbing out of bed. daughter had came in in the middle of the night due to pt calling her and when her call to hospital would not go through she came to pt room. daughter attempted to reason with pt and explained needed hospital stay but pt became more angry with daughter than with staff. pt demanding to go home and soak in tub and scrub skin with real hot water. nurse able to convince pt to a sponge bath and cream applied after. daughter had mention pt taking benadryl at home. daughter also stated that at this point she is agreeable to Haldol. Madeleine Jefferson notified and benadryl along with new skin ointment ordered. @0600 pt ambulated out of room carrying his cath, cell phone, denture cup, and O2 flow meter with cannula in hand. sling was applied last night to left arm but pt non-compliant with wearing sling appropriately, pt removes arm from sling. redirection when effective last only a few minutes.
[2024-03-14] MEDS: budesonide 0.5 mg/2 mL Neb INHALATION ×2 (07:39→20:29)
[2024-03-14] MEDS: ipratropium-albuterol 3 mL Neb INHALATION ×3 (07:40→20:29)
[2024-03-14] MEDS: artificial tears Op Soln 15 mL Btl 1 DROP EYE-BOTH ×2 (08:06→17:04)
[2024-03-14] MEDS: fexofenadine 60 mg Tablet 180 MG PO (08:06)
[2024-03-14] MEDS: sennosides 8.6 mg Tablet 17.2 MG PO (08:06)
[2024-03-14] MEDS: polyethylene glycol 3350 Pkt 17 gm PO (08:06)
[2024-03-14] MEDS: levothyroxine 75 mcg Tablet PO (08:06)
[2024-03-14] MEDS: saliva stimulant spray 30 mL Btl 1 SPRAY MUCOUS MEM ×3 (08:07→22:03)
[2024-03-14] MEDS: eucerin cream 113 gm Jar 1 APPLIC TOPICAL (08:07)
[2024-03-14] MEDS: lanolin oint 7 gm 1 APPLIC TOPICAL ×2 (08:08→17:05)
[2024-03-14] MEDS: apixaban 5 mg Tablet 2.5 MG PO (08:14)
[2024-03-14 10:47] LABS: Glucose Point of Care 158 mg/dL (70-110)
[2024-03-14] MEDS: insulin lispro 100 unit/1 mL SUBCUT ×2 (11:44→17:04)
[2024-03-14] MEDS: pregabalin 25 mg Capsule PO (12:38)
--- NOTE | 2024-03-14 15:15 | P.PN_ITS ---
Subjective 2 Subjective: Patient is much better hydrated today. Sodium however is climbing up to 146 today. Will stop normal saline supplementation. Encouraged oral intake. Medications: Reviewed: Yes Vitals/I&O/Wt Last Vital Signs Temp 97.7 F 03/14/24 07:24 Pulse 76 03/14/24 13:17 Resp 18 03/14/24 13:13 BP 118/61 03/14/24 11:40 Pulse Ox 96 03/14/24 13:13 O2 Del Method Room Air 03/14/24 13:13 O2 Flow Rate 1 03/14/24 04:00 FiO2 21 03/14/24 13:13 03/14/24 03/14/24 03/14/24 06:59 14:59 22:59 Intake Total 1087 / 3009.5 240 / 240 Output Total 600 / 3000 Balance 487 / 9.5 240 / 240 Weight last 48 hrs Weight 64.818 kg Weight 64.637 kg Physical Exam 2 Narrative: General: No acute distress, AO x3 HEENT: PERRLA, pupils bilaterally equal and reactive, pallors not present Chest: Normal vesicular breath sounds, no added sounds, equal good air entry bilaterally CVS: S1-S2 regular, no murmurs, no tachycardia, no gallops, no rubs Abdomen: Soft, nontender, no organomegaly, bowel sounds present Neuro: No focal deficits, no facial deformity, AO x3, power 5/5 in all limbs Extremities: Diffuse rash currently improving. Urinary Catheter Management: Latex Free: Cath Placed During This Visit: yes Reason for Continuing Indwelling Catheter: Acute Urinary Retention or Obstruction Urinary Catheter Date of Insertion: 03/12/24 Urinary Catheter Time of Insertion: 01:30 Data 03/14/24 05:17 03/14/24 05:17 Micro: Microbiology 03/12/24 01:30 Urine Culture - Final Urine,Clean Catch A&P Assessment and plan (1) Eosinophilia: (2) DRESS syndrome: (3) Hypotension: (4) LASHAWN (acute kidney injury): (5) Atrial fibrillation: (6) Elbow fracture, left: Qualifiers: Encounter type: initial encounter Fracture type: closed Qualified Code(s): S42.402A - Unspecified fracture of lower end of left humerus, initial encounter for closed fracture (7) Restless leg syndrome: (8) COPD exacerbation: (9) Elevated troponin: Plan Madi Gonzalez is a 83 year old male w/ Paroxymsal Afib, Moderate to severe Aortic stenosis w/ low normal EF, Permanent Pacemaker, GERD, COPD, nocturnal hypoxemia on 3L NC, FARHAT on intolerant to CPAP, BPH, Seizure d/o, chronic pain, Anxiety, RLS, & Neuropathy, who was transferred from [facility] for b/l swelling, feet swelling, diffuse pruritus all over his chest, back and legs. #Eosinophilia: - Unclear cause. Likely DRESS, due to a drug reaction, but will r/o other etiologies including infection, lymphoma, collagen vascular disease. F/u RPR, histoplasma, fungal cx, BCx, ANCA studies, HIV, UA/UCx, Ova &Parasite, peripheral smear, CT chest/abd/pelvis w/o contrast. - F/u outside hospital (OSH) BCx - Continued Vanc. Started Meropenem. #likely Moderate DRESS: - Ordered Solumedrol 80mg IVP, Loratadine daily. He will also need a topical corticosteroid. #Hypotension: SBP of 80s on admission. Responded to initial 500cc bolus with a total of 1L given. Continue to monitor BP. #LASHAWN: Likely pre-renal. Hernandez catheter placed. F/u CT CAP. s/p 1L given over 2 hrs. Will start slow IVF at 65cc/hr and monitor vol status given hx of mod to severe . - Strict Is & Os. #LUE swelling: Ordered LUE venous duplex US. #Moderate to severe malnutrition: Consulted [facility] to assist in determination of degree of malnutrition and make recs for supplements. #COPD w/ possible mild exacerbation: duonebs, Solumedrol, PPI, abx. #nocturnal hypoxemia on 3L NC #FARHAT in tolerant to CPAP #Paroxysmal Afib #Permanent PPM - Telemonitoring. Hold Metoprolol tartrate & Apixaban. Full dose lovenox. #Moderate to severe Aortic stenosis w/ low normal EF: - Outpatient evaluation. Monitor IVF administration judiciously. #Possible carotid bruit: carotid us ordered #GERD: PPI ordered #Seizure d/o: He says it is not a seizure, but his symptoms behave like seizures? #Neuropathy - Not on any medications at this time. #Hypothyroidism: Resume Levothyroxine. TSH & Free T4 checked in his 02/16/2024 to 02/24/2024 hospitalization #Anxiety d/o: Buspirone 5mg BID. Consider increase to 10mg BID or starting Escitalopram #BPH: Hernandez in place #RLS: R/o JOE. #Chronic pain: Pain meds ordered. DVT ppx: full dose lovenox GI ppx: PPI Code Status. I did not discuss this with the patient. March 12, 2024 83-year-old male with history of esophageal stricture needing multiple dilatations in the past, history of GI bleed related to ulceration, history of peripheral neuropathy for which patient was changed from gabapentin to carbamazepine on January 25, 2024, history of diastolic CHF, history of CAD, pacemaker in place. Patient was recently admitted here with hip fracture at which time he was noted to have a diffuse morbilliform rash. At that time it was thought to be related to ceftriaxone. Carbamazepine was another possibility, dose was reduced to 100 mg p.o. twice daily and patient was discharged to [facility]. However patient did not stay there very long as he was not satisfied with the level of care. It appears he may have checked out AMA from the facility and returned home approximately 1 week ago. He is unsure if he was getting carbamazepine while at the SNF. He feels pretty certain that he has not taken the medication since returning home however his daughter has a list of his current medications which is not available to us at this present time. Approximately 1 week ago patient developed swelling over his left elbow with redness which was diagnosed as cellulitis and patient was given a prescription for cephalexin. Swelling and rash continued to progress. There was apparently some desquamation also noted at that time however today he does not have any ulcerative lesions. Rather he has generalized dry skin and dry scaly scabs affecting bilateral upper extremities. There continues to be a maculopapular rash affecting bilateral upper extremities, upper chest wall, entire back, around the ankles and around the right knee. Patient has severe osteoarthritis, he is tender to palpation around the left elbow. I can feel bony crackles upon examination today. Patient states he had sustained a fall at the SNF however he does not think he hit his left arm. Patient is currently transferred to us from [facility] after being brought there yesterday with altered mental status. At the time of my assessment patient is awake alert oriented x 4 and able to relay events from recent hospital admission here and also relays his past history of GI bleed and esophageal dilatation. He has a history of recurrent pneumonias, presumably aspiration pneumonias in the past for which she is required antibiotics from time to time, however does not know if he has done well with amoxicillin or other beta-lactam's in the past. His chart does note a history to penicillins however patient is unsure about the nature of reaction. At [place], he was found to have an elevated lactate of 4.1, elevated white blood cell count which was also redemonstrated upon checking here. WBC count is elevated, eosinophil fraction at 10.9. Patient also has new LASHAWN, previously having a normal creatinine at the time of discharge. He had elevated troponins at the outside hospital, baseline troponin of out of 100, trending down to 84. Compared to 1 month ago his LE troponins were in the 50s range. He does not have any active chest pain. His EKG is showing mild ST depression from overnight EKG in lead II, however does not appear to be a new change. recent echo 02/16 EF of 55-60% Grade 1 diastolic dysfunction Moderate to severe aortic stenosis. CT of his chest abdomen and pelvis performed last night without any obvious source of infection. There is no evidence of a pneumonia. She was advanced emphysematous changes. No abdominal source of infection identified. Blood cultures taken, currently pending. Site of recent right hip surgery appears to be healing well. Urine analysis showing hematuria with RBCs 51-100. Negative nitrite. Negative leukocyte esterase. No significant WBCs. Unlikely UTI. Left arm with swelling around the joint, suspect related to degenerative arthritis, however given elevated white blood cell count will obtain CT imaging to assess for any underlying joint infection. Would have preferred to perform an MRI, however patient has a pacemaker and we do not have pacemaker compatible MRI facilities at our hospital. Unable to use CT with IV contrast given that patient has an LASHAWN. The patient's white blood cell count is elevated, though no obvious source of infection is readily apparent. He is fairly dehydrated. He has dry mucous membranes, dry skin. His BNP was elevated at 2500, however clinically patient is hypoeuvolemic. His lactate has normalized at 1.8. Will continue IV fluids normal saline at 100 cc an hour Suspect patient has dress syndrome related to recent carbamazepine use. Alternately he has been on multiple antibiotics recently and beta-lactam use may be associated with the same. He has additionally received vancomycin in the last 6 to 12 weeks which could all be culprits for dress syndrome. He was started on methylprednisolone 80 mg IV every 24 hours which we will continue Continue IV Protonix alongside as he has a history of GI bleeding. Ordered for skin biopsy, likely to be performed tomorrow. Monitor CBC and other parameters. Discontinue all antibiotics right now including meropenem and vancomycin as no clinically apparent infection and closely monitor. Check GASTON panel, negative HIV screen. pending RPR, histo and coccidiodiodes serologies. March 13, 2024 This morning patient was noted to have expiratory wheezing. On exam today he has right-sided expiratory wheezing more prominent compared to the left side. CT notes history of severe emphysema. Daughter reports that patient has previously been on Advair, however has been unable to afford medication recently. Start scheduled nebulization with DuoNeb and budesonide, increase steroids to methylprednisolone 40 mg IV every 8 hours. Will add a dose of steroids will continue to be a treatment dose for dress syndrome and also provide treatment for COPD exacerbation. Leukocytosis is trending down to 18,000 today. Patient remains afebrile. He is hemodynamically stable. No obvious source of infection currently evident. Continue to monitor off of antibiotics. Low threshold to initiate antibiotics if develops a fever or has any clinical deterioration. Creatinine improved to 1.4 today. Continue IV fluids reduce rate to 60 cc an hour. Clinically patient does not appear to be hypervolemic. He continues to have dry parched skin and mucous membranes. There is no edema. Cautious IV hydration as patient has a history of aortic stenosis. Additionally patient was noted to have aspiration on his modified barium swallow. For now a dysphagia 4 diet is recommended. He reports history of multiple esophageal dilatations in the past and wonders if he may be able to have this procedure. I have discussed with him extensively that we would first wait for him to recover from his acute illness and once clinically better can decide with regards to esophageal dilatation. Calamine lotion appears to be making patient's skin more dry and scaly. Instead we will add a thick emollient such as Eucerin to be applied all over the body after bath with baby soap. Will add topical steroid if continues to have significant itching. Hemoglobin at 9.9 , chronic anemia at this point. Check fecal occult blood, iron B12 folate levels. CT of the left arm was completed yesterday which shows acute fractures of the capitellum and anterior radial head which explains the swelling around his left elbow. Overlying skin changes are those related to dress syndrome. He does not have any current signs to suggest a septic joint or cellulitis. Orthopedic service consulted. Recommended to place arm in a sling. No surgical intervention for now. Currently on ropinirole 4mg po daily Intermittent hallucinations during the day. Patient's daughter reports that patient has had intermittent episodes of confusions and hallucinations since undergoing surgery last month. He does not have a formal diagnosis of dementia previously. Check carbamazepine levels. 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 Trop downtrending this morning, no active chest pain. Likely elevated trop related to dehydration, demand ischemia, , unlikely ACS March 14, 2024 Patient's rash is overall improving. Skin is looking less dry. Leukocytosis has normalized today down to 7.87. Eosinophils at 0. His breathing is much improved today. No wheezing on exam. Patient is exhibiting intermittent delirium, particularly at nighttime. He received 50 mg of p.o. Benadryl overnight for itching. This morning he was quite agitated and confused as to his whereabouts. At the time of this assessment he is alert awake oriented x 4, however does make confused statements. When asked where is his left arm sling, he replies it is in the long vehicle . He keeps asking when he can have surgery for his shoulder arthritis.. Given chronicity of the problem, suspect that patient may have underlying dementia and current delirium triggered by recurrent hospital admissions, high- dose steroids, antihistamines and his overall frail state. Will discontinue all antihistamines. Add Zyprexa 2.5 mg p.o. at nighttime. Additionally for patient's neuropathic pain since we will not be resuming carbamazepine as it is likely culprit for dress syndrome currently, we will switch him to Lyrica. Start with low-dose Lyrica 25 mg p.o. daily. Creatinine is improving, down to 1.0 today. Will remove Hernandez catheter. All cultures thus far remain negative. Will continue to monitor off antibiotics. No fever. Continue iv steroids, if continues to have persistent im[provement, will plan to discharge over the next 24-48 hrs Attestations 2 Medical Necessity Statement*: continue iv steroids, taper to q12h Coding Level of Care Code Acute Code for Chg Fwd Diagnoses Eosinophilia D72.10 DRESS syndrome D72.12; T50.905A Hypotension I95.9 LASHAWN (acute kidney injury) N17.9 Atrial fibrillation I48.91 Closed fracture of left elbow, initial encounter S42.402A Encounter type: initial encounter Fracture type: closed Restless leg syndrome G25.81 COPD exacerbation J44.1 Elevated troponin R79.89
--- NOTE | 2024-03-14 15:36 | XR_ITS ---
WS: [id number] Right shoulder, AP view, 03/14/2024 Clinical Data: assess for fracture Comparison: None. Findings: No fractures or dislocations are seen. The AC joint is normal. The adjacent right clavicle, right sca pula and ribs are normal. The soft tissues are unremarkable. There is faint calcification over the greater tuberosity which could represent calcific bursitis and/ or tendinitis. XR/XR shoulder RT 1V [id number] Impression: 1. Negative for fracture. 2. Faint calcification over right greater tuberosity, possible calcific bursiti s and/or tendinitis.
[2024-03-14 16:16] LABS: Glucose Point of Care 168 mg/dL (70-110)
[2024-03-14] MEDS: metoprolol tartrate 25 mg Tablet PO (17:05)
[2024-03-14] MEDS: haloperidol inj 5 mg/mL INJ 1 mL IM (18:27)
[2024-03-14 18:32] LABS: COMPLEMENT COMPONENT C3C 95 mg/dL; COMPLEMENT COMPONENT C4C 22 mg/dL
[2024-03-14] MEDS: LORazepam 2 mg/mL INJ 1 mL 1 MG IVP (19:09)
[2024-03-14] MEDS: OLANZapine 5 mg ODT 2.5 MG PO (19:09)
--- NOTE | 2024-03-14 19:55 | PC.NURSE ---
Pt in and out of confusion all day today. Dr. Lo made aware of patients agitation at 1000 staff rounding. Increased staff observation throughout the day. Pt was given xanax prior to shift change this morning. Dr. Lo notified again of pt increasingly upset just after rounds at which time she was in ICU and then came up to bedside to speak with pt and his family about 10 minutes later. This nurse and Dr. Lo had a verbal conversation a few hours later as pt was still needing redirected. Xyprexa order was placed. Just before shift change around 1800, Dr. Lo was notified that pt was visually hallucinating, had ripped his nichols tubing in half and was trying to elope. He said there was a man in his room that pointed towards a gun and wanted him to shoot someone. Verbal order given for 5mg Haldol IM. This was administered and pt was still agitated and hallucinating thinking he was at home outside. He began crying stating I need to check the horses Dr. lo was contacted and verbal order for ativan and 2100 po xyprexa to be given early. 1:1 order was placed as well. Report handed off to OLIVIA Sen.
--- NOTE | 2024-03-14 20:24 | XRR_ITS ---
PROCEDURE INFORMATION: Exam: XR Chest Exam date and time: 03/14/2024 9:33 PM Age: 83 years old Clinical indication: Other: AMS; Additional info: Agitation TECHNIQUE: Imaging protocol: Radiologic exam of the chest. Views: 1 view. COM[place]ISON[place] [id number] 03/12/2024 3:01 AM FINDINGS: Tubes, catheters and devices: A left-sided dual lead pacemaker present. Lungs: Pulmonary emphysematous changes present. No acute lung opacities. Pleural spaces: Unremarkable. No pleural effusion. No pneumothorax. Heart/Mediastinum: Unremarkable. No cardiomegaly. Vasculature: Calcific plaque involves the thoracic aorta. Bones/joints: Old left-sided rib fractures. XR/XR chest 1V portable [id number] IMPRESSION: 1. No acute abnormality. 2. Pulmonary emphysematous changes.
[2024-03-14 20:51] LABS: Glucose Point of Care 93 mg/dL (70-110)
--- NOTE | 2024-03-14 21:06 | CTR_ITS ---
PROCEDURE INFORMATION: Exam: CT Head Without Contrast Exam date and time: 03/14/2024 9:28 PM Age: 83 years old Clinical indication: Altered mental status/memory loss; Additional info: Changes in mental status TECHNIQUE: Imaging protocol: Computed tomography of the head without contrast. Radiation optimization: All CT scans at this facility use at least one of these dose optimization techniques: automated exposure control; mA and/or kV adjustment per patient size (includes targeted exams where dose is matched to clinical indication); or iterative reconstruction. COMPARISON: CT head wo con* [id number] 02/26/2024 7:53 PM RADIATION DOSE METRICS: Total DLP (mGy-cm): 1299.02 FINDINGS: Limitations: Suboptimal evaluation secondary to patient motion. Brain: Mild nonspecific white matter low attenuation which may be related to microvascular ischemic changes. No acute confluent lobar ischemic infarct. No acute intracranial hemorrhage. Cerebral ventricles: The ventricles and sulci are prominent in size compatible with mild atrophy. Paranasal sinuses: No fluid levels. Mastoid air cells: Visualized mastoid air cells are well aerated. Bones: No acute calvarial fracture. Soft tissues: Visualized soft tissues are unremarkable. CT/CT head wo con* [id number] IMPRESSION: Motion limited study. No acute intracranial abnormality. If symptoms persist, consider further evaluation with MRI, if there are no contraindications to obtaining a MRI scan.
[2024-03-14] MEDS: enoxaparin 60 mg/0.6 mL Syringe SUBCUT (21:59)
[2024-03-14 22:04] LABS: ABG PCO2 34.8 mmHg (35-45); ABG PH Result 7.43 (7.35-7.45); Alveolar-Arterial Oxygen Gradi 5.4 mmHg (5-10); Arterial Blood Gas Hematocrit 27.7 % (42-52); Base Excess ABG -1.2 mmol/L (-2.0-2.0); Blood Gas Allen Test Pos; Blood Gas Operator Identificat SAM; Blood Gas Sample Site Radial, right; Blood Gas Sample Type Arterial; Carboxyhemoglobin 1.2 %THgb (0.4-20.1); HCO3 ABG 22.8 mmol/L (22-26); HGB O2 Sat 91.8 % (95-100); Ionized Calcium Level - ABG 1.3 mmol/L (1.1-1.4); Methemoglobin 1.3 % (0.4-1.5); Oxygen Device NC; Oxygen Saturation ABG 94.1; PO2 ABG 66.2 mmHg (80.0-100.0); Potassium Level - ABG 4.3 mmol/L (3.5-5.0)
[2024-03-15] VITALS (28 sets, daily range): BP systolic 86–146; BP diastolic 50–82; PULSE 67–120; RESP 8–29; TEMP 36.3–38.1; O2SAT 80–98
[2024-03-15] MEDS: methylPREDNISolone sod succ 40 mg/mL INJ IVP (00:27)
[2024-03-15] MEDS: ipratropium-albuterol 3 mL Neb INHALATION ×4 (02:44→20:10)
[2024-03-15 03:01] LABS: Basophils % 0.2 %; Eosinophils # 0.1 10^3/uL (0.0-0.8); Eosinophils % 0.7 %; Hematocrit 29.9 % (37-53); Lymphocytes # 2.2 10^3/uL (0.8-4.8); Lymphocytes % 13.4 %; Mean Corpuscular HGB Conc 31.4 g/dL (30-55); Mean Corpuscular Hemoglobin 32.8 pg (27-33); Mean Corpuscular Volume 104.2 fl (82-101); Mean Platelet Volume 9.2 fL (7.4-10.4); Monocytes # 2.1 10^3/uL (0.2-0.9); Neutrophils # 11.53 10^3/uL (1.8-7.7); Neutrophils % 71.3 %; Nucleated Red Blood Cells % 0 %; Platelet Count 218 10^3/cmm (157-399); Red Blood Count 2.87 10^6/uL (3.85-5.65); Red Cell Distribution Width 17.7 % (12.1-15.1); White Blood Count 16.17 10^3/uL (3.29-11.43)
[2024-03-15 03:26] LABS: Alanine Aminotransferase 23 U/L (0-41); Albumin Level 3.8 g/dL (3.5-5.2); Alkaline Phosphatase 107 U/L (40-130); Aspartate Amino Transferase 55 U/L (0-40); Blood Urea Nitrogen 32 mg/dL (8-23); Calcium 9.1 mg/dL (8.5-10.5); Carbon Dioxide 19 mmol/L (22-29); Chloride 113 mmol/L (98-107); Creatinine Clr Calc Pharmacy 58.0161; Globulin 1.4 g/dL (1.3-4.6); Glucose 81 mg/dL (65-115); Magnesium 2.4 mg/dL (1.7-2.3); Osmolality Calculated 308 mOsm/kg (285-295); Sodium 146 mmol/L (136-145); Total Bilirubin 0.6 mg/dL (0.15-1.2); Total Protein 5.2 g/dL (6.6-8.7)
[2024-03-15 03:27] LABS: Anion Gap 18.3 (5-19); Potassium 4.3 mmol/L (3.5-5.1)
[2024-03-15 03:28] LABS: Lactate (Lactic Acid level) 1.3 mmol/L (0.5-2.2)
[2024-03-15 06:50] LABS: Glucose Point of Care 113 mg/dL (70-110)
[2024-03-15] MEDS: budesonide 0.5 mg/2 mL Neb INHALATION ×2 (08:07→20:10)
[2024-03-15] MEDS: enoxaparin 60 mg/0.6 mL Syringe SUBCUT ×2 (09:49→20:51)
[2024-03-15] MEDS: levothyroxine 75 mcg Tablet PO (09:50)
[2024-03-15] MEDS: artificial tears Op Soln 15 mL Btl 1 DROP EYE-BOTH ×2 (09:50→18:07)
[2024-03-15] MEDS: pregabalin 25 mg Capsule PO (09:50)
[2024-03-15] MEDS: metoprolol tartrate 25 mg Tablet PO (09:50)
[2024-03-15] MEDS: sennosides 8.6 mg Tablet 17.2 MG PO (09:50)
[2024-03-15] MEDS: lanolin oint 7 gm 1 APPLIC TOPICAL ×2 (09:50→18:08)
[2024-03-15] MEDS: polyethylene glycol 3350 Pkt 17 gm PO (09:51)
[2024-03-15] MEDS: saliva stimulant spray 30 mL Btl 1 SPRAY MUCOUS MEM ×2 (09:51→21:45)
[2024-03-15] MEDS: eucerin cream 113 gm Jar 1 APPLIC TOPICAL (09:54)
[2024-03-15 09:56] LABS: HIV AG/AB 4th Generation NON-REACTIVE (NON-REACTIVE); RPR w(Moniotor) w/REFL Titer NON-REACTIVE (NON-REACTIVE)
[2024-03-15 11:21] LABS: Glucose Point of Care 158 mg/dL (70-110)
--- NOTE | 2024-03-15 11:47 | P.PN_ITS ---
Subjective 2 Subjective: Patient seen and examined. He is confused and not oriented today. Denies any pain Vitals/I&O/Wt Last Vital Signs Temp 98.6 F 03/15/24 08:00 Pulse 85 03/15/24 08:00 Resp 18 03/15/24 08:00 BP 91/60 03/15/24 08:00 Pulse Ox 98 03/15/24 08:00 O2 Del Method Nasal Cannula 03/15/24 08:00 O2 Flow Rate 2 03/15/24 08:00 FiO2 21 03/14/24 13:13 03/14/24 03/15/24 03/15/24 22:59 06:59 14:59 Intake Total 260 / 500 Output Total 800 / 800 1550 / 2350 Balance -540 / -300 -1550 / -1850 Weight last 48 hrs Weight 168 lb 4 oz Weight 168 lb 14.4 oz Weight 142 lb 14.4 oz Physical Exam 2 Narrative: General: No acute distress, oriented x 0 Extremities: Macular rash appears to be improving, skin punch biopsy site without erythema or exudate Urinary Catheter Management: Latex Free: Cath Placed During This Visit: yes, but has since been removed by the nurse Reason for Continuing Indwelling Catheter: Acute Urinary Retention or Obstruction Urinary Catheter Date of Insertion: 03/15/24 Urinary Catheter Time of Insertion: 06:15 Date Urinary Catheter Removed: 03/14/24 Time Urinary Catheter Discontinued: 18:00 Data 03/15/24 02:53 03/15/24 02:53 Micro: Microbiology 03/12/24 01:30 Urine Culture - Final Urine,Clean Catch A&P Assessment and plan (1) Macular rash: Plan Skin punch biopsy performed on the presence of his nurse Jamar Specimen sent to pathology Await pathology results Bandages no longer needed Medical management per hospitalist Attestations 2 Medical Necessity Statement*: Per primary Coding Level of Care Code 76012 Diagnoses Macular rash R21
[2024-03-15] MEDS: insulin lispro 100 unit/1 mL SUBCUT (12:15)
--- NOTE | 2024-03-15 12:27 | PC.SOCIAL ---
IMM Updated Updated pt on IMM.. No questions voiced. Provided pt a copy. Initialed, dated, & timed copy in chart.
[2024-03-15 13:05] LABS: COMPLEMENT, TOTAL (CH50) >60 U/mL (31-60)
[2024-03-15 13:38] LABS: ABG PCO2 30.1 mmHg (35-45); ABG PH Result 7.42 (7.35-7.45); Arterial Blood Gas Hematocrit 23.9 % (42-52); Base Excess ABG -4.5 mmol/L (-2.0-2.0); Blood Gas Allen Test Pos; Blood Gas Operator Identificat BROMA; Blood Gas Sample Site Radial, left; Blood Gas Sample Type Arterial; HCO3 ABG 19.4 mmol/L (22-26); Oxygen Device OXY MASK
--- NOTE | 2024-03-15 13:38 | CT_ITS ---
WS: [id number] CT HEAD NONCONTRAST HISTORY: new seizure TECHNIQUE: Contiguous axial imaging performed through the brain. Bone and soft tissue windows. Sagitt al and coronal reformats reviewed. All CT scans at [facility] use at least one of these dose optimization techniques: automated exposure control; mA and/or kV adjustment per patient size (includ es targeted exams where dose is matched to clinical indication); or iterative reconstruction. DLP: 1158.69 mGy.cm COMPARISON: Prior CT head 03/14/2024. No acute intracranial hemorrhage, midline shift or mass effect. Moderate symmetric cerebral and cerebellar atrophy. Mild small vessel changes in the deep white matte r. No large territory infarct. Ventricles: Ventricles and extra-axial spaces are dilated on the basis of atrophy. Dense heavy calcification in the distal LEFT vertebral artery and in the carotid cavernous sinuses. Paranasal sinuses: As visualized are clear. Mastoid air cells: Well pneumatized. Calvarium and scalp: Skull is intact with no soft tissue edema or swelling. CT/CT head wo con* [id number] IMPRESSION: 1. No acute intracranial hemorrhage or edema. 2. Moderate cerebral and cerebellar atrophy with mild small vessel ischemic di sease. 3. Stable noncontrast CT since 03/14/2024.
[2024-03-15 13:45] LABS: Glucose Point of Care 110 mg/dL (70-110)
--- NOTE | 2024-03-15 14:12 | ECG_ITS ---
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 Measurements Intervals [place] Rate: 101 P: 0 TX: 0 QRS: 41 QRSD: 95 T: -20 QT: 351 QTc: 455 Interpretive Statements ATRIAL FIBRILLATION WITH RAPID VENTRICULAR RESPONSE WITH ABERRANT CONDUCTION OR VENTRICULAR PREMATURE COMPLEXES NONSPECIFIC ST & T-WAVE ABNORMALITY Compared to ECG 03/12/2024 02:08:13 Ventricular premature complex(es) now present Aberrant conduction of supraventricular beat(s) now present Sinus rhythm no longer present First degree AV block no longer present T-wave abnormality still present Electronically Signed On 03-16-2024 23:08:01 WIRE DROPPER by Mic Mcclure M.D. [email or web address]
[2024-03-15 14:24] LABS: Basophils % 0.1 %; Eosinophils # 0.2 10^3/uL (0.0-0.8); Hematocrit 24.9 % (37-53); Lymphocytes # 4.2 10^3/uL (0.8-4.8); Lymphocytes % 24.9 %; Mean Corpuscular HGB Conc 30.1 g/dL (30-55); Mean Corpuscular Hemoglobin 32.1 pg (27-33); Mean Corpuscular Volume 106.4 fl (82-101); Monocytes # 2.2 10^3/uL (0.2-0.9); Monocytes % 12.9 %; Neutrophils # 9.93 10^3/uL (1.8-7.7); Neutrophils % 59.4 %; Nucleated Red Blood Cells % 0.2 %; Platelet Count 217 10^3/cmm (157-399); Red Blood Count 2.34 10^6/uL (3.85-5.65); White Blood Count 16.71 10^3/uL (3.29-11.43)
--- NOTE | 2024-03-15 14:24 | PC.NURSE ---
This nurse responded to Rapid response, patient unresponsive PT stated patient became unresponsive when getting out of bed. Dr. Lo at bedside fluids started, Stat ct of head performed and arrived in icu approximately 1420
--- NOTE | 2024-03-15 14:29 | PC.NURSE ---
patient AO to name and location and follows commands at this time
[2024-03-15 14:42] LABS: Troponin(5th) Baseline 68 ng/L (0-15)
[2024-03-15 14:43] LABS: Lactate (Lactic Acid level) 3.9 mmol/L (0.5-2.2)
[2024-03-15 14:50] LABS: Alanine Aminotransferase 24 U/L (0-41); Albumin Level 3.4 g/dL (3.5-5.2); Alkaline Phosphatase 101 U/L (40-130); Anion Gap 18.3 (5-19); Aspartate Amino Transferase 51 U/L (0-40); Blood Urea Nitrogen 36 mg/dL (8-23); Calcium 8.8 mg/dL (8.5-10.5); Carbon Dioxide 20 mmol/L (22-29); Chloride 112 mmol/L (98-107); Creatinine Clr Calc Pharmacy 59.4843; Globulin 1.3 g/dL (1.3-4.6); Glucose 65 mg/dL (65-115); Osmolality Calculated 308 mOsm/kg (285-295); Potassium 4.3 mmol/L (3.5-5.1); Sodium 146 mmol/L (136-145); Total Bilirubin 0.6 mg/dL (0.15-1.2); Total Protein 4.7 g/dL (6.6-8.7)
--- NOTE | 2024-03-15 14:58 | PC.OT ---
OT DORIE evaluation on hold due to patient having a rapid response; will attempt again at a later time.
[2024-03-15 15:36] LABS: ANA SCREEN, IFA NEGATIVE (NEGATIVE)
[2024-03-15 16:10] LABS: CENTROMERE B ANTIBODY <1.0 NEG AI (<1.0 NEG); JO-1 ANTIBODY <1.0 NEG AI (<1.0 NEG); RNP ANTIBODY <1.0 NEG AI (<1.0 NEG); SCL-70 ANTIBODY <1.0 NEG AI (<1.0 NEG); SJOGREN'S ANTIBODY (SS-A) <1.0 NEG AI (<1.0 NEG); SM ANTIBODY <1.0 NEG AI (<1.0 NEG); SS-B <1.0 NEG AI (<1.0 NEG)
[2024-03-15 17:22] LABS: Troponin 5 2HR 67.88 ng/L (0-15); Troponin 5 2HR Delta -0.12 ABS# (0-10)
[2024-03-15 18:05] LABS: Glucose Point of Care 86 mg/dL (70-110)
[2024-03-15 20:34] LABS: Troponin 5 6HR 63.46 ng/L (0-15)
[2024-03-15 20:35] LABS: Troponin 5 6HR Delta -4.54 ng/L (0-12)
--- NOTE | 2024-03-15 20:42 | ECG_ITS ---
[facility] Date: 2024-03-15 Pat Name: Madi Gonazlez Department: Room: ICU12 Gender: Male Proof Operator: : 1940 Requested By: Violette Lo Order Number: [id number] Dimas MD: Mic Mcclure M.D. Measurements Intervals [place] Rate: 98 P: 33 KS: 164 QRS: 57 QRSD: 96 T: -79 QT: 329 QTc: 422 Interpretive Statements SINUS RHYTHM NONSPECIFIC ST & T-WAVE ABNORMALITY Compared to ECG 03/15/2024 14:20:40 Atrial fibrillation no longer present Ventricular premature complex(es) no longer present Aberrant conduction of supraventricular beat(s) no longer present T-wave abnormality still present Electronically Signed On 03-16-2024 23:26:31 [employer]TER GRADER by Mic Mcclure M.D. [email or web address]
[2024-03-15] MEDS: ropinirole 1 mg Tablet 4 MG PO (20:51)
[2024-03-15] MEDS: OLANZapine 5 mg ODT 2.5 MG PO (20:51)
[2024-03-15] MEDS: guaiFENesin 600 mg Tablet PO (20:51)
--- NOTE | 2024-03-15 22:42 | P.PN_ITS ---
Subjective 2 Subjective: Patient seen multiple times during course of the day Patient started lYrica 25mg po daily and zyprexa 2/5 po at bedtime as new medications Additionally he had received haldol 5mg last night along with Ativan 1 mg IV last evening due to agitation. He was unable to be verabally redirected. HE had wanted to leave, and pulled out his Nichols catheter. His nichols needed to be replaced overnight as he was retaining 850 cc of urine. During his admission course here patient has been more confused and agitated during the evening hours, during the day time he is more alert , awake and oriented, though has intermittent episodes of confusion and hallucinations. Last night he hallucinated that there was someone standing at his bedside asking him to garbage pick up worker bullets , that he was in a bus filled with dynamite . One day prior he had hallucinated that the roof was falling, he would think furniture shadows in his room is spilled food and garbage. He had reported he had a skin biopsy several hours before he actually did. This morning he is much more confused and lethargic. This is different from his previous pattern. He had a rapid resposne called this afternoon when he had an episode of being unresponsive while being transferred from bed to chair by PT. His nurse noted jerking/shaking movement of his upper extremities during the event. BP dropped 70-80 systolic, On telemetry, he was in sinus rhythm, however during this event had a paced rhythm. There is concern for likely vasovagal event given sudden drop in BP and religious of paced rhythm. Alternate possibility that of seizure episode though patient has no h/o of the same. D/c lyrica as newly introduced, can potentially lower seizure threshold. Patient had discontinued carbamazepine few days prior to being admitted, indication was peripheral neuropathy, doubt tegretol withdrawal contributing at this time. CT of the head was taken which was negative for any acute intracranial events. Hb at 7.5 this morning, repeated at 1400 stable. No overt signs of bleeding. FOBT has not yet been tested - no BM? WBC up to 16K from being normal yesterday no fever, may be steroid related vs developing infection. Patient developed fever by evening hours, Checking Blood cx, CXRP , UA and urine cx. Start meropenem 1g iv q8h and watch closely for development of any rashes. Suspect aspiration contributing as patient known to have dysphagia, currently on modified dysphagia 4 diet. Currently rash seen upon admission is much improved overall. Nearly resolved over chest, improving over back and arms. Eosinophilia resolved.Reduce steroids to prednisone 40mg po daily. NA increasing at 146 When reassessed at 5pm, patient was awake, alert and oriented. Son reports he was able to have a conversation with him. Patient reported feeling light headed prior to events from this afternoon. CT head returned without acute intracranial events . DORIE assessment ordered today. Given his presentation and waxing and waning confusion with noted sundowning, suspect that patient has underlying dementia with delirium triggered by acute illness, multiple recent hospital stays, recurrent infections and most recently DRESS syndrome. Medications: Reviewed: Yes Vitals/I&O/Wt Last Vital Signs Temp 100.5 F H 03/15/24 20:00 Pulse 107 H 03/15/24 22:00 Resp 19 H 03/15/24 20:10 BP 97/53 03/15/24 20:00 Pulse Ox 91 03/15/24 20:10 O2 Del Method Nasal Cannula 03/15/24 20:10 O2 Flow Rate 2 03/15/24 20:10 FiO2 21 03/14/24 13:13 03/15/24 03/15/24 03/15/24 06:59 14:59 22:59 Intake Total 100 / 100 Output Total 1550 / 2350 Balance -1550 / -1850 100 / 100 Weight last 48 hrs Weight 76.317 kg Weight 76.612 kg Weight 64.818 kg Physical Exam 2 Narrative: General: No acute distress, AO x1-3, reassess multipel times during the day HEENT: PERRLA, pupils bilaterally equal and reactive, pallors not present Chest: Normal vesicular breath sounds, no added sounds, equal good air entry bilaterally CVS: S1-S2 regular, no murmurs, no tachycardia, no gallops, no rubs Abdomen: Soft, nontender, no organomegaly, bowel sounds present Neuro: No focal deficits, no facial deformity, AO x3, on most recent exam Urinary Catheter Management: Latex Free: Cath Placed During This Visit: yes, but has since been removed by the nurse Reason for Continuing Indwelling Catheter: Accurate Measurement of Urinary Output in Critically Ill Patients Urinary Catheter Date of Insertion: 03/15/24 Urinary Catheter Time of Insertion: 06:15 Date Urinary Catheter Removed: 03/14/24 Time Urinary Catheter Discontinued: 18:00 Data 03/15/24 14:16 03/15/24 14:16 A&P Assessment and plan (1) Eosinophilia: (2) DRESS syndrome: (3) Hypotension: (4) LASHAWN (acute kidney injury): (5) Atrial fibrillation: (6) Elbow fracture, left: Qualifiers: Encounter type: initial encounter Fracture type: closed Qualified Code(s): S42.402A - Unspecified fracture of lower end of left humerus, initial encounter for closed fracture (7) Restless leg syndrome: (8) COPD exacerbation: (9) Elevated troponin: Plan Madi Gonzalez is a 83 year old male w/ Paroxymsal Afib, Moderate to severe Aortic stenosis w/ low normal EF, Permanent Pacemaker, GERD, COPD, nocturnal hypoxemia on 3L NC, FARHAT on intolerant to CPAP, BPH, Seizure d/o, chronic pain, Anxiety, RLS, & Neuropathy, who was transferred from [facility] for b/l swelling, feet swelling, diffuse pruritus all over his chest, back and legs. #Eosinophilia: - Unclear cause. Likely DRESS, due to a drug reaction, but will r/o other etiologies including infection, lymphoma, collagen vascular disease. F/u RPR, histoplasma, fungal cx, BCx, ANCA studies, HIV, UA/UCx, Ova &Parasite, peripheral smear, CT chest/abd/pelvis w/o contrast. - F/u outside hospital ([facility]) BCx - Continued Vanc. Started Meropenem. #likely Moderate DRESS: - Ordered Solumedrol 80mg IVP, Loratadine daily. He will also need a topical corticosteroid. #Hypotension: SBP of 80s on admission. Responded to initial 500cc bolus with a total of 1L given. Continue to monitor BP. #LASHAWN: Likely pre-renal. Nichols catheter placed. F/u CT CAP. s/p 1L given over 2 hrs. Will start slow IVF at 65cc/hr and monitor vol status given hx of mod to severe . - Strict Is & Os. #LUE swelling: Ordered LUE venous duplex US. #Moderate to severe malnutrition: Consulted Construction Framer to assist in determination of degree of malnutrition and make recs for supplements. #COPD w/ possible mild exacerbation: duonebs, Solumedrol, PPI, abx. #nocturnal hypoxemia on 3L NC #FARHAT in tolerant to CPAP #Paroxysmal Afib #Permanent PPM - Telemonitoring. Hold Metoprolol tartrate & Apixaban. Full dose lovenox. #Moderate to severe Aortic stenosis w/ low normal EF: - Outpatient evaluation. Monitor IVF administration judiciously. #Possible carotid bruit: carotid us ordered #GERD: PPI ordered #Seizure d/o: He says it is not a seizure, but his symptoms behave like seizures? #Neuropathy - Not on any medications at this time. #Hypothyroidism: Resume Levothyroxine. TSH & Free T4 checked in his 02/16/2024 to 02/24/2024 hospitalization #Anxiety d/o: Buspirone 5mg BID. Consider increase to 10mg BID or starting Escitalopram #BPH: Nichols in place #RLS: R/o JOE. #Chronic pain: Pain meds ordered. DVT ppx: full dose lovenox GI ppx: PPI Code Status. I did not discuss this with the patient. March 12, 2024 83-year-old male with history of esophageal stricture needing multiple dilatations in the past, history of GI bleed related to ulceration, history of peripheral neuropathy for which patient was changed from gabapentin to carbamazepine on January 25, 2024, history of diastolic CHF, history of CAD, pacemaker in place. Patient was recently admitted here with hip fracture at which time he was noted to have a diffuse morbilliform rash. At that time it was thought to be related to ceftriaxone. Carbamazepine was another possibility, dose was reduced to 100 mg p.o. twice daily and patient was discharged to [facility] facility. However patient did not stay there very long as he was not satisfied with the level of care. It appears he may have checked out AMA from the facility and returned home approximately 1 week ago. He is unsure if he was getting carbamazepine while at the SNF. He feels pretty certain that he has not taken the medication since returning home however his daughter has a list of his current medications which is not available to us at this present time. Approximately 1 week ago patient developed swelling over his left elbow with redness which was diagnosed as cellulitis and patient was given a prescription for cephalexin. Swelling and rash continued to progress. There was apparently some desquamation also noted at that time however today he does not have any ulcerative lesions. Rather he has generalized dry skin and dry scaly scabs affecting bilateral upper extremities. There continues to be a maculopapular rash affecting bilateral upper extremities, upper chest wall, entire back, around the ankles and around the right knee. Patient has severe osteoarthritis, he is tender to palpation around the left elbow. I can feel bony crackles upon examination today. Patient states he had sustained a fall at the SNF however he does not think he hit his left arm. Patient is currently transferred to us from [facility] after being brought there yesterday with altered mental status. At the time of my assessment patient is awake alert oriented x 4 and able to relay events from recent hospital admission here and also relays his past history of GI bleed and esophageal dilatation. He has a history of recurrent pneumonias, presumably aspiration pneumonias in the past for which she is required antibiotics from time to time, however does not know if he has done well with amoxicillin or other beta-lactam's in the past. His chart does note a history to penicillins however patient is unsure about the nature of reaction. At [place], he was found to have an elevated lactate of 4.1, elevated white blood cell count which was also redemonstrated upon checking here. WBC count is elevated, eosinophil fraction at 10.9. Patient also has new LASHAWN, previously having a normal creatinine at the time of discharge. He had elevated troponins at the outside hospital, baseline troponin of out of 100, trending down to 84. Compared to 1 month ago his LE troponins were in the 50s range. He does not have any active chest pain. His EKG is showing mild ST depression from overnight EKG in lead II, however does not appear to be a new change. recent echo 02/16 EF of 55-60% Grade 1 diastolic dysfunction Moderate to severe aortic stenosis. CT of his chest abdomen and pelvis performed last night without any obvious source of infection. There is no evidence of a pneumonia. She was advanced emphysematous changes. No abdominal source of infection identified. Blood cultures taken, currently pending. Site of recent right hip surgery appears to be healing well. Urine analysis showing hematuria with RBCs 51-100. Negative nitrite. Negative leukocyte esterase. No significant WBCs. Unlikely UTI. Left arm with swelling around the joint, suspect related to degenerative arthritis, however given elevated white blood cell count will obtain CT imaging to assess for any underlying joint infection. Would have preferred to perform an MRI, however patient has a pacemaker and we do not have pacemaker compatible MRI facilities at our hospital. Unable to use CT with IV contrast given that patient has an LASHAWN. The patient's white blood cell count is elevated, though no obvious source of infection is readily apparent. He is fairly dehydrated. He has dry mucous membranes, dry skin. His BNP was elevated at 2500, however clinically patient is hypoeuvolemic. His lactate has normalized at 1.8. Will continue IV fluids normal saline at 100 cc an hour Suspect patient has dress syndrome related to recent carbamazepine use. Alternately he has been on multiple antibiotics recently and beta-lactam use may be associated with the same. He has additionally received vancomycin in the last 6 to 12 weeks which could all be culprits for dress syndrome. He was started on methylprednisolone 80 mg IV every 24 hours which we will continue Continue IV Protonix alongside as he has a history of GI bleeding. Ordered for skin biopsy, likely to be performed tomorrow. Monitor CBC and other parameters. Discontinue all antibiotics right now including meropenem and vancomycin as no clinically apparent infection and closely monitor. Check GASTON panel, negative HIV screen. pending RPR, histo and coccidiodiodes serologies. March 13, 2024 This morning patient was noted to have expiratory wheezing. On exam today he has right-sided expiratory wheezing more prominent compared to the left side. CT notes history of severe emphysema. Daughter reports that patient has previously been on Advair, however has been unable to afford medication recently. Start scheduled nebulization with DuoNeb and budesonide, increase steroids to methylprednisolone 40 mg IV every 8 hours. Will add a dose of steroids will continue to be a treatment dose for dress syndrome and also provide treatment for COPD exacerbation. Leukocytosis is trending down to 18,000 today. Patient remains afebrile. He is hemodynamically stable. No obvious source of infection currently evident. Continue to monitor off of antibiotics. Low threshold to initiate antibiotics if develops a fever or has any clinical deterioration. Creatinine improved to 1.4 today. Continue IV fluids reduce rate to 60 cc an hour. Clinically patient does not appear to be hypervolemic. He continues to have dry parched skin and mucous membranes. There is no edema. Cautious IV hydration as patient has a history of aortic stenosis. Additionally patient was noted to have aspiration on his modified barium swallow. For now a dysphagia 4 diet is recommended. He reports history of multiple esophageal dilatations in the past and wonders if he may be able to have this procedure. I have discussed with him extensively that we would first wait for him to recover from his acute illness and once clinically better can decide with regards to esophageal dilatation. Calamine lotion appears to be making patient's skin more dry and scaly. Instead we will add a thick emollient such as Eucerin to be applied all over the body after bath with baby soap. Will add topical steroid if continues to have significant itching. Hemoglobin at 9.9 , chronic anemia at this point. Check fecal occult blood, iron B12 folate levels. CT of the left arm was completed yesterday which shows acute fractures of the capitellum and anterior radial head which explains the swelling around his left elbow. Overlying skin changes are those related to dress syndrome. He does not have any current signs to suggest a septic joint or cellulitis. Orthopedic service consulted. Recommended to place arm in a sling. No surgical intervention for now. Currently on ropinirole 4mg po daily Intermittent hallucinations during the day. Patient's daughter reports that patient has had intermittent episodes of confusions and hallucinations since undergoing surgery last month. He does not have a formal diagnosis of dementia previously. Check carbamazepine levels. 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 Trop downtrending this morning, no active chest pain. Likely elevated trop related to dehydration, demand ischemia, , unlikely ACS March 14, 2024 Patient's rash is overall improving. Skin is looking less dry. Leukocytosis has normalized today down to 7.87. Eosinophils at 0. His breathing is much improved today. No wheezing on exam. Patient is exhibiting intermittent delirium, particularly at nighttime. He received 50 mg of p.o. Benadryl overnight for itching. This morning he was quite agitated and confused as to his whereabouts. At the time of this assessment he is alert awake oriented x 4, however does make confused statements. When asked where is his left arm sling, he replies it is in the long vehicle . He keeps asking when he can have surgery for his shoulder arthritis.. Given chronicity of the problem, suspect that patient may have underlying dementia and current delirium triggered by recurrent hospital admissions, high- dose steroids, antihistamines and his overall frail state. Will discontinue all antihistamines. Add Zyprexa 2.5 mg p.o. at nighttime. Additionally for patient's neuropathic pain since we will not be resuming carbamazepine as it is likely culprit for dress syndrome currently, we will switch him to Lyrica. Start with low-dose Lyrica 25 mg p.o. daily. Creatinine is improving, down to 1.0 today. Will remove Nichols catheter. All cultures thus far remain negative. Will continue to monitor off antibiotics. No fever. Continue iv steroids, if continues to have persistent im[provement, will plan to discharge over the next 24-48 hrs Mar 15, 2024 Patient seen multiple times during course of the day Patient started lYrica 25mg po daily and zyprexa 2/5 po at bedtime as new medications Additionally he had received haldol 5mg last night along with Ativan 1 mg IV last evening due to agitation. He was unable to be verabally redirected. HE had wanted to leave, and pulled out his Nichols catheter. His nichols needed to be replaced overnight as he was retaining 850 cc of urine. During his admission course here patient has been more confused and agitated during the evening hours, during the day time he is more alert , awake and oriented, though has intermittent episodes of confusion and hallucinations. Last night he hallucinated that there was someone standing at his bedside asking him to garbage pick up worker bullets , that he was in a bus filled with dynamite . One day prior he had hallucinated that the roof was falling, he would think furniture shadows in his room is spilled food and garbage. He had reported he had a skin biopsy several hours before he actually did. This morning he is much more confused and lethargic. This is different from his previous pattern. He had a rapid resposne called this afternoon when he had an episode of being unresponsive while being transferred from bed to chair by PT. His nurse noted jerking/shaking movement of his upper extremities during the event. BP dropped 70-80 systolic, On telemetry, he was in sinus rhythm, however during this event had a paced rhythm. There is concern for likely vasovagal event given sudden drop in BP and religious of paced rhythm. Alternate possibility that of seizure episode though patient has no h/o of the same. D/c lyrica as newly introduced, can potentially lower seizure threshold. Patient had discontinued carbamazepine few days prior to being admitted, indication was peripheral neuropathy, doubt tegretol withdrawal contributing at this time. CT of the head was taken which was negative for any acute intracranial events. Na 146, unlikely to be the caus eof acute events, likely related to poor po intake, patient not happy with getting thickened liquids. start d5 @ 50 cc/ hr Hb at 7.5 this morning, repeated at 1400 stable. No overt signs of bleeding. FOBT has not yet been tested - no BM? WBC up to 16K from being normal yesterday no fever, may be steroid related vs developing infection. Patient developed fever by evening hours, Checking Blood cx, CXRP , UA and urine cx. Start meropenem 1g iv q8h and watch closely for development of any rashes. Suspect aspiration contributing as patient known to have dysphagia, currently on modified dysphagia 4 diet. Currently rash seen upon admission is much improved overall. Nearly resolved over chest, improving over back and arms. Eosinophilia resolved.Reduce steroids to prednisone 40mg po daily. NA increasing at 146 When reassessed at 5pm, patient was awake, alert and oriented. Son reports he was able to have a conversation with him. Patient reported feeling light headed prior to events from this afternoon. CT head returned without acute intracranial events . DORIE assessment ordered today. Given his presentation and waxing and waning confusion with noted sundowning, suspect that patient has underlying dementia with delirium triggered by acute illness, multiple recent hospital stays, recurrent infections and most recently DRESS syndrome. Attestations 2 Medical Necessity Statement*: continued admission due to multiple events as above Critical Care Time: The high probability of a clinically significant, sudden or life threatening deterioration of the patient's [neuro, resp, renal,cardivascular,ID] system(s) required my full and direct attention, intervention and personal management. The critical care time is as shown. This time is in addition to time spent performing any reported procedures but includes the following: [x] Data and vital sign review and interpretation [x] Patient assessment, examination and intervention [x] Documentation [x] Medication orders and management Critical Care Time (min): 90 Coding Level of Care Code Acute Code for [facility] Fwd Diagnoses Eosinophilia D72.10 DRESS syndrome D72.12; T50.905A Hypotension I95.9 LASHAWN (acute kidney injury) N17.9 Atrial fibrillation I48.91 Closed fracture of left elbow, initial encounter S42.402A Encounter type: initial encounter Fracture type: closed Restless leg syndrome G25.81 COPD exacerbation J44.1 Elevated troponin R79.89
[2024-03-15 23:22] LABS: Hematocrit 23.1 % (37-53)
[2024-03-15] MEDS: pantoprazole 40 mg SDV IVP (23:22)
[2024-03-15] MEDS: dextrose 5% 1,000 ML 50 ML IV (23:22)
[2024-03-15 23:40] LABS: Glucose Point of Care 113 mg/dL (70-110)
[2024-03-15 23:44] LABS: Bilirubin Urine Negative (Negative); Blood Urine 1+ (Negative); Glucose Urine UA Negative (Normal); Ketones Urine Negative (Negative); Leukocyte Esterase Urine Trace (Negative); Nitrate Urine Negative (Negative); Protein Urine Negative (Negative); Urine Appearance Clear (CLEAR); Urine Color Yellow (Yellow)
[2024-03-15 23:49] LABS: Add Urine Microscopic? YES; Bacteria Urine None Seen /hpf; Hyaline Casts Urine 3.71 /lpf; Squamous Epithelial Cell Urine 0-5 /hpf (0-5); WBC Urine 0-5 /hpf (0-5)
[2024-03-15] MEDS: meropenem 1,000 MG in sodium chloride 0.9% (plus) 50 ML 100 MG IV (23:52)
[2024-03-16] VITALS (74 sets, daily range): BP systolic 70–147; BP diastolic 32–113; PULSE 75–133; RESP 17–34; TEMP 36.8–37.3; O2SAT 79–100
[2024-03-16 00:26] LABS: Histoplasma Galactomannan Ag <0.2 ng/mL
[2024-03-16] MEDS: ipratropium-albuterol 3 mL Neb INHALATION ×4 (02:53→21:15)
--- NOTE | 2024-03-16 04:00 | XRR_ITS ---
PROCEDURE INFORMATION: Exam: XR Chest Exam date and time: 03/16/2024 4:13 AM Age: 83 years old Clinical indication: Other: F/u aspiration; Prior surgery; Surgery date: 6+ months; Surgery type: Pacer; Patient HX: F/u for aspiration TECHNIQUE: Imaging protocol: Radiologic exam of the chest. Views: 1 view. COMPARISON: CR (CHEST, ) 03/14/2024 9:33 PM FINDINGS: Tubes, catheters and devices: Stable appearing left pacer device. Lungs: Right lower lung field infiltrate. Stable left lower lobe nodule. Pleural spaces: Unremarkable. No pleural effusion. No pneumothorax. Heart/Mediastinum: Unremarkable. No cardiomegaly. Vasculature: Atherosclerotic disease of the aortic arch. Bones/joints: Old left rib fractures. XR/XR chest 1V portable [id number] IMPRESSION: Right lower lobe infiltrate which can be seen in aspiration, infection. Correlate clinically.
[2024-03-16 04:55] LABS: Basophils % 0.1 %; Eosinophils # 0.6 10^3/uL (0.0-0.8); Eosinophils % 3.7 %; Hematocrit 23.3 % (37-53); Lymphocytes # 3.1 10^3/uL (0.8-4.8); Mean Corpuscular HGB Conc 30.9 g/dL (30-55); Mean Corpuscular Hemoglobin 32.9 pg (27-33); Mean Corpuscular Volume 106.4 fl (82-101); Mean Platelet Volume 9.2 fL (7.4-10.4); Monocytes # 1.8 10^3/uL (0.2-0.9); Monocytes % 11.5 %; Neutrophils # 9.85 10^3/uL (1.8-7.7); Neutrophils % 63.3 %; Nucleated Red Blood Cells % 0 %; Platelet Count 202 10^3/cmm (157-399); Red Blood Count 2.19 10^6/uL (3.85-5.65); Red Cell Distribution Width 17.9 % (12.1-15.1); White Blood Count 15.54 10^3/uL (3.29-11.43)
[2024-03-16 05:19] LABS: Procalcitonin 0.16 ng/mL (0-0.5)
[2024-03-16 05:20] LABS: Alanine Aminotransferase 30 U/L (0-41); Albumin Level 3.6 g/dL (3.5-5.2); Alkaline Phosphatase 106 U/L (40-130); Blood Urea Nitrogen 35 mg/dL (8-23); Calcium 8.7 mg/dL (8.5-10.5); Carbon Dioxide 21 mmol/L (22-29); Chloride 111 mmol/L (98-107); Creatinine Clr Calc Pharmacy 59.4843; Globulin 1.7 g/dL (1.3-4.6); Glucose 112 mg/dL (65-115); NT Pro B Type Natriuretic Pept 7264 pg/mL (0-450); Osmolality Calculated 311 mOsm/kg (285-295); Sodium 146 mmol/L (136-145); Total Bilirubin 0.8 mg/dL (0.15-1.2); Total Protein 5.3 g/dL (6.6-8.7)
[2024-03-16 05:24] LABS: Anion Gap 18.2 (5-19); Aspartate Amino Transferase 75 U/L (0-40); Potassium 4.2 mmol/L (3.5-5.1)
[2024-03-16 05:30] LABS: Magnesium 2.2 mg/dL (1.7-2.3)
--- NOTE | 2024-03-16 05:32 | ECG_ITS ---
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 Measurements Intervals Wells Rate: 114 P: 0 IN: 0 QRS: 70 QRSD: 98 T: -61 QT: 297 QTc: 409 Interpretive Statements ATRIAL FIBRILLATION WITH RAPID VENTRICULAR RESPONSE ST DEVIATION AND MODERATE T-WAVE ABNORMALITY, CONSIDER ANTEROLATERAL ISCHEMIA [-0.1+ mV T-WAVE IN V3-V6] ST DEVIATION AND MODERATE T-WAVE ABNORMALITY, CONSIDER INFERIOR ISCHEMIA [-0.1+ mV T-WAVE IN II/aVF] Compared to ECG 03/15/2024 20:42:06 Possible ischemia now present Sinus rhythm no longer present T-wave abnormality still present Electronically Signed On 03-16-2024 23:04:38 EQUIPMENT ASSOCIATE by Mic Mcclure M.D. [email or web address]
[2024-03-16] MEDS: sodium chloride 0.9% 500 ML 999 ML IV (05:57)
--- NOTE | 2024-03-16 06:01 | PC.NURSE ---
Patient presented with new rhythm via bedside monitor. EKG performed and physician notified. Physician gave this nurse orders to give 500cc NS bolus. Blood pressure 96/54, heartrate 120.
[2024-03-16] MEDS: norepinephrine 4 MG/250 ML BAG 7.5 MG IV (06:22)
[2024-03-16] MEDS: midodrine 5 mg TABLET 10 MG PO ×4 (06:55→20:33)
[2024-03-16] MEDS: amiodarone 150 MG/100 ML PREMIX 400 MG IV (07:05)
[2024-03-16 07:37] LABS: Glucose Point of Care 132 mg/dL (70-110)
[2024-03-16] MEDS: predniSONE 20 mg Tablet 40 MG PO (08:26)
[2024-03-16] MEDS: guaiFENesin 600 mg Tablet PO ×2 (08:26→18:23)
[2024-03-16] MEDS: sennosides 8.6 mg Tablet 17.2 MG PO (08:26)
[2024-03-16] MEDS: linezolid 600 mg Tablet PO ×2 (08:27→20:34)
[2024-03-16] MEDS: meropenem 1,000 MG in sodium chloride 0.9% (plus) 50 ML 100 MG IV ×3 (08:27→23:00)
[2024-03-16] MEDS: levothyroxine 75 mcg Tablet PO (08:28)
[2024-03-16] MEDS: artificial tears Op Soln 15 mL Btl 1 DROP EYE-BOTH ×2 (08:28→18:27)
[2024-03-16] MEDS: polyethylene glycol 3350 Pkt 17 gm PO (08:28)
[2024-03-16] MEDS: saliva stimulant spray 30 mL Btl 1 SPRAY MUCOUS MEM ×4 (08:29→21:19)
[2024-03-16] MEDS: budesonide 0.5 mg/2 mL Neb INHALATION ×2 (08:34→21:15)
[2024-03-16] MEDS: ondansetron 2 mg/ML SDV 2 mL 4 MG IVP ×2 (08:43→20:40)
--- NOTE | 2024-03-16 09:14 | XRR_ITS ---
PROCEDURE INFORMATION: Exam: XR Chest Exam date and time: 03/16/2024 9:49 AM Age: 83 years old Clinical indication: Device placement; Picc; Additional info: Picc insertion, shelly placing in icu 12 should be ready at 0950 TECHNIQUE: Imaging protocol: Radiologic exam of the chest. Views: 1 view. 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 New right-sided peripherally inserted central venous catheter with its distal tip noted in the mid SVC. Lungs: Stable patchy right lower lung opacity. Stable left lower lobe pulmonary nodule. Pleural spaces: No significant pleural effusion. No definitive pneumothorax. Heart/Mediastinum: The cardiomediastinal silhouette is stable. Vasculature: Calcifications of the aortic arch. Bones/joints: Old left-sided rib fractures. XR/XR chest 1V portable [id number] IMPRESSION: 1. Stable right lower lobe opacity. 2. New interval placement of right-sided PICC line with its distal tip in the mid SVC.
--- NOTE | 2024-03-16 10:35 | PICC.NOTE ---
Triple lumen PICC placed to right basilic vein. Referred to vascular access nurse for PICC placement due to poor access and use of vasopressors. Risks and benefits discussed and informed consent obtained via phone from patient daughter, Ritu. Right arm assessed with right basilic vein measuring 5.1 mm, straight, and apparent best choice for placement. Using sterile technique and MST, right basilic vein accessed x 1 stick. Mid-arm circumference measured 10 cm from right AC 23 cm. Trimmed cath 40 cm with 0 cm external length noted. CXR shows tip in SVC per radiologist. Line secured with stat-lock. Insertion site covered with Secureport IV and TSM. Report given to bedside nurse, KATIANA Asif.
[2024-03-16 11:00] LABS: ANCA Screen NEGATIVE (NEGATIVE)
[2024-03-16] MEDS: pantoprazole 40 mg SDV IVP ×2 (11:01→21:31)
[2024-03-16] MEDS: lanolin oint 7 gm 1 APPLIC TOPICAL ×2 (11:10→18:26)
[2024-03-16] MEDS: eucerin cream 113 gm Jar 1 APPLIC TOPICAL (11:12)
[2024-03-16 11:35] LABS: Glucose Point of Care 211 mg/dL (70-110)
--- NOTE | 2024-03-16 12:54 | P.PN_ITS ---
Subjective 2 Subjective: Patient is more alert and awake today. Able to have a full conversation. Overnight events included development of A-fib with RVR and hypotension therefore patient is currently on Levophed at 4 mics and also received amiodarone bolus. Subsequently PICC line was obtained due to poor peripheral IV access and patient has now been placed on amiodarone gtt. Metoprolol has been discontinued due to hypotension and use of vasopressors. Hemoglobin is at 7.2 today.He had several bowel movements last night, however FOBT has not been tested. Chest x-ray shows interval development of right lower lobe pneumonia. Medications: Reviewed: Yes Vitals/I&O/Wt Last Vital Signs Temp 98.8 F 03/16/24 04:00 Pulse 102 H 03/16/24 12:30 Resp 23 H 03/16/24 12:30 BP 110/66 03/16/24 12:30 Pulse Ox 96 03/16/24 12:30 O2 Del Method Nasal Cannula 03/16/24 08:28 O2 Flow Rate 2 03/16/24 08:28 FiO2 21 03/14/24 13:13 03/15/24 03/16/24 03/16/24 22:59 06:59 14:59 Intake Total 750 / 850 50 / 50 Balance 750 / 850 50 / 50 Weight last 48 hrs Weight 74.979 kg Weight 74.979 kg Weight 76.317 kg Weight 76.612 kg Physical Exam 2 Narrative: General: No acute distress, AO x 3 HEENT: PERRLA, pupils bilaterally equal and reactive, pallors not present Chest: Normal vesicular breath sounds, no added sounds, equal good air entry bilaterally CVS: S1-S2 regular, no murmurs, no tachycardia, no gallops, no rubs Abdomen: Soft, nontender, no organomegaly, bowel sounds present Neuro: No focal deficits, no facial deformity, AO x3 Urinary Catheter Management: Latex Free: Cath Placed During This Visit: yes, but has since been removed by the nurse Reason for Continuing Indwelling Catheter: Acute Urinary Retention or Obstruction Urinary Catheter Date of Insertion: 03/15/24 Urinary Catheter Time of Insertion: 06:15 Date Urinary Catheter Removed: 03/14/24 Time Urinary Catheter Discontinued: 18:00 Data 03/16/24 04:42 03/16/24 04:42 Micro: Microbiology 03/16/24 06:28 Blood Culture - Preliminary Blood SPECIMEN COLLECTED 03/16/24 04:42 Blood Culture - Preliminary Blood SPECIMEN COLLECTED A&P Assessment and plan (1) Eosinophilia: (2) DRESS syndrome: (3) Hypotension: (4) LASHAWN (acute kidney injury): (5) Atrial fibrillation: (6) Elbow fracture, left: Qualifiers: Encounter type: initial encounter Fracture type: closed Qualified Code(s): S42.402A - Unspecified fracture of lower end of left humerus, initial encounter for closed fracture (7) Restless leg syndrome: (8) COPD exacerbation: (9) Elevated troponin: Plan Madi Gonzalez is a 83 year old male w/ Paroxymsal Afib, Moderate to severe Aortic stenosis w/ low normal EF, Permanent Pacemaker, GERD, COPD, nocturnal hypoxemia on 3L NC, FARHAT on intolerant to CPAP, BPH, Seizure d/o, chronic pain, Anxiety, RLS, & Neuropathy, who was transferred from [facility] for b/l swelling, feet swelling, diffuse pruritus all over his chest, back and legs. #Eosinophilia: - Unclear cause. Likely DRESS, due to a drug reaction, but will r/o other etiologies including infection, lymphoma, collagen vascular disease. F/u RPR, histoplasma, fungal cx, BCx, ANCA studies, HIV, UA/UCx, Ova &Parasite, peripheral smear, CT chest/abd/pelvis w/o contrast. - F/u outside hospital (OSH) BCx - Continued Vanc. Started Meropenem. #likely Moderate DRESS: - Ordered Solumedrol 80mg IVP, Loratadine daily. He will also need a topical corticosteroid. #Hypotension: SBP of 80s on admission. Responded to initial 500cc bolus with a total of 1L given. Continue to monitor BP. #LASHAWN: Likely pre-renal. Nichols catheter placed. F/u CT CAP. s/p 1L given over 2 hrs. Will start slow IVF at 65cc/hr and monitor vol status given hx of mod to severe . - Strict Is & Os. #LUE swelling: Ordered LUE venous duplex US. #Moderate to severe malnutrition: Consulted Operations Officer Trust Department to assist in determination of degree of malnutrition and make recs for supplements. #COPD w/ possible mild exacerbation: duonebs, Solumedrol, PPI, abx. #nocturnal hypoxemia on 3L NC #FARHAT in tolerant to CPAP #Paroxysmal Afib #Permanent PPM - Telemonitoring. Hold Metoprolol tartrate & Apixaban. Full dose lovenox. #Moderate to severe Aortic stenosis w/ low normal EF: - Outpatient evaluation. Monitor IVF administration judiciously. #Possible carotid bruit: carotid us ordered #GERD: PPI ordered #Seizure d/o: He says it is not a seizure, but his symptoms behave like seizures? #Neuropathy - Not on any medications at this time. #Hypothyroidism: Resume Levothyroxine. TSH & Free T4 checked in his 02/16/2024 to 02/24/2024 hospitalization #Anxiety d/o: Buspirone 5mg BID. Consider increase to 10mg BID or starting Escitalopram #BPH: Nichols in place #RLS: R/o JOE. #Chronic pain: Pain meds ordered. DVT ppx: full dose lovenox GI ppx: PPI Code Status. I did not discuss this with the patient. March 12, 2024 83-year-old male with history of esophageal stricture needing multiple dilatations in the past, history of GI bleed related to ulceration, history of peripheral neuropathy for which patient was changed from gabapentin to carbamazepine on January 25, 2024, history of diastolic CHF, history of CAD, pacemaker in place. Patient was recently admitted here with hip fracture at which time he was noted to have a diffuse morbilliform rash. At that time it was thought to be related to ceftriaxone. Carbamazepine was another possibility, dose was reduced to 100 mg p.o. twice daily and [facility]. However patient did not stay there very long as he was not satisfied with the level of care. It appears he may have checked out AMA from the facility and returned home approximately 1 week ago. He is unsure if he was getting carbamazepine while at the SNF. He feels pretty certain that he has not taken the medication since returning home however his daughter has a list of his current medications which is not available to us at this present time. Approximately 1 week ago patient developed swelling over his left elbow with redness which was diagnosed as cellulitis and patient was given a prescription for cephalexin. Swelling and rash continued to progress. There was apparently some desquamation also noted at that time however today he does not have any ulcerative lesions. Rather he has generalized dry skin and dry scaly scabs affecting bilateral upper extremities. There continues to be a maculopapular rash affecting bilateral upper extremities, upper chest wall, entire back, around the ankles and around the right knee. Patient has severe osteoarthritis, he is tender to palpation around the left elbow. I can feel bony crackles upon examination today. Patient states he had sustained a fall at the SNF however he does not think he hit his left arm. Patient is currently transferred to us from [facility] after being brought there yesterday with altered mental status. At the time of my assessment patient is awake alert oriented x 4 and able to relay events from recent hospital admission here and also relays his past history of GI bleed and esophageal dilatation. He has a history of recurrent pneumonias, presumably aspiration pneumonias in the past for which she is required antibiotics from time to time, however does not know if he has done well with amoxicillin or other beta-lactam's in the past. His chart does note a history to penicillins however patient is unsure about the nature of reaction. At [facility], he was found to have an elevated lactate of 4.1, elevated white blood cell count which was also redemonstrated upon checking here. WBC count is elevated, eosinophil fraction at 10.9. Patient also has new LASHAWN, previously having a normal creatinine at the time of discharge. He had elevated troponins at the outside hospital, baseline troponin of out of 100, trending down to 84. Compared to 1 month ago his LE troponins were in the 50s range. He does not have any active chest pain. His EKG is showing mild ST depression from overnight EKG in lead II, however does not appear to be a new change. recent echo 02/16 EF of 55-60% Grade 1 diastolic dysfunction Moderate to severe aortic stenosis. CT of his chest abdomen and pelvis performed last night without any obvious source of infection. There is no evidence of a pneumonia. She was advanced emphysematous changes. No abdominal source of infection identified. Blood cultures taken, currently pending. Site of recent right hip surgery appears to be healing well. Urine analysis showing hematuria with RBCs 51-100. Negative nitrite. Negative leukocyte esterase. No significant WBCs. Unlikely UTI. Left arm with swelling around the joint, suspect related to degenerative arthritis, however given elevated white blood cell count will obtain CT imaging to assess for any underlying joint infection. Would have preferred to perform an MRI, however patient has a pacemaker and we do not have pacemaker compatible MRI facilities at our hospital. Unable to use CT with IV contrast given that patient has an LASHAWN. The patient's white blood cell count is elevated, though no obvious source of infection is readily apparent. He is fairly dehydrated. He has dry mucous membranes, dry skin. His BNP was elevated at 2500, however clinically patient is hypoeuvolemic. His lactate has normalized at 1.8. Will continue IV fluids normal saline at 100 cc an hour Suspect patient has dress syndrome related to recent carbamazepine use. Alternately he has been on multiple antibiotics recently and beta-lactam use may be associated with the same. He has additionally received vancomycin in the last 6 to 12 weeks which could all be culprits for dress syndrome. He was started on methylprednisolone 80 mg IV every 24 hours which we will continue Continue IV Protonix alongside as he has a history of GI bleeding. Ordered for skin biopsy, likely to be performed tomorrow. Monitor CBC and other parameters. Discontinue all antibiotics right now including meropenem and vancomycin as no clinically apparent infection and closely monitor. Check GASTON panel, negative HIV screen. pending RPR, histo and coccidiodiodes serologies. March 13, 2024 This morning patient was noted to have expiratory wheezing. On exam today he has right-sided expiratory wheezing more prominent compared to the left side. CT notes history of severe emphysema. Daughter reports that patient has previously been on Advair, however has been unable to afford medication recently. Start scheduled nebulization with DuoNeb and budesonide, increase steroids to methylprednisolone 40 mg IV every 8 hours. Will add a dose of steroids will continue to be a treatment dose for dress syndrome and also provide treatment for COPD exacerbation. Leukocytosis is trending down to 18,000 today. Patient remains afebrile. He is hemodynamically stable. No obvious source of infection currently evident. Continue to monitor off of antibiotics. Low threshold to initiate antibiotics if develops a fever or has any clinical deterioration. Creatinine improved to 1.4 today. Continue IV fluids reduce rate to 60 cc an hour. Clinically patient does not appear to be hypervolemic. He continues to have dry parched skin and mucous membranes. There is no edema. Cautious IV hydration as patient has a history of aortic stenosis. Additionally patient was noted to have aspiration on his modified barium swallow. For now a dysphagia 4 diet is recommended. He reports history of multiple esophageal dilatations in the past and wonders if he may be able to have this procedure. I have discussed with him extensively that we would first wait for him to recover from his acute illness and once clinically better can decide with regards to esophageal dilatation. Calamine lotion appears to be making patient's skin more dry and scaly. Instead we will add a thick emollient such as Eucerin to be applied all over the body after bath with baby soap. Will add topical steroid if continues to have significant itching. Hemoglobin at 9.9 , chronic anemia at this point. Check fecal occult blood, iron B12 folate levels. CT of the left arm was completed yesterday which shows acute fractures of the capitellum and anterior radial head which explains the swelling around his left elbow. Overlying skin changes are those related to dress syndrome. He does not have any current signs to suggest a septic joint or cellulitis. Orthopedic service consulted. Recommended to place arm in a sling. No surgical intervention for now. Currently on ropinirole 4mg po daily Intermittent hallucinations during the day. Patient's daughter reports that patient has had intermittent episodes of confusions and hallucinations since undergoing surgery last month. He does not have a formal diagnosis of dementia previously. Check carbamazepine levels. 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 Trop downtrending this morning, no active chest pain. Likely elevated trop related to dehydration, demand ischemia, , unlikely ACS March 14, 2024 Patient's rash is overall improving. Skin is looking less dry. Leukocytosis has normalized today down to 7.87. Eosinophils at 0. His breathing is much improved today. No wheezing on exam. Patient is exhibiting intermittent delirium, particularly at nighttime. He received 50 mg of p.o. Benadryl overnight for itching. This morning he was quite agitated and confused as to his whereabouts. At the time of this assessment he is alert awake oriented x 4, however does make confused statements. When asked where is his left arm sling, he replies it is in the long vehicle . He keeps asking when he can have surgery for his shoulder arthritis.. Given chronicity of the problem, suspect that patient may have underlying dementia and current delirium triggered by recurrent hospital admissions, high- dose steroids, antihistamines and his overall frail state. Will discontinue all antihistamines. Add Zyprexa 2.5 mg p.o. at nighttime. Additionally for patient's neuropathic pain since we will not be resuming carbamazepine as it is likely culprit for dress syndrome currently, we will switch him to Lyrica. Start with low-dose Lyrica 25 mg p.o. daily. Creatinine is improving, down to 1.0 today. Will remove Nichols catheter. All cultures thus far remain negative. Will continue to monitor off antibiotics. No fever. Continue iv steroids, if continues to have persistent im[provement, will plan to discharge over the next 24-48 hrs Mar 15, 2024 Patient seen multiple times during course of the day Patient started lYrica 25mg po daily and zyprexa 2/5 po at bedtime as new medications Additionally he had received haldol 5mg last night along with Ativan 1 mg IV last evening due to agitation. He was unable to be verabally redirected. HE had wanted to leave, and pulled out his Nichols catheter. His nichols needed to be replaced overnight as he was retaining 850 cc of urine. During his admission course here patient has been more confused and agitated during the evening hours, during the day time he is more alert , awake and oriented, though has intermittent episodes of confusion and hallucinations. Last night he hallucinated that there was someone standing at his bedside asking him to pepper picker bullets , that he was in a bus filled with dynamite . One day prior he had hallucinated that the roof was falling, he would think furniture shadows in his room is spilled food and garbage. He had reported he had a skin biopsy several hours before he actually did. This morning he is much more confused and lethargic. This is different from his previous pattern. He had a rapid resposne called this afternoon when he had an episode of being unresponsive while being transferred from bed to chair by PT. His nurse noted jerking/shaking movement of his upper extremities during the event. BP dropped 70-80 systolic, On telemetry, he was in sinus rhythm, however during this event had a paced rhythm. There is concern for likely vasovagal event given sudden drop in BP and caodaism of paced rhythm. Alternate possibility that of seizure episode though patient has no h/o of the same. D/c lyrica as newly introduced, can potentially lower seizure threshold. Patient had discontinued carbamazepine few days prior to being admitted, indication was peripheral neuropathy, doubt tegretol withdrawal contributing at this time. CT of the head was taken which was negative for any acute intracranial events. Na 146, unlikely to be the caus eof acute events, likely related to poor po intake, patient not happy with getting thickened liquids. start d5 @ 50 cc/ hr Hb at 7.5 this morning, repeated at 1400 stable. No overt signs of bleeding. FOBT has not yet been tested - no BM? WBC up to 16K from being normal yesterday no fever, may be steroid related vs developing infection. Patient developed fever by evening hours, Checking Blood cx, CXRP , UA and urine cx. Start meropenem 1g iv q8h and watch closely for development of any rashes. Suspect aspiration contributing as patient known to have dysphagia, currently on modified dysphagia 4 diet. Currently rash seen upon admission is much improved overall. Nearly resolved over chest, improving over back and arms. Eosinophilia resolved.Reduce steroids to prednisone 40mg po daily. NA increasing at 146 When reassessed at 5pm, patient was awake, alert and oriented. Son reports he was able to have a conversation with him. Patient reported feeling light headed prior to events from this afternoon. CT head returned without acute intracranial events . DORIE assessment ordered today. Given his presentation and waxing and waning confusion with noted sundowning, suspect that patient has underlying dementia with delirium triggered by acute illness, multiple recent hospital stays, recurrent infections and most recently DRESS syndrome. March 16, 2024 Patient is alert awake and oriented x 3 today. He is not agitated, calm cooperative and able to have a full conversation. Developed A-fib with RVR this morning therefore he is currently on an amiodarone gtt. Blood pressure dropped to 80 systolic, he received 1 L IV fluid bolus and also was started on Levophed infusion. Add midodrine 10 mg 3 times daily and attempt to titrate off of Levophed. There has been interim development of a right lower lobe pneumonia. This is most likely related to an aspiration episode. Patient has continued to be on dysphagia level 4 diet with extremely thick and pur?ed liquids and foods, however still noted to be intermittently aspirating. He has needed several esophageal dilatations in the past, however at this present time given his overall frail clinical status he is not in a position to withstand any procedures. He is currently on antibiotic treatment with meropenem. Daughter reports past colonization with ? Pseudomonas. Additionally added linezolid 600 mg twice daily. Eliquis has been discontinued due to following hemoglobin now down to 7.2. FOBT remains pending. Additionally checking C. difficile PCR. Patient expresses frustration at not being able to eat regular meals. He is quite frustrated with being in chronic pain related to neuropathy, extensive arthritis, recent recurrent hospital admissions, constant itching related to his dress syndrome. His other comorbidities include history of diastolic CHF, history of CAD, pacemaker in place, history of pituitary macroadenoma for acromegaly, status post surgical intervention several years ago, atrial fibrillation, recurrent aspiration pneumonias. He is worried about his quality of life ever returning to his previous level of functioning. He is tired of being in persistent pain. He states that today his pain level is way beyond 10. I discussed with him the limitations and being able to use opiates given that his mental status changes frequently during course of the day. Higher dose of opiates may make him increasingly somnolent which could depress his respiratory status. We attempted to start Lyrica, however this was discontinued after events from yesterday. He does not wish to try any other new medications such as Cymbalta and instead wants to be placed back on gabapentin which she has tolerated for several years in the past. Will add gabapentin 100 mg 3 times daily today with plan to titrate up in the upcoming days. Up until December patient was on gabapentin 600 mg morning, 600 mg afternoon and 1200 mg in the evening hours and had slowly tapered off over 5 weeks. He wishes to have an extensive goals of care discussion with his family members today including his 3 children and about whether he would like to transition to hospice care. Previously family had considered palliative care but no decisions have been made regarding the same. Attestations 2 Medical Necessity Statement*: IV antibiotics for interim development of pneumonia, A-fib with RVR admitting amiodarone infusion, hypotension requiring pressors, extensive goals of care discussion. Critical Care Time: The high probability of a clinically significant, sudden or life threatening deterioration of the patient's [cardiac,respiratory,nuero,heme] system(s) required my full and direct attention, intervention and personal management. The critical care time is as shown. This time is in addition to time spent performing any reported procedures but includes the following: [x] Data and vital sign review and interpretation [x] Patient assessment, examination and intervention [x] Documentation [x] Medication orders and management Critical Care Time (min): 60 Coding Level of Care Code Critical Care >/= 30 minutes Diagnoses Eosinophilia D72.10 DRESS syndrome D72.12; T50.905A Hypotension I95.9 LASHAWN (acute kidney injury) N17.9 Atrial fibrillation I48.91 Closed fracture of left elbow, initial encounter S42.402A Encounter type: initial encounter Fracture type: closed Restless leg syndrome G25.81 COPD exacerbation J44.1 Elevated troponin R79.89
[2024-03-16] MEDS: gabapentin 100 mg Capsule PO ×2 (14:27→20:33)
[2024-03-16 14:34] LABS: Hematocrit 18.9 % (37-53)
--- NOTE | 2024-03-16 16:00 | CTR_ITS ---
PROCEDURE INFORMATION: Exam: CT Abdomen And Pelvis Without Contrast Exam date and time: 03/16/2024 5:01 PM Age: 83 years old Clinical indication: Other: Assess for intraabdominal bleeding, hb drop 9--> 7--> 5.8. Occult blood negative, assess for TECHNIQUE: Imaging protocol: Computed tomography of the abdomen and pelvis without contrast. Radiation optimization: All CT scans at this facility use at least one of these dose optimization techniques: automated exposure control; mA and/or kV adjustment per patient size (includes targeted exams where dose is matched to clinical indication); or iterative reconstruction. COMPARISON: [place] [id number] 03/12/2024 3:01 AM RADIATION DOSE METRICS: Total DLP (mGy-cm): 792.37 FINDINGS: Tubes, catheters and devices: Partially visualized pacemaker leads as well as severe coronary artery calcification. Pleural spaces: Small left pleural effusion with overlying compressive atelectasis. Right lower lobe consolidation. Liver: Normal. No mass. Gallbladder and biliary ducts: Normal. No calcified stones. No ductal dilation. Pancreas: Normal. No ductal dilation. Spleen: Normal. No splenomegaly. Adrenal glands: Normal. No mass. Kidneys and ureters: Punctate left renal nephrolithiasis. No definitive bilateral hydronephrosis. Stomach and bowel: Moderately increased high density colonic stool burden. Appendix: No evidence of appendicitis. Intraperitoneal space: No intraperitoneal free air. Retroperitoneal space: Large left ileo psoas/retroperitoneal hematoma measuring up to 8.1 x 9.5 x 13.2 cm. Hematoma extends along the left iliopsoas musculature into the proximal left thigh. There is a moderate amount hemoperitoneum collecting in the left pararenal space as well as the left paracolic gutter. Interspersed high density seen throughout this collection suggesting acute and subacute blood products. Vasculature: Stable 3.6 cm infrarenal abdominal aortic aneurysm. Moderate to severe aortoiliac atherosclerosis. Lymph nodes: Unremarkable. No enlarged lymph nodes. Urinary bladder: Unremarkable as visualized. Reproductive: Unremarkable as visualized. 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 Postsurgical changes from right hip screw and willie fixation. Severe degenerative changes of the bilateral hips. Stable dextroscoliosis of the lumbosacral spine. Soft tissues: See Retroperitoneal space finding. CT/CT abdomen pelvis wo con [id number] IMPRESSION: 1. Findings compatible with large acute left retroperitoneal hematoma involving the iliopsoas musculature with extensive amount hemoperitoneum extending throughout the left pararenal and left paracolic gutter spaces. Interspersed high density suggests acute blood products however evaluation for active extravasation of contrast is limited without IV contrast. 2. Left pleural effusion with overlying compressive atelectasis. Right lower lobe consolidation suggesting some combination of atelectasis and/or pneumonia. Aspiration pneumonia/pneumonitis is a consideration. 3. Other chronic findings appear stable from prior exam.
[2024-03-16 18:23] LABS: Glucose Point of Care 347 mg/dL (70-110)
[2024-03-16] MEDS: insulin lispro 100 unit/1 mL SUBCUT (18:41)
[2024-03-16] MEDS: sodium chloride 0.9% 100 mL Bag 50 ML IV ×2 (19:00→23:03)
--- NOTE | 2024-03-16 19:44 | PC.NURSE ---
documentation by RN student was reviewed by this nurse.
[2024-03-16] MEDS: ropinirole 1 mg Tablet 4 MG PO (20:32)
[2024-03-16] MEDS: OLANZapine 5 mg ODT 2.5 MG PO (20:34)
[2024-03-16 21:22] LABS: Glucose Point of Care 196 mg/dL (70-110)
[2024-03-17] VITALS (61 sets, daily range): BP systolic 87–134; BP diastolic 36–72; PULSE 63–98; RESP 13–35; TEMP 36.4–38.4; O2SAT 76–100
[2024-03-17] MEDS: ipratropium-albuterol 3 mL Neb INHALATION ×4 (02:34→22:18)
--- NOTE | 2024-03-17 02:34 | PC.NURSE ---
Refusing Thickened Liquids: Pt is refusing thickened liquids and is admit to take pills with water. Daughter at bedside spoke w/ pt, currently pt is agreeable to take pills with small amounts of pudding/applesauce.
[2024-03-17 02:48] LABS: Hematocrit 25.3 % (37-53)
[2024-03-17 05:47] LABS: Basophils % 0.1 %; Eosinophils % 0.2 %; Hematocrit 24.2 % (37-53); Lymphocytes # 1.9 10^3/uL (0.8-4.8); Lymphocytes % 10.6 %; Mean Corpuscular HGB Conc 32.2 g/dL (30-55); Mean Corpuscular Volume 99.2 fl (82-101); Mean Platelet Volume 9.9 fL (7.4-10.4); Monocytes # 2.2 10^3/uL (0.2-0.9); Monocytes % 12.7 %; Neutrophils # 13.13 10^3/uL (1.8-7.7); Neutrophils % 75.2 %; Nucleated Red Blood Cells # 0.1 /100WBC; Nucleated Red Blood Cells % 0.3 %; Platelet Count 165 10^3/cmm (157-399); Red Blood Count 2.44 10^6/uL (3.85-5.65); Red Cell Distribution Width 18.7 % (12.1-15.1); White Blood Count 17.46 10^3/uL (3.29-11.43)
[2024-03-17 06:24] LABS: Alanine Aminotransferase 30 U/L (0-41); Albumin Level 2.8 g/dL (3.5-5.2); Alkaline Phosphatase 82 U/L (40-130); Aspartate Amino Transferase 68 U/L (0-40); Blood Urea Nitrogen 33 mg/dL (8-23); Carbon Dioxide 22 mmol/L (22-29); Chloride 111 mmol/L (98-107); Creatinine Clr Calc Pharmacy 37.1238; Globulin 1.8 g/dL (1.3-4.6); Glucose 124 mg/dL (65-115); Osmolality Calculated 307 mOsm/kg (285-295); Sodium 144 mmol/L (136-145); Total Bilirubin 1.1 mg/dL (0.15-1.2); Total Protein 4.6 g/dL (6.6-8.7)
[2024-03-17 06:26] LABS: Anion Gap 15.4 (5-19); Potassium 4.4 mmol/L (3.5-5.1)
[2024-03-17 08:27] LABS: Glucose Point of Care 118 mg/dL (70-110)
[2024-03-17] MEDS: budesonide 0.5 mg/2 mL Neb INHALATION ×2 (08:28→22:18)
[2024-03-17] MEDS: meropenem 1,000 MG in sodium chloride 0.9% (plus) 50 ML 100 MG IV ×3 (08:43→22:56)
[2024-03-17] MEDS: polyethylene glycol 3350 Pkt 17 gm PO (08:47)
[2024-03-17] MEDS: midodrine 5 mg TABLET 10 MG PO ×3 (08:48→20:13)
[2024-03-17] MEDS: artificial tears Op Soln 15 mL Btl 1 DROP EYE-BOTH ×2 (08:48→17:32)
[2024-03-17] MEDS: sennosides 8.6 mg Tablet 17.2 MG PO (08:48)
[2024-03-17] MEDS: linezolid 600 mg Tablet PO ×2 (08:48→20:12)
[2024-03-17] MEDS: predniSONE 20 mg Tablet 40 MG PO (08:48)
[2024-03-17] MEDS: lanolin oint 7 gm 1 APPLIC TOPICAL ×2 (08:48→17:32)
[2024-03-17] MEDS: levothyroxine 75 mcg Tablet PO (08:48)
[2024-03-17] MEDS: gabapentin 100 mg Capsule PO ×3 (08:48→20:12)
[2024-03-17] MEDS: guaiFENesin 600 mg Tablet PO ×2 (08:48→17:32)
[2024-03-17] MEDS: eucerin cream 113 gm Jar 1 APPLIC TOPICAL (08:49)
[2024-03-17] MEDS: saliva stimulant spray 30 mL Btl 1 SPRAY MUCOUS MEM ×4 (09:15→20:14)
[2024-03-17] MEDS: pantoprazole 40 mg SDV IVP ×2 (10:14→21:57)
[2024-03-17] MEDS: efferdent effervescent 1 EACH DENTAL (10:36)
--- NOTE | 2024-03-17 11:37 | P.PN_ITS ---
Subjective 2 Subjective: Hb at 7.8 --> 7.6 today. Patient states he was able to sleep well overnight. his pain is better controlled today. Medications: Reviewed: Yes Vitals/I&O/Wt Last Vital Signs Temp 97.9 F 03/17/24 20:00 Pulse 66 03/17/24 22:19 Resp 18 03/17/24 22:19 BP 134/60 03/17/24 20:00 Pulse Ox 95 03/17/24 22:19 O2 Del Method Nasal Cannula 03/17/24 22:19 O2 Flow Rate 2 03/17/24 22:19 FiO2 21 03/14/24 13:13 03/17/24 03/17/24 03/18/24 14:59 22:59 06:59 Intake Total 820 / 820 530 / 1350 Output Total 450 / 450 Balance 820 / 820 80 / 900 Weight last 48 hrs Weight 69.127 kg Weight 74.979 kg Weight 74.979 kg Physical Exam 2 Narrative: General: No acute distress, AO x 3 , chronically ill appearing HEENT: PERRLA, pupils bilaterally equal and reactive, pallors not present Chest: Normal vesicular breath sounds, no added sounds, equal good air entry bilaterally CVS: S1-S2 regular, no murmurs, no tachycardia, no gallops, no rubs Abdomen: Soft, nontender, no organomegaly, bowel sounds present Neuro: No focal deficits, no facial deformity, AO x3 Urinary Catheter Management: Latex Free: Cath Placed During This Visit: yes, but has since been removed by the nurse Reason for Continuing Indwelling Catheter: Accurate Measurement of Urinary Output in Critically Ill Patients Urinary Catheter Date of Insertion: 03/15/24 Urinary Catheter Time of Insertion: 06:15 Date Urinary Catheter Removed: 03/14/24 Time Urinary Catheter Discontinued: 18:00 Data 03/17/24 10:20 03/17/24 05:22 Micro: Microbiology 03/16/24 06:28 Blood Culture - Preliminary Blood NEGATIVE TO DATE 03/16/24 04:42 Blood Culture - Preliminary Blood NEGATIVE TO DATE 03/12/24 02:20 Blood Culture - Final Blood NO GROWTH AFTER 5 DAYS 03/12/24 01:59 Blood Culture - Final Blood NO GROWTH AFTER 5 DAYS A&P Assessment and plan (1) Eosinophilia: (2) DRESS syndrome: (3) Hypotension: (4) LASHAWN (acute kidney injury): (5) Atrial fibrillation: (6) Elbow fracture, left: Qualifiers: Encounter type: initial encounter Fracture type: closed Qualified Code(s): S42.402A - Unspecified fracture of lower end of left humerus, initial encounter for closed fracture (7) Restless leg syndrome: (8) COPD exacerbation: (9) Elevated troponin: Plan Madi Gonzalez is a 83 year old male w/ Paroxymsal Afib, Moderate to severe Aortic stenosis w/ low normal EF, Permanent Pacemaker, GERD, COPD, nocturnal hypoxemia on 3L NC, FARHAT on intolerant to CPAP, BPH, Seizure d/o, chronic pain, Anxiety, RLS, & Neuropathy, who was transferred from [facility] for b/l swelling, feet swelling, diffuse pruritus all over his chest, back and legs. #Eosinophilia: - Unclear cause. Likely DRESS, due to a drug reaction, but will r/o other etiologies including infection, lymphoma, collagen vascular disease. F/u RPR, histoplasma, fungal cx, BCx, ANCA studies, HIV, UA/UCx, Ova &Parasite, peripheral smear, CT chest/abd/pelvis w/o contrast. - F/u outside hospital (OSH) BCx - Continued Vanc. Started Meropenem. #likely Moderate DRESS: - Ordered Solumedrol 80mg IVP, Loratadine daily. He will also need a topical corticosteroid. #Hypotension: SBP of 80s on admission. Responded to initial 500cc bolus with a total of 1L given. Continue to monitor BP. #LASHAWN: Likely pre-renal. Nichols catheter placed. F/u CT CAP. s/p 1L given over 2 hrs. Will start slow IVF at 65cc/hr and monitor vol status given hx of mod to severe . - Strict Is & Os. #LUE swelling: Ordered LUE venous duplex US. #Moderate to severe malnutrition: Consulted Associate Director Qa to assist in determination of degree of malnutrition and make recs for supplements. #COPD w/ possible mild exacerbation: duonebs, Solumedrol, PPI, abx. #nocturnal hypoxemia on 3L NC #FARHAT in tolerant to CPAP #Paroxysmal Afib #Permanent PPM - Telemonitoring. Hold Metoprolol tartrate & Apixaban. Full dose lovenox. #Moderate to severe Aortic stenosis w/ low normal EF: - Outpatient evaluation. Monitor IVF administration judiciously. #Possible carotid bruit: carotid us ordered #GERD: PPI ordered #Seizure d/o: He says it is not a seizure, but his symptoms behave like seizures? #Neuropathy - Not on any medications at this time. #Hypothyroidism: Resume Levothyroxine. TSH & Free T4 checked in his 02/16/2024 to 02/24/2024 hospitalization #Anxiety d/o: Buspirone 5mg BID. Consider increase to 10mg BID or starting Escitalopram #BPH: Nichols in place #RLS: R/o JOE. #Chronic pain: Pain meds ordered. DVT ppx: full dose lovenox GI ppx: PPI Code Status. I did not discuss this with the patient. March 12, 2024 83-year-old male with history of esophageal stricture needing multiple dilatations in the past, history of GI bleed related to ulceration, history of peripheral neuropathy for which patient was changed from gabapentin to carbamazepine on January 25, 2024, history of diastolic CHF, history of CAD, pacemaker in place. Patient was recently admitted here with hip fracture at which time he was noted to have a diffuse morbilliform rash. At that time it was thought to be related to ceftriaxone. Carbamazepine was another possibility, dose was reduced to 100 mg p.o. twice daily and patient was discharged to group home facility. However patient did not stay there very long as he was not satisfied with the level of care. It appears he may have checked out AMA from the facility and returned home approximately 1 week ago. He is unsure if he was getting carbamazepine while at the SNF. He feels pretty certain that he has not taken the medication since returning home however his daughter has a list of his current medications which is not available to us at this present time. Approximately 1 week ago patient developed swelling over his left elbow with redness which was diagnosed as cellulitis and patient was given a prescription for cephalexin. Swelling and rash continued to progress. There was apparently some desquamation also noted at that time however today he does not have any ulcerative lesions. Rather he has generalized dry skin and dry scaly scabs affecting bilateral upper extremities. There continues to be a maculopapular rash affecting bilateral upper extremities, upper chest wall, entire back, around the ankles and around the right knee. Patient has severe osteoarthritis, he is tender to palpation around the left elbow. I can feel bony crackles upon examination today. Patient states he had sustained a fall at the SNF however he does not think he hit his left arm. Patient is currently transferred to us from [facility] after being brought there yesterday with altered mental status. At the time of my assessment patient is awake alert oriented x 4 and able to relay events from recent hospital admission here and also relays his past history of GI bleed and esophageal dilatation. He has a history of recurrent pneumonias, presumably aspiration pneumonias in the past for which she is required antibiotics from time to time, however does not know if he has done well with amoxicillin or other beta-lactam's in the past. His chart does note a history to penicillins however patient is unsure about the nature of reaction. At [facility], he was found to have an elevated lactate of 4.1, elevated white blood cell count which was also redemonstrated upon checking here. WBC count is elevated, eosinophil fraction at 10.9. Patient also has new LASHAWN, previously having a normal creatinine at the time of discharge. He had elevated troponins at the outside hospital, baseline troponin of out of 100, trending down to 84. Compared to 1 month ago his LE troponins were in the 50s range. He does not have any active chest pain. His EKG is showing mild ST depression from overnight EKG in lead II, however does not appear to be a new change. recent echo 02/16 EF of 55-60% Grade 1 diastolic dysfunction Moderate to severe aortic stenosis. CT of his chest abdomen and pelvis performed last night without any obvious source of infection. There is no evidence of a pneumonia. She was advanced emphysematous changes. No abdominal source of infection identified. Blood cultures taken, currently pending. Site of recent right hip surgery appears to be healing well. Urine analysis showing hematuria with RBCs 51-100. Negative nitrite. Negative leukocyte esterase. No significant WBCs. Unlikely UTI. Left arm with swelling around the joint, suspect related to degenerative arthritis, however given elevated white blood cell count will obtain CT imaging to assess for any underlying joint infection. Would have preferred to perform an MRI, however patient has a pacemaker and we do not have pacemaker compatible MRI facilities at our hospital. Unable to use CT with IV contrast given that patient has an LASHAWN. The patient's white blood cell count is elevated, though no obvious source of infection is readily apparent. He is fairly dehydrated. He has dry mucous membranes, dry skin. His BNP was elevated at 2500, however clinically patient is hypoeuvolemic. His lactate has normalized at 1.8. Will continue IV fluids normal saline at 100 cc an hour Suspect patient has dress syndrome related to recent carbamazepine use. Alternately he has been on multiple antibiotics recently and beta-lactam use may be associated with the same. He has additionally received vancomycin in the last 6 to 12 weeks which could all be culprits for dress syndrome. He was started on methylprednisolone 80 mg IV every 24 hours which we will continue Continue IV Protonix alongside as he has a history of GI bleeding. Ordered for skin biopsy, likely to be performed tomorrow. Monitor CBC and other parameters. Discontinue all antibiotics right now including meropenem and vancomycin as no clinically apparent infection and closely monitor. Check GASTON panel, negative HIV screen. pending RPR, histo and coccidiodiodes serologies. March 13, 2024 This morning patient was noted to have expiratory wheezing. On exam today he has right-sided expiratory wheezing more prominent compared to the left side. CT notes history of severe emphysema. Daughter reports that patient has previously been on Advair, however has been unable to afford medication recently. Start scheduled nebulization with DuoNeb and budesonide, increase steroids to methylprednisolone 40 mg IV every 8 hours. Will add a dose of steroids will continue to be a treatment dose for dress syndrome and also provide treatment for COPD exacerbation. Leukocytosis is trending down to 18,000 today. Patient remains afebrile. He is hemodynamically stable. No obvious source of infection currently evident. Continue to monitor off of antibiotics. Low threshold to initiate antibiotics if develops a fever or has any clinical deterioration. Creatinine improved to 1.4 today. Continue IV fluids reduce rate to 60 cc an hour. Clinically patient does not appear to be hypervolemic. He continues to have dry parched skin and mucous membranes. There is no edema. Cautious IV hydration as patient has a history of aortic stenosis. Additionally patient was noted to have aspiration on his modified barium swallow. For now a dysphagia 4 diet is recommended. He reports history of multiple esophageal dilatations in the past and wonders if he may be able to have this procedure. I have discussed with him extensively that we would first wait for him to recover from his acute illness and once clinically better can decide with regards to esophageal dilatation. Calamine lotion appears to be making patient's skin more dry and scaly. Instead we will add a thick emollient such as Eucerin to be applied all over the body after bath with baby soap. Will add topical steroid if continues to have significant itching. Hemoglobin at 9.9 , chronic anemia at this point. Check fecal occult blood, iron B12 folate levels. CT of the left arm was completed yesterday which shows acute fractures of the capitellum and anterior radial head which explains the swelling around his left elbow. Overlying skin changes are those related to dress syndrome. He does not have any current signs to suggest a septic joint or cellulitis. Orthopedic service consulted. Recommended to place arm in a sling. No surgical intervention for now. Currently on ropinirole 4mg po daily Intermittent hallucinations during the day. Patient's daughter reports that patient has had intermittent episodes of confusions and hallucinations since undergoing surgery last month. He does not have a formal diagnosis of dementia previously. Check carbamazepine levels. 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 Trop downtrending this morning, no active chest pain. Likely elevated trop related to dehydration, demand ischemia, , unlikely ACS March 14, 2024 Patient's rash is overall improving. Skin is looking less dry. Leukocytosis has normalized today down to 7.87. Eosinophils at 0. His breathing is much improved today. No wheezing on exam. Patient is exhibiting intermittent delirium, particularly at nighttime. He received 50 mg of p.o. Benadryl overnight for itching. This morning he was quite agitated and confused as to his whereabouts. At the time of this assessment he is alert awake oriented x 4, however does make confused statements. When asked where is his left arm sling, he replies it is in the long vehicle . He keeps asking when he can have surgery for his shoulder arthritis.. Given chronicity of the problem, suspect that patient may have underlying dementia and current delirium triggered by recurrent hospital admissions, high- dose steroids, antihistamines and his overall frail state. Will discontinue all antihistamines. Add Zyprexa 2.5 mg p.o. at nighttime. Additionally for patient's neuropathic pain since we will not be resuming carbamazepine as it is likely culprit for dress syndrome currently, we will switch him to Lyrica. Start with low-dose Lyrica 25 mg p.o. daily. Creatinine is improving, down to 1.0 today. Will remove Nichols catheter. All cultures thus far remain negative. Will continue to monitor off antibiotics. No fever. Continue iv steroids, if continues to have persistent im[provement, will plan to discharge over the next 24-48 hrs Mar 15, 2024 Patient seen multiple times during course of the day Patient started lYrica 25mg po daily and zyprexa 2/5 po at bedtime as new medications Additionally he had received haldol 5mg last night along with Ativan 1 mg IV last evening due to agitation. He was unable to be verabally redirected. HE had wanted to leave, and pulled out his Nichols catheter. His nichols needed to be replaced overnight as he was retaining 850 cc of urine. During his admission course here patient has been more confused and agitated during the evening hours, during the day time he is more alert , awake and oriented, though has intermittent episodes of confusion and hallucinations. Last night he hallucinated that there was someone standing at his bedside asking him to picket labor union bullets , that he was in a bus filled with dynamite . One day prior he had hallucinated that the roof was falling, he would think furniture shadows in his room is spilled food and garbage. He had reported he had a skin biopsy several hours before he actually did. This morning he is much more confused and lethargic. This is different from his previous pattern. He had a rapid resposne called this afternoon when he had an episode of being unresponsive while being transferred from bed to chair by PT. His nurse noted jerking/shaking movement of his upper extremities during the event. BP dropped 70-80 systolic, On telemetry, he was in sinus rhythm, however during this event had a paced rhythm. There is concern for likely vasovagal event given sudden drop in BP and alevism of paced rhythm. Alternate possibility that of seizure episode though patient has no h/o of the same. D/c lyrica as newly introduced, can potentially lower seizure threshold. Patient had discontinued carbamazepine few days prior to being admitted, indication was peripheral neuropathy, doubt tegretol withdrawal contributing at this time. CT of the head was taken which was negative for any acute intracranial events. Na 146, unlikely to be the caus eof acute events, likely related to poor po intake, patient not happy with getting thickened liquids. start d5 @ 50 cc/ hr Hb at 7.5 this morning, repeated at 1400 stable. No overt signs of bleeding. FOBT has not yet been tested - no BM? WBC up to 16K from being normal yesterday no fever, may be steroid related vs developing infection. Patient developed fever by evening hours, Checking Blood cx, CXRP , UA and urine cx. Start meropenem 1g iv q8h and watch closely for development of any rashes. Suspect aspiration contributing as patient known to have dysphagia, currently on modified dysphagia 4 diet. Currently rash seen upon admission is much improved overall. Nearly resolved over chest, improving over back and arms. Eosinophilia resolved.Reduce steroids to prednisone 40mg po daily. NA increasing at 146 When reassessed at 5pm, patient was awake, alert and oriented. Son reports he was able to have a conversation with him. Patient reported feeling light headed prior to events from this afternoon. CT head returned without acute intracranial events . DORIE assessment ordered today. Given his presentation and waxing and waning confusion with noted sundowning, suspect that patient has underlying dementia with delirium triggered by acute illness, multiple recent hospital stays, recurrent infections and most recently DRESS syndrome. March 16, 2024 Patient is alert awake and oriented x 3 today. He is not agitated, calm cooperative and able to have a full conversation. Developed A-fib with RVR this morning therefore he is currently on an amiodarone gtt. Blood pressure dropped to 80 systolic, he received 1 L IV fluid bolus and also was started on Levophed infusion. Add midodrine 10 mg 3 times daily and attempt to titrate off of Levophed. There has been interim development of a right lower lobe pneumonia. This is most likely related to an aspiration episode. Patient has continued to be on dysphagia level 4 diet with extremely thick and pur?ed liquids and foods, however still noted to be intermittently aspirating. He has needed several esophageal dilatations in the past, however at this present time given his overall frail clinical status he is not in a position to withstand any procedures. He is currently on antibiotic treatment with meropenem. Daughter reports past colonization with ? Pseudomonas. Additionally added linezolid 600 mg twice daily. Eliquis has been discontinued due to following hemoglobin now down to 7.2. FOBT remains pending. Additionally checking C. difficile PCR. Patient expresses frustration at not being able to eat regular meals. He is quite frustrated with being in chronic pain related to neuropathy, extensive arthritis, recent recurrent hospital admissions, constant itching related to his dress syndrome. His other comorbidities include history of diastolic CHF, history of CAD, pacemaker in place, history of pituitary macroadenoma for acromegaly, status post surgical intervention several years ago, atrial fibrillation, recurrent aspiration pneumonias. He is worried about his quality of life ever returning to his previous level of functioning. He is tired of being in persistent pain. He states that today his pain level is way beyond 10. I discussed with him the limitations and being able to use opiates given that his mental status changes frequently during course of the day. Higher dose of opiates may make him increasingly somnolent which could depress his respiratory status. We attempted to start Lyrica, however this was discontinued after events from yesterday. He does not wish to try any other new medications such as Cymbalta and instead wants to be placed back on gabapentin which she has tolerated for several years in the past. Will add gabapentin 100 mg 3 times daily today with plan to titrate up in the upcoming days. Up until December patient was on gabapentin 600 mg morning, 600 mg afternoon and 1200 mg in the evening hours and had slowly tapered off over 5 weeks. He wishes to have an extensive goals of care discussion with his family members today including his 3 children and about whether he would like to transition to hospice care. Previously family had considered palliative care but no decisions have been made regarding the same. Mar 17, 2024 Patient's pain is better controlled today A fib is rate controlled with amiodarone gtt, he is in sinus rhythm currently, transitioned to po amiodarone this morning. Off levophed , on midodrine 10mg TID , BP stable Receoved 2 PRBC yesterday, Hb 7.8--> 7.6. Had a run of V tach overnight. Given cardiac arrythmias, likely triggered by acute blood loss in cardiac patient, will prefer to keep HB at ~8. Transfuse 1PRBC today Rash is much improved, so far tolerating meropenem After extensive discussion with patient, several family memebrs and between patient and his children, patient has decided that he would like to transition to hospice care. He understands that his alf prognosis at this time is bleak should he survive this current admission. He would like his goal to be focus on pain management and wants to retun home. In accordance with these changed goals, will increase prn dose of iv dilaudid. Change po dilaudid to liquid hydrocodone as patient will be able to tolerate it better with his known dysphagia. Nichols to remain in place for comfort Diet changed to Gi soft with as desired liquid consistency with goal of comfort feeding. HE would like to continue abx for now, which we will transition to oral medications at discharge. no escalation of care from this point on D/c morning labs except H&H. Hospice referral placed, case management to follow up Patient expected to return home with hospice under care of his family with goals of comfort management. May be able to discharge in upcoming 24 hrs if all home arrangements are made . Attestations 2 Medical Necessity Statement*: goals of care, transition to home hospice Coding Level of Care Code Acute Code for Chg Fwd High Time for a total of 60 minutes, includes reviewing past or interval history, examining/interviewing patient, placing orders, counseling patient/family/other support, updating patient/family/other support, discussing plan of care with staff, documenting encounter and coordinating care Diagnoses Eosinophilia D72.10 DRESS syndrome D72.12; T50.905A Hypotension I95.9 LASHAWN (acute kidney injury) N17.9 Atrial fibrillation I48.91 Closed fracture of left elbow, initial encounter S42.402A Encounter type: initial encounter Fracture type: closed Restless leg syndrome G25.81 COPD exacerbation J44.1 Elevated troponin R79.89
[2024-03-17 12:20] LABS: Glucose Point of Care 191 mg/dL (70-110)
[2024-03-17 14:00] LABS: Carbamazepine Free <0.2 mcg/mL (1.0-3.0)
[2024-03-17] MEDS: amiodarone 200 mg Tablet 400 MG PO (17:32)
[2024-03-17] MEDS: OLANZapine 5 mg ODT 2.5 MG PO (20:13)
[2024-03-17] MEDS: ropinirole 1 mg Tablet 4 MG PO (20:14)
[2024-03-17] MEDS: HYDROcodone-APAP 7.5-325 mg/15 mL UDC 10 ML PO (21:55)
[2024-03-17] MEDS: ondansetron 2 mg/ML SDV 2 mL 4 MG IVP (22:54)
[2024-03-18] VITALS (15 sets, daily range): BP systolic 95–130; BP diastolic 46–83; PULSE 63–79; RESP 14–20; TEMP 36.6–36.9; O2SAT 94–99
[2024-03-18 05:32] LABS: Hematocrit 23.6 % (37-53)
[2024-03-18] MEDS: ondansetron 2 mg/ML SDV 2 mL 4 MG IVP ×2 (08:46→21:51)
[2024-03-18] MEDS: meropenem 1,000 MG in sodium chloride 0.9% (plus) 50 ML 100 MG IV ×3 (08:46→22:56)
[2024-03-18] MEDS: levothyroxine 75 mcg Tablet PO (08:52)
[2024-03-18] MEDS: polyethylene glycol 3350 Pkt 17 gm PO (08:52)
[2024-03-18] MEDS: midodrine 5 mg TABLET 10 MG PO ×2 (08:52→21:04)
[2024-03-18] MEDS: predniSONE 20 mg Tablet 40 MG PO (08:52)
[2024-03-18] MEDS: linezolid 600 mg Tablet PO ×2 (08:52→21:05)
[2024-03-18] MEDS: sennosides 8.6 mg Tablet 17.2 MG PO (08:52)
[2024-03-18] MEDS: amiodarone 200 mg Tablet 400 MG PO ×2 (08:52→17:43)
[2024-03-18] MEDS: gabapentin 100 mg Capsule PO ×3 (08:52→21:06)
[2024-03-18] MEDS: guaiFENesin 600 mg Tablet PO ×2 (08:52→17:43)
[2024-03-18] MEDS: ipratropium-albuterol 3 mL Neb INHALATION ×3 (08:54→21:45)
[2024-03-18] MEDS: budesonide 0.5 mg/2 mL Neb INHALATION ×2 (08:54→21:46)
[2024-03-18] MEDS: saliva stimulant spray 30 mL Btl 1 SPRAY MUCOUS MEM ×4 (09:00→21:06)
[2024-03-18] MEDS: artificial tears Op Soln 15 mL Btl 1 DROP EYE-BOTH (09:02)
[2024-03-18] MEDS: eucerin cream 113 gm Jar 1 APPLIC TOPICAL (09:03)
[2024-03-18] MEDS: pantoprazole 40 mg SDV IVP ×2 (11:12→21:51)
--- NOTE | 2024-03-18 12:17 | PC.OT ---
PT HAS DECIDED TO TRANSITION TO HOSPICE CARE. SKILLED OT SERVICES WILL BE DISCHARGED AT THIS TIME.
--- NOTE | 2024-03-18 13:24 | PC.SOCIAL ---
IMM Updated Updated pt's daughter, on IMM. No questions voiced. Provided pt a copy. Initialed, dated, & timed copy in chart.
--- NOTE | 2024-03-18 14:09 | P.PN_ITS ---
Subjective 2 Subjective: Hemoglobin 7.1 this morning. Daughter present at bedside. Patient and daughter requesting to go home today. Hospice has yet to come talk to the patient and the daughter. Daughter states that she can get by with 1 night and get paid for And to arrive by tomorrow. survey workers supervisor Valentina also present at bedside. Daughter requesting 1 unit packed RBC prior to discharge. Plan is still to go home with hospice. Vitals/I&O/Wt Last Vital Signs Temp 98.2 F 03/18/24 11:08 Pulse 67 03/18/24 14:00 Resp 18 03/18/24 14:00 BP 111/56 03/18/24 11:08 Pulse Ox 96 03/18/24 14:00 O2 Del Method Nasal Cannula 03/18/24 14:00 O2 Flow Rate 2 03/18/24 14:00 FiO2 21 03/14/24 13:13 03/17/24 03/18/24 03/18/24 22:59 06:59 14:59 Intake Total 680 / 1500 250 / 1750 410 / 410 Output Total 650 / 650 0 / 650 Balance 30 / 850 250 / 1100 410 / 410 Weight last 48 hrs Weight 69.127 kg Weight 69.127 kg Physical Exam 2 Narrative: General: No acute distress, AO x 3 , chronically ill appearing, cachectic, temporal wasting. HEENT: PERRLA, pupils bilaterally equal and reactive, pallors not present Chest: Normal vesicular breath sounds, no added sounds, equal good air entry bilaterally CVS: S1-S2 regular, no murmurs, no tachycardia, no gallops, no rubs Abdomen: Soft, nontender,bowel sounds present Neuro: No focal deficits, no facial deformity Urinary Catheter Management: Latex Free: Cath Placed During This Visit: yes, but has since been removed by the nurse Reason for Continuing Indwelling Catheter: Other Urinary Catheter Date of Insertion: 03/15/24 Urinary Catheter Time of Insertion: 06:15 Date Urinary Catheter Removed: 03/14/24 Time Urinary Catheter Discontinued: 18:00 Data 03/18/24 04:45 03/17/24 05:22 A&P Assessment and plan (1) Eosinophilia: (2) DRESS syndrome: (3) Hypotension: (4) LASHAWN (acute kidney injury): (5) Atrial fibrillation: (6) Elbow fracture, left: Qualifiers: Encounter type: initial encounter Fracture type: closed Qualified Code(s): S42.402A - Unspecified fracture of lower end of left humerus, initial encounter for closed fracture (7) Restless leg syndrome: (8) COPD exacerbation: (9) Elevated troponin: Plan Madi Gonzalez is a 83 year old male w/ Paroxymsal Afib, Moderate to severe Aortic stenosis w/ low normal EF, Permanent Pacemaker, GERD, COPD, nocturnal hypoxemia on 3L NC, FARHAT on intolerant to CPAP, BPH, Seizure d/o, chronic pain, Anxiety, RLS, & Neuropathy, who was transferred from [facility] for b/l swelling, feet swelling, diffuse pruritus all over his chest, back and legs. #Eosinophilia: - Unclear cause. Likely DRESS, due to a drug reaction, but will r/o other etiologies including infection, lymphoma, collagen vascular disease. F/u RPR, histoplasma, fungal cx, BCx, ANCA studies, HIV, UA/UCx, Ova &Parasite, peripheral smear, CT chest/abd/pelvis w/o contrast. - F/u outside hospital (OSH) BCx - Continued Vanc. Started Meropenem. #likely Moderate DRESS: - Ordered Solumedrol 80mg IVP, Loratadine daily. He will also need a topical corticosteroid. #Hypotension: SBP of 80s on admission. Responded to initial 500cc bolus with a total of 1L given. Continue to monitor BP. #LASHAWN: Likely pre-renal. Nichols catheter placed. F/u CT CAP. s/p 1L given over 2 hrs. Will start slow IVF at 65cc/hr and monitor vol status given hx of mod to severe . - Strict Is & Os. #LUE swelling: Ordered LUE venous duplex US. #Moderate to severe malnutrition: Consulted Motors And Controls Tester to assist in determination of degree of malnutrition and make recs for supplements. #COPD w/ possible mild exacerbation: duonebs, Solumedrol, PPI, abx. #nocturnal hypoxemia on 3L NC #FARHAT in tolerant to CPAP #Paroxysmal Afib #Permanent PPM - Telemonitoring. Hold Metoprolol tartrate & Apixaban. Full dose lovenox. #Moderate to severe Aortic stenosis w/ low normal EF: - Outpatient evaluation. Monitor IVF administration judiciously. #Possible carotid bruit: carotid us ordered #GERD: PPI ordered #Seizure d/o: He says it is not a seizure, but his symptoms behave like seizures? #Neuropathy - Not on any medications at this time. #Hypothyroidism: Resume Levothyroxine. TSH & Free T4 checked in his 02/16/2024 to 02/24/2024 hospitalization #Anxiety d/o: Buspirone 5mg BID. Consider increase to 10mg BID or starting Escitalopram #BPH: Nichols in place #RLS: R/o JOE. #Chronic pain: Pain meds ordered. DVT ppx: full dose lovenox GI ppx: PPI Code Status. I did not discuss this with the patient. March 12, 2024 83-year-old male with history of esophageal stricture needing multiple dilatations in the past, history of GI bleed related to ulceration, history of peripheral neuropathy for which patient was changed from gabapentin to carbamazepine on January 25, 2024, history of diastolic CHF, history of CAD, pacemaker in place. Patient was recently admitted here with hip fracture at which time he was noted to have a diffuse morbilliform rash. At that time it was thought to be related to ceftriaxone. Carbamazepine was another possibility, dose was reduced to 100 mg p.o. twice daily and patient was discharged to care home facility. However patient did not stay there very long as he was not satisfied with the level of care. It appears he may have checked out AMA from the facility and returned home approximately 1 week ago. He is unsure if he was getting carbamazepine while at the SNF. He feels pretty certain that he has not taken the medication since returning home however his daughter has a list of his current medications which is not available to us at this present time. Approximately 1 week ago patient developed swelling over his left elbow with redness which was diagnosed as cellulitis and patient was given a prescription for cephalexin. Swelling and rash continued to progress. There was apparently some desquamation also noted at that time however today he does not have any ulcerative lesions. Rather he has generalized dry skin and dry scaly scabs affecting bilateral upper extremities. There continues to be a maculopapular rash affecting bilateral upper extremities, upper chest wall, entire back, around the ankles and around the right knee. Patient has severe osteoarthritis, he is tender to palpation around the left elbow. I can feel bony crackles upon examination today. Patient states he had sustained a fall at the SNF however he does not think he hit his left arm. Patient is currently transferred to us from [facility] after being brought there yesterday with altered mental status. At the time of my assessment patient is awake alert oriented x 4 and able to relay events from recent hospital admission here and also relays his past history of GI bleed and esophageal dilatation. He has a history of recurrent pneumonias, presumably aspiration pneumonias in the past for which she is required antibiotics from time to time, however does not know if he has done well with amoxicillin or other beta-lactam's in the past. His chart does note a history to penicillins however patient is unsure about the nature of reaction. At [facility], he was found to have an elevated lactate of 4.1, elevated white blood cell count which was also redemonstrated upon checking here. WBC count is elevated, eosinophil fraction at 10.9. Patient also has new LASHAWN, previously having a normal creatinine at the time of discharge. He had elevated troponins at the outside hospital, baseline troponin of out of 100, trending down to 84. Compared to 1 month ago his LE troponins were in the 50s range. He does not have any active chest pain. His EKG is showing mild ST depression from overnight EKG in lead II, however does not appear to be a new change. recent echo 02/16 EF of 55-60% Grade 1 diastolic dysfunction Moderate to severe aortic stenosis. CT of his chest abdomen and pelvis performed last night without any obvious source of infection. There is no evidence of a pneumonia. She was advanced emphysematous changes. No abdominal source of infection identified. Blood cultures taken, currently pending. Site of recent right hip surgery appears to be healing well. Urine analysis showing hematuria with RBCs 51-100. Negative nitrite. Negative leukocyte esterase. No significant WBCs. Unlikely UTI. Left arm with swelling around the joint, suspect related to degenerative arthritis, however given elevated white blood cell count will obtain CT imaging to assess for any underlying joint infection. Would have preferred to perform an MRI, however patient has a pacemaker and we do not have pacemaker compatible MRI facilities at our hospital. Unable to use CT with IV contrast given that patient has an LASAHWN. The patient's white blood cell count is elevated, though no obvious source of infection is readily apparent. He is fairly dehydrated. He has dry mucous membranes, dry skin. His BNP was elevated at 2500, however clinically patient is hypoeuvolemic. His lactate has normalized at 1.8. Will continue IV fluids normal saline at 100 cc an hour Suspect patient has dress syndrome related to recent carbamazepine use. Alternately he has been on multiple antibiotics recently and beta-lactam use may be associated with the same. He has additionally received vancomycin in the last 6 to 12 weeks which could all be culprits for dress syndrome. He was started on methylprednisolone 80 mg IV every 24 hours which we will continue Continue IV Protonix alongside as he has a history of GI bleeding. Ordered for skin biopsy, likely to be performed tomorrow. Monitor CBC and other parameters. Discontinue all antibiotics right now including meropenem and vancomycin as no clinically apparent infection and closely monitor. Check GASTON panel, negative HIV screen. pending RPR, histo and coccidiodiodes serologies. March 13, 2024 This morning patient was noted to have expiratory wheezing. On exam today he has right-sided expiratory wheezing more prominent compared to the left side. CT notes history of severe emphysema. Daughter reports that patient has previously been on Advair, however has been unable to afford medication recently. Start scheduled nebulization with DuoNeb and budesonide, increase steroids to methylprednisolone 40 mg IV every 8 hours. Will add a dose of steroids will continue to be a treatment dose for dress syndrome and also provide treatment for COPD exacerbation. Leukocytosis is trending down to 18,000 today. Patient remains afebrile. He is hemodynamically stable. No obvious source of infection currently evident. Continue to monitor off of antibiotics. Low threshold to initiate antibiotics if develops a fever or has any clinical deterioration. Creatinine improved to 1.4 today. Continue IV fluids reduce rate to 60 cc an hour. Clinically patient does not appear to be hypervolemic. He continues to have dry parched skin and mucous membranes. There is no edema. Cautious IV hydration as patient has a history of aortic stenosis. Additionally patient was noted to have aspiration on his modified barium swallow. For now a dysphagia 4 diet is recommended. He reports history of multiple esophageal dilatations in the past and wonders if he may be able to have this procedure. I have discussed with him extensively that we would first wait for him to recover from his acute illness and once clinically better can decide with regards to esophageal dilatation. Calamine lotion appears to be making patient's skin more dry and scaly. Instead we will add a thick emollient such as Eucerin to be applied all over the body after bath with baby soap. Will add topical steroid if continues to have significant itching. Hemoglobin at 9.9 , chronic anemia at this point. Check fecal occult blood, iron B12 folate levels. CT of the left arm was completed yesterday which shows acute fractures of the capitellum and anterior radial head which explains the swelling around his left elbow. Overlying skin changes are those related to dress syndrome. He does not have any current signs to suggest a septic joint or cellulitis. Orthopedic service consulted. Recommended to place arm in a sling. No surgical intervention for now. Currently on ropinirole 4mg po daily Intermittent hallucinations during the day. Patient's daughter reports that patient has had intermittent episodes of confusions and hallucinations since undergoing surgery last month. He does not have a formal diagnosis of dementia previously. Check carbamazepine levels. 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 Trop downtrending this morning, no active chest pain. Likely elevated trop related to dehydration, demand ischemia, , unlikely ACS March 14, 2024 Patient's rash is overall improving. Skin is looking less dry. Leukocytosis has normalized today down to 7.87. Eosinophils at 0. His breathing is much improved today. No wheezing on exam. Patient is exhibiting intermittent delirium, particularly at nighttime. He received 50 mg of p.o. Benadryl overnight for itching. This morning he was quite agitated and confused as to his whereabouts. At the time of this assessment he is alert awake oriented x 4, however does make confused statements. When asked where is his left arm sling, he replies it is in the long vehicle . He keeps asking when he can have surgery for his shoulder arthritis.. Given chronicity of the problem, suspect that patient may have underlying dementia and current delirium triggered by recurrent hospital admissions, high- dose steroids, antihistamines and his overall frail state. Will discontinue all antihistamines. Add Zyprexa 2.5 mg p.o. at nighttime. Additionally for patient's neuropathic pain since we will not be resuming carbamazepine as it is likely culprit for dress syndrome currently, we will switch him to Lyrica. Start with low-dose Lyrica 25 mg p.o. daily. Creatinine is improving, down to 1.0 today. Will remove Nichols catheter. All cultures thus far remain negative. Will continue to monitor off antibiotics. No fever. Continue iv steroids, if continues to have persistent im[provement, will plan to discharge over the next 24-48 hrs Mar 15, 2024 Patient seen multiple times during course of the day Patient started lYrica 25mg po daily and zyprexa 2/5 po at bedtime as new medications Additionally he had received haldol 5mg last night along with Ativan 1 mg IV last evening due to agitation. He was unable to be verabally redirected. HE had wanted to leave, and pulled out his Nichols catheter. His nichols needed to be replaced overnight as he was retaining 850 cc of urine. During his admission course here patient has been more confused and agitated during the evening hours, during the day time he is more alert , awake and oriented, though has intermittent episodes of confusion and hallucinations. 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 One day prior he had hallucinated that the roof was falling, he would think furniture shadows in his room is spilled food and garbage. He had reported he had a skin biopsy several hours before he actually did. This morning he is much more confused and lethargic. This is different from his previous pattern. He had a rapid resposne called this afternoon when he had an episode of being unresponsive while being transferred from bed to chair by PT. His nurse noted jerking/shaking movement of his upper extremities during the event. BP dropped 70-80 systolic, On telemetry, he was in sinus rhythm, however during this event had a paced rhythm. There is concern for likely vasovagal event given sudden drop in BP and sikh of paced rhythm. Alternate possibility that of seizure episode though patient has no h/o of the same. D/c lyrica as newly introduced, can potentially lower seizure threshold. Patient had discontinued carbamazepine few days prior to being admitted, indication was peripheral neuropathy, doubt tegretol withdrawal contributing at this time. CT of the head was taken which was negative for any acute intracranial events. Na 146, unlikely to be the caus eof acute events, likely related to poor po intake, patient not happy with getting thickened liquids. start d5 @ 50 cc/ hr Hb at 7.5 this morning, repeated at 1400 stable. No overt signs of bleeding. FOBT has not yet been tested - no BM? WBC up to 16K from being normal yesterday no fever, may be steroid related vs developing infection. Patient developed fever by evening hours, Checking Blood cx, CXRP , UA and urine cx. Start meropenem 1g iv q8h and watch closely for development of any rashes. Suspect aspiration contributing as patient known to have dysphagia, currently on modified dysphagia 4 diet. Currently rash seen upon admission is much improved overall. Nearly resolved over chest, improving over back and arms. Eosinophilia resolved.Reduce steroids to prednisone 40mg po daily. NA increasing at 146 When reassessed at 5pm, patient was awake, alert and oriented. Son reports he was able to have a conversation with him. Patient reported feeling light headed prior to events from this afternoon. CT head returned without acute intracranial events . DORIE assessment ordered today. Given his presentation and waxing and waning confusion with noted owning, suspect that patient has underlying dementia with delirium triggered by acute illness, multiple recent hospital stays, recurrent infections and most recently DRESS syndrome. March 16, 2024 Patient is alert awake and oriented x 3 today. He is not agitated, calm cooperative and able to have a full conversation. Developed A-fib with RVR this morning therefore he is currently on an amiodarone gtt. Blood pressure dropped to 80 systolic, he received 1 L IV fluid bolus and also was started on Levophed infusion. Add midodrine 10 mg 3 times daily and attempt to titrate off of Levophed. There has been interim development of a right lower lobe pneumonia. This is most likely related to an aspiration episode. Patient has continued to be on dysphagia level 4 diet with extremely thick and pur?ed liquids and foods, however still noted to be intermittently aspirating. He has needed several esophageal dilatations in the past, however at this present time given his overall frail clinical status he is not in a position to withstand any procedures. He is currently on antibiotic treatment with meropenem. Daughter reports past colonization with ? Pseudomonas. Additionally added linezolid 600 mg twice daily. Eliquis has been discontinued due to following hemoglobin now down to 7.2. FOBT remains pending. Additionally checking C. difficile PCR. Patient expresses frustration at not being able to eat regular meals. He is quite frustrated with being in chronic pain related to neuropathy, extensive arthritis, recent recurrent hospital admissions, constant itching related to his dress syndrome. His other comorbidities include history of diastolic CHF, history of CAD, pacemaker in place, history of pituitary macroadenoma for acromegaly, status post surgical intervention several years ago, atrial fibrillation, recurrent aspiration pneumonias. He is worried about his quality of life ever returning to his previous level of functioning. He is tired of being in persistent pain. He states that today his pain level is way beyond 10. I discussed with him the limitations and being able to use opiates given that his mental status changes frequently during course of the day. Higher dose of opiates may make him increasingly somnolent which could depress his respiratory status. We attempted to start Lyrica, however this was discontinued after events from yesterday. He does not wish to try any other new medications such as Cymbalta and instead wants to be placed back on gabapentin which she has tolerated for several years in the past. Will add gabapentin 100 mg 3 times daily today with plan to titrate up in the upcoming days. Up until December patient was on gabapentin 600 mg morning, 600 mg afternoon and 1200 mg in the evening hours and had slowly tapered off over 5 weeks. He wishes to have an extensive goals of care discussion with his family members today including his 3 children and about whether he would like to transition to hospice care. Previously family had considered palliative care but no decisions have been made regarding the same. Mar 17, 2024 Patient's pain is better controlled today A fib is rate controlled with amiodarone gtt, he is in sinus rhythm currently, transitioned to po amiodarone this morning. Off levophed , on midodrine 10mg TID , BP stable Receoved 2 PRBC yesterday, Hb 7.8--> 7.6. Had a run of V tach overnight. Given cardiac arrythmias, likely triggered by acute blood loss in cardiac patient, will prefer to keep HB at ~8. Transfuse 1PRBC today Rash is much improved, so far tolerating meropenem After extensive discussion with patient, several family memebrs and between patient and his children, patient has decided that he would like to transition to hospice care. 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 He would like his goal to be focus on pain management and wants to retun home. In accordance with these changed goals, will increase prn dose of iv dilaudid. Change po dilaudid to liquid hydrocodone as patient will be able to tolerate it better with his known dysphagia. Nichols to remain in place for comfort Diet changed to Gi soft with as desired liquid consistency with goal of comfort feeding. HE would like to continue abx for now, which we will transition to oral medications at discharge. no escalation of care from this point on D/c morning labs except H&H. Hospice referral placed, case management to follow up Patient expected to return home with hospice under care of his family with goals of comfort management. May be able to discharge in upcoming 24 hrs if all home arrangements are made . 03/18/2024 -Daughter present at bedside. Hemoglobin 7.1 this morning. Will order 1 unit packed RBC. Keep hemoglobin greater than 8. ? Patient tolerating meropenem okay. ? GI soft diet with desired liquid consistency with goal of comfort feeding. ? Plan to send patient home with hospice as per family's request today. Hospice referral has been placed. Family waiting to speak to them. Daughter has requested to go home later today even if equipment can arrive by tomorrow. Discussed with elementary school social worker who was also present at bedside. We will attempt to coordinate care. Attestations 2 Medical Necessity Statement*: Transition to home with hospice today. Diagnoses Eosinophilia D72.10 DRESS syndrome D72.12; T50.905A Hypotension I95.9 LASHAWN (acute kidney injury) N17.9 Atrial fibrillation I48.91 Closed fracture of left elbow, initial encounter S42.402A Encounter type: initial encounter Fracture type: closed Restless leg syndrome G25.81 COPD exacerbation J44.1 Elevated troponin R79.89
[2024-03-18 20:49] LABS: DNA AB (DS) CRITHIDIA,IFA NEGATIVE (NEGATIVE)
[2024-03-18] MEDS: OLANZapine 5 mg ODT 2.5 MG PO (21:04)
[2024-03-18] MEDS: ropinirole 1 mg Tablet 4 MG PO (21:06)
[2024-03-18] MEDS: HYDROcodone-APAP 7.5-325 mg/15 mL UDC 10 ML PO (22:04)
[2024-03-19 02:00] VITALS: PULSE 67; RESP 16; O2SAT 94
[2024-03-19] MEDS: ipratropium-albuterol 3 mL Neb INHALATION ×2 (03:12→09:29)
[2024-03-19 04:00] VITALS: BP 116/51; PULSE 67; RESP 17; TEMP 36.7; O2SAT 94
[2024-03-19 07:21] VITALS: BP 114/51; PULSE 62; RESP 20; TEMP 37.1; O2SAT 92
[2024-03-19 08:00] VITALS: PULSE 73; RESP 18; O2SAT 96
--- NOTE | 2024-03-19 08:38 | P.DS_ITS ---
Discharge Providers Date of Admission: 03/11/24 23:37 Date of Discharge: March 19, 2024 Attending Provider at Admission: Camila Almanzar MD Attending Provider at Discharge: Ashley Coy MD Diagnoses at Discharge Discharge Diagnosis (1) Eosinophilia: Status: Acute (2) DRESS syndrome: Status: Acute (3) Hypotension: Status: Resolved (4) LASHAWN (acute kidney injury): Status: Resolved (5) Atrial fibrillation: Status: Acute (6) Elbow fracture, left: Status: Acute Qualifiers: Encounter type: initial encounter Fracture type: closed Qualified Code(s): S42.402A - Unspecified fracture of lower end of left humerus, initial encounter for closed fracture (7) Restless leg syndrome: Status: Acute (8) COPD exacerbation: Status: Resolved (9) Elevated troponin: Status: Resolved Reason for Visit Reason for Visit: Septic Shock Hospital Course Hospital Course Please see progress note from 03/18 with a very detailed hospital course. Brief version as below He presented with a multitude of medical problems with dress syndrome with evidence of eosinophilia, LASHAWN, left upper extremity swelling, moderate to severe malnutrition COPD, struct of sleep apnea, paroxysmal A-fib, permanent pacemaker, GERD, seizure disorder, neuropathy, hypothyroidism, anxiety, BPH, restless leg syndrome, chronic pain ultimately developing a large acute left retroperitoneal hematoma involving left psoas musculature extensive amount of hemoperitoneum extending through the left pararenal and left paracolic gutter spaces. Goals of care discussion was performed by Dr. Guzman with the patient's family and plan was to send patient home with hospice. On day of discharge discussed patient's care with patient's daughter in detail at bedside. He was given another unit of blood. Hemoglobin was 7.1-day before discharge. He was given 1 unit thereafter. Labs were not rechecked on day of discharge and family was okay with that. Discussed with family regarding checking blood counts going forward however family was okay with not checking and they understand that he has an active bleed at this time. Also discussed with them regarding follow-up with primary care doctor going forward. They would like to go home with hospice. Patient is DNR/DNI. [facility] will take over. Equipment has arrived at home. Patient is alert oriented x 4. Patient instructed to continue olanzapine, amiodarone, levothyroxine, omeprazole, as needed Lasix, ropinirole, carbamazepine. Acyclovir cephalexin alprazolam Lopressor Eliquis potassium have been stopped at this time. Patient will get another 2 days of Levaquin for presumed pneumonia and prednisone for another few days. Will continue midodrine at this time. Hospice company to take over for further management. Physical Exam Narrative: General: No acute distress, AO x 3 , chronically ill appearing, cachectic, temporal wasting. HEENT: PERRLA, pupils bilaterally equal and reactive, pallors not present Chest: Normal vesicular breath sounds, no added sounds, equal good air entry bilaterally CVS: S1-S2 regular, no murmurs, no tachycardia, no gallops, no rubs Abdomen: Soft, nontender,bowel sounds present Neuro: No focal deficits, no facial deformity Urinary Catheter Management: Latex Free: Cath Placed During This Visit: yes, but has since been removed by the nurse Reason for Continuing Indwelling Catheter: Other Urinary Catheter Date of Insertion: 03/15/24 Urinary Catheter Time of Insertion: 06:15 Date Urinary Catheter Removed: 03/14/24 Time Urinary Catheter Discontinued: 18:00 Discharge Data Studies Completed and Pending Completed Studies During Hospitalization Category Date Time Status CT abdomen pelvis wo con 07709 Routine Cat Scan 03/16/24 16:[address] chest abdomen pelvis [[place] [address]/68[address] Cat Scan 03/12/24 02:26 Completed ] Stat CT elbow LT wo con* 75934 Routine Cat Scan 03/13/24 19:[address] head wo con* 26901 Routine Cat Scan 03/15/24 13:[address] head wo con* 08730 Stat Cat Scan 03/14/24 21:06 Completed CXRP [XR chest 1V portable 07440] AM LABS Exams 03/16/24 04:00 Completed CXRP [XR chest 1V portable 10641] Routine Exams 03/16/24 09:14 Completed CXRP [XR chest 1V portable 00853] Stat Exams 03/14/24 20:24 Completed Modified barium swallow [FL barium swallow modifd 69199 Exams 03/12/24 04:10 Completed ] Routine XR shoulder RT 1V 04880 Routine Exams 03/14/24 15:36 [place] [address] Routine Ultrasound 03/12/24 03:16 Completed US carotid duplex bilateral [CV carotid duplex BI* Ultrasound 03/12/24 04:24 Completed 34812] Routine Pending at discharge Category Date Time Status GASTON Profile Rheumatology AM LABS Lab 03/13/24 07:59 Results Blood Culture AM LABS Lab 03/16/24 06:28 Results C.Diff PCR (Lab) Routine Lab 03/16/24 10:53 Uncollected Carbamazepine Free AM LABS Lab 03/13/24 07:59 Results Coccidioides AB CF Serum AM LABS Lab 03/13/24 07:59 Results Fecal Occult Blood [Immunochemical Fecal OCB] Routine Lab 03/13/24 14:26 Uncollected OVA and Parasites, Conc and PE Routine Lab 03/12/24 04:03 Uncollected PRBC [Leukocyte Reduced RBC] Routine Lab 03/16/24 15:08 Results Strongyloides Antibody (IgG) Routine Lab 03/14/24 05:17 Received Type and Screen Routine Lab 03/16/24 15:08 Results Pathology: Surgical [PTH] Routine Pth 03/13/24 17:28 Received Radiology Impressions Chest/Abdomen/Pelvis CT 03/12/24 02:26 IMPRESSION: Emphysema. No adenopathy seen. IMPRESSION: Chronic findings as described. No definite adenopathy appreciated. Modified Barium Swallow 03/12/24 04:10 IMPRESSION: Deep penetration with thin liquids and nectar consistency. No hakan aspiration. See speech therapy consultation for recommendations Elbow CT 03/13/24 19:08 IMPRESSION: Acute fractures of the capitellum and anterior radial head which may be secondary to a transient posterior dislocation. Shoulder X-Ray 03/14/24 15:36 Impression: 1. Negative for fracture. 2. Faint calcification over right greater tuberosity, possible calcific bursitis and/or tendinitis. Head CT 03/15/24 13:38 IMPRESSION: 1. No acute intracranial hemorrhage or edema. 2. Moderate cerebral and cerebellar atrophy with mild small vessel ischemic disease. 3. Stable noncontrast CT since 03/14/2024. Chest X-Ray 03/16/24 09:14 IMPRESSION: 1. Stable right lower lobe opacity. 2. New interval placement of right-sided PICC line with its distal tip in the mid SVC. Abdomen/Pelvis CT 03/16/24 16:00 IMPRESSION: 1. Findings compatible with large acute left retroperitoneal hematoma involving the iliopsoas musculature with extensive amount hemoperitoneum extending throughout the left pararenal and left paracolic gutter spaces. Interspersed high density suggests acute blood products however evaluation for active extravasation of contrast is limited without IV contrast. 2. Left pleural effusion with overlying compressive atelectasis. Right lower lobe consolidation suggesting some combination of atelectasis and/or pneumonia. Aspiration pneumonia/pneumonitis is a consideration. 3. Other chronic findings appear stable from prior exam. ADDENDUM: 03/16/24 0721 COMMENT: THIS REPORT CONTAINS FINDINGS THAT MAY BE CRITICAL TO PATIENT CARE. The exam findings were verbally communicated by me to NABOR GUZMAN via telephone conference at 5:48 PM CUSTOMER RETENTION REPRESENTATIVE on 03/16/2024. The findings were acknowledged and understood. Laboratory Results WBC 17.46 10^3/uL (3.29-11.43) H 03/17/24 05:22 RBC 2.44 10^6/uL (3.85-5.65) L 03/17/24 05:22 Hgb 7.10 g/dL (11.27-16.99) L 03/18/24 04:45 Hct 23.6 % (37-53) L 03/18/24 04:45 MCV 99.2 fl (82-101) 03/17/24 05:22 MCH 32.0 pg (27-33) 03/17/24 05:22 MCHC 32.2 g/dL (30-55) 03/17/24 05:22 RDW 18.7 % (12.1-15.1) H 03/17/24 05:22 Plt Count 165 10^3/cmm (157-399) 03/17/24 05:22 MPV 9.9 fL (7.4-10.4) 03/17/24 05:22 Neut % (Auto) 75.2 % 03/17/24 05:22 Lymph % (Auto) 10.6 % 03/17/24 05:22 Mcleod % (Auto) 12.7 % 03/17/24 05:22 Eos % (Auto) 0.2 % 03/17/24 05:22 Baso % (Auto) 0.1 % 03/17/24 05:22 Neut # (Auto) 13.13 10^3/uL (1.8-7.7) H 03/17/24 05:22 Lymph # (Auto) 1.9 10^3/uL (0.8-4.8) 03/17/24 05:22 Mcleod # (Auto) 2.2 10^3/uL (0.2-0.9) H 03/17/24 05:22 Eos # (Auto) 0.0 10^3/uL (0.0-0.8) 03/17/24 05:22 Baso # (Auto) 0.0 10^3/uL (0.0-0.1) 03/17/24 05:22 Nucleated RBC % (auto) 0.3 % 03/17/24 05:22 Nucleated RBCs # 0.1 /100WBC 03/17/24 05:22 Peripher Smr Path Cons Sent for review 03/12/24 01:59 PT 16.80 SECONDS (12.1-14.9) H 03/12/24 01:59 INR 1.28 (0.8-1.2) H 03/12/24 01:59 APTT 38.7 SECONDS (23.9-36.7) H 03/12/24 01:59 Specimen Type Arterial 03/15/24 13:25 Sample Site Radial, left 03/15/24 13:25 ABG pH 7.42 (7.35-7.45) 03/15/24 13:25 ABG pCO2 30.1 mmHg (35-45) L 03/15/24 13:25 ABG pO2 154.0 mmHg (80.0-100.0) H 03/15/24 13:25 ABG HCO3 19.4 mmol/L (22-26) L 03/15/24 13:25 ABG O2 Saturation 94.1 03/14/24 21:53 ABG Base Excess -4.5 mmol/L (-2.0-2.0) L 03/15/24 13:25 De Test Pos 03/15/24 13:25 A-a O2 Gradient 5.4 mmHg (5-10) 03/14/24 21:53 Hematocrit 23.9 % (42-52) L 03/15/24 13:25 Hgb O2 Saturation 91.8 % (95-100) L 03/14/24 21:53 Carboxyhemoglobin 1.2 %THgb (0.4-20.1) 03/14/24 21:53 Methemoglobin 1.3 % (0.4-1.5) 03/14/24 21:53 Total Hemoglobin 9.0 g/dL (14-18) L 03/14/24 21:53 Sodium 147.0 mmol/L (131-143) H 03/14/24 21:53 Potassium 4.3 mmol/L (3.5-5.0) 03/14/24 21:53 Glucose 73.0 mg/dL (70-115) 03/14/24 21:53 Ionized Calcium 1.3 mmol/L (1.1-1.4) 03/14/24 21:53 O2 Delivery Device Oxy mask 03/15/24 13:25 O2 Liters/Min 15.0 % 03/15/24 13:25 Flue Tile Press Operator ID Broma 03/15/24 13:25 Sodium 144 mmol/L (136-145) 03/17/24 05:22 Potassium 4.4 mmol/L (3.5-5.1) 03/17/24 05:22 Chloride 111 mmol/L (98-107) H 03/17/24 05:22 Carbon Dioxide 22 mmol/L (22-29) 03/17/24 05:22 Anion Gap 15.4 (5-19) 03/17/24 05:22 BUN 33 mg/dL (8-23) H 03/17/24 05:22 Creatinine 1.5 mg/dL (0.7-1.2) H 03/17/24 05:22 GFR Calculation Not Reportable 03/17/24 05:22 Glucose 124 mg/dL (65-115) H 03/17/24 05:22 POC Glucose 191 mg/dL (70-110) H 03/17/24 11:58 Calculated Osmolality 307 mOsm/kg (285-295) H 03/17/24 05:22 Lactate 3.9 mmol/L (0.5-2.2) H 03/15/24 14:16 Calcium 8.0 mg/dL (8.5-10.5) L 03/17/24 05:22 Phosphorus 4.8 mg/dL (2.5-4.5) H 03/12/24 01:59 Magnesium 2.2 mg/dL (1.7-2.3) 03/16/24 04:42 Iron 55 ug/dL (59-158) L 03/14/24 05:17 Ferritin 294 ng/mL (30-400) 03/14/24 05:17 Total Bilirubin 1.1 mg/dL (0.15-1.2) 03/17/24 05:22 Direct Bilirubin 0.20 mg/dL (0.00-0.30) 03/12/24 01:59 AST 68 U/L (0-40) H 03/17/24 05:22 ALT 30 U/L (0-41) 03/17/24 05:22 Alkaline Phosphatase 82 U/L (40-130) 03/17/24 05:22 Troponin T 5th Gen ng/L 71 ng/L (0-15) H 03/13/24 07:53 Troponin T Baseline 68 ng/L (0-15) H 03/15/24 14:16 Troponin T 120 Minute 67.88 ng/L (0-15) H 03/15/24 16:36 Delta Troponin T -0.12 ABS# (0-10) L 03/15/24 16:36 Troponin T Hi Sens 6Hr 63.46 ng/L (0-15) H 03/15/24 20:05 Troponin T Hi Sens 6Hr Delta -4.54 ng/L (0-12) L 03/15/24 20:05 NT-Pro-B Natriuret Pep 7264 pg/mL (0-450) H 03/16/24 04:42 Total Protein 4.6 g/dL (6.6-8.7) L 03/17/24 05:22 Albumin 2.8 g/dL (3.5-5.2) L 03/17/24 05:22 Globulin 1.8 g/dL (1.3-4.6) 03/17/24 05:22 Vitamin B12 574 pg/mL (232-1245) 03/14/24 05:17 Folate 10.5 ng/mL (4.5-32.2) 03/14/24 05:17 Procalcitonin 0.16 ng/mL (0-0.5) 03/16/24 04:42 Urine Color Yellow (Yellow) 03/15/24 23:35 Urine Appearance Clear (CLEAR) 03/15/24 23:35 Urine pH 5.0 (5-7) 03/15/24 23:35 Ur Specific [place] 1.020 (1.005-1.030) 03/15/24 23:35 Urine Protein Negative (Negative) 03/15/24 23:35 Urine Glucose (UA) Negative (Normal) 03/15/24 23:35 Urine Ketones Negative (Negative) 03/15/24 23:35 Urine Blood 1+ (Negative) A 03/15/24 23:35 Urine Nitrate Negative (Negative) 03/15/24 23:35 Urine Bilirubin Negative (Negative) 03/15/24 23:35 Urine Urobilinogen 1.0 mg/dL (Negative) 03/15/24 23:35 Ur Leukocyte Esterase Trace (Negative) A 03/15/24 23:35 Urine RBC 6-10 /hpf (0-2) 03/15/24 23:35 Urine WBC 0-5 /hpf (0-5) 03/15/24 23:35 Ur Squamous Epith Cells 0-5 /hpf (0-5) 03/15/24 23:35 Amorphous Sediment Not Reportable 03/15/24 23:35 Urine Bacteria None seen /hpf (NONE) 03/15/24 23:35 Hyaline Casts 3.71 /lpf 03/15/24 23:35 Free Carbamazepine <0.2 mcg/mL (1.0-3.0) L 03/13/24 07:59 GASTON IFA Animal Tis Res Negative (NEGATIVE) 03/13/24 07:59 ANCA Screen Negative (NEGATIVE) 03/12/24 01:59 ANCA Titer Not Reportable 03/12/24 01:59 ISAMAR-1 Antibody <1.0 neg AI (<1.0 NEG) 03/13/24 07:59 SS-A Antibody <1.0 neg AI (<1.0 NEG) 03/13/24 07:59 SS-B Antibody <1.0 neg AI (<1.0 NEG) 03/13/24 07:59 Sm (Andrade) Antibody <1.0 neg AI (<1.0 NEG) 03/13/24 07:59 TUG BOAT ENGINEER Antibody <1.0 neg AI (<1.0 NEG) 03/13/24 07:59 Scl-70 Antibody <1.0 neg AI (<1.0 NEG) 03/13/24 07:59 Anti-ds DNA IgG (Crith) Negative (NEGATIVE) 03/13/24 07:59 Centromere B Antibody <1.0 neg AI (<1.0 NEG) 03/13/24 07:59 Complement C3c 95 mg/dL 03/13/24 07:59 Complement C4c 22 mg/dL 03/13/24 07:59 CH50 Classical Pathway >60 U/mL (31-60) H 03/13/24 07:59 RPR w/Rflx to Titer Non-reactive (NON-REACTIVE) 03/12/24 01:59 Adenovirus (PCR) Not detected (NOT DETECT) 03/13/24 14:30 C. pneumoniae DNA (PCR) Not detected (NOT DETECT) 03/13/24 14:30 Coronavirus 229E (PCR) Not detected (NOT DETECT) 03/13/24 14:30 U Histop Galact Ag Qnt <0.2 ng/mL 03/12/24 01:30 HIV-1 Antibody Not Reportable 03/12/24 01:59 HIV-1 DNA/RNA Qual PCR Not Reportable 03/12/24 01:59 HIV-2 Antibody Not Reportable 03/12/24 01:59 HIV 1&2 Ag/Ab, 4th Gen Non-reactive (NON-REACTIVE) 03/12/24 01:59 Human Metapneumovir PCR Not detected (NOT DETECT) 03/13/24 14:30 Influenza A (H1) PCR Not detected (NOT DETECT) 03/13/24 14:30 Influ A (H1/09) PCR Not detected (NOT DETECT) 03/13/24 14:30 Influenza A (H3) PCR Not detected (NOT DETECT) 03/13/24 14:30 Influenza Type A (PCR) Not detected (NOT DETECT) 03/13/24 14:30 Influenza Type B (PCR) Not detected (NOT DETECT) 03/13/24 14:30 M. pneumoniae (PCR) Not detected (NOT DETECT) 03/13/24 14:30 Parainfluenza 1 (PCR) Not detected (NOT DETECT) 03/13/24 14:30 Parainfluenza 2 (PCR) Not detected (NOT DETECT) 03/13/24 14:30 Parainfluenza 3 (PCR) Not detected (NOT DETECT) 03/13/24 14:30 Parainfluenza 4 (PCR) Not detected (NOT DETECT) 03/13/24 14:30 RSV Type A (PCR) Not detected (NOT DETECT) 03/13/24 14:30 RSV Type B (PCR) Not detected (NOT DETECT) 03/13/24 14:30 Entero/Rhino (PCR) Not detected (NOT DETECT) 03/13/24 14:30 SARS-CoV-2 (PCR) Not detected (NOT DETECT) 03/13/24 14:30 Misc Test Reference Cancelled 03/14/24 05:17 Blood Type O Positive 03/16/24 15:08 Rho(D) Type Rh positive 03/16/24 15:08 Antibody Screen Negative 03/16/24 15:08 Crossmatch See Detail 03/16/24 15:08 Vitals Last Vital Signs Temp 98.7 F 03/19/24 07:21 Pulse 62 03/19/24 07:21 Resp 20 H 03/19/24 07:21 BP 114/51 03/19/24 07:21 Pulse Ox 92 03/19/24 07:21 O2 Del Method Nasal Cannula 03/19/24 07:21 O2 Flow Rate 2 03/19/24 02:00 FiO2 21 03/14/24 13:13 Discharge Plan Discharge Patient Disposition: Hospice - Home Condition: Stable Prescriptions: New amiodarone [Pacerone] 200 mg Tablet 400 mg PO DAILY Qty: 30 0RF olanzapine 5 mg Tablet,Disintegrating 2.5 mg PO BEDTIME Qty: 30 0RF prednisone 20 mg Tablet See Rx Instructions .ROUTE .COMPLEX Qty: 7 0RF Rx Instructions: 40 mg x 2d 20 mg x2d 10 mg x2d midodrine 5 mg Tablet 10 mg PO TID Qty: 30 0RF gabapentin 100 mg Capsule 100 mg PO TID Qty: 60 0RF levofloxacin 750 mg tablet 750 mg PO DAILY 5 Days Qty: 2 0RF Continued levothyroxine 75 mcg tablet 75 mcg PO DAILY omeprazole 20 mg capsule,delayed release(DR/EC) 20 mg PO QAM furosemide 40 mg tablet 40 mg PO DAILY PRN (Reason: Edema) Qty: 1 0RF ferrous sulfate 325 mg (65 mg iron) tablet 325 mg PO EVERY OTHER DAY Qty: 90 0RF ondansetron 4 mg Tablet,Disintegrating 4 mg PO Q8H PRN (Reason: Nausea And Vomiting) ropinirole 2 mg tablet 4 mg PO BEDTIME lactulose [Constulose] 10 gram/15 mL solution 30 ml PO DAILY carbamazepine 200 mg tablet extended release 12 hr 100 mg PO BID Held hydromorphone 4 mg Tablet 2 mg PO Q6H PRN (Reason: Moderate To Severe Pain) Qty: 10 0RF Hold Instructions: hospice to take over Discontinued elderberry fruit 350 mg Capsule 350 mg PO DAILY potassium chloride 20 mEq tablet,ER particles/crystals 20 meq PO DAILY PRN (Reason: Edema) Qty: 1 0RF Rx Instructions: With lasix Eliquis 2.5 mg tablet 2.5 mg PO BID Qty: 30 0RF metoprolol tartrate 25 mg tablet 25 mg PO BID alprazolam 0.25 mg tablet 0.25 mg PO BID PRN (Reason: Anxiety) cephalexin 500 mg capsule 500 mg PO BID acyclovir 800 mg tablet 800 mg PO DAILY Discharge Orders: Discharge Order (Routine); Ordered 03/19/24 Ordered By: Ashley Coy Referrals: [facility] [Outside] Hermelinda Cartwright DO [Physician] - 7-10 days (DRESS syndrome) Tay Newberry DO [Physician] - (R shoulder bursitis and left elbow fracture) Discharge Diet: Usual diet Discharge Activity: Resume usual activity Patient Instructions: Prednisone (By mouth), Amiodarone (By mouth), Midodrine (By mouth), Olanzapine (By mouth), Hospice Care (GEN) Activity Restrictions/Additional Instructions: Follow-up orthopedic clinic in 2 weeks. Sling for comfort Nonweightbearing left upper extremity Discharge Attestations Time Spent in Discharge Care*: greater than 30 min Quality Metrics Clinical Quality Measures [ No reported AMI, CVA or VTE this stay] Coding Level of Care Code Acute Code for Chg Fwd Diagnoses Eosinophilia D72.10 DRESS syndrome D72.12; T50.905A Hypotension I95.9 LASHAWN (acute kidney injury) N17.9 Atrial fibrillation I48.91 Closed fracture of left elbow, initial encounter S42.402A Encounter type: initial encounter Fracture type: closed Restless leg syndrome G25.81 COPD exacerbation J44.1 Elevated troponin R79.89
[2024-03-19] MEDS: budesonide 0.5 mg/2 mL Neb INHALATION (09:29)
[2024-03-19] MEDS: levothyroxine 75 mcg Tablet PO (09:32)
[2024-03-19] MEDS: gabapentin 100 mg Capsule PO (09:32)
[2024-03-19] MEDS: sennosides 8.6 mg Tablet 17.2 MG PO (09:32)
[2024-03-19] MEDS: midodrine 5 mg TABLET 10 MG PO (09:33)
[2024-03-19] MEDS: predniSONE 20 mg Tablet 40 MG PO (09:33)
[2024-03-19] MEDS: guaiFENesin 600 mg Tablet PO (09:33)
[2024-03-19] MEDS: amiodarone 200 mg Tablet 400 MG PO (09:33)
[2024-03-19] MEDS: polyethylene glycol 3350 Pkt 17 gm PO (09:33)
[2024-03-19] MEDS: linezolid 600 mg Tablet PO (09:37)
[2024-03-19] MEDS: artificial tears Op Soln 15 mL Btl 1 DROP EYE-BOTH (09:38)
[2024-03-19] MEDS: pantoprazole 40 mg SDV IVP (09:38)
[2024-03-19] MEDS: lanolin oint 7 gm 1 APPLIC TOPICAL (09:39)
[2024-03-19] MEDS: saliva stimulant spray 30 mL Btl 1 SPRAY MUCOUS MEM (09:39)
[2024-03-19] MEDS: eucerin cream 113 gm Jar 1 APPLIC TOPICAL (09:39)
[2024-03-19] MEDS: meropenem 1,000 MG in sodium chloride 0.9% (plus) 50 ML 100 MG IV (11:34)
[2024-03-19 11:40] VITALS: BP 121/57; PULSE 70; RESP 16; TEMP 36.5; O2SAT 97
[2024-03-19 14:56] VITALS: BP 121/57; PULSE 70; RESP 16; TEMP 525; TEMP 977; O2SAT 97
[2024-03-19 19:50] LABS: Strongyloides Antibody (IgG) NEGATIVE
[2024-03-20 16:24] LABS: THYROID PEROXIDASE ANTIBODIES <1 IU/mL (<9)
[2024-03-21 17:24] LABS: Coccidioides AB CF Serum <1:2
== END 2024-03-19 14:57 | disposition hospice, home (50) | DRG 814 ==
LOC: ICU 03-12 09:29 → MEDSURG 03-12 19:58 → ICU 03-15 14:10 → MEDSURG 03-17 19:35
PROVIDERS: Student in an Organized Health Care Education/Training Program; Admitting Provider Internal Medicine; Visit Provider Internal Medicine
DX: D72.12 Drug rash with eosinophilia and systemic symptoms syndrome (principal); E43 Unspecified severe protein-calorie malnutrition; J18.9 Pneumonia, unspecified organism; K66.1 Hemoperitoneum; N17.9 Acute kidney failure, unspecified; J44.0 Chronic obstructive pulmonary disease with (acute) lower respiratory infection; J44.1 Chronic obstructive pulmonary disease with (acute) exacerbation; Z68.1 Body mass index [BMI] 19.9 or less, adult; I24.89 Other forms of acute ischemic heart disease; F05 Delirium due to known physiological condition; Y92.9 Unspecified place or not applicable; I95.9 Hypotension, unspecified; I48.0 Paroxysmal atrial fibrillation; S52.122A Displaced fracture of head of left radius, initial encounter for closed fracture; W19.XXXA Unspecified fall, initial encounter; G25.81 Restless legs syndrome; Z87.01 Personal history of pneumonia (recurrent); G47.33 Obstructive sleep apnea (adult) (pediatric); K21.9 Gastro-esophageal reflux disease without esophagitis; G40.909 Epilepsy, unspecified, not intractable, without status epilepticus; G62.9 Polyneuropathy, unspecified; F41.9 Anxiety disorder, unspecified; N40.0 Benign prostatic hyperplasia without lower urinary tract symptoms; E03.9 Hypothyroidism, unspecified; G89.29 Other chronic pain; Z51.5 Encounter for palliative care; R13.10 Dysphagia, unspecified; X58.XXXA Exposure to other specified factors, initial encounter; D64.9 Anemia, unspecified; T50.905A Adverse effect of unspecified drugs, medicaments and biological substances, initial encounter; Z95.0 Presence of cardiac pacemaker; Z87.891 Personal history of nicotine dependence
CPT/HCPCS: 36415; 36416; 36430; 36573; 36592; 36600; 51702; 70450; 71045; 71250; 73020; 73200; 74176; 74230; 80048; 80051; 80053; 80076; 80157; 80503; 81001; 82330; 82607; 82728; 82746; 82803; 82805; 82962; 83540; 83605; 83735; 83880; 84100; 84145; 84484; 85014; 85018; 85025; 85610; 85730; 86036; 86160; 86162; 86235; 86255; 86376; 86592; 86635; 86682; 86850; 86900; 86920; 87040; 87086; 87385; 87389; 87486; 87581; 87633; 88305; 88312; 92611; 93005; 93880; 93971; 94640; 94664; 96372; 96374; 96376; 97116; 97161; 97167; 97530; 97535; A4222; C1751; J0283; J1630; J1650; J1815; J2060; J2185; J2405; J2470; J2919; J7030; J7040; J7070; J7512; J7626; P9016; Q0163